=== PATIENT | female | born 1935 | race Caucasian/White ===

== ENCOUNTER → 2016-08-09 | Outpatient (CLI) | payer MEDICARE, BC ==
[2016-08-09 19:51] LABS: ANA w/Reflex to Titer NEGATIVE (NEGATIVE)
[2016-08-09 21:38] LABS: Hemoglobin A1C 5.7 % (4.2-6.1)
[2016-08-10 03:57] LABS: Lyme Antibodies Total(IgG/IgM) 0.09 (<0.90)
== END | disposition home or self-care (01) ==
LOC: LABWHC1 14:28
PROVIDERS: ATTEND Psychiatry & Neurology Neurology
DX: G62.9 Polyneuropathy, unspecified (principal)
CPT/HCPCS: 36415; 82306; 82607; 83036; 84207; 84439; 84443; 85652; 86038; 86618

== ENCOUNTER → 2016-10-17 | Outpatient (CLI) | payer MEDICARE, BC ==
[2016-10-17 13:22] LABS: Appearance,Urine Cloudy (Clear); Bilirubin,Urine Negative (Negative); Calcium Oxalate Crystals,Urine Many /hpf; Glucose,Urine (UA) Negative (Negative); Ketones,Urine Negative (Negative); Leukocyte Esterase,Urine Negative (Negative); Mucus,Urine Rare /hpf; Nitrite,Urine Negative (Negative); PH, Urine 5.5 (5.0-8.0); Particle Count 2892; Protein,Urine Trace (Negative); Specific Gravity,Urine 1.019 (1.001-1.035); Squamous Epithelial Cell,Urine <1 /hpf (0-4); UA Billing (MACRO vs. MICRO) MICRO
--- NOTE | 2016-10-17 22:56 | WWHP ---
DATE OF DICTATION: 10/17/2016 CHIEF COMPLAINT: The patient is here for her routine gynecologic exam. HISTORY OF PRESENT ILLNESS: This is an 81-year-old with an LMP of 1986. She states it has been more than about 2 years since her last pelvic exam. She states that she has been having problems with her bladder at night. She states when she lies down she has discomfort in her bladder like she has to urinate. She ends up urinating about 4 to 5 times per night. She denies dysuria and does urinate fairly often during the day, but the problem is mostly at night. This has been going on for about [address] Stacy about this. Apparently an ultrasound was done, but nothing was found, according to the patient. She also had a CT scan done which was also apparently unremarkable. She is otherwise without complaints. She denies any postmenopausal bleeding. PAST MEDICAL HISTORY: 1. Esophageal and stomach cancer in 2005. 2. History of depression and anxiety. 3. Arthritis. Dr. Nair is her psychiatrist and Dr. Joiner is her primary care physician. MEDICATIONS: 1. Donepezil 10 mg b.i.d. 2. Clonazepam 0.5 mg p.r.n. 3. Zoloft 100 mg daily. 4. Aleve p.r.n. 5. Centrum vitamin daily. 6. Vitamin D supplement daily. 7. Vitamin B supplement daily. ALLERGIES: CODEINE, which causes an unknown reaction. PAST SURGICAL HISTORY: 1. Partial gastrectomy with part of the esophagus being removed as well in 2005. 2. 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 3. Rectal surgery for prolapse in the past. 4. Hemorrhoidectomy and colonoscopy in 2014. She states she has had several colonoscopies in the past. PAST OB HISTORY: Three vaginal deliveries. 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 SOCIAL HISTORY: She quit smoking in 1999. She has about 0 to 2 alcoholic drinks per week and denies drug use. She has been since 1964. She likes to [employer]. FAMILY HISTORY: Sister had ovarian cancer and daughter had colon cancer. REVIEW OF SYSTEMS: Weight has been stable. She denies respiratory or cardiac problems. GI: She burps with certain types of foods and also occasionally has some problems with hemorrhoids. She denies maltreatment or falling. She also denies problems with urinary incontinence. PHYSICAL EXAM: Blood pressure 150/84. Height 5 feet 0 inches. Weight 91 pounds. Temperature 98.0. Pulse 71. This is a well-developed, well-nourished white female who is alert and oriented x3, in no acute distress. HEENT is within normal limits. NECK: Supple without mass or thyromegaly. CHEST AND LUNGS: Clear to auscultation. HEART: Regular rate and rhythm. Breasts are without mass or discharge. Axillary exam is negative for adenopathy. BACK: Negative for CVA tenderness. ABDOMEN: Soft, nontender, without palpable masses. The abdomen is non-distended. PELVIC EXAM: External genitalia reveal moderate atrophy without lesions. Cervix and vagina reveal mild to moderate atrophy without lesions. There is a grade 1 cystocele noted at rest and a grade 2 cystocele noted with Valsalva. There is no evidence of uterine prolapse. No significant rectocele is noted. The uterus is midposition, nongravid size and nontender. There are no palpable adnexal masses or tenderness. There is mild tenderness with palpation of the bladder; she states it feels like she has to urinate when I push on the bladder. Rectovaginal exam is negative for mass or tenderness and is negative for occult blood. EXTREMITIES: Nontender. IMPRESSION: 1. An 81-year-old menopausal female with a small cystocele and otherwise unremarkable gynecologic exam. 2. Nocturia with urinary urgency and bladder discomfort when she lies down at night. At this time, I doubt that the small cystocele is the cause for this. Differential diagnosis will include overactive bladder and urinary tract infection. PLAN: 1. Pap smear was performed. 2. Self breast examination was discussed. 3. Mammogram is due and I have also recommended bone density testing, since she has never had this done. A slip for both of these tests was given to the patient, and she will schedule this. 4. UA and C&S were obtained by clean-catch midstream specimen. If this unremarkable, we can consider treatment for overactive bladder to see if this helps with her nighttime symptoms. 5. We have discussed the cystocele, and I do not feel anything needs to be done about this at this time. 6. She will return in one year.
--- NOTE | 2016-10-24 20:39 | WWPLE ---
October 24, 2016 RE: Zulma Camilo Dear Dr. Joiner, I had the pleasure of seeing your patient Zulma Camilo in the office on 10/17/16. As you know she is an 81-year-old menopausal female who presented to me for her routine gynecologic exam. She was complaining of some bladder pains which she notices mostly at night when she lies down. She also has had nocturia and urinates about 4 to 5 times every night. She occasionally has these bladder pains during the day as well. Urinalysis did not show signs of infection and was negative for blood. It did show some calcium oxalate crystals. Her urine culture was negative. I did offer her a trial of a prescription for an overactive bladder to see if this would help with her symptoms. She states she would like to see a urologist regarding these bladder pains. She will be referred to one of the local urologists for this. Her Pap smear was negative. I have recommended mammogram and bone density screening, which she has never had done in the past. Order slips were given to the patient for these. Thank you for allowing me to participate in the care of your patient. Please do not hesitate to call if you have any questions. Sincerely, Leroy Piedra M.D. KENNY
== END ==
LOC: WWCWWP 10:24
PROVIDERS: ATTEND Obstetrics & Gynecology
DX: Z01.419 Encounter for gynecological examination (general) (routine) without abnormal findings (principal); R35.1 Nocturia; R39.15 Urgency of urination
CPT/HCPCS: 81001; 87086

== ENCOUNTER → 2016-11-10 | Outpatient (CLI) | payer MEDICARE, BC ==
--- NOTE | 2016-11-10 13:48 | BD ---
EXAMINATION TYPE: MG DEXA axial skeleton. DATE OF EXAM: 11/10/2016 1:25 PM COMPARISON: NONE CLINICAL HISTORY: Height: 59 Weight: 90.2 FRAX RISK QUESTIONS: Alcohol (3 or more units per day): no Family History (Parent hip fracture): no Glucocorticoids (More than 3mos): no (Ex: prednisone, prednisolone, methylprednisolone, dexamethasone, and hydrocortisone). History of Fracture in Adulthood: no Secondary Osteoporosis: 1. Type 1 Diabetes: no 2. Hyperthyroidism: no 3. Menopause before 45: no 4. Malnutrition: no 5. Chronic liver disease: no Rheumatoid Arthritis: no Current Tobacco Use: no RISK FACTORS HISTORY OF: Hip Fracture (Right/Left): no Spine Fracture: no History of Wrist Fracture: no Surgery to Spine/Hip(right/left)/Wrist (right/left): no Family History of Osteoporosis: no Active: yes Diet low in dairy products/other sources of calcium: yes Postmenopausal woman: age 46 Lost more than 2 inches in height since high school: yes Frequent falls: no Poor Health: no Adrenal Insufficiency: no MEDICATIONS: Additional History: history of cancer esophagus /colon EXAM MEASUREMENTS: Bone mineral densitometry was performed using the [place] System. Bone mineral density as measured about the Lumbar spine is: ----- L1-L4(G/cm2): 0.841 T Score Values are as follows: ----- L2: -3.2 ----- L3: -1.5 ----- L4: -3.1 ----- L1-L4: -2.8 Bone mineral density has: decreased-0.6 % since study of: 09.08.2008 Bone mineral density about the R hip (g/cm2):0 .529 Bone mineral density about the L hip (g/cm2): 0.565 T Score values are as follows: -----R Neck: -3.4 -----L Neck: -3.7 -----R Intertrochanter: -4.1 -----L Intertrochanter: -3.8 Bone mineral density has: decreased -10.4 % since study of: 09.08.2008 IMPRESSION: OSTEOPOROSIS MAJOR OSTEOPOROTIC FRACTURE RISK: 27.0% HIP FRACTURE RISK: 14.0% NOTE: T-SCORE=SD OF THE YOUNG ADULT MEAN.
== END | disposition home or self-care (01) ==
LOC: RADBDWWP 13:02
PROVIDERS: ATTEND Obstetrics & Gynecology
DX: M81.0 Age-related osteoporosis without current pathological fracture (principal)
CPT/HCPCS: 77080

== ENCOUNTER → 2016-11-30 | Outpatient (CLI) | payer MEDICARE, BC ==
[~2016-11-30] MED LIST: DENOSUMAB 60 MG/ML 1 ML SYRINGE SQ ONE
[2016-11-30 14:07] VITALS: BP 146/72; PULSE 80; RESP 16; TEMP 97.6
== END | disposition home or self-care (01) ==
LOC: PROCWHC3 13:29
PROVIDERS: ATTEND Internal Medicine
DX: M81.0 Age-related osteoporosis without current pathological fracture (principal)
CPT/HCPCS: 96372; J0897

== ENCOUNTER → 2017-03-15 | Outpatient (CLI) | payer MEDICARE, BC ==
--- NOTE | 2017-03-20 07:04 | ENG ---
VNG REPORT DATE OF SERVICE: 03/15/2017 VNG indications are dizziness of multiple types starting about 1 year ago, sudden onset and has been staying the same. Occurs every few hours and lasts a few seconds at a time. Occurs in all of the different positional changes listed. The patient denies any hearing loss, pressure in the ears or tinnitus. VNG FINDINGS: Saccades show intact peak velocities, accuracies and latencies. Gaze with fixation shows no nystagmus in any of the directions of gaze including centrally with vision denied. Tracking is borderline for breakups. Optokinetic nystagmus shows no significant asymmetry. Static position testing in 6 positions shows no nystagmus with eyes opened or with vision denied. [place]-Hallpike maneuvers are unable to be performed due to neck mobility and pain issues. Caloric testing shows a 14% unilateral left caloric weakness, which is within normal limits. Directional preponderance 24% left and fixation index is negative. IMPRESSIONS: Essentially unremarkable VNG study. Borderline breakups may suggest mild central nervous system abnormality. Clinical correlation advised. KENNY
== END | disposition home or self-care (01) ==
LOC: NEUROMAIN 06:27
PROVIDERS: ATTEND Psychiatry & Neurology Neurology
DX: R42 Dizziness and giddiness (principal)
CPT/HCPCS: 92537; 92540

== ENCOUNTER → 2017-06-12 | Outpatient (CLI) | payer MEDICARE, BC ==
[2017-06-12 14:05] VITALS: BP 162/70; PULSE 64; RESP 16; TEMP 97.8
== END | disposition home or self-care (01) ==
LOC: PROCWHC3 13:08
PROVIDERS: ATTEND Internal Medicine
DX: M81.0 Age-related osteoporosis without current pathological fracture (principal)
CPT/HCPCS: 96372; J0897

== ENCOUNTER → 2017-08-29 | Outpatient (CLI) | payer MEDICARE, BC ==
--- NOTE | 2017-08-29 22:05 | MR ---
EXAMINATION TYPE: MR lumbar spine wo con DATE OF EXAM: 08/29/2017 COMPARISON: NONE HISTORY: 81-year-old female with low back pain, rt hip pain TECHNIQUE: Multiplanar, multisequence images of the lumbar spine were acquired. Findings: Vertebral body heights are preserved and alignment is maintained. Multilevel mild facet arthropathy is present. Variable disc desiccation throughout. Mild bulging discs are also present throughout. Posterior annul ar fissure at L5-S1. There is more advanced moderate severe degenerative disc disease at L2-L3 with associated Modic type I edematous endplate change. No suspicious bone marrow replacement. Conus medullaris is normal. At T12-L1, there is a small central disc protrusion without significant canal or foraminal stenosis. At L1-L2, there is a tiny central disc protrusion without significant canal or foraminal stenosis. At L2-L3, there is a large diffuse disc bulge with superimposed broad-based posterior disc protrusion . She noted moderate to severe spinal canal stenosis. Along with facet arthropathy, there is mild lef t and moderate right neural foraminal stenosis. At L3-L4, diffuse disc bulge with ligamentum flavum thickening and facet arthropathy. Changes result in mild spinal canal stenosis and minimal inferior left neural foraminal narrowing. At L4-L5, mild facet degenerative change without canal or foraminal stenosis. At L5-S1, small central disc protrusion with annular fissure. Mild facet degenerative change. No diane l or foraminal stenosis. Partially visualized 1.9 cm cyst in the central liver. 2.5 cm cyst medial left kidney. No prevertebra l or paravertebral soft tissue abnormality. IMPRESSION: 1. Mild to moderate degenerative disc disease. Additional scattered facet arthropathy. 2. More moderate to advanced degenerative disc disease at L2-L3 with associated edematous Modic type I endplate changes. There is a broad-based disc herniation here which contributes to moderate to pauline re spinal canal stenosis and a moderate right neuroforaminal stenosis. 3. Overall mild spinal canal stenosis at L3-L4. 4. Posterior annular fissure at L5-S1.
== END | disposition home or self-care (01) ==
LOC: RADMRIMAIN 10:19
PROVIDERS: ATTEND Orthopaedic Surgery
DX: M48.061 Spinal stenosis, lumbar region without neurogenic claudication (principal); M99.73 Connective tissue and disc stenosis of intervertebral foramina of lumbar region; M51.26 Other intervertebral disc displacement, lumbar region; M51.36 Other intervertebral disc degeneration, lumbar region; M46.86 Other specified inflammatory spondylopathies, lumbar region
CPT/HCPCS: 72148

== ENCOUNTER → 2017-09-18 | Outpatient (CLI) | payer MEDICARE, BC ==
--- NOTE | 2017-09-18 08:53 | MR ---
EXAMINATION TYPE: MR hip RT wo con DATE OF EXAM: 09/18/2017 COMPARISON: Outside two-view right hip August 15, 2017 HISTORY: Right hip pain per order. Pain for couple years without good response from physical therapy per patient. Standard multiplanar, multisequence MRI departmental protocol Multiplanar, multisequence images of the pelvis focusing on right hip were acquired. FINDINGS: Bone marrow signal intensity in pelvis including area of concern in right hip is maintained without suspicious edema identified. No linear low T1 signal to suggest avascular necrosis is seen. Femoral head shapes are maintained bilaterally. There is symmetric fairly moderate axial joint space loss in both hips. No significant acetabular spurring or geode formation is identified. There are sma ll to moderate-sized hip joint effusions, right greater than left present. No significant fluid signal seen at level of greater or lesser trochanters bilaterally. No suspicious groin hernias are identified. No suspicious groin adenopathy is seen. Muscle bulk is symmetric and m aintained. Labrum is irregular and there is fluid undercutting labral chondral junction. There is prominence of fecal material in visualized cecum. Some diverticula are seen in the sigmoid c olon. IMPRESSION: Right hip labral tear identified. Fairly moderate symmetric joint space loss in both hips noted. Smal l to moderate right greater than left hip joint effusions.
== END | disposition home or self-care (01) ==
LOC: RADMRIMAIN 07:06
PROVIDERS: ATTEND Orthopaedic Surgery
DX: S73.101A Unspecified sprain of right hip, initial encounter (principal)

== ENCOUNTER → 2017-10-09 | Outpatient (CLI) | payer MEDICARE, BC ==
[2017-10-05 14:33] VITALS: BMI 19.3
[2017-10-09 12:27] VITALS: BP 111/66; PULSE 80; RESP 18
--- NOTE | 2017-10-09 13:17 | P.CONS ---
History of Present Illness - Reason for Consult Consult date: 10/09/17 - Chief Complaint Right hip and thigh pain - History of Present Illness This is an 82-year-old female with chronic history of right hip and thigh pain that has been getting worse lately. The pain gets worse when she sleeps on her right side however standing and walking do not cause significant pain. Lately she has been noticing loss of balance occasionally. The pain does not wake the patient up at night. She denies any weight loss recently. She tried and failed to respond to physical therapy. She feels numbness and tingling in the right thigh anteriorly and laterally. The pain now radiates down the right groin. She denies any bowel or bladder dysfunction. She also denies any weakness in the right lower extremity. She had esophagectomy due to esophageal cancer 12 years ago, which left her with severe acid reflux disease. The patient had an MRI on the lumbar spine which showed large diffuse disc bulge at L2-L3 level causing moderate to severe spinal canal stenosis, she also had an MRI on the right hip joint which showed labral tear and moderate loss of joint space. Review of Systems Constitutional: Reports chronic pain Eyes: denies blurred vision, denies pain Ears, nose, mouth and throat: Denies as per HPI, Denies ant. neck pain, Denies bleeding gums, Denies dental pain, Denies dysphagia, Denies epistaxis, Denies headache, Denies hoarseness, Denies mouth pain, Denies nasal congestion, Denies nasal discharge, Denies neck fullness/pressure, Denies neck lump, Denies nose pain, Denies odynophagia, Denies post-nasal drip, Denies sinus pain, Denies sinus pressure, Denies swelling in mouth, Denies swelling in throat, Denies sore throat, Denies vertigo, Denies voice changes Cardiovascular: Denies as per HPI, Denies chest pain, Denies claudication, Denies decreased exercise tolerance, Denies dyspnea on exertion, Denies edema, Denies high blood pressure, Denies irregular heart beat, Denies leg edema, Denies lightheadedness, Denies orthopnea, Denies palpitations, Denies paroxysmal nocturnal dyspnea, Denies phlebitis, Denies rapid heart beat, Denies shortness of breath, Denies syncope Respiratory: Denies as per HPI, Denies congestion, Denies cough, Denies cough with sputum, Denies dyspnea, Denies excessive sputum, Denies hemoptysis, Denies home oxygen, Denies pain, Denies pain on inspiration, Denies pleurisy, Denies respiratory infections, Denies sleep apnea, Denies snoring, Denies wheezing Gastrointestinal: Reports heartburn Musculoskeletal: Reports as per HPI Neurological: Reports as per HPI Past Medical History Past Medical History: Cancer, GERD/Reflux, Memory Impairment, Osteoarthritis (OA ) Additional Past Medical History / Comment(s): varicose veins, hx esophageal cancer, "face has been sore", rt hip pain. History of Any Multi-Drug Resistant Organisms: None Reported Additional Past Surgical History / Comment(s): ESOPHAGECTOMY. BILATERAL CATARACTS, hemorrhoidectomy Past Anesthesia/Blood Transfusion Reactions: No Reported Reaction Past Psychological History: Anxiety, Depression Additional Psychological History / Comment(s): loss of short term memory Smoking Status: Never smoker Past Alcohol Use History: Rare Past Drug Use History: None Reported - Past Family History Daughter(s) Family Medical History: Cancer Medications and Allergies Home Medications Medication Instructions Recorded Confirmed Type Cholecalciferol [Vitamin D3] 2,000 unit PO DAILY 05/21/15 10/05/17 History Vitamin B Complex 1 cap PO MOTH 05/21/15 10/05/17 History Donepezil [Aricept] 10 mg PO QAM 10/05/17 10/05/17 History Ibuprofen 400 mg PO DAILY PRN 10/05/17 10/05/17 History Naproxen Sodium [Aleve] 220 mg PO DAILY 10/05/17 10/05/17 History Sertraline HCl [Zoloft] 200 mg PO 1700,2100 10/05/17 10/05/17 History clonazePAM [KlonoPIN] 1 mg PO TID 10/05/17 10/05/17 History Allergies Allergy/AdvReac Type Severity Reaction Status Date / Time codeine Allergy Unknown Verified 10/05/17 14:17 Physical Exam Vitals: Vital Signs Pulse Resp BP Pulse Ox 10/09/17 12:18 80 18 111/66 97 - Constitutional General appearance: thin - EENT Eyes: PERRLA - Respiratory Respiratory: bilateral: CTA - Cardiovascular Rhythm: regular - Neurologic Neurologic: CNII-XII intact - Psychiatric Psychiatric: A&O x's 3, appropriate affect, intact judgment & insight Neuro exam of the lower extremities showed hyperactive deep tendon reflexes symmetrically and week right hip flexion to 3 out of 5. The rest of the muscle strength exam has symmetrical and normal. Straight leg raising test negative bilaterally. The patient has some tenderness in the right buttock area but no sacroiliac joint tenderness and no lumbar paravertebral tenderness. There is no greater trochanter tenderness on the right side. There is severe pain with internal and external rotation of the right hip joint. Assessment and Plan Plan: An 82-year-old lady with right hip and thigh pain, differential diagnoses include Lumbar stenosis at the L2-3 level causing right hip and thigh pain and tingling Right hip pathology however the patient was seen by orthopedic surgeon and he does not think her pain is coming from her right hip. She does however have severe pain with internal and external rotation of the right hip as mentioned above. Possible right piriformis muscle syndrome Plan I will schedule the patient to have lumbar epidural steroid injection under fluoroscopic guidance at the L2-3 level in the right paramedian approach. She might also be a candidate for right piriformis muscle injection in the future if the epidural does not help her pain. The patient is very thin and I think using a reduced dose of steroids would be more appropriate. The procedure mentioned above was explained to the patient and her questions were answered.
== END | disposition home or self-care (01) ==
LOC: PNWHC3 12:07
PROVIDERS: ATTEND Anesthesiology
DX: M25.551 Pain in right hip (principal); M79.651 Pain in right thigh; M19.90 Unspecified osteoarthritis, unspecified site; Z88.5 Allergy status to narcotic agent; Z79.899 Other long term (current) drug therapy; Z79.1 Long term (current) use of non-steroidal anti-inflammatories (NSAID)
CPT/HCPCS: 99211

== ENCOUNTER 2017-10-23 14:30 | Emergency (ER) | payer MEDICARE, BC ==
[2017-10-23 14:53] VITALS: BP 138/65; PULSE 78; RESP 20; TEMP 98.1
[2017-10-23 16:11] LABS: Albumin 3.9 g/dL (3.5-5.0); Calcium 9.4 mg/dL (8.4-10.2); Potassium 4.6 mmol/L (3.5-5.1); Total Bilirubin 0.4 mg/dL (0.2-1.3); Total Protein 7.5 g/dL (6.3-8.2)
[2017-10-23 16:20] LABS: Basophils # (A) 0.1 k/uL (0-0.2); Basophils % (A) 1 %; Eosinophils # (A) 0.2 k/uL (0-0.7); Eosinophils % (A) 2 %; HCT 36.3 % (34.0-46.0); HGB 11.2 gm/dL (11.4-16.0); Hypochromasia Marked; Lymphocytes # (A) 2.7 k/uL (1.0-4.8); Lymphocytes % (A) 30 %; MCH 25.8 pg (25.0-35.0); MCHC 30.8 g/dL (31.0-37.0); MCV 83.9 fL (80.0-100.0); Mean Platelet Volume 7.5; Monocytes # (A) 0.7 k/uL (0-1.0); Monocytes % (A) 8 %; Neutrophils # (A) 5.2 k/uL (1.3-7.7); Neutrophils % (A) 58 %; Platelet Count 415 k/uL (150-450); Poikilocytosis Slight; RBC 4.33 m/uL (3.80-5.40); RDW 15.6 % (11.5-15.5); WBC 9.1 k/uL (3.8-10.6)
[2017-10-23] MEDS ORDERED: LORazepam 1 MG TAB PO STA (16:52)
--- NOTE | 2017-10-23 17:05 | ED ---
General Adult HPI - General Chief complaint: Anxiety Stated complaint: anxiety Time Seen by Provider: 10/23/17 16:43 Source: patient, family, RN notes reviewed Mode of arrival: ambulatory Limitations: no limitations - History of Present Illness Initial comments: Chief complaint and history of present illness an 82-year-old female here with her . The patient reports she is very anxious. Sits still. Walking around the room. Denying any thoughts of hurting herself or depression. Patient is being seen by a psychiatrist. Patient states that she is on Klonopin , Zoloft and Aricept and vitamins. - Related Data Home Medications Medication Instructions Recorded Confirmed Cholecalciferol [Vitamin D3] 2,000 unit PO DAILY 05/21/15 10/23/17 Vitamin B Complex 1 cap PO MOTH 05/21/15 10/23/17 Donepezil [Aricept] 10 mg PO QAM 10/05/17 10/23/17 Ibuprofen 400 mg PO DAILY PRN 10/05/17 10/23/17 Naproxen Sodium [Aleve] 220 mg PO DAILY 10/05/17 10/23/17 Sertraline HCl [Zoloft] 200 mg PO 1700,2100 10/05/17 10/23/17 clonazePAM [KlonoPIN] 0.5 mg PO TID 10/23/17 10/23/17 Previous Rx's Medication Instructions Recorded LORazepam [Ativan] 0.5 mg PO BID PRN #6 tab 10/23/17 Allergies Allergy/AdvReac Type Severity Reaction Status Date / Time codeine Allergy Unknown Verified 10/23/17 17:10 Review of Systems ROS Statement: Those systems with pertinent positive or pertinent negative responses have been documented in the HPI. Review of systems patient's denying headache or visual acuity changes no chest pain or shortness of breath does appear anxious. No abdominal pain no nausea no vomiting. She states her stomach is empty. Patient is 5 foot tall weighs 92 pounds. reports that she been jumpy all week but worse today. Patient states that her only problem is anxiety and she can't settle down. All systems were reviewed. Past medical problems anxiety. Denies smoking. Occasional alcohol use. Past history includes GERD, history of shingles 16 years ago, fractured scapula May. History of cancer. Patient denies any triggers as to why she is so anxious. ROS Other: All systems not noted in ROS Statement are negative. Past Medical History Past Medical History: Cancer, GERD/Reflux Additional Past Medical History / Comment(s): hx of shingles 2002. Fx scap - May 2017 History of Any Multi-Drug Resistant Organisms: None Reported Additional Past Surgical History / Comment(s): ESOPHAGECTOMY. BILATERAL CATARACTS Past Anesthesia/Blood Transfusion Reactions: No Reported Reaction Past Psychological History: Anxiety, Depression Smoking Status: Never smoker Past Alcohol Use History: Occasional Past Drug Use History: None Reported General Exam - General Exam Comments Initial Comments: General: The patient is awake and alert, very anxious. Denying any problems other than anxiety attack. Denies pain. Vital signs temperature 98.1 pulse 78 respiratory rate 20 pulse ox 90% room air blood pressure 138/65 Eye: Pupils are equal, round and reactive to light, extra-ocular movements are intact ; there is normal conjunctiva bilaterally. No signs of icterus. Ears, nose, mouth and throat: There are moist mucous membranes and no oral lesions. Neck: The neck is supple, there is no tenderness . Cardiovascular: There is a regular rate and rhythm. No murmur, rub or gallop is appreciated. Respiratory: Lungs are clear to auscultation, respirations are non-labored, breath sounds are equal. No wheezes, stridor, rales, or rhonchi. Gastrointestinal: States she is burping quite a bit but denies abdominal pain denies nausea denies vomiting denies diarrhea Back: Chronic left hip area pain being investigated by her family physician and orthopod. Musculoskeletal: Left hip discomfort as noted above. But able to and around without difficulty. Neurological: CN II-XII intact, There are no obvious motor or sensory deficits. Coordination appears grossly intact. Speech is normal. No focal or lateralizing findings. Skin: Skin is warm and dry and no rashes or lesions are noted. Psychiatric: Very anxious, states she has anxiety but can't specifically say why. Denies being depressed or unhappy. No thoughts of suicide. Limitations: no limitations Course Vital Signs 10/23/17 14:50 Temperature 98.1 F Pulse Rate 78 Respiratory 20 Rate Blood Pressure 138/65 O2 Sat by Pulse 98 Oximetry Medical Decision Making - Medical Decision Making Medical decision making; this 89-year-old female here with her . The patient is extremely anxious. No specific reason. The patient was given Ativan 1 mg by mouth with good results. The plan the patient will be given prescription for 5 Ativan to take one every 12 hours until she sees her family physician or psychiatrist. Again the patient denies being unhappy, not suicidal. - Lab Data Result diagrams: 10/23/17 15:47 10/23/17 15:47 Lab Results 10/23/17 10/23/17 Range/Units 15:47 15:47 WBC 9.1 (3.8-10.6) k/uL RBC 4.33 (3.80-5.40) m/uL Hgb 11.2 L (11.4-16.0) gm/dL Hct 36.3 (34.0-46.0) % MCV 83.9 (80.0-100.0) fL MCH 25.8 (25.0-35.0) pg MCHC 30.8 L (31.0-37.0) g/dL RDW 15.6 H (11.5-15.5) % Plt Count 415 (150-450) k/uL Neutrophils % 58 % Lymphocytes % 30 % Monocytes % 8 % Eosinophils % 2 % Basophils % 1 % Neutrophils # 5.2 (1.3-7.7) k/uL Lymphocytes # 2.7 (1.0-4.8) k/uL Monocytes # 0.7 (0-1.0) k/uL Eosinophils # 0.2 (0-0.7) k/uL Basophils # 0.1 (0-0.2) k/uL Hypochromasia Marked Poikilocytosis Slight Sodium 142 (137-145) mmol/L Potassium 4.6 (3.5-5.1) mmol/L Chloride 104 (98-107) mmol/L Carbon Dioxide 24 (22-30) mmol/L Anion Gap 14 mmol/L BUN 27 H (7-17) mg/dL Creatinine 1.35 H (0.52-1.04) mg/dL Est GFR (CKD-EPI)AfAm 43 (>60 ml/min/1.73 sqM) Est GFR (CKD-EPI)NonAf 37 (>60 ml/min/1.73 sqM) Glucose 98 (74-99) mg/dL Calcium 9.4 (8.4-10.2) mg/dL Total Bilirubin 0.4 (0.2-1.3) mg/dL AST 27 (14-36) U/L ALT 15 (9-52) U/L Alkaline Phosphatase 66 (38-126) U/L Total Protein 7.5 (6.3-8.2) g/dL Albumin 3.9 (3.5-5.0) g/dL Disposition Clinical Impression: Anxiety Disposition: HOME SELF-CARE Condition: Fair Additional Instructions: Take 1 Ativan every 12 hours as needed for anxiety. Follow-up family physician and your psychiatrist. If difficulties arise return emergency room. Prescriptions: LORazepam [Ativan] 0.5 mg PO BID PRN #6 tab PRN Reason: Anxiety Referrals: Devon Joiner MD [Primary Care Provider] - 1-2 days Time of Disposition: 17:34
== END 2017-10-23 17:45 | disposition home or self-care (01) ==
LOC: EC 14:30
DX: F41.9 Anxiety disorder, unspecified (principal); F32.9 Major depressive disorder, single episode, unspecified; Z85.9 Personal history of malignant neoplasm, unspecified; Z79.899 Other long term (current) drug therapy; Z88.5 Allergy status to narcotic agent
CPT/HCPCS: 36415; 80053; 85025; 93005; 99283

== ENCOUNTER → 2017-11-06 | Day surgery (SDC) | payer MEDICARE, BC ==
[2017-10-31 13:31] VITALS: BMI 19.1
[~2017-11-06] MED LIST changes: -DENOSUMAB 60 MG/ML 1 ML SYRINGE SQ ONE; +LACTATED RINGERS 1,000 ML IV SCH; +LIDOCAINE 1% 20 ML VIAL (10MG/ML) FOR IV START INTRADERMA ONE
[2017-11-06 09:58] VITALS: RESP 16
--- NOTE | 2017-11-06 10:55 | P.PCN ---
Date of Procedure: 11/06/17 Surgeon: Donovan Negron Pathology: none sent Condition: stable Disposition: PACU Description of Procedure: PREOPERATIVE DIAGNOSIS: 1-Lumbar radiculitis. POSTOPERATIVE DIAGNOSIS: 1-Lumbar radiculitis. PROCEDURE 1. Lumbar epidural steroid injection under fluoroscopic guidance at the L3-L4 level. 2. Lumbar epidurogram. ANESTHESIA: Local with 1% lidocaine; IV sedation with Versed/fentanyl. EBL: Minimal PROCEDURE INDICATION: The patient with low back pain and radiculitis symptoms unresponsive to conservative treatment. Fluoroscopy was used to optimize visualization of the needle placement and to maximize safety. No use of blood thinners. PROCEDURE DESCRIPTION / TECHNIQUE: The patient was seen and identified in the preoperative area. Risks, benefits, complications, and alternatives were discussed with the patient, including but not limited to bleeding, infection, nerve damage, allergic reactions to medications, and incomplete pain relief. The patient agreed to proceed with the procedure and signed the consent after all questions were answered. IV was started, and vital signs were stable. Patient was taken to the OR and time out was completed to confirm patient position, procedure, laterality of pain, and allergies. The patient was placed in the prone position on procedure table and a pillow was placed under the abdomen to reduce lumbar lordosis. The lumbosacral area was prepped and draped in the usual sterile fashion. Critical pause was taken. Vital signs were closely monitored during the procedure. Conscious sedation was used during the procedure to decrease patients anxiety. Using anterior-posterior fluoroscopy, the L3-L4 interlaminar space was identified and the skin over this site was marked and then infiltrated with 1% lidocaine subcutaneously in a right paramedian fashion. Subsequently, a 20- gauge 3.5-inch Tuohy epidural needle was inserted and advanced toward the epidural space using the Loss of resistance technique and guided by AP and lateral fluoroscopy. The correct needle position in the epidural space was verified with the injection of 2 mL of the water soluble contrast dye Isovue 200 contrast and observing an excellent epidurogram with the epidural spread of the dye, after negative aspiration for blood and CSF and in the absence of paresthesias. Again after negative aspiration, a 6 ml mixture containing 40 mg of Depo Medrol and 2 ml of preservative free Normal Saline, and 2 ml of preservative free lidocaine 1% solution was injected and a washout of epidurogram was seen. Needle was withdrawn intact, skin was cleansed, and bandages were applied. COMPLICATIONS: None COMMENTS: DISPOSITION / PLANS: The patient was placed in a supine position and transferred to the recovery area in a stable condition for observation. There was no evidence of lower extremity motor or sensory deficit after the procedure. Patient was discharged from the recovery room after meeting discharge criteria. Home discharge instructions were given to the patient by the staff. The patient was reexamined prior to discharge and there were no issues. The patient will schedule a follow up in the clinic in 2-4 weeks to discuss efficacy versus performing piriformis injection next.
[2017-11-06 11:11] VITALS: BP 144/68; PULSE 68; TEMP 98.6
--- NOTE | 2017-11-06 16:35 | FL ---
EXAMINATION TYPE: FL guided pain mgmt statistic DATE OF EXAM: 11/06/2017 COMPARISON: NONE HISTORY: Pain Fluoroscopy support supplied to the referring clinician. See dictated report from anesthesia, 16 sec onds fluoroscopy time, 2 intraoperative images document the procedure
== END | disposition home or self-care (01) ==
LOC: ORPAIN 08:48
PROVIDERS: ATTEND Anesthesiology
DX: M54.16 Radiculopathy, lumbar region (principal); K21.9 Gastro-esophageal reflux disease without esophagitis; M19.90 Unspecified osteoarthritis, unspecified site; Z90.49 Acquired absence of other specified parts of digestive tract; F41.9 Anxiety disorder, unspecified; F32.9 Major depressive disorder, single episode, unspecified; R41.3 Other amnesia; Z79.899 Other long term (current) drug therapy; Z88.5 Allergy status to narcotic agent
CPT/HCPCS: 62323; J2250; J1030; J3010; Q9966; 99152

== ENCOUNTER → 2017-11-26 | Outpatient (CLI) | payer MEDICARE, BC ==
[2017-11-26 13:42] VITALS: BP 176/90; PULSE 71; RESP 16
--- NOTE | 2017-11-26 14:18 | P.PAINPG ---
Subjective Progress Note Date: 11/26/17 This is a follow-up visit for this 82 years old female with a chronic history of severe right buttock and right lower extremity pain, diagnosed with lumbar radiculitis, and patient had MRI of the lumbar spine which showed that she had lumbar degenerative disc disease and lumbar facet arthropathy, a few weeks ago patient had lumbar epidural steroid injections, and she had no benefit from it she continued to have severe right buttock pain, the intensity of the pain, interfering with her quality of life, she had no motor or sensory deficits, she had no fever or night sweats, no change in the bowel movements or urination Objective - Vital Signs Vital signs: Vital Signs Temp Pulse 71 11/26/17 13:33 Resp 16 11/26/17 13:33 BP 176/90 11/26/17 13:33 Pulse Ox Intake & Output 11/25/17 11/26/17 11/26/17 18:59 06:59 18:59 Weight 44.452 kg - Exam Physical Examinations : 1-Constitutiona : Cooperative , not in acute distress . 2-HEENT : nech ; supple , no Lymphadenopathy , normal thyroid size . eyes : no ptosis , no icterus, no photophobia . ENT : normal of hearing , normal oropharynx , no Thrush . 3- Respiratory : Chest clear to auscultations Bilaterally , no wheezing , no Rhonchi . 4- Cardiovascular : regular rate and rhythem , S1 , S2 , no S3 , no S4. 5- Gastrointestinal : abdomen soft no tenderness , bowel sounds positive all four quadrents , no organomegally . 6- Genitourinary : Defferred . 7- neurologic : Cranial nerve II to XII intact , no focal neurological deffecit . 8-psychatric : alert , oriented X 3 , appropriate affect , intact judgment and insight . 9-Lymphatic : no Lymphadenopathy . 10- musculoskeltal : , Lumber spine = normal moter stegnth lower extremities ,thigh and legs .4/5 deep tendon reflexes : normal Knee Jerk , normal ankle Jerk . lumber facet Loading Test negative strait leg raising test negative bilaterally Fabere test negative bilaterally Sever tenderness over the piriformis muscle area on the Right No tenderness over the sacroiliac joint Assessment and Plan Plan: Assessment and plan=1-lumbar radiculitis, status post lumbar epidural steroid injection without any benefit. 2-right piriformis muscle spasm/syndrome. 3-lumbar degenerative disc disease. 4-lumbar facet arthropathy. Patient could benefit from right side piriformis muscle injection, under fluoroscopy guidance Procedure risk and benefit and alternatives discussed with the patient she agreed with the preceding Time with Patient: Less than 30 PQRS Measure Charge Sheet Measure #130: Documentation of Current Meds in Medical Chart: Patient's medications documented in chart Measure #226: Tobacco Use: Screen & Cessation Intervention: Pt not a tobacco user Measure #111: Pneumonia Vaccination: Pneumococcal vaccine administered or previously received Measure #47: Advance Care Plan: Advance care planning discussed & documented, plan or surrogate given Measure #412: Opioid Treatment Agreement: No documentation of signed opioid treatment agreement Measure #408: Opioid Therapy Follow-up Evaluation: Patient had NO f/u eval minimum every 3 months during opioid therapy Measure #317: Preventitive Care & Scrn High Bld Press & F/U: Pre-hypertensive or hypertensive BP documented, pt will f/u with PCP Measure #128: Body Mass Index (BMI) Screening & Follow-up: BMI documented BELOW normal parameters - f/u documented Measure #131: Pain Assessment & Follow-up: Pain positive & plan documented, Follow-up scheduled Measure #431: Unhealthy Alcohol Use Preventative Care & Scrn: Patient not identified as an unhealthy alcohol user PQRS Narrative: Smoking Status Never smoker Do You Want the Pneumonia No Vaccine AT THIS TIME? Blood Pressure 176/90 Pain Intensity [Right Hip] 5 Scale Used Numeric (1 - 10) Home Medications: Ambulatory Orders Cholecalciferol [Vitamin D3] 2,000 unit PO DAILY 05/21/15 Vitamin B Complex 2 cap PO BID 05/21/15 Donepezil [Aricept] 10 mg PO QAM 10/05/17 Ibuprofen 400 mg PO DAILY PRN 10/05/17 Naproxen Sodium [Aleve] 220 mg PO DAILY PRN 10/05/17 Sertraline HCl [Zoloft] 200 mg PO DAILY 10/05/17 clonazePAM [KlonoPIN] 0.5 mg PO TID 10/23/17 LORazepam [Ativan] 0.5 mg PO TID 10/31/17 Controlled Substance Measures - Controlled Substance Measures Is patient prescribed a controlled substance at discharge?: No If prescribed controlled substance>3 days was MAPS reviewed?: No When asked, does pt state using other controlled substances?: No
== END | disposition home or self-care (01) ==
LOC: PNWHC3 12:26
PROVIDERS: ATTEND Specialist
DX: G89.29 Other chronic pain (principal); M79.661 Pain in right lower leg; M51.16 Intervertebral disc disorders with radiculopathy, lumbar region; M46.86 Other specified inflammatory spondylopathies, lumbar region; M62.838 Other muscle spasm; Z79.52 Long term (current) use of systemic steroids; Z79.1 Long term (current) use of non-steroidal anti-inflammatories (NSAID); Z79.899 Other long term (current) drug therapy
CPT/HCPCS: 99211

== ENCOUNTER 2017-11-29 08:57 | Day surgery (SDC) | payer MEDICARE, BC ==
[2017-11-27 11:39] VITALS: BMI 18.9
[~2017-11-29 08:57] MED LIST changes: -LIDOCAINE 1% 20 ML VIAL (10MG/ML) FOR IV START INTRADERMA ONE
[2017-11-29 10:12] VITALS: RESP 16; TEMP 98.1
[2017-11-29] MEDS ORDERED: LIDOCAINE 1% 20 ML VIAL (10MG/ML) FOR IV START SQ ONE (10:16)
[2017-11-29] MEDS ORDERED: IV FLUID CONTINUATION 1,000 ML IV ONE (11:38)
--- NOTE | 2017-11-29 11:47 | FL ---
Fluoroscopy HISTORY: Pain 2 seconds fluoroscopy time supplied to the referring clinician. 1 intraoperative C-arm image documen ts the procedure. See dictated report from anesthesia.
[2017-11-29 12:12] VITALS: BP 146/75; PULSE 86
--- NOTE | 2017-12-13 11:35 | P.PCN ---
Date of Procedure: 11/29/17 Surgeon: Mohinder Hassan Description of Procedure: Date: 11/29/2017 Surgeon: Mohinder Hassan M.D. Preoperative diagnosis: Right piriformis syndrome Postoperative diagnosis: Same Procedure: Right piriformis injection with fluoroscopic guidance Indication for procedure: This is a very pleasant 82-year-old woman with a history of intractable right low buttocks and hip pain. She recently underwent a lumbar epidural steroid injection. Unfortunately, spelled preoperative significant relief. On physical examination she is quite tender over her piriformis muscle. She does have severe lumbar spinal stenosis noted at L2-3 on her MRI of her lumbar spine as well as a right hip labral tear on MRI of her hip. No fractures have been reported. I discussed performing this procedure with the patient, her daughter and her . They agreed to proceed forward. Procedure in detail: After potential risks and benefits were reviewed, patient was transported to the operating room suite after signing a consent. She was positioned prone position. The area over her right buttocks was prepped and draped in usual sterile fashion. The fluoroscope was used identify the greater trochanter. Local was applied to skin and subcu tissue. A 25-gauge needle was advanced through the tissues until it entered into the body of the piriformis. Contrast confirmed this placement. After negative aspiration, 3 mL of 0.25% bupivacaine and 40 mg Depo-Medrol was injected. Needle was then withdrawn and a sterile bandage applied. Patient was returned to the supine position and transported to recovery room in stable condition. Consultations: None Disposition: Patient will follow up in 2-4 weeks in the pain clinic for reevaluation. If this procedure is not helpful for her, I would recommend an intra-articular right hip injection
== END 2017-11-29 12:15 | disposition home or self-care (01) ==
LOC: ORPAIN 08:57
PROVIDERS: ATTEND Pain Medicine Pain Medicine
DX: G89.29 Other chronic pain (principal); M62.838 Other muscle spasm; M47.26 Other spondylosis with radiculopathy, lumbar region; M51.16 Intervertebral disc disorders with radiculopathy, lumbar region; Z88.5 Allergy status to narcotic agent; Z79.899 Other long term (current) drug therapy
CPT/HCPCS: 20552; J1030

== ENCOUNTER → 2017-12-25 | Outpatient (CLI) | payer MEDICARE, BC ==
[2017-12-25 11:50] VITALS: BP 122/81; PULSE 69; RESP 18
--- NOTE | 2017-12-25 12:32 | P.PAINPG ---
Subjective Progress Note Date: 12/25/17 Principal diagnosis: Lumbar spinal stenosis, right intra-articular labral tear, right piriformis syndrome This is a very pleasant 82-year-old woman with a history of intractable right hip pain as well as right leg pain. She is undergone a lumbar epidural steroid injection at L2-3 to help with her severe lumbar spinal stenosis, she's also undergone a right piriformis injection. She continues to have intractable right hip pain. She presents today to discuss treatment options. She reports falling frequently and having problems with balance. Objective - Vital Signs Vital signs: Vital Signs Temp Pulse 69 12/25/17 11:42 Resp 18 12/25/17 11:42 BP 122/81 12/25/17 11:42 Pulse Ox Intake & Output 12/24/17 12/25/17 12/25/17 18:59 06:59 18:59 Weight 46.266 kg - Exam General: The patient is alert and oriented. Patient is not sedateded Patient is a question appropriately. Cardiac: Heart is regular in rate and rhythm Respiratory: Clear to auscultation. No audible wheezes. Abdomen: Soft nontender nondistended. Lower extremities: Strength is normal bilaterally. Sensation is normal bilaterally. Reflexes are preserved and symmetric bilaterally. Straight leg raise is negative bilaterally. She has significant bruising present on her posterior inferior buttocks area. She is tender to palpation over her trochanteric bursa. Hip flexion and extension as well as rotation is painful for her. Assessment and Plan (1) Lumbar spinal stenosis Current Visit: Yes Status: Acute Code(s): M48.061 - SPINAL STENOSIS, LUMBAR REGION WITHOUT NEUROGENIC CRISTI SNOMED Code(s): 77898547 (2) Labral tear of hip joint Current Visit: Yes Status: Acute Code(s): S73.199A - OTHER SPRAIN OF UNSPECIFIED HIP, INITIAL ENCOUNTER SNOMED Code(s): 385344177 (3) Piriformis syndrome of right side Current Visit: Yes Status: Acute Code(s): G57.01 - LESION OF SCIATIC NERVE, RIGHT LOWER LIMB SNOMED Code(s): 128009271 Plan: Plan of Care 1. Medications: Patient will take Motrin and Tylenol in an alternating fashion. She reports that both of these seem to be helpful for her pain. Given her use of an today as appears 3 times daily as well as her previous history of suicidal ideation I do not think that opiates are a good choice for her. 2. Interventions: We'll schedule the patient for a right intra-articular hip injection. Her MRI did demonstrate fluid within the hip joint. Hopefully, we can aspirate this during the injection process to alleviate her symptoms as well. 3. Referrals: None 4. Testing: None 5. Psychological: She will continue to work with her primary care physician regarding her significant anxiety. PQRS Measure Charge Sheet Measure #130: Documentation of Current Meds in Medical Chart: Patient's medications documented in chart Measure #226: Tobacco Use: Screen & Cessation Intervention: Pt not a tobacco user Measure #111: Pneumonia Vaccination: Pneumococcal vaccine NOT administered or previously given Measure #47: Advance Care Plan: Advance care planning discussed & documented, pt chose/unable to give Measure #412: Opioid Treatment Agreement: No documentation of signed opioid treatment agreement Measure #408: Opioid Therapy Follow-up Evaluation: Patient had NO f/u eval minimum every 3 months during opioid therapy Measure #317: Preventitive Care & Scrn High Bld Press & F/U: Normal blood pressure, f/u not required Measure #128: Body Mass Index (BMI) Screening & Follow-up: BMI documented within normal parameters Measure #131: Pain Assessment & Follow-up: Pain positive & plan documented Measure #431: Unhealthy Alcohol Use Preventative Care & Scrn: Patient not identified as an unhealthy alcohol user PQRS Narrative: Smoking Status Never smoker Do You Want the Pneumonia Yes Vaccine AT THIS TIME? Blood Pressure 122/81 Pain Intensity [Right Hip] 10 Home Medications: Ambulatory Orders Cholecalciferol [Vitamin D3] 2,000 unit PO DAILY 05/21/15 Vitamin B Complex 2 cap PO BID 05/21/15 Donepezil [Aricept] 10 mg PO QAM 10/05/17 Ibuprofen 400 mg PO DAILY PRN 10/05/17 Naproxen Sodium [Aleve] 220 mg PO DAILY PRN 10/05/17 Sertraline HCl [Zoloft] 200 mg PO DAILY 10/05/17 clonazePAM [KlonoPIN] 0.5 mg PO TID 10/23/17 LORazepam [Ativan] 0.5 mg PO TID 10/31/17 Controlled Substance Measures - Controlled Substance Measures Is patient prescribed a controlled substance at discharge?: No
== END | disposition home or self-care (01) ==
LOC: PNWHC3 11:33
PROVIDERS: ATTEND Pain Medicine Pain Medicine
DX: M48.061 Spinal stenosis, lumbar region without neurogenic claudication (principal); G57.01 Lesion of sciatic nerve, right lower limb; S73.199A Other sprain of unspecified hip, initial encounter; Z79.1 Long term (current) use of non-steroidal anti-inflammatories (NSAID); Z79.891 Long term (current) use of opiate analgesic; Z79.899 Other long term (current) drug therapy
CPT/HCPCS: 99211

== ENCOUNTER 2018-01-01 07:40 | Day surgery (SDC) | payer MEDICARE, BC ==
[2017-12-27 10:35] VITALS: BMI 19.3
[2018-01-01] MEDS ORDERED: LACTATED RINGERS 1,000 ML IV SCH (08:30)
[2018-01-01 09:27] VITALS: BP 159/91; PULSE 71; RESP 18; TEMP 97.8
[2018-01-01] MEDS ORDERED: LIDOCAINE 1% 20 ML VIAL (10MG/ML) FOR IV START INTRADERMA ONE (09:33)
--- NOTE | 2018-01-01 10:12 | P.PN ---
Progress Note - Text Progress Note Date: 01/01/18 Patient seen and evaluated in preop area, scheduled for intra-articular hip steroid injection today. Complaining of substantial swelling and weight gain after last two procedures and states that she does not want steroids. I advised patient that performing procedure with local anesthetic alone would likely give 2-3 days' pain relief at maximum. Will have patient follow up in clinic in 2-3 weeks to evaluate leg edema and decide next how to proceed if swelling in extremities is indeed from steroids.
== END 2018-01-01 10:08 | disposition home or self-care (01) ==
LOC: ORPAIN 07:40
PROVIDERS: ATTEND Anesthesiology
DX: Z53.8 Procedure and treatment not carried out for other reasons (principal); R60.0 Localized edema

== ENCOUNTER → 2018-01-29 | Outpatient (CLI) | payer MEDICARE, BC ==
--- NOTE | 2018-01-29 13:44 | P.PN ---
Progress Note - Text Progress Note Date: 01/29/18 Progress Note Date: 01/29/2018 This is a follow-up visit for this 82 years old female with a chronic history of severe right buttock and right lower extremity pain. Patient was supposed to have right hip and radicular injection in November 2017, however was postponed secondary to bilateral knee edema noted. Patient had a recent piriformis injection done in October 2017 as well and states that she is not receive any benefit in her right buttock pain from that injection. Patient is adamant about not receiving any steroids in any injection she gets in the future, I did discuss with her doing an intra-articular joint injection of her right hip in order to 1 provide some pain relief, and also for diagnosis. Patient agrees to this plan and will be scheduled for next available appointment. 14 point review of systems was done and negative except as mentioned in HPI Objective - Vital Signs Vital signs: Reviewed and stable - Exam Physical Examinations : 1-Constitutiona : Cooperative , not in acute distress . 2-HEENT : nech ; supple , no Lymphadenopathy , normal thyroid size . eyes : no ptosis , no icterus, no photophobia . ENT : normal of hearing , normal oropharynx , no Thrush . 3- Respiratory : Chest clear to auscultations Bilaterally , no wheezing , no Rhonchi . 4- Cardiovascular : regular rate and rhythem , S1 , S2 , no S3 , no S4. 5- Gastrointestinal : abdomen soft no tenderness , bowel sounds positive all four quadrents , no organomegally . 6- Genitourinary : Defferred . 7- neurologic : Cranial nerve II to XII intact , no focal neurological deffecit . 8-psychatric : alert , oriented X 3 , appropriate affect , intact judgment and insight . 9-Lymphatic : no Lymphadenopathy . 10- musculoskeltal : , Lumber spine = normal moter stegnth lower extremities ,thigh and legs .4/5 deep tendon reflexes : normal Knee Jerk , normal ankle Jerk . lumber facet Loading Test negative straight leg raising test negative bilaterally Jose test negative bilaterally Sever tenderness over the piriformis muscle area on the Right No tenderness over the sacroiliac joint Right hip: Pain with flexion and extension, and no edema or swollen joint appreciated Assessment and Plan Plan: Assessment and plan 1. lumbar spinal stenosis 2. Right hip osteoarthritis 3. Lumbar facet arthropathy 4. right piriformis muscle spasm/syndrome. 5. lumbar degenerative disc disease. Plan: We'll perform a right hip intra-articular injection, without steroid per patient request. Purposes to identify pain source and patient's right lower extremity. Patient agrees to this plan and will schedule for next available procedure time. Time with Patient: Less than 30 PQRS Measure Charge Sheet Measure #130: Documentation of Current Meds in Medical Chart: Patient's medications documented in chart Measure #226: Tobacco Use: Screen & Cessation Intervention: Pt not a tobacco user Measure #111: Pneumonia Vaccination: Pneumococcal vaccine administered or previously received Measure #47: Advance Care Plan: Advance care planning discussed & documented, plan or surrogate given Measure #412: Opioid Treatment Agreement: No documentation of signed opioid treatment agreement Measure #408: Opioid Therapy Follow-up Evaluation: Patient had NO f/u eval minimum every 3 months during opioid therapy Measure #317: Preventitive Care & Scrn High Bld Press & F/U: Pre-hypertensive or hypertensive BP documented, pt will f/u with PCP Measure #128: Body Mass Index (BMI) Screening & Follow-up: BMI documented BELOW normal parameters - f/u documented Measure #131: Pain Assessment & Follow-up: Pain positive & plan documented, Follow-up scheduled Measure #431: Unhealthy Alcohol Use Preventative Care & Scrn: Patient not identified as an unhealthy alcohol user PQRS Narrative:
== END | disposition home or self-care (01) ==
LOC: PNWHC3 12:15
PROVIDERS: ATTEND Anesthesiology
DX: G89.29 Other chronic pain (principal); M79.661 Pain in right lower leg; M48.061 Spinal stenosis, lumbar region without neurogenic claudication; M51.36 Other intervertebral disc degeneration, lumbar region; M46.86 Other specified inflammatory spondylopathies, lumbar region; M16.11 Unilateral primary osteoarthritis, right hip
CPT/HCPCS: 99211

== ENCOUNTER 2018-02-03 10:15 | Observation (INO) | payer MEDICARE, BC ==
[2018-02-03] MEDS ORDERED: ASPIRIN 81 MG PO STA (10:31)
[2018-02-03] MEDS ORDERED: LORazepam 2 MG/ML INJ IV STA ×2 (10:31→12:53)
[2018-02-03] MEDS ORDERED: NITROGLYCERIN OINT 1 INCH/GM PACKET TOPICAL STA (10:31)
[2018-02-03] MEDS ORDERED: SODIUM CHLORIDE 0.9% 500 ML IV STA (10:31)
--- NOTE | 2018-02-03 10:33 | ED ---
General Adult HPI - General Chief complaint: Chest Pain Stated complaint: CHEST PAIN Time Seen by Provider: 02/03/18 10:15 Source: patient, RN notes reviewed Mode of arrival: ambulatory Limitations: no limitations - History of Present Illness Initial comments: This is an 82-year-old female who presents emergency Department with a past medical history significant for esophageal cancer 10 years ago. Patient states she still has gastric reflux. Patient states for about a week she's been having some central substernal chest pain that now radiates under her right breast and makes her feel so she short of breath. Patient also states she has a history of anxiety and she has not taken any of anxiety medicine today. Patient denies any fever or chills. Patient denies any cough. Patient states the pain is been constant and slowly getting worse. Patient denies any abdominal pain patient denies any diaphoretic episodes. Patient denies any nausea or vomiting. Patient denies any dysuria hematuria urinary frequency. Patient denies any injury or trauma. Patient denies any rash redness or erythema. Patient denies any leg swelling or calf tenderness. - Related Data Home Medications Medication Instructions Recorded Confirmed Cholecalciferol [Vitamin D3] 2,000 unit PO DAILY 05/21/15 02/03/18 Vitamin B Complex 2 cap PO BID 05/21/15 02/03/18 Donepezil [Aricept] 10 mg PO QAM 10/05/17 02/03/18 Ibuprofen 400 mg PO DAILY PRN 10/05/17 02/03/18 Naproxen Sodium [Aleve] 220 mg PO DAILY PRN 10/05/17 02/03/18 Sertraline HCl [Zoloft] 200 mg PO DAILY 10/05/17 02/03/18 LORazepam [Ativan] 0.5 mg PO TID 10/31/17 02/03/18 Allergies Allergy/AdvReac Type Severity Reaction Status Date / Time codeine Allergy Unknown Verified 02/03/18 12:49 Review of Systems ROS Statement: Those systems with pertinent positive or pertinent negative responses have been documented in the HPI. ROS Other: All systems not noted in ROS Statement are negative. Past Medical History Past Medical History: Cancer, GERD/Reflux, Musculoskeletal Disorder Additional Past Medical History / Comment(s): hx of shingles 2001, hx. esophageal cancer, recent fall w/lots of bruises,. Fx scapula - May 2017 History of Any Multi-Drug Resistant Organisms: None Reported Additional Past Surgical History / Comment(s): ESOPHAGECTOMY. BILATERAL CATARACTS Past Anesthesia/Blood Transfusion Reactions: No Reported Reaction Past Psychological History: Anxiety, Depression Smoking Status: Never smoker Past Alcohol Use History: None Reported Past Drug Use History: None Reported - Past Family History Daughter(s) Family Medical History: Cancer Mother Family Medical History: No Reported History General Exam - General Exam Comments Initial Comments: GENERAL: Patient is well-developed and well-nourished. Patient is nontoxic and well- hydrated and is in mild distress. ENT: Neck is soft and supple. No significant lymphadenopathy is noted. Oropharynx is clear. Moist mucous membranes. Neck has full range of motion without eliciting any pain. EYES: The sclera were anicteric and conjunctiva were pink and moist. Extraocular movements were intact and pupils were equal round and reactive to light. Eyelids were unremarkable. PULMONARY: Unlabored respirations. Good breath sounds bilaterally. No audible rales rhonchi or wheezing was noted. CARDIOVASCULAR: There is a regular rate and rhythm without any murmurs gallops or rubs. ABDOMEN: Soft and nontender with normal bowel sounds. No palpable organomegaly was noted. There is no palpable pulsatile mass. SKIN: Skin is clear with no lesions or rashes and otherwise unremarkable. NEUROLOGIC: Patient is alert and oriented x3. Cranial nerves II through XII are grossly intact. Motor and sensory are also intact. Normal speech, volume and content. Symmetrical smile. MUSCULOSKELETAL: Normal extremities with adequate strength and full range of motion. No lower extremity swelling or edema. No calf tenderness. LYMPHATICS: No significant lymphadenopathy is noted PSYCHIATRIC: Patient appears very anxious Limitations: no limitations Course Vital Signs 02/03/18 02/03/18 10:18 11:07 Temperature 97.9 F Pulse Rate 77 66 Respiratory 20 16 Rate Blood Pressure 156/77 174/93 O2 Sat by Pulse 99 100 Oximetry Medical Decision Making - Medical Decision Making EKG shows normal sinus rhythm at 60 bpm DC interval is 120 QRS is 84 QT interval 458 QTC is 487. Patient's EKG shows no ST segment elevation or depression or T wave abnormalities are noted. I compared this to an old EKG and there are no acute changes noted Patient's chest x-ray showed no acute abnormality. Patient's CT of the chest showed no pulmonary medicine. Patient continued to have some chest pain that radiates to the right. Patient did feel better however then she did when she came in. I spoke with Dr. High agreed to admit the patient admitted the patient I wrote admitting orders. I consult to cardiology. - Lab Data Result diagrams: 02/03/18 10:46 02/03/18 10:46 Lab Results 02/03/18 02/03/18 02/03/18 Range/Units 10:46 10:46 10:46 WBC 7.8 (3.8-10.6) k/uL RBC 3.99 (3.80-5.40) m/uL Hgb 9.7 L (11.4-16.0) gm/dL Hct 32.8 L (34.0-46.0) % MCV 82.2 (80.0-100.0) fL MCH 24.2 L (25.0-35.0) pg MCHC 29.5 L (31.0-37.0) g/dL RDW 18.4 H (11.5-15.5) % Plt Count 374 (150-450) k/uL Neutrophils % 68 % Lymphocytes % 20 % Monocytes % 7 % Eosinophils % 2 % Basophils % 1 % Neutrophils # 5.3 (1.3-7.7) k/uL Lymphocytes # 1.5 (1.0-4.8) k/uL Monocytes # 0.5 (0-1.0) k/uL Eosinophils # 0.2 (0-0.7) k/uL Basophils # 0.1 (0-0.2) k/uL Hypochromasia Marked Anisocytosis Slight Microcytosis Slight PT (9.0-12.0) sec INR (<1.2) APTT (22.0-30.0) sec D-Dimer (<0.60) mg/L FEU Sodium 140 (137-145) mmol/L Potassium 4.9 (3.5-5.1) mmol/L Chloride 104 (98-107) mmol/L Carbon Dioxide 23 (22-30) mmol/L Anion Gap 13 mmol/L BUN 24 H (7-17) mg/dL Creatinine 1.10 H (0.52-1.04) mg/dL Est GFR (CKD-EPI)AfAm 54 (>60 ml/min/1.73 sqM) Est GFR (CKD-EPI)NonAf 47 (>60 ml/min/1.73 sqM) Glucose 120 H (74-99) mg/dL Calcium 9.5 (8.4-10.2) mg/dL Magnesium 2.2 (1.6-2.3) mg/dL Total Bilirubin 0.5 (0.2-1.3) mg/dL AST 29 (14-36) U/L ALT 31 (9-52) U/L Alkaline Phosphatase 68 (38-126) U/L Total Creatine Kinase 103 (30-135) U/L CK-MB (CK-2) 1.1 (0.0-2.4) ng/mL CK-MB (CK-2) Rel Index 1.1 Troponin I <0.012 (0.000-0.034) ng/mL Total Protein 7.4 (6.3-8.2) g/dL Albumin 4.1 (3.5-5.0) g/dL 02/03/18 Range/Units 10:46 WBC (3.8-10.6) k/uL RBC (3.80-5.40) m/uL Hgb (11.4-16.0) gm/dL Hct (34.0-46.0) % MCV (80.0-100.0) fL MCH (25.0-35.0) pg MCHC (31.0-37.0) g/dL RDW (11.5-15.5) % Plt Count (150-450) k/uL Neutrophils % % Lymphocytes % % Monocytes % % Eosinophils % % Basophils % % Neutrophils # (1.3-7.7) k/uL Lymphocytes # (1.0-4.8) k/uL Monocytes # (0-1.0) k/uL Eosinophils # (0-0.7) k/uL Basophils # (0-0.2) k/uL Hypochromasia Anisocytosis Microcytosis PT 9.5 (9.0-12.0) sec INR 1.0 (<1.2) APTT 20.7 L (22.0-30.0) sec D-Dimer 1.55 H (<0.60) mg/L FEU Sodium (137-145) mmol/L Potassium (3.5-5.1) mmol/L Chloride (98-107) mmol/L Carbon Dioxide (22-30) mmol/L Anion Gap mmol/L BUN (7-17) mg/dL Creatinine (0.52-1.04) mg/dL Est GFR (CKD-EPI)AfAm (>60 ml/min/1.73 sqM) Est GFR (CKD-EPI)NonAf (>60 ml/min/1.73 sqM) Glucose (74-99) mg/dL Calcium (8.4-10.2) mg/dL Magnesium (1.6-2.3) mg/dL Total Bilirubin (0.2-1.3) mg/dL AST (14-36) U/L ALT (9-52) U/L Alkaline Phosphatase (38-126) U/L Total Creatine Kinase (30-135) U/L CK-MB (CK-2) (0.0-2.4) ng/mL CK-MB (CK-2) Rel Index Troponin I (0.000-0.034) ng/mL Total Protein (6.3-8.2) g/dL Albumin (3.5-5.0) g/dL Disposition Clinical Impression: Chest pain, Anxiety Disposition: ADMITTED IP TO THIS HOSP Referrals: Devon Joiner MD [Primary Care Provider] - 1-2 days Time of Disposition: 12:51
[2018-02-03 11:03] LABS: Anisocytosis Slight; Basophils # (A) 0.1 k/uL (0-0.2); Basophils % (A) 1 %; Eosinophils # (A) 0.2 k/uL (0-0.7); Eosinophils % (A) 2 %; HCT 32.8 % (34.0-46.0); HGB 9.7 gm/dL (11.4-16.0); Hypochromasia Marked; Lymphocytes # (A) 1.5 k/uL (1.0-4.8); Lymphocytes % (A) 20 %; MCH 24.2 pg (25.0-35.0); MCHC 29.5 g/dL (31.0-37.0); MCV 82.2 fL (80.0-100.0); Mean Platelet Volume 7.4; Microcytosis Slight; Monocytes # (A) 0.5 k/uL (0-1.0); Monocytes % (A) 7 %; Neutrophils # (A) 5.3 k/uL (1.3-7.7); Neutrophils % (A) 68 %; Platelet Count 374 k/uL (150-450); RBC 3.99 m/uL (3.80-5.40); RDW 18.4 % (11.5-15.5); WBC 7.8 k/uL (3.8-10.6)
--- NOTE | 2018-02-03 11:06 | XR ---
EXAMINATION TYPE: XR chest 2V DATE OF EXAM: 02/03/2018 HISTORY: Chest Pain. REFERENCE: Previous study dated 05/03/2010. FINDINGS: The lungs are clear. Pleural space are clear. The heart is not enlarged. IMPRESSION: NO ACUTE CARDIOTHORACIC ABNORMALITY.
[2018-02-03 11:07] LABS: Albumin 4.1 g/dL (3.5-5.0); Calcium 9.5 mg/dL (8.4-10.2); Magnesium 2.2 mg/dL (1.6-2.3); Potassium 4.9 mmol/L (3.5-5.1); Total Bilirubin 0.5 mg/dL (0.2-1.3); Total Protein 7.4 g/dL (6.3-8.2)
[2018-02-03 11:08] LABS: Prothrombin Time 9.5 sec (9.0-12.0)
[2018-02-03 11:15] LABS: Creatine Kinase 103 U/L (30-135); Partial Thromboplastin Time 20.7 sec (22.0-30.0)
[2018-02-03 11:21] LABS: D-Dimer 1.55 mg/L FEU (<0.60)
[2018-02-03 11:29] LABS: Creatine Kinase MB 1.1 ng/mL (0.0-2.4); Troponin I <0.012 ng/mL (0.000-0.034)
--- NOTE | 2018-02-03 12:39 | CT ---
EXAMINATION TYPE: CT chest angio for PE DATE OF EXAM: 02/03/2018 COMPARISON: None. HISTORY: Chest pain CT DLP: 101.8 mGycm Automated exposure control for dose reduction was used. CONTRAST: CT Chest for pulmonary embolism performed with with IV Contrast, patient injected with 62 mL of Isovu e 370. FINDINGS: There is apical scarring present bilaterally. Lungs otherwise clear. There is no significant axillary, internal mammary, mediastinal or hilar adenopathy. There is no evidence of pulmonary embolus. The aorta is normal in size. There is no pleural or pericardial fluid. The heart is not enlarged. There is moderate atheromatous calcification of the thoracic aorta. There is a small hiatal hernia. There is stable cystic disease within the liver unchanged from previous CT scan of the abdomen dated 08/10/2014. The largest lesion measures 3.2 cm. Visualized upper abdominal structures are otherwise un remarkable. There is facet arthropathy as well as mild hypertrophic spondylosis within the spine. IMPRESSION: 1. THIS EXAMINATION IS NEGATIVE FOR PULMONARY EMBOLUS. 2. STABLE CYSTIC DISEASE WITHIN THE LIVER.
[2018-02-03] MEDS ORDERED: NITROGLYCERIN SL TABS 0.4 MG TAB SUBLINGUAL PRN (12:52)
[2018-02-03] MEDS ORDERED: LORazepam 2 MG/ML INJ IV PRN (12:53)
[2018-02-03] MEDS ORDERED: LORazepam 0.5 MG TAB PO PRN (14:12)
[2018-02-03 14:59] VITALS: BMI 19.5
--- NOTE | 2018-02-03 15:58 | XR ---
EXAMINATION TYPE: XR Hip Complete RT DATE OF EXAM: 02/03/2018 COMPARISON: NONE HISTORY: 82 year-old female right hip pain, rule out metastases. TECHNIQUE: 2 views FINDINGS: Mild degenerative change at the right hip. There is contrast material collected within the bladder. T here is osteopenia without displaced fracture. No periostitis or osteolysis. IMPRESSION: Osteopenia without displaced fracture. No suspicious osseous destructive lesions.
[2018-02-03] MEDS: LISINOPRIL 2.5 MG TAB PO SCH (16:01)
[2018-02-03] MEDS: SERTRALINE 100 MG TAB PO SCH (16:01)
[2018-02-03] MEDS: DONEPEZIL 10 MG TAB PO SCH (16:02)
--- NOTE | 2018-02-03 16:35 | XR ---
EXAMINATION TYPE: XR ribs bilateral DATE OF EXAM: 02/03/2018 COMPARISON: Chest 02/03/2018 HISTORY: 82-year-old female lower esophageal cancer metastases, rule out fracture, bilateral rib pain TECHNIQUE: 8 views FINDINGS: There is a subtle cortical step-off involving the right anterior seventh rib seen on 2 images. No displaced rib fractures seen on the left. Surgical material at the GE junction and left upper quadrant. IMPRESSION: 1. Very minimally offset fracture of the right anterior seventh rib. 2. The patient's CT performed today is reviewed. In retrospect, subacute, healing fractures are seen involving the anterior right sixth and seventh ribs. 3. Along the anterior left third and fifth ribs, there is minimal cortical irregularity that could re present subtle nondisplaced fractures. Correlate for any point tenderness here.
[2018-02-03 17:42] LABS: Creatine Kinase 99 U/L (30-135)
[2018-02-03] MEDS: NITROGLYCERIN OINT 1 INCH/GM PACKET TOPICAL SCH (17:49)
[2018-02-03 17:51] LABS: Troponin I <0.012 ng/mL (0.000-0.034)
[2018-02-03] MEDS ORDERED: ZOLPIDEM 5 MG TAB PO PRN (18:17)
[2018-02-03] MEDS ORDERED: traMADol 50 MG TAB PO PRN (18:20)
--- NOTE | 2018-02-03 18:26 | HP ---
HISTORY AND PHYSICAL DATE OF SERVICE: 02/03/2018 NEW DATA: Her height is 5 feet, weight 44.452 kg, BSA 1.38 m2, BMI 19.1 kg/m2. ALLERGY: CODEINE. CHIEF COMPLAINT: The patient presented to the emergency room to Dr. Espana, the ER physician, with history of chest pain, which has been intermittent and associated with belching and it hurt for about 1 week. She had substernal chest discomfort. No radiation. However, she had some pain in the ribs. Prevented her from breathing well. It is under her right and left breast bilateral. The pain does not radiate to the neck or to the shoulder and the pain is intermittent, associated with food intake. However, she stated to the ER that the pain is constant and getting worse, but she has no abdominal pain. No nausea, no vomiting. She has denied any hematochezia, hematemesis, or melena. No cough or expectoration. No trauma recent on the chest. No rash has been noticed. PAST MEDICAL HISTORY: She had esophageal and stomach cancer in 2005, was diagnosed by Dr. Sykes and referred to the surgery at [facility]. The patient has been with depression and anxiety. No clear evidence of suicidal attack and she is enjoying her sandwich and no feeling of isolated and her at bedside. She has Dr. Nair as her psychiatrist. She has been on medication. MEDICATIONS: Currently, her medicine: Aricept 10 mg b.i.d., clonazepam 0.5 mg p.r.n. and vitamin B complex. She was taking naproxen, Aleve and also sertraline, Zoloft 200 mg once daily and lorazepam "Ativan" 0.5 mg t.i.d. ALLERGY: CODEINE. SURGICAL HISTORY: She had a partial gastrectomy and esophagus also was being removed. 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 She had rectal surgery for prolapse. She had also hemorrhoidectomy and colonoscopy in 2014. Prior to that she had several colonoscopies. She is a 3, para 3, vaginal delivery. She is ex smoker, quit smoking at 1999 and she enjoyed alcoholic drinks 0 to 2 p.r.n. and she is in 1965. FAMILY HISTORY: She had a sister with ovarian cancer and a daughter had colon cancer. REVIEWING OF THE SYSTEM: Neuropsychiatry: She has been stable all along so far. She denied any respiratory problem on the respiratory issue. On the cardiovascular, she had pain substernal, but this is the location she came to is the lower esophageal. When she burped it hurt. She denied any problem with incontinent. On the rest of the bullets, 14 bullets, is not associated with her symptoms and she had no history currently of edema, but she stated that she had also bilateral cataract. On the physical exam, the patient is well developed, well nourished. She is conscious, alert, oriented. She is well hydrated. She received the EKG in the ER, which indicating normal sinus rhythm and left atrial enlargement, nonspecific T-wave abnormality, prolonged QT with abnormal EKG. No ST-segment elevation or depression. No signs of acute LA. She received a CT angiogram of the chest. Found that she had a small hiatal hernia and otherwise the lung was clear. She had apical scarring bilateral and she had apparently cyst on the liver unchanged from previous CT in August 10, 2014 and the size of the lesion was 3.2 cm. In the ER as well she was she did have a chest x-ray lung was clear and the heart was not enlarged. Because of the patient complained that the ribs and on palpation was discomfort and questionable fracture as well as possible metastasis, remote, as well as a right hip x-ray was ordered. Her laboratory in the ER showed that white count 7.8 and hemoglobin is 9.7 and hematocrit 32.8 with a MCV 82 with the underlying marked hypochromasia and anisocytosis and macrocytosis with the underlying possibility of anemia of blood loss and we will check her stool for Hemoccult. Her coagulation profile PT 9.5, INR 1, PTT 20.7. Her D- dimer was mildly elevated 1.55. CT angiogram was essentially negative. Her sodium this is the chemistry, the sodium 140, potassium 4.9, chloride 104, carbon dioxide 23, anion gap 13, BUN of 24, and creatinine 1.1 with the underlying estimated glomerular filtration rate for non- 47. Her blood sugar 120 and that could be put her in the prerenal with decreased water intake and possibly chronic kidney disease stage 3. Liver enzymes were normal. Magnesium was normal and alkaline phosphatase was normal. Her troponin was less than 0.012, and protein 7.4 and albumin 4.1, and through the emergency room Cardiology consult was requested as well as serial troponin. PHYSICAL EXAM: The patient was conscious, alert, oriented x3, very pleasant. Her HEENT was head was normocephalic, atraumatic. Pupils equal, reactive. Oropharynx natural teeth. Uvula midline. No facial asymmetry. Neck was supple. She had a transmitted bruits was suspicious of aortic stenosis, grade 2/6. Heart was regular sinus rhythm. PMI in the 5th intercostal space and normal regular sinus rhythm. Her temperature 97.9, and pulse 72 and respiratory rate 16, blood pressure 164/87 with a mean blood pressure 112 mildly elevated. The blood pressure could be associated with the anxiety. The neck was bruits present bilateral. Trachea midline. The chest was clear to auscultation and percussion. She has a mild kyphosis and scoliosis. There is tenderness on the mid ribs bilaterally as she indicating with palpation, also she has substernal discomfort with deep palpation, which is in the area of the lower esophageal. The abdomen was soft, positive bowel sounds. EXTREMITIES: No edema and positive pulses bilateral. Neurological examination was essentially cranial nerve was stable. No lateralizing sign. Ambulatory. No tremor. No other indication of neurological abnormality. Psychiatric evaluation: Patient has underlying psychiatric problem with depression and anxiety, has been treated with Dr. Nair. However, I do not see really that she has any acute problem of depression or suicidal ideation. ASSESSMENT: 1. Underlying chest pain, atypical with the first troponin was normal. 2. She had rib pain bilateral on the mid ribs with no history of fracture or trauma and suspicious of her malignancy has been reactivated and has been metastasized has been questionable. For that purpose we will do rib x-rays bilaterally. 3. She has a right hip pain and we also will do the x-ray of the right hip to rule out metastasis as well and with the underlying lower esophageal cancer in the past. The patient in the future could be as outpatient, may need Dr. Sykes to review with the EGD, upper endoscopy to evaluate of any recurrence. Currently, the patient is monitored and will get the x-rays with the underlying the rib pain and right hip pain as well and will obtain. 4. Anemia. The etiology is unclear, and we will obtain stool for Hemoccult. MMODL / IJN: [id number] /
[2018-02-03] MEDS ORDERED: amLODIPine 5 MG TAB PO SCH (21:00)
[2018-02-03 23:30] LABS: Creatine Kinase 88 U/L (30-135)
[2018-02-03 23:44] LABS: Creatine Kinase MB 0.9 ng/mL (0.0-2.4); Troponin I <0.012 ng/mL (0.000-0.034)
[2018-02-04] MEDS: NITROGLYCERIN OINT 1 INCH/GM PACKET TOPICAL SCH ×2 (00:04→04:43)
[2018-02-04 07:05] LABS: Anisocytosis Slight; Basophils # (A) 0.1 k/uL (0-0.2); Basophils % (A) 2 %; Eosinophils # (A) 0.4 k/uL (0-0.7); Eosinophils % (A) 6 %; HCT 32.5 % (34.0-46.0); HGB 9.4 gm/dL (11.4-16.0); Hypochromasia Marked; Lymphocytes # (A) 1.9 k/uL (1.0-4.8); Lymphocytes % (A) 31 %; MCH 24.2 pg (25.0-35.0); MCHC 28.9 g/dL (31.0-37.0); MCV 83.7 fL (80.0-100.0); Mean Platelet Volume 7.1; Monocytes # (A) 0.6 k/uL (0-1.0); Monocytes % (A) 9 %; Neutrophils % (A) 49 %; Platelet Count 419 k/uL (150-450); RBC 3.89 m/uL (3.80-5.40); RDW 18.2 % (11.5-15.5); WBC 6.2 k/uL (3.8-10.6)
[2018-02-04 07:30] LABS: Potassium 4.7 mmol/L (3.5-5.1)
[2018-02-04 08:30] VITALS: BP 118/78; PULSE 69; RESP 18; TEMP 97.6
[2018-02-04] MEDS: LISINOPRIL 2.5 MG TAB PO SCH (08:37)
[2018-02-04] MEDS: DONEPEZIL 10 MG TAB PO SCH (08:37)
[2018-02-04] MEDS: SERTRALINE 100 MG TAB PO SCH (08:37)
--- NOTE | 2018-02-04 08:53 | P.CRDCN ---
History of Present Illness History of present illness: Prior to going in to assess the patient was notified by Dr. Joiner that the consult was going to be cancelled and the patient was being discharged home. Past Medical History Past Medical History: Cancer, GERD/Reflux, Musculoskeletal Disorder Additional Past Medical History / Comment(s): hx of shingles 2001, hx. esophageal cancer, recent fall w/lots of bruises,. Fx - May 2017 History of Any Multi-Drug Resistant Organisms: None Reported Additional Past Surgical History / Comment(s): ESOPHAGECTOMY. BILATERAL CATARACTS Past Anesthesia/Blood Transfusion Reactions: No Reported Reaction Past Psychological History: Anxiety, Depression Smoking Status: Never smoker Past Alcohol Use History: None Reported Past Drug Use History: None Reported - Past Family History Daughter(s) Family Medical History: Cancer Additional Family Medical History / Comment(s): colon CA Mother Family Medical History: No Reported History Medications and Allergies Home Medications Medication Instructions Recorded Confirmed Type Cholecalciferol [Vitamin D3] 2,000 unit PO DAILY 05/21/15 02/03/18 History Vitamin B Complex 2 cap PO BID 05/21/15 02/03/18 History Donepezil [Aricept] 10 mg PO QAM 10/05/17 02/03/18 History Ibuprofen 400 mg PO DAILY PRN 10/05/17 02/03/18 History Naproxen Sodium [Aleve] 220 mg PO DAILY PRN 10/05/17 02/03/18 History Sertraline HCl [Zoloft] 200 mg PO DAILY 10/05/17 02/03/18 History LORazepam [Ativan] 0.5 mg PO TID 10/31/17 02/03/18 History Allergies Allergy/AdvReac Type Severity Reaction Status Date / Time codeine Allergy Unknown Verified 02/03/18 12:49 Physical Exam Vitals: Vital Signs Temp Pulse Pulse Resp BP BP Pulse Ox 02/04/18 08:00 97.6 F 69 18 118/78 97 02/04/18 04:00 98.2 F 67 16 134/70 97 02/04/18 03:26 16 02/04/18 00:00 98.1 F 58 L 16 94/52 95 02/03/18 20:49 96 02/03/18 20:00 98.3 F 66 16 120/64 96 07/08/18 16:00 98.3 F 83 16 131/62 96 02/03/18 13:52 97.9 F 72 16 164/87 100 02/03/18 13:27 97.9 F 59 L 16 164/88 97 02/03/18 13:04 164/88 02/03/18 12:58 64 18 182/84 100 02/03/18 11:07 66 16 174/93 100 02/03/18 10:18 97.9 F 77 20 156/77 99 Intake and Output 02/03/18 02/04/18 02/04/18 22:59 06:59 14:59 Other: # Voids 1 1 Results 02/04/18 06:34 02/04/18 06:34 Cardiac Enzymes 02/03/18 02/03/18 02/03/18 Range/Units 10:46 10:46 16:47 AST 29 (14-36) U/L CK-MB (CK-2) 1.1 1.0 (0.0-2.4) ng/mL Troponin I <0.012 <0.012 (0.000-0.034) ng/mL 02/03/18 Range/Units 23:00 AST (14-36) U/L CK-MB (CK-2) 0.9 (0.0-2.4) ng/mL Troponin I <0.012 (0.000-0.034) ng/mL Coagulation 02/03/18 Range/Units 10:46 PT 9.5 (9.0-12.0) sec APTT 20.7 L (22.0-30.0) sec Lipids 02/04/18 Range/Units 06:34 Triglycerides 115 (<150) mg/dL Cholesterol 273 H (<200) mg/dL HDL Cholesterol 90 H (40-60) mg/dL CBC 02/03/18 02/04/18 Range/Units 10:46 06:34 WBC 7.8 6.2 (3.8-10.6) k/uL RBC 3.99 3.89 (3.80-5.40) m/uL Hgb 9.7 L 9.4 L (11.4-16.0) gm/dL Hct 32.8 L 32.5 L (34.0-46.0) % Plt Count 374 419 (150-450) k/uL Comprehensive Metabolic Panel 02/03/18 02/04/18 Range/Units 10:46 06:34 Sodium 140 141 (137-145) mmol/L Potassium 4.9 4.7 (3.5-5.1) mmol/L Chloride 104 104 (98-107) mmol/L Carbon Dioxide 23 24 (22-30) mmol/L BUN 24 H 20 H (7-17) mg/dL Creatinine 1.10 H 0.77 (0.52-1.04) mg/dL Glucose 120 H 100 H (74-99) mg/dL Calcium 9.5 9.0 (8.4-10.2) mg/dL AST 29 (14-36) U/L ALT 31 (9-52) U/L Alkaline Phosphatase 68 (38-126) U/L Total Protein 7.4 (6.3-8.2) g/dL Albumin 4.1 (3.5-5.0) g/dL Current Medications Generic Name Dose Route Start Last Admin Trade Name Freq PRN Reason Stop Dose Admin Amlodipine Besylate 5 mg 02/03/18 21:00 02/03/18 20:17 Norvasc PO 5 mg HS DMITRI Administration Aspirin 81 mg 02/04/18 09:00 02/04/18 08:37 Aspirin PO 81 mg DAILY DMITRI Administration Cholecalciferol 2,000 unit 02/04/18 09:00 02/04/18 08:37 Vitamin D3 PO 2,000 unit DAILY DMITRI Administration Donepezil HCl 10 mg 02/03/18 14:15 02/04/18 08:37 Aricept PO 10 mg QAM DMITRI Administration Lisinopril 2.5 mg 02/03/18 15:30 02/04/18 08:37 Zestril PO 2.5 mg DAILY DMITRI Administration Lorazepam 0.5 mg 02/03/18 12:53 Ativan IV Q6HR PRN Anxiety Lorazepam 0.5 mg 02/03/18 14:12 02/03/18 17:58 Ativan PO 0.5 mg TID PRN Administration Anxiety Nitroglycerin 0.4 mg 02/03/18 12:52 Nitrostat SUBLINGUAL Q5M PRN Chest Pain Sertraline HCl 200 mg 02/03/18 14:15 02/04/18 08:37 Zoloft PO 200 mg DAILY DMITRI Administration Tramadol HCl 50 mg 02/03/18 18:20 02/04/18 04:46 Ultram PO 50 mg Q8HR PRN Administration Pain Vitamin B Complex/Vit C/Vit E/Zinc 2 each 02/04/18 09:00 02/04/18 08:37 Z-Bec PO 2 each DAILY DMITRI Administration Intake and Output 02/03/18 02/04/18 02/04/18 22:59 06:59 14:59 Other: # Voids 1 1 02/04/18 06:34 02/04/18 06:34
[2018-02-04] MEDS ORDERED: B COMPLEX-VIT C-VIT E-ZINC 1 EACH TAB PO SCH (09:00)
[2018-02-04] MEDS ORDERED: ASPIRIN 325 MG TAB PO SCH (09:00)
[2018-02-04] MEDS ORDERED: ASPIRIN 81 MG PO SCH (09:00)
[2018-02-04] MEDS ORDERED: CHOLECALCIFEROL 1,000 UNIT TAB PO SCH (09:00)
== END 2018-02-04 09:21 | disposition home or self-care (01) ==
LOC: EC 10:15 → 3OBS 12:52
PROVIDERS: ADMIT Internal Medicine; ATTEND Internal Medicine
DX: R07.89 Other chest pain (principal); R07.81 Pleurodynia; M25.551 Pain in right hip; R79.89 Other specified abnormal findings of blood chemistry; F41.9 Anxiety disorder, unspecified; K21.9 Gastro-esophageal reflux disease without esophagitis; M85.88 Other specified disorders of bone density and structure, other site; H26.9 Unspecified cataract; K76.89 Other specified diseases of liver; D64.9 Anemia, unspecified; F32.9 Major depressive disorder, single episode, unspecified; M40.209 Unspecified kyphosis, site unspecified; Z79.1 Long term (current) use of non-steroidal anti-inflammatories (NSAID); Z88.5 Allergy status to narcotic agent; Z79.899 Other long term (current) drug therapy; Z90.49 Acquired absence of other specified parts of digestive tract; Z90.81 Acquired absence of spleen; Z90.3 Acquired absence of stomach [part of]; Z87.81 Personal history of (healed) traumatic fracture; Z85.01 Personal history of malignant neoplasm of esophagus; Z91.81 History of falling; Z86.19 Personal history of other infectious and parasitic diseases; Z85.028 Personal history of other malignant neoplasm of stomach; Z87.891 Personal history of nicotine dependence; Z80.41 Family history of malignant neoplasm of ovary; Z80.0 Family history of malignant neoplasm of digestive organs
CPT/HCPCS: 99285 ×2; 96374 ×2; 96376 ×2; 96361 ×4; 36415; 93005; 85379; 80061; 80053; 80048; 82550; 82553; 83735; 84484; 85025 ×2; 85610; 85730; 71110; 73502; 71046; 71275; G0378 ×2; J2060; Q9967

== ENCOUNTER 2018-02-20 06:25 | Day surgery (SDC) | payer MEDICARE, BC ==
[2018-02-20 06:58] VITALS: RESP 16; TEMP 98.2
[2018-02-20] MEDS ORDERED: LIDOCAINE 1% 20 ML VIAL (10MG/ML) FOR IV START INTRADERMA ONE (07:02)
[2018-02-20] MEDS ORDERED: LACTATED RINGERS 1,000 ML IV ONE (07:02)
--- NOTE | 2018-02-20 07:11 | P.PCN ---
Date of Procedure: 02/20/18 Description of Procedure: Preoperative diagnoses: 1. Right hip osteoarthritis Postoperative diagnoses: 1. Right hip osteoporosis Procedure: Right hip intra-articular steroid injection with fluoroscopy Anesthesia: Versed 2 mg Description of the procedure: Patient was seen and identified in the preoperative holding area, risk and benefits, complications ,and alternatives of the procedure were discussed with the patient and patient agreed with the preceding, patient signed the consent and IV was started and vital signs were monitored throughout the procedure and it was stable. The patient was taken to the operating room and placed in supine position the groin area was prepped with chlorhexidine 3 and draped with the standard fashion. Local anesthetic was used with lidocaine 1% then using 25 -gauge needle, under direct fluoroscopy and anterior posterior image of the hip joint was ascertained. A 22-gauge Quincke needle was then advanced to the femoral neck until contact with bone was made. After negative aspiration for blood, 3 mL of Omnipaque was then injected to confirm placement of needle into the joint capsule. Once correct position was confirmed and after negative aspiration for blood, a solution consisting of 5 ML's of 0.5% Marcaine with 40 mg/1 mL of Kenalog was administered. A washout image was then obtained to confirm adequate spread within the joint capsule. Needle was removed, and a Band-Aid was placed. Patient tolerated procedure well with no complications Disposition: We'll see patient in clinic in 4 weeks' time to assess efficacy of right hip injection as her source of right leg pain
[2018-02-20] MEDS ORDERED: LACTATED RINGERS 1,000 ML IV SCH (07:15)
[2018-02-20] MEDS ORDERED: KETOROLAC 30 MG/ML 1 ML VIAL ONE (07:43)
[2018-02-20] MEDS ORDERED: IV FLUID CONTINUATION 1,000 ML IV ONE (08:04)
--- NOTE | 2018-02-20 08:14 | FL ---
EXAMINATION TYPE: FL guided pain mgmt statistic DATE OF EXAM: 02/20/2018 HISTORY: Flouroscopy time 10 seconds of fluoroscopy provided. IMPRESSION: 1. Fluoroscopy time.
[2018-02-20 08:23] VITALS: BP 161/85; PULSE 67
== END 2018-02-20 08:41 | disposition home or self-care (01) ==
LOC: ORPAIN 06:25
PROVIDERS: ATTEND Anesthesiology
DX: M16.11 Unilateral primary osteoarthritis, right hip (principal); M47.816 Spondylosis without myelopathy or radiculopathy, lumbar region; M51.36 Other intervertebral disc degeneration, lumbar region; M48.061 Spinal stenosis, lumbar region without neurogenic claudication; G57.01 Lesion of sciatic nerve, right lower limb
CPT/HCPCS: 20610; J2250; J3010; J1885; Q9966

== ENCOUNTER → 2018-03-26 | Outpatient (CLI) | payer MEDICARE, BC ==
--- NOTE | 2018-03-26 14:44 | P.PAINPG ---
Subjective Progress Note Date: 03/26/18 Principal diagnosis: Right myofascial pain, right lateral leg pain, right knee pain This is an 82-year-old woman with a history of right gluteal pain. She is undergone injections in our clinic approximately 3 months ago. She reports that the steroid she received has caused her to increase her weight by 5 pounds. She then says that this is caused a lot of swelling in her knee and her leg. She complains that her skirts fit too tight now. She says this is related her life and caused her to fall a lot. She is very upset about this. She has not tried any conservative management for her leg pain including ice on her knee or any sort of compounding cream on her leg. She is still requesting to have injections in her right posterior hip/gluteal area. She has not seen her primary care physician to discuss the increase in her weight that she introduces steroids. Objective - Vital Signs Vital signs: Intake & Output 03/25/18 03/26/18 03/26/18 18:59 06:59 18:59 Weight 46.72 kg - Exam General: The patient is alert and oriented. Patient is not sedated Patient answers all question appropriately. Cardiac: Heart is regular in rate and rhythm Respiratory: Clear to auscultation. No audible wheezes. Abdomen: Soft nontender nondistended. Lower extremities: Strength is normal bilaterally. Sensation is normal bilaterally. Reflexes are preserved and symmetric bilaterally. Straight leg raise is negative bilaterally. She is tender to palpation over her lateral and posterior right gluteal muscle. There is some very minimal swelling present over her right knee. It appears similar to her left knee. There is no allodynia present in her legs. Deep palpation over the iliotibial band is painful for her. Sensation is normal in both extremities. Assessment and Plan Plan: Plan of Care 1. Medications: I recommended the patient utilize salompas patches. The shoe placed on her lateral right leg. She should also utilize ice on her knee. She can utilize Tylenol for pain control. I do not think opiates are indicated this situation. 2. Interventions: Patient is requesting have other injections into her posterior right hip to help with her pain. I recommended a lateral gluteal trigger point injection with local anesthetic only. We will avoid any steroids as the patient feels that these medications have caused her substantial weight gain which is significantly inhibiting her life. 3. Referrals: I refer the patient back to her primary care physician. She can discuss with him her increase in weight and any situations which might be available to help reduce the swelling she is perceiving. She can also discuss with her physician her reported falling on a regular basis. She may need a neurologic consult. 4. Testing: None 5. Follow-up: Right lateral gluteal trigger point injection with local anesthetic only PQRS Measure Charge Sheet Measure #130: Documentation of Current Meds in Medical Chart: Patient not eligible for medications to be documented Measure #226: Tobacco Use: Screen & Cessation Intervention: Pt not a tobacco user Measure #111: Pneumonia Vaccination: Pneumococcal vaccine NOT administered or previously given Measure #47: Advance Care Plan: Advance care planning discussed & documented, pt chose/unable to give Measure #412: Opioid Treatment Agreement: No documentation of signed opioid treatment agreement Measure #408: Opioid Therapy Follow-up Evaluation: Patient had f/u eval minimum every 3 months during opioid therapy Measure #317: Preventitive Care & Scrn High Bld Press & F/U: Normal blood pressure, f/u not required Measure #128: Body Mass Index (BMI) Screening & Follow-up: BMI documented within normal parameters Measure #131: Pain Assessment & Follow-up: Pain positive & plan documented Measure #431: Unhealthy Alcohol Use Preventative Care & Scrn: Patient not identified as an unhealthy alcohol user PQRS Narrative: Smoking Status Never smoker Do You Want the Pneumonia Vaccine Up to Date Vaccine AT THIS TIME? Pain Intensity [Right Hip] 9 Scale Used Numeric (1 - 10) Home Medications: Ambulatory Orders Cholecalciferol [Vitamin D3] 2,000 unit PO DAILY 05/21/15 Vitamin B Complex 2 cap PO BID 05/21/15 Donepezil [Aricept] 10 mg PO QAM 10/05/17 Ibuprofen 400 mg PO DAILY PRN 10/05/17 Naproxen Sodium [Aleve] 220 mg PO DAILY PRN 10/05/17 Sertraline HCl [Zoloft] 200 mg PO DAILY 10/05/17 LORazepam [Ativan] 0.5 mg PO TID 10/31/17 Controlled Substance Measures - Controlled Substance Measures Is patient prescribed a controlled substance at discharge?: No
[2018-03-26 14:51] VITALS: BP 128/81; PULSE 73; RESP 16
== END ==
LOC: PNWHC3 13:32
PROVIDERS: ATTEND Pain Medicine Pain Medicine
DX: M79.1 Myalgia (principal); M79.604 Pain in right leg; M25.561 Pain in right knee; Z79.899 Other long term (current) drug therapy; Z79.1 Long term (current) use of non-steroidal anti-inflammatories (NSAID)
CPT/HCPCS: 99211

== ENCOUNTER 2018-03-29 13:38 | Emergency (ER) | payer MEDICARE, BC ==
[2018-03-29 13:49] VITALS: BP 137/60; PULSE 86; RESP 18; TEMP 98
[2018-03-29] MEDS ORDERED: MORPHINE SULFATE 4 MG/ML SYRINGE IM STA (14:09)
--- NOTE | 2018-03-29 14:26 | ED ---
General Adult HPI - General Chief complaint: Back Pain/Injury Stated complaint: Back Pain Time Seen by Provider: 03/29/18 13:46 Source: patient, RN notes reviewed Mode of arrival: wheelchair Limitations: no limitations - History of Present Illness Initial comments: 82-year-old female presents to the emergency department with a chief complaint of low back pain. Patient states she has had right-sided back pain that has been chronic and stable. Patient states that a few days ago she noticed left- sided back pain into the left buttock after a fall from standing. Patient states she slipped while in the kitchen. Patient denies any bladder or bowel changes. Patient denies any numbness in the groin or buttock. Patient denies any chronic steroid use. Patient denies any numbness or tingling in the lower extremities. Patient denies any shooting pain. Patient is able to ambulate. Patient sees pain management and Dr. Govea for this chronic back pain. Patient recently had an appointment where she states nothing was done to help, but she has received injections. Patient states she has had right sided sciatic pain in the past and this feels similar but on the left side. She states she cannot take steroids because they increase her likelihood of falling. Patient has no other complaints at this time including shortness of breath, chest pain, abdominal pain, nausea or vomiting, headache, or visual changes. - Related Data Home Medications Medication Instructions Recorded Confirmed Cholecalciferol [Vitamin D3] 2,000 unit PO DAILY 05/21/15 03/26/18 Vitamin B Complex 2 cap PO BID 05/21/15 03/26/18 Donepezil [Aricept] 10 mg PO QAM 10/05/17 03/26/18 Ibuprofen 400 mg PO DAILY PRN 10/05/17 03/26/18 Naproxen Sodium [Aleve] 220 mg PO DAILY PRN 10/05/17 03/26/18 Sertraline HCl [Zoloft] 200 mg PO DAILY 10/05/17 03/26/18 LORazepam [Ativan] 0.5 mg PO TID 10/31/17 03/26/18 Allergies Allergy/AdvReac Type Severity Reaction Status Date / Time codeine Allergy Unknown Verified 03/29/18 13:46 Review of Systems ROS Statement: Those systems with pertinent positive or pertinent negative responses have been documented in the HPI. ROS Other: All systems not noted in ROS Statement are negative. Past Medical History Past Medical History: Cancer, GERD/Reflux, Musculoskeletal Disorder Additional Past Medical History / Comment(s): hx of shingles 2001, hx. esophageal cancer, recent fall w/lots of bruises,. Fx scapula - May 2017 History of Any Multi-Drug Resistant Organisms: None Reported Past Surgical History: No Surgical Hx Reported Additional Past Surgical History / Comment(s): ESOPHAGECTOMY. BILATERAL CATARACTS Past Anesthesia/Blood Transfusion Reactions: No Reported Reaction Past Psychological History: Anxiety, Depression Smoking Status: Never smoker Past Alcohol Use History: None Reported Past Drug Use History: None Reported - Past Family History Daughter(s) Family Medical History: Cancer Additional Family Medical History / Comment(s): colon CA Mother Family Medical History: No Reported History General Exam Limitations: no limitations General appearance: alert, in no apparent distress Head exam: Present: atraumatic, normocephalic, normal inspection Eye exam: Present: normal appearance, PERRL, EOMI. Absent: scleral icterus, conjunctival injection, nystagmus, periorbital swelling, periorbital tenderness ENT exam: Present: normal exam, normal oropharynx, mucous membranes moist, TM's normal bilaterally, normal external ear exam Neck exam: Present: normal inspection, full ROM. Absent: tenderness, meningismus, lymphadenopathy Respiratory exam: Present: normal lung sounds bilaterally. Absent: respiratory distress, wheezes, rales, rhonchi, stridor Cardiovascular Exam: Present: regular rate, normal rhythm, normal heart sounds. Absent: systolic murmur, diastolic murmur, rubs, gallop, clicks GI/Abdominal exam: Present: soft, normal bowel sounds. Absent: distended, tenderness, guarding, rebound, rigid Extremities exam: Present: full ROM (Patient has full range of motion of lower extremities bilaterally), normal capillary refill (Capillary refill less than 2 seconds and pedal pulse 2+ in lower extremities bilaterally) Back exam: Present: tenderness (No tenderness in the lumbar spine.). Absent: paraspinal tenderness (No tenderness of the paraspinal her left buttock muscles. ) Neurological exam: Present: alert, oriented X3, CN II-XII intact, normal gait ( Patient able to stand without difficulty), reflexes normal (Patellar reflexes 2+ ). Absent: motor sensory deficit (Sensation intact in lower extremities bilaterally) Psychiatric exam: Present: normal affect, normal mood Skin exam: Present: warm, dry, intact, normal color. Absent: rash Course Vital Signs 03/29/18 13:46 Temperature 98.0 F Pulse Rate 86 Respiratory 18 Rate Blood Pressure 137/60 O2 Sat by Pulse 99 Oximetry Medical Decision Making - Medical Decision Making 82-year-old female presents to the emergency department for a chief complaint of low back pain 2 days. Patient states the pain is chronic but worsened when she fell 2 days ago. Patient states pain is usually on the right side but now she is feeling it on the left. Patient denies any numbness or tingling in the lower legs. Patient denies any shooting pain down the lower legs. Patient denies any difficulty urinating or loss of bowel control. Patient denies any numbness in the groin or buttock. On exam patient is ambulatory. She is able to flex to about 45 and extend to a neutral standing position. She is able to twist about 30 bilaterally. Minimal tenderness noted to the lumbar spine. Neurovascular intact in lower extremities. CT lumbar spine shows mild superior endplate compression fracture of L1 with loss of height estimated at approximately 10%. No evidence for displaced or impacted pelvic or left hip fracture. CT pelvis does show ileus. On reexamination patient does not have any abdominal tenderness. However she does state she hasn't had a bowel movement in 2 days. She is passing gas without difficulty. Obstruction not suspected. Patient is likely constipated and will be put on MiraLAX. At this point with patient's L1 fracture she will be ordered a TLSO brace. She will take Motrin and Tylenol for pain. She will not be written for any opioids due to side effect of worsening constipation which patient states daughter agrees. Patient also sees pain management as well and will follow up with them as well as orthopedics. I did discuss returning to the emergency department if patient has increased abdominal pain or worsening symptoms for reevaluation. Disposition Clinical Impression: Compression fracture of L1 lumbar vertebra, Constipation Disposition: HOME SELF-CARE Condition: Good Instructions: Constipation (ED), Thoracolumbar Fracture (ED) Additional Instructions: Please take MiraLAX for constipation. Take Motrin and Tylenol for pain. Please have TLSO brace filled. Follow up with orthopedics in one to 2 days. Return to the emergency department if you have any worsening symptoms or increased abdominal or back pain. Is patient prescribed a controlled substance at d/c from ED?: No Referrals: Devon Joiner MD [Primary Care Provider] - 1-2 days Pancho Berry MD [STAFF PHYSICIAN] - 1-2 days Time of Disposition: 15:53
--- NOTE | 2018-03-29 15:09 | CT ---
EXAMINATION TYPE: CT pelvis wo con, CT hip LT wo con DATE OF EXAM: 03/29/2018 COMPARISON: None HISTORY: Pain post fall CT DLP: 260.55 mGycm Automated exposure control for dose reduction was used. Unenhanced CT of the pelvis was performed as well as the left hip with bone and soft tissue window se ttings submitted and reviewed. Sagittal and coronal reconstruction also obtained. FINDINGS: No evidence for displaced or impacted fracture of the pelvis or left hip. There is distention of smal l bowel which may reflect ileus. No fluid collections are seen within the pelvis. No intramuscular co llections are seen. IMPRESSION: 1. NO EVIDENCE FOR DISPLACED OR IMPACTED PELVIC OR LEFT HIP FRACTURE.
--- NOTE | 2018-03-29 15:19 | CT ---
EXAMINATION TYPE: CT lumbar spine wo con DATE OF EXAM: 03/29/2018 COMPARISON: HISTORY: Pain post fall CT DLP: 750.[address] of the lumbar spine was performed. Bone and soft tissue window settings are submitted as well as coronal and sagittal reconstructions. L1-L2: Mild superior endplate compression fracture of L1 with loss of height estimated at approximate ly 10%. No evidence for bony retropulsion. No evidence for instability. L2-L3: Severe degenerative disc disease with vacuum disc. Moderate circumferential disc bulge greates t posteriorly with effacement of the ventral thecal sac. Moderate central stenosis identified. L3-L4: Mild degenerative disc space narrowing. Mild degenerative disc bulge . Moderate effacement alex tral thecal sac and mild central stenosis. Mild bilateral lateral recess stenosis. L4-L5: Mild degenerative disc space narrowing. Mild degenerative disc bulge . Mild effacement ventral thecal sac. No evidence for herniation or central stenosis. Mild bilateral lateral recess stenosis. L5-S1: Normal disc space height. No disc herniation protrusion or central stenosis. No facet joint arthropathy. No evidence for foraminal encroachment. No paraspinal masses are identified. Lumbar segments are free if fracture. Lobulated hepatic cyst. IMPRESSION: 1. Mild superior endplate compression fracture of L1 with loss of height estimated at approximately 1 0%. No evidence for bony retropulsion. No evidence for instability. 2. Degenerative disc disease with disc bulging and resultant central stenosis as outlined above.
== END 2018-03-29 16:09 | disposition home or self-care (01) ==
LOC: EC 13:38
DX: S32.019A Unspecified fracture of first lumbar vertebra, initial encounter for closed fracture (principal); K59.00 Constipation, unspecified; K56.7 Ileus, unspecified; M54.31 Sciatica, right side; F41.9 Anxiety disorder, unspecified; F32.9 Major depressive disorder, single episode, unspecified; Z85.01 Personal history of malignant neoplasm of esophagus; Z79.899 Other long term (current) drug therapy; Z88.5 Allergy status to narcotic agent; W01.0XXA Fall on same level from slipping, tripping and stumbling without subsequent striking against object, initial encounter; Y92.000 Kitchen of unspecified non-institutional (private) residence as the place of occurrence of the external cause
CPT/HCPCS: 72192; 72131; 73700; 99283; 96372; J2270

== ENCOUNTER 2018-03-31 10:42 | Inpatient (IN) | payer MEDICARE, BC ==
[2018-03-31] MEDS ORDERED: SODIUM CHLORIDE 0.9% 1,000 ML IV STA (11:34)
[2018-03-31] MEDS ORDERED: HYDROmorphone 1 MG/ML 1 ML SYRINGE IVP STA (11:40)
--- NOTE | 2018-03-31 11:40 | ED ---
General Adult HPI - General Chief complaint: Back Pain/Injury Stated complaint: low back pain Source: patient Mode of arrival: wheelchair Limitations: no limitations - History of Present Illness Initial comments: Dictation was produced using [employer] dictation software. please excuse any grammatical, word or spelling errors. Chief Complaint: 82-year-old female presents with instructions from orthopedic surgeon come to the emergency department for abnormal imaging. History of Present Illness: Patient is a 82-year-old female presents with instruction from orthopedic surgeon come to the emergency department. Patient was seen in the emergency department yesterday for low back pain. Patient allegedly had low back pain for several weeks. Several days ago she states she fell. Patient was seen in the emergency department 2 days ago where she was diagnosed with superior endplate fracture. She was discharged with a TLSO brace. The ROS documented in this emergency department record has been reviewed and confirmed by me. Those systems with pertinent positive or negative responses have been documented in the HPI. All other systems are other negative and/or noncontributory. - Related Data Home Medications Medication Instructions Recorded Confirmed Cholecalciferol [Vitamin D3] 2,000 unit PO DAILY 05/21/15 03/26/18 Vitamin B Complex 2 cap PO BID 05/21/15 03/26/18 Donepezil [Aricept] 10 mg PO QAM 10/05/17 03/26/18 Ibuprofen 400 mg PO DAILY PRN 10/05/17 03/26/18 Naproxen Sodium [Aleve] 220 mg PO DAILY PRN 10/05/17 03/26/18 Sertraline HCl [Zoloft] 200 mg PO DAILY 10/05/17 03/26/18 LORazepam [Ativan] 0.5 mg PO TID 10/31/17 03/26/18 Allergies Allergy/AdvReac Type Severity Reaction Status Date / Time codeine Allergy Unknown Verified 03/31/18 10:57 Review of Systems ROS Statement: Those systems with pertinent positive or pertinent negative responses have been documented in the HPI. ROS Other: All systems not noted in ROS Statement are negative. Past Medical History Past Medical History: Cancer, GERD/Reflux, Musculoskeletal Disorder Additional Past Medical History / Comment(s): hx of shingles 2001, hx. esophageal cancer, recent fall w/lots of bruises,. Fx scapula - May 2017 History of Any Multi-Drug Resistant Organisms: None Reported Past Surgical History: No Surgical Hx Reported Additional Past Surgical History / Comment(s): ESOPHAGECTOMY. BILATERAL CATARACTS Past Anesthesia/Blood Transfusion Reactions: No Reported Reaction Past Psychological History: Anxiety, Depression Smoking Status: Never smoker Past Alcohol Use History: None Reported Past Drug Use History: None Reported - Past Family History Daughter(s) Family Medical History: Cancer Additional Family Medical History / Comment(s): colon CA Mother Family Medical History: No Reported History General Exam - General Exam Comments Initial Comments: PHYSICAL EXAM: General Impression: Alert and oriented x3, acute distress secondary to pain HEENT: Normocephalic atraumatic, extra-ocular movements intact, pupils equal and reactive to light bilaterally, mucous membranes moist. Cardiovascular: Heart regular rate and rhythm, S1&S2 audible, no murmurs, rubs or gallops Chest: Lungs clear to auscultation bilaterally, no rhonchi, no wheeze, no rales Abdomen: Bowel sounds present, abdomen soft, non-tender, non-distended, no organomegaly Musculoskeletal: Pulses present and equal in all extremities, no peripheral edema, tenderness to palpation about the lower lumbar spine midline and paraspinal Motor: Power 5/5 bilaterally, no focal deficits noted Neurological: CN II-XII grossly intact, no focal motor or sensory deficits noted Skin: Intact with no visualized rashes Psych: Normal affect and mood Limitations: no limitations Course Vital Signs 03/31/18 10:54 Temperature 97.9 F Pulse Rate 77 Respiratory 16 Rate Blood Pressure 128/59 O2 Sat by Pulse 99 Oximetry Medical Decision Making - Medical Decision Making ED course: 82-year-old female presents via instructions for worsening pain and lower back. She was diagnosed with a L1 compression fracture. She was allegedly instructed by orthopedic surgery come back to the emergency department. All signs upon arrival are within acceptable limits. Patient does not have any neuro deficits to suggest cord compression or cord injury. Clinical presentation consistent with pain failed outpatient treatment secondary to acute traumatic compression fracture. Discussed patient case with Dr. Berry information assurance officer for spinal surgeon Dr. Corbin. He recommend patient be admitted to medicine for pain control with orthopedic spine surgery on consult. Patient understandable agreeable to plan. She is given IV analgesics. Disposition Clinical Impression: Compression fracture Disposition: ADMITTED IP TO THIS HOSP Referrals: Devon Joiner MD [Primary Care Provider] - 1-2 days Decision Time: 12:07
[2018-03-31] MEDS ORDERED: ACETAMINOPHEN TAB 325 MG TAB PO PRN (12:03)
[2018-03-31] MEDS ORDERED: DOCUSATE 100 MG CAP PO PRN (12:03)
[2018-03-31] MEDS ORDERED: HYDROmorphone 0.5 MG/0.5 ML SYRINGE IVP PRN (12:03)
[2018-03-31] MEDS ORDERED: NALOXONE 0.4 MG/ML 1 ML VIAL IV PRN (12:03)
[2018-03-31] MEDS: LORazepam 1 MG TAB PO PRN ×2 (12:45→20:53)
[2018-03-31] MEDS: SODIUM CHLORIDE 0.9% 1,000 ML IV SCH ×2 (14:17→17:44)
[2018-03-31] MEDS ORDERED: IBUPROFEN 400 MG TAB PO PRN (16:03)
[2018-03-31 16:56] LABS: Anisocytosis Slight; Basophils # (A) 0.1 k/uL (0-0.2); Basophils % (A) 1 %; Eosinophils # (A) 0.5 k/uL (0-0.7); Eosinophils % (A) 5 %; HCT 22.4 % (34.0-46.0); Hypochromasia Marked; Lymphocytes # (A) 3.7 k/uL (1.0-4.8); Lymphocytes % (A) 34 %; MCH 22.5 pg (25.0-35.0); MCHC 26.6 g/dL (31.0-37.0); MCV 84.8 fL (80.0-100.0); Mean Platelet Volume 7.2; Monocytes # (A) 0.6 k/uL (0-1.0); Monocytes % (A) 6 %; Neutrophils # (A) 5.8 k/uL (1.3-7.7); Neutrophils % (A) 53 %; Platelet Count 343 k/uL (150-450); Poikilocytosis Slight; RBC 2.64 m/uL (3.80-5.40); RDW 18.2 % (11.5-15.5); WBC 11.1 k/uL (3.8-10.6)
[2018-03-31 17:03] LABS: Albumin 2.9 g/dL (3.5-5.0); Calcium 8.1 mg/dL (8.4-10.2); Potassium 4.4 mmol/L (3.5-5.1); Total Bilirubin 0.2 mg/dL (0.2-1.3); Total Protein 5.9 g/dL (6.3-8.2)
[2018-03-31 17:03] LABS: Appearance,Urine Clear (Clear); Bilirubin,Urine Negative (Negative); Blood,Urine Negative (Negative); Color,Urine Yellow; Glucose,Urine (UA) Negative (Negative); Ketones,Urine Negative (Negative); Leukocyte Esterase,Urine Negative (Negative); Nitrite,Urine Negative (Negative); PH, Urine 6.5 (5.0-8.0); Protein,Urine Negative (Negative); Specific Gravity,Urine 1.016 (1.001-1.035); Urobilinogen,Urine <2.0 mg/dL (<2.0)
--- NOTE | 2018-03-31 17:11 | P.HPIM ---
History of Present Illness H&P Date: 03/31/18 Chief Complaint: Intractable pain in the lower back associated with L1 fracture Dictation by Dr. High in the absence of Dr. Joiner. #1 intractable pain in the lumbar area with the presentation on March 29 in the ER with the fracture of L1 compression traumatic with the fall treated with TLSO brace was not effective with severe pain patient returned back to the ER no lab no CBC profile and no chemistry profile was ordered or urine analysis. #2 laboratory ordered on the floor and the report indicating critical hemoglobin 6. Number #3 mild chronic kidney disease stage IIIa. Could be associated with mild dehydration. Plan: #1 stool for Hemoccult 3 #2 type and crossmatch and transfuse 1 unit of packed RBCs. Check the lab for hepatitic count. #3 consultation with the surgeon Dr. Harmon with a history of bleeding per rectum repeatedly for over the last few weeks and history of previous hemorrhoid however her hemoglobin is 6 this time. #4 pain control #5 consultation with the pain management #6 consultation surgical for evaluation. #5 increase IV fluid to 75 mL an hour and repeat lab in a.m. Past Medical History Past Medical History: Cancer, GERD/Reflux, Musculoskeletal Disorder Additional Past Medical History / Comment(s): hx of shingles 2001, hx. esophageal cancer, recent fall w/lots of bruises,. Fx - May 2017 History of Any Multi-Drug Resistant Organisms: None Reported Past Surgical History: No Surgical Hx Reported Additional Past Surgical History / Comment(s): ESOPHAGECTOMY. BILATERAL CATARACTS, prolapsed rectum surgery Past Anesthesia/Blood Transfusion Reactions: No Reported Reaction Past Psychological History: Anxiety, Depression Smoking Status: Never smoker Past Alcohol Use History: None Reported Past Drug Use History: None Reported - Past Family History Daughter(s) Family Medical History: Cancer Additional Family Medical History / Comment(s): colon CA Mother Family Medical History: No Reported History Medications and Allergies Home Medications Medication Instructions Recorded Confirmed Type Cholecalciferol [Vitamin D3] 2,000 unit PO DAILY 05/21/15 03/31/18 History Vitamin B Complex 2 cap PO BID 05/21/15 03/31/18 History Donepezil [Aricept] 10 mg PO QAM 10/05/17 03/31/18 History Ibuprofen 400 mg PO DAILY PRN 10/05/17 03/31/18 History Naproxen Sodium [Aleve] 220 mg PO DAILY PRN 10/05/17 03/31/18 History Sertraline HCl [Zoloft] 200 mg PO DAILY 10/05/17 03/31/18 History LORazepam [Ativan] 0.5 mg PO TID 10/31/17 03/31/18 History Allergies Allergy/AdvReac Type Severity Reaction Status Date / Time codeine Allergy Unknown Verified 03/31/18 12:45 Physical Exam Vitals: Vital Signs Temp Pulse Pulse Resp BP BP Pulse Ox 03/31/18 13:36 97.8 F 63 16 133/58 100 03/31/18 12:45 98.3 F 65 16 132/72 98 03/31/18 10:54 97.9 F 77 16 128/59 99 Intake and Output 03/31/18 03/31/18 03/31/18 06:59 14:59 22:59 Intake Total 240 Balance 240 Intake: Oral 240 Other: Voiding Method Toilet # Voids 1 Weight 45.359 kg Results CBC & Chem 7: 03/31/18 16:33 03/31/18 16:33 Labs: Abnormal Lab Results - Last 24 Hours (Table) 03/31/18 03/31/18 Range/Units 16:33 16:33 WBC 11.1 H (3.8-10.6) k/uL RBC 2.64 L (3.80-5.40) m/uL Hgb 6.0 L* D (11.4-16.0) gm/dL Hct 22.4 L (34.0-46.0) % MCH 22.5 L (25.0-35.0) pg MCHC 26.6 L (31.0-37.0) g/dL RDW 18.2 H (11.5-15.5) % Chloride 111 H (98-107) mmol/L BUN 26 H (7-17) mg/dL Creatinine 1.10 H (0.52-1.04) mg/dL Glucose 114 H (74-99) mg/dL Calcium 8.1 L (8.4-10.2) mg/dL Total Protein 5.9 L (6.3-8.2) g/dL Albumin 2.9 L (3.5-5.0) g/dL Thrombosis Risk Factor Assmnt - Choose All That Apply Each Risk Factor Represents 3 Points: Age 75 years or older Thrombosis Risk Factor Assessment Total Risk Factor Score: 3 Thrombosis Risk Factor Assessment Level: Moderate Risk
--- NOTE | 2018-03-31 19:46 | HP ---
HISTORY AND PHYSICAL ATTENDING PHYSICIAN: Dr. Joiner Dictating the admission history and physical in the temporary absence of Dr. Joiner. DATE OF SERVICE: 03/31/2018 THE PATIENT IS FULL CODE. Her age is 82 years old white female, . DATA: Height is 5 foot 5 inches, weight is 45.359 kg and BSA is 1.47 m2 next BMI 1 6.6 kg/m2. HER ALLERGY IS CODEINE. CHIEF COMPLAINT: The patient presented to the emergency room because of her back pain with intolerable pain at home and she came to the emergency room. The patient is an 82-year-old female. She has been seen 3-4 days ago in the floor and in the emergency room and she was seen by the orthopedic surgeon for severe back pain and at that time was the date on the testing March 29, 2018. Subsequently, the patient was prescribed to her brace and the brace was given to her TLSO and the patient was ineffective brace and could not use it and that the LSO brace was ineffective as she was discharged with that. She has this severe pain and she could not walk and could not ambulate and she came back to the emergency room. In the emergency room, the ER physician, did call the orthopedic surgeon, Dr. Berry, and he stated that admit her to the PCP floor and consult Dr. Barnhart. He did not see her. With the admission, he recommended to be admitted for control of pain as patient does not have other medical problems. On the family history she is . She has 2 sons and 1 daughter. One son in [place] and 1 son and daughter live in [place] and they have their own family and they are busy. THE ALLERGY IS ONLY CODEINE. HABITS: She is nonsmoker and occasional social drinker with wine or liquor. Her physician is Dr. Joiner and she has no medical problem of diabetes or heart disease or kidney disease and she has been doing fine except for pain in her right hip, which she was seen in the Pain Clinic in [facility] and they gave her injection. She received a total of 3 injections and with no response and no improvement. However, she fell down 4 days ago in the kitchen and since then the progression of her pain in the back. She came on March 29 and found that her x-ray as we obtain it she had a mild superior endplate compression fracture on L1 and loss of height, estimated approximately of 10%, and she has otherwise was the x-ray that was done on the pelvis and hip was no evidence of impacted fracture. She has also a CT scan of the hip and no evidence of displaced fracture. Her medication: She was taking vitamin D3 2000 units daily, vitamin B complex 2 capsule b.i.d., Aricept 10 mg q.a.m. However, she did not have any signs of dementia at this time and will hold the medication. She has a history of anxiety, general anxiety disorder and she has been on Zoloft 200 mg and with the high dose we are adjusting the high dose as well and she was on Ativan 0.5 mg t.i.d. and we increased the Ativan because of the associated anxiety with the pain to 1 mg 3 times a day as needed. She is also on ibuprofen and Naprosyn and we will be adjusting the discontinuation of the Naprosyn and continue with the ibuprofen. SHE HAS CODEINE ALLERGY. On reviewing of the system, neuropsychiatry was normal. She has a history of anxiety disorder, but no history of strokes in the past. No headache. No blurred vision. No migraine. On the cardiovascular: No chest pain or anginal pain or hypertension. On the respiratory: No cough or expectoration and she is a nonsmoker. On the GI: No hematemesis or melena or hematochezia and no nausea or vomiting. On the : No dysuria or hematuria. Musculoskeletal: She cannot walk because of severe back pain which caused her to be disabled and to tolerate the pain with intractable pain. She has underlying depression as well as mentioned above. In the family history, she had a family history of colon cancer. PHYSICAL EXAMINATION: Today, her vital signs on admission to the ER showed temperature 97.9, pulse 77, respiratory rate 16, blood pressure 128/59 with mean 82 and saturation 99 on room air. In the emergency room, they did not do any preliminary laboratory, no CBC, no chemistry and no urinalysis. Will be planned for doing it in the floor as stat. On the physical examination, and she had the head was normocephalic, atraumatic and she has natural teeth. No hearing deficit. The neck was supple. No lymphadenopathy. Trachea midline. No thyromegaly. CHEST: Clear to auscultation and percussion. However, on palpation of the spine she had extreme tenderness on the lower lumbar with the bracing the right and left with the tenderness on palpation of the spine with the screaming. She had the pain grade was 10/10 and came to the ER and they started her on pain medication and she felt comfortable with that. With the underlying compression of the L1 with fracture. However, she has movement of feet, but she could not stand and walk and she does not have footdrop at this time. The pulses were intact bilaterally and she is on compression stockings SCD. ASSESSMENT: 1. Intractable pain in the lower lumbar spine and association with the L1 compression fracture, traumatic with a fall and acute in nature. 2. Underlying history of depression and anxiety. I am not sure patient has any dementia, she is able to communicate freely and and we will be with the plan. PLAN: Rehabilitation, physical therapy ordered and we will consult Dr. Barnhart as well as we will be consulting the Pain Management anesthesia for further help for that treatment and the patient was started on Dilaudid in the emergency room and further advanced pain medication depend on the patient pain and level of pain. The patient also she has anxiety and depression and will be starting her on the Zoloft. She was on 200. We decreased it to 50 and continue with Ativan 1 mg 3 times a day and further adjusting the dose. We will be obtaining CBC with differential and chemistry profile, UA, culture and sensitivity as a baseline for the patient. MMZOEL / WHITNEYN: [id number] /
[2018-03-31] MEDS: HYDROmorphone 1 MG/ML 1 ML SYRINGE IVP PRN (19:56)
[2018-03-31] MEDS: HEPARIN SODIUM,PORCINE 5,000 UNIT/ML 1 ML VIAL SQ SCH (20:53)
[2018-03-31] MEDS ORDERED: VITAMIN B COMPLEX PO SCH (21:00)
[2018-03-31] MEDS: FAMOTIDINE 20 MG TAB PO SCH (21:29)
[2018-04-01] MEDS: HYDROmorphone 1 MG/ML 1 ML SYRINGE IVP PRN ×4 (01:53→22:47)
[2018-04-01] MEDS: LORazepam 1 MG TAB PO PRN ×2 (05:44→12:57)
[2018-04-01] MEDS: SODIUM CHLORIDE 0.9% 1,000 ML IV SCH ×3 (07:42→23:18)
[2018-04-01] MEDS: HYDROcodone/APAP 5-325MG 1 EACH TAB PO PRN ×2 (07:44→09:48)
[2018-04-01 08:06] LABS: Calcium 7.7 mg/dL (8.4-10.2); Magnesium 2.2 mg/dL (1.6-2.3); Potassium 4.7 mmol/L (3.5-5.1)
[2018-04-01 08:14] LABS: Anisocytosis Slight; HCT 25.4 % (34.0-46.0); HGB 7.3 gm/dL (11.4-16.0); Hypochromasia Marked; MCHC 28.6 g/dL (31.0-37.0); MCV 83.9 fL (80.0-100.0); Platelet Count 346 k/uL (150-450); Poikilocytosis Moderate; RBC 3.02 m/uL (3.80-5.40); RDW 19.1 % (11.5-15.5)
[2018-04-01 08:35] LABS: Eosinophils # (M) 0.51 k/uL (0-0.7); Monocytes # (M) 1.02 k/uL (0-1.0); Neutrophils # (M) 4.85 k/uL (1.3-7.7); Neutrophils % (M) 57 %; Nucleated Red Blood Cells 9 /100 WBC (0-0); Polychromasia Present; RBC Fragments Present; Total Cells Counted 200; WBC 8.5 k/uL (3.8-10.6)
[2018-04-01 08:36] LABS: Spherocytes Present
[2018-04-01] MEDS ORDERED: DONEPEZIL 10 MG TAB PO SCH (09:00)
[2018-04-01] MEDS: FAMOTIDINE 20 MG TAB PO SCH ×2 (09:37→20:57)
[2018-04-01] MEDS: SERTRALINE 50 MG TAB PO SCH (09:37)
[2018-04-01] MEDS: CHOLECALCIFEROL 1,000 UNIT TAB PO SCH (09:37)
[2018-04-01] MEDS ORDERED: CYCLOBENZAPRINE 5 MG TAB PO PRN (10:06)
[2018-04-01] MEDS ORDERED: DIAZEPAM 2 MG TAB PO PRN (10:06)
--- NOTE | 2018-04-01 11:12 | P.GSCN ---
History of Present Illness Consult date: 04/01/18 Reason for Consult: Anemia, rectal bleeding History of present illness: The patient's a pleasant 82-year-old female who was admitted with intractable low back pain due to compression fracture of L1. She was found to be markedly anemic. We were consulted for this. Patient gives a history of an esophageal cancer which underwent a resection. She follows with Dr. Sykes for surveillance EGDs. She hasn't had vomiting or obvious blood in the stools. She does report hemorrhoids. She is seen Dr. Harmon for this in the past. No recommendation for anything surgical at that time. Her last colonoscopy was in July 2014. She also had an EGD by Dr. Sykes in fall of 2014. Much of the history is obtained from the chart and office records as the patient is a poor historian. Review of Systems All systems: negative Past Medical History Past Medical History: Cancer, GERD/Reflux, Musculoskeletal Disorder Additional Past Medical History / Comment(s): hx of shingles 2001, hx. esophageal cancer, recent fall w/lots of bruises,. Fx - May 2017 History of Any Multi-Drug Resistant Organisms: None Reported Past Surgical History: No Surgical Hx Reported Additional Past Surgical History / Comment(s): ESOPHAGECTOMY. BILATERAL CATARACTS, prolapsed rectum surgery Past Anesthesia/Blood Transfusion Reactions: No Reported Reaction Past Psychological History: Anxiety, Depression Smoking Status: Never smoker Past Alcohol Use History: None Reported Past Drug Use History: None Reported - Past Family History Daughter(s) Family Medical History: Cancer Additional Family Medical History / Comment(s): colon CA Mother Family Medical History: No Reported History Medications and Allergies Home Medications Medication Instructions Recorded Confirmed Type Cholecalciferol [Vitamin D3] 2,000 unit PO DAILY 05/21/15 03/31/18 History Vitamin B Complex 2 cap PO BID 05/21/15 03/31/18 History Donepezil [Aricept] 10 mg PO QAM 10/05/17 03/31/18 History Ibuprofen 400 mg PO DAILY PRN 10/05/17 03/31/18 History Naproxen Sodium [Aleve] 220 mg PO DAILY PRN 10/05/17 03/31/18 History Sertraline HCl [Zoloft] 200 mg PO DAILY 10/05/17 03/31/18 History LORazepam [Ativan] 0.5 mg PO TID 10/31/17 03/31/18 History Allergies Allergy/AdvReac Type Severity Reaction Status Date / Time codeine Allergy Unknown Verified 03/31/18 12:45 Surgical - Exam Osteopathic Statement: *. No significant issues noted on an osteopathic structural exam other than those noted in the History and Physical/Consult. Vital Signs Temp Pulse Resp BP Pulse Ox 97.9 F 77 16 128/59 99 03/31/18 10:54 03/31/18 10:54 03/31/18 10:54 03/31/18 10:54 03/31/18 10:54 - General well developed, well nourished, no distress - Eyes normal ocular movement - ENT normal mucosa - Neck trachea midline - Respiratory normal expansion, normal respiratory effort, clear to auscultation - Cardiovascular Rhythm: regular - Abdomen Abdomen: soft, non tender, bowel sounds, no masses, no guarding, no rigid, no rebound Results - Labs 04/01/18 06:27 04/01/18 06:27 Abnormal Lab Results - Last 24 Hours (Table) 03/31/18 03/31/18 03/31/18 Range/Units 16:33 16:33 17:48 WBC 11.1 H (3.8-10.6) k/uL RBC 2.64 L (3.80-5.40) m/uL Hgb 6.0 L* D (11.4-16.0) gm/dL Hct 22.4 L (34.0-46.0) % MCH 22.5 L (25.0-35.0) pg MCHC 26.6 L (31.0-37.0) g/dL RDW 18.2 H (11.5-15.5) % Monocytes # (Manual) (0-1.0) k/uL Nucleated RBCs (0-0) /100 WBC Chloride 111 H (98-107) mmol/L BUN 26 H (7-17) mg/dL Creatinine 1.10 H (0.52-1.04) mg/dL Glucose 114 H (74-99) mg/dL Calcium 8.1 L (8.4-10.2) mg/dL Total Protein 5.9 L (6.3-8.2) g/dL Albumin 2.9 L (3.5-5.0) g/dL Crossmatch See Detail 04/01/18 04/01/18 Range/Units 06:27 06:27 WBC (3.8-10.6) k/uL RBC 3.02 L (3.80-5.40) m/uL Hgb 7.3 L (11.4-16.0) gm/dL Hct 25.4 L (34.0-46.0) % MCH 24.0 L (25.0-35.0) pg MCHC 28.6 L (31.0-37.0) g/dL RDW 19.1 H (11.5-15.5) % Monocytes # (Manual) 1.02 H (0-1.0) k/uL Nucleated RBCs 9 H (0-0) /100 WBC Chloride 110 H (98-107) mmol/L BUN 23 H (7-17) mg/dL Creatinine (0.52-1.04) mg/dL Glucose (74-99) mg/dL Calcium 7.7 L (8.4-10.2) mg/dL Total Protein (6.3-8.2) g/dL Albumin (3.5-5.0) g/dL Crossmatch Microbiology - Last 24 Hours (Table) 03/31/18 16:50 Urine Culture - Preliminary Urine,Voided Diabetes panel 03/31/18 04/01/18 Range/Units 16:33 06:27 Sodium 140 139 (137-145) mmol/L Potassium 4.4 4.7 (3.5-5.1) mmol/L Chloride 111 H 110 H (98-107) mmol/L Carbon Dioxide 22 23 (22-30) mmol/L BUN 26 H 23 H (7-17) mg/dL Creatinine 1.10 H 0.84 (0.52-1.04) mg/dL Glucose 114 H 88 (74-99) mg/dL Calcium 8.1 L 7.7 L (8.4-10.2) mg/dL AST 25 (14-36) U/L ALT 25 (9-52) U/L Alkaline Phosphatase 55 (38-126) U/L Total Protein 5.9 L (6.3-8.2) g/dL Albumin 2.9 L (3.5-5.0) g/dL Calcium panel 03/31/18 04/01/18 Range/Units 16:33 06:27 Calcium 8.1 L 7.7 L (8.4-10.2) mg/dL Albumin 2.9 L (3.5-5.0) g/dL Pituitary panel 03/31/18 04/01/18 Range/Units 16:33 06:27 Sodium 140 139 (137-145) mmol/L Potassium 4.4 4.7 (3.5-5.1) mmol/L Chloride 111 H 110 H (98-107) mmol/L Carbon Dioxide 22 23 (22-30) mmol/L BUN 26 H 23 H (7-17) mg/dL Creatinine 1.10 H 0.84 (0.52-1.04) mg/dL Glucose 114 H 88 (74-99) mg/dL Calcium 8.1 L 7.7 L (8.4-10.2) mg/dL Adrenal panel 03/31/18 04/01/18 Range/Units 16:33 06:27 Sodium 140 139 (137-145) mmol/L Potassium 4.4 4.7 (3.5-5.1) mmol/L Chloride 111 H 110 H (98-107) mmol/L Carbon Dioxide 22 23 (22-30) mmol/L BUN 26 H 23 H (7-17) mg/dL Creatinine 1.10 H 0.84 (0.52-1.04) mg/dL Glucose 114 H 88 (74-99) mg/dL Calcium 8.1 L 7.7 L (8.4-10.2) mg/dL Total Bilirubin 0.2 (0.2-1.3) mg/dL AST 25 (14-36) U/L ALT 25 (9-52) U/L Alkaline Phosphatase 55 (38-126) U/L Total Protein 5.9 L (6.3-8.2) g/dL Albumin 2.9 L (3.5-5.0) g/dL Assessment and Plan (1) Anemia Current Visit: Yes Status: Acute Code(s): D64.9 - ANEMIA, UNSPECIFIED SNOMED Code(s): 645692087 (2) Intractable back pain Current Visit: Yes Status: Acute Code(s): M54.9 - DORSALGIA, UNSPECIFIED SNOMED Code(s): 860727660 (3) Compression fracture Current Visit: Yes Status: Acute Code(s): PDB2142 - SNOMED Code(s): 240875437 (4) Personal history of esophageal cancer Current Visit: Yes Status: Acute Code(s): Z85.01 - PERSONAL HISTORY OF MALIGNANT NEOPLASM OF ESOPHAGUS SNOMED Code(s): 985103944 Plan: Serial H&H. Hemoccult stools. She normally was posterior he had an EGD every 2 years so we'll try to see if that was done at outside facility. Otherwise EGD and colonoscopy if Hemoccults are positive. Further recommendations to follow.
[2018-04-01] MEDS: HEPARIN SODIUM,PORCINE 5,000 UNIT/ML 1 ML VIAL SQ SCH (12:32)
[2018-04-01] MEDS: POLYETHYLENE GLYCOL 3350 17 GM POWD.PACK PO SCH (13:16)
--- NOTE | 2018-04-01 13:23 | CONS ---
CONSULTATION REASON FOR CONSULTATION: Severe symptomatic anemia and intermittent rectal bleeding. HISTORY OF PRESENT ILLNESS: The patient is an 82-year-old pleasant white female admitted to hospital because of severe symptomatic anemia and hemoglobin of 6.3 g/dL. She recently had a fall and developed severe back pain, came to the emergency room and had a fracture of the L1 vertebrae and subsequently was given a brace, but it was not effective and continued to have severe pain and hence came back to the emergency room yesterday. CBC done yesterday showed a hemoglobin of 6.3 and hence we are consulted in regards to this issue. The patient has been complaining of rectal bleeding on a daily basis for the last 6 weeks. She has been constipated and straining with stool. Blood is bright red and happens once or twice a day. The patient was diagnosed with early stage esophageal adenocarcinoma in 2005 for which she underwent distal esophagectomy and since then she has been having surveillance upper endoscopies by me once every 2-3 years. Last one was performed in April of 2015, which was unremarkable. She has been complaining of epigastric discomfort, abdominal bloating, excessive belching. She denies any nausea, vomiting. She recalls having a colonoscopy several years ago. PAST MEDICAL HISTORY: Significant for GERD, recent vertebral fracture of L1, history of esophageal cancer as mentioned above, status post esophagectomy in 2005 and remains in clinical remission. PAST SURGICAL HISTORY: Distal esophagectomy 2005, bilateral cataract surgery. MEDICATIONS: At home include vitamin D3, Aricept, vitamin B complex, Zoloft, Ativan, ibuprofen. ALLERGIES: CODEINE. SOCIAL HISTORY: No smoking or alcohol use. FAMILY HISTORY: Mother had colon cancer. REVIEW OF SYSTEMS: CARDIOPULMONARY: No chest pain, shortness of breath. GENITOURINARY: No dysuria or hematuria. MUSCULOSKELETAL: Unremarkable. SKIN: Unremarkable. ENDOCRINE: Unremarkable. PSYCHIATRIC: Unremarkable. NEUROLOGY: Mild dementia. MUSCULOSKELETAL: Severe back pain. ENT/VISION: Unremarkable. CONSTITUTIONAL: No recent weight loss. No fever, chills, night sweats. PHYSICAL EXAMINATION: Blood pressure 129/70, pulse rate 65, temperature 98.2. HEENT examination unremarkable. Conjunctivae pink. Sclerae anicteric. Oral cavity, no lesions. NECK: No JVD or lymph node enlargement. The chest was clear to auscultation. HEART: Regular rate and rhythm. Abdomen was soft, nontender, nondistended. Bowel sounds are positive. No organomegaly. EXTREMITIES: No pedal edema. SKIN: No rashes. NEUROLOGIC: Alert and oriented x3. No focal deficits. LABS: From yesterday WBC 7, hemoglobin 6, platelets 343, MCV 84, BUN 26, creatinine 1. She received 1 unit of blood transfusion and hemoglobin is up to 7.3 g/dL. IMPRESSION: 1. Acute back pain secondary to L1 compression fracture. 2. Severe symptomatic normocytic anemia with a hemoglobin of 6. She has been complaining of rectal bleeding for the last 6 weeks duration. She did have a colonoscopy several years ago but does not recall the details. Last upper endoscopy done by me April of 2015 showed evidence of distal esophagectomy, but no evidence of recurrent cancer. RECOMMENDATIONS: 1. Agree with blood transfusion. 2. I had a lengthy discussion with the patient regarding endoscopy workup including an EGD and colonoscopy during this hospitalization. The patient is not quite sure if she wants to have it done while in the hospital or on an outpatient basis. She wants to discuss this with her daughter today and she will let me know. In the meantime, continue with regular diet. Repeat CBC in the morning and will follow her closely during the hospital stay. Thank you for this consultation. MMODL / IJN: [id number] /
--- NOTE | 2018-04-01 14:13 | P.CNOR ---
History of Present Illness - [facility] Consult date: 04/01/18 Requesting physician: Pancho Berry Consult reason: low back pain History of present illness: Patient is an 82 year old female seen at bedside this am in consultation for low back pain. She states that she has had chronic low back pain where she has seen Dr. Moe and has received pain management through [facility]. She states she fell last week sometime and had increase in low back pain. She presented to the ED on 03/29/[address] showed a mild L1 compression fracture. A TLSO was ordered however she did not obtain it, as she states it did not fit appropriately. She returned yesterday due to continued uncontrolled pain. She continues to complain of low back this morning. She states that she has had intermittent radicular type symptoms as well but no constant numbness, timgling or weakness. She has no loss of bowel/bladder control. No saddle anesthesia. Review of Systems All systems: negative Constitutional: Denies chills, Denies fever Eyes: denies blurred vision, denies pain Ears, nose, mouth and throat: Denies headache, Denies sore throat Cardiovascular: Denies chest pain, Denies shortness of breath Respiratory: Denies cough Gastrointestinal: Denies abdominal pain, Denies diarrhea, Denies nausea, Denies vomiting Genitourinary: Denies dysuria, Denies hematuria Musculoskeletal: Denies myalgias Integumentary: Denies pruritus, Denies rash Neurological: Denies numbness, Denies weakness Psychiatric: Denies anxiety, Denies depression Endocrine: Denies fatigue, Denies weight change Past Medical History Past Medical History: Cancer, GERD/Reflux, Musculoskeletal Disorder Additional Past Medical History / Comment(s): hx of shingles 2001, hx. esophageal cancer, recent fall w/lots of bruises,. Fx scap - May 2017 History of Any Multi-Drug Resistant Organisms: None Reported Past Surgical History: No Surgical Hx Reported Additional Past Surgical History / Comment(s): ESOPHAGECTOMY. BILATERAL CATARACTS, prolapsed rectum surgery Past Anesthesia/Blood Transfusion Reactions: No Reported Reaction Past Psychological History: Anxiety, Depression Smoking Status: Never smoker Past Alcohol Use History: None Reported Past Drug Use History: None Reported - Past Family History Daughter(s) Family Medical History: Cancer Additional Family Medical History / Comment(s): colon CA Mother Family Medical History: No Reported History Medications and Allergies Home Medications Medication Instructions Recorded Confirmed Type Cholecalciferol [Vitamin D3] 2,000 unit PO DAILY 05/21/15 03/31/18 History Vitamin B Complex 2 cap PO BID 05/21/15 03/31/18 History Donepezil [Aricept] 10 mg PO QAM 10/05/17 03/31/18 History Ibuprofen 400 mg PO DAILY PRN 10/05/17 03/31/18 History Naproxen Sodium [Aleve] 220 mg PO DAILY PRN 10/05/17 03/31/18 History Sertraline HCl [Zoloft] 200 mg PO DAILY 10/05/17 03/31/18 History LORazepam [Ativan] 0.5 mg PO TID 10/31/17 03/31/18 History Allergies Allergy/AdvReac Type Severity Reaction Status Date / Time codeine Allergy Unknown Verified 03/31/18 12:45 Physical Examination Inspection of the lumbar spine shows no wounds, erythema, echymosis, deformity or stepoff. There is some paraspinal tension/spasm. Bilateral Lower extremities reveal negative straight leg raises and negative dural tension signs. Motor and sensation is fully intact L2-S1 bilaterally. No hyperreflexxia. No pathologic reflexes. Calves SNT. 2+ DP pulses and less than [address] sec [address] refill Results CT of the lumbar spine shows a mild L1 compression fracture with no retropulsion or instability. There is a collapsed disc space with vacuum at L2- 3 with chronic appearing endplate changes and spondylosis. Additionally there is moderate canal stenosis at this level. - Labs Labs: Abnormal Lab Results - Last 24 Hours (Table) 03/31/18 03/31/18 03/31/18 Range/Units 16:33 16:33 17:48 WBC 11.1 H (3.8-10.6) k/uL RBC 2.64 L (3.80-5.40) m/uL Hgb 6.0 L* D (11.4-16.0) gm/dL Hct 22.4 L (34.0-46.0) % MCH 22.5 L (25.0-35.0) pg MCHC 26.6 L (31.0-37.0) g/dL RDW 18.2 H (11.5-15.5) % Monocytes # (Manual) (0-1.0) k/uL Nucleated RBCs (0-0) /100 WBC Chloride 111 H (98-107) mmol/L BUN 26 H (7-17) mg/dL Creatinine 1.10 H (0.52-1.04) mg/dL Glucose 114 H (74-99) mg/dL Calcium 8.1 L (8.4-10.2) mg/dL Total Protein 5.9 L (6.3-8.2) g/dL Albumin 2.9 L (3.5-5.0) g/dL Crossmatch See Detail 04/01/18 04/01/18 Range/Units 06:27 06:27 WBC (3.8-10.6) k/uL RBC 3.02 L (3.80-5.40) m/uL Hgb 7.3 L (11.4-16.0) gm/dL Hct 25.4 L (34.0-46.0) % MCH 24.0 L (25.0-35.0) pg MCHC 28.6 L (31.0-37.0) g/dL RDW 19.1 H (11.5-15.5) % Monocytes # (Manual) 1.02 H (0-1.0) k/uL Nucleated RBCs 9 H (0-0) /100 WBC Chloride 110 H (98-107) mmol/L BUN 23 H (7-17) mg/dL Creatinine (0.52-1.04) mg/dL Glucose (74-99) mg/dL Calcium 7.7 L (8.4-10.2) mg/dL Total Protein (6.3-8.2) g/dL Albumin (3.5-5.0) g/dL Crossmatch Microbiology - Last 24 Hours (Table) 03/31/18 16:50 Urine Culture - Preliminary Urine,Voided H & H 03/31/18 04/01/18 Range/Units 16:33 06:27 Hgb 6.0 L* D 7.3 L (11.4-16.0) gm/dL Hct 22.4 L 25.4 L (34.0-46.0) % Result Diagrams: 04/01/18 06:27 04/01/18 06:27 Assessment and Plan (1) Compression fracture Narrative/Plan: No immediate orthopedic surgical intervention is planned. An LSO brace has been ordered. Continue pain management and may benefit from muscle relaxant. Should also participate in PT and obey proper body mechanics. She may follow up with Dr. Corbin as an outpatient for further recommendations regarding her spine. Current Visit: Yes Status: Acute Priority: Medium Code(s): ABX6465 - SNOMED Code(s): 597390894 Time with Patient: Less than 30
[2018-04-01] MEDS ORDERED: HALOPERIDOL LACTATE 5 MG/ML 1 ML VIAL IM PRN ×2 (14:33→17:00)
[2018-04-01] MEDS ORDERED: HALOPERIDOL LACTATE 5 MG/ML 1 ML VIAL IM STA (15:24)
--- NOTE | 2018-04-01 21:08 | PN ---
PROGRESS NOTE DATE OF SERVICE: 04/01/2018 82-year-old white female. ATTENDING PHYSICIAN: Dr. Joiner is FULL CODE. DATA: Height is 5 foot 5 inches, weight 45.359 kg, BSA 1.47 m2, BMI 16.6 kg/m2. ALLERGY: TO CODEINE. The patient has complaint of agitation by the nursing staff and the family and become delirium and at that time we started her on the Haldol, however, 0.5 mg was every 4 hour was not have effective, still agitated and I discussed with the family, her son and her daughter and we increased her Haldol to 1 mg every 3 hours p.r.n. We did consult the psychiatrist, Dr. Nair, who her psychiatrist also has outside. However, there is no psychiatrist can see the patient yesterday or today and waiting for tomorrow to see the patient. The patient found that her hemoglobin 6 and the possible with markedly macrocytosis and the patient seen by Dr. Fuentes to [facility] with the underlying future plan for EGD and colonoscopy. However, the patient stated to the Dr. Sykes that she wanted to consult with her children, the daughter and the son. Which today I did talk to them as well and they agreed with the procedure, especially with the underlying history of adenocarcinoma of the lower esophagus and history of surgery in the past. With the possibility of erosion or recurrence or other etiology to become 6 hemoglobin. The patient transfused 1 unit of packed RBCs. Today her hemoglobin 7.3, but definitely the iron will be low and we did send for iron evaluation and so far is not available as it is sent out. She had chemistry today found that her sodium 139, potassium 4.7, and chloride 110. Her CO2 23, and carbon dioxide 23, and anion gap 6. She has a BUN of 23 which is improved from yesterday was 26. The creatinine improved from yesterday is 0.84 today and yesterday was 1.10, and estimated glomerular filtration rate is 65 for non- indicating the underlying dehydration as well. Her calcium was 8.1 yesterday, however, today is 7.7, and apparently she is not a good eater and her urine analysis was negative. On examination, the patient was conscious, alert. She could not understand discussion and given by her son and daughter with the agitation and she was stated that she wants to go home and she does not really remember if she is in the hospital right now. On the physical exam, her temperature 97.7, pulse 85, respiratory rate and blood pressure 150/72 with mean 98 with the oxygen saturation on room air 93 and that is with her current agitation. Her otherwise HEENT was negative. She had a pallor of the conjunctivae and oropharynx teeth. Pale mucosa. Neck was supple. No JVD. No thyromegaly. No lymphadenopathy. Trachea midline. The chest was clear to auscultation and percussion and the heart was regular sinus rhythm and the abdomen was soft. Positive bowel sounds and extremities, no edema and positive pulses. She had back pain with a history of L1 fracture and that is why she was admitted for intractable pain. However, found that her hemoglobin is 6 and with the current medication, with the hemoglobin we will be adjusting medication and will be discontinuing the ibuprofen as well. The patient on lorazepam 1 mg once a day and we added for the constipation, polyethylene glycol as well as we cut down on the sertraline, Zoloft to 15 mg until seen by the psychiatrist and because she was in a high dose and will be interaction with the other medication. ASSESSMENT: Fracture of the L1 and the PA of the Orthopedic did see her today. However, we waiting for Dr. Corbin consultation, which he is not available at this time until tomorrow and meanwhile we will continue with the symptomatic treatment and pain control. We also consulted the pain control for the pain management and we did not have an answer today on the Labor Day. They did not come and help us for the patient. We will be continuing the current treatment and further treatment depends on the patient condition. MMODL / IJN: [id number] /
[2018-04-01] MEDS: HYDROcodone/APAP 7.5-325MG 1 EACH TAB PO PRN (21:55)
[2018-04-02 08:12] LABS: Anisocytosis Slight; HCT 27.6 % (34.0-46.0); HGB 8.1 gm/dL (11.4-16.0); Hypochromasia Marked; MCH 24.4 pg (25.0-35.0); MCHC 29.2 g/dL (31.0-37.0); MCV 83.4 fL (80.0-100.0); Mean Platelet Volume 8.2; Microcytosis Slight; Platelet Count 410 k/uL (150-450); Poikilocytosis Moderate; RDW 19.7 % (11.5-15.5)
[2018-04-02] MEDS: CHOLECALCIFEROL 1,000 UNIT TAB PO SCH (08:33)
[2018-04-02] MEDS: HYDROcodone/APAP 7.5-325MG 1 EACH TAB PO PRN ×2 (08:33→15:03)
[2018-04-02] MEDS: FAMOTIDINE 20 MG TAB PO SCH (08:33)
[2018-04-02] MEDS: SERTRALINE 50 MG TAB PO SCH (08:33)
[2018-04-02] MEDS: POLYETHYLENE GLYCOL 3350 17 GM POWD.PACK PO SCH (08:33)
[2018-04-02 08:47] LABS: Basophils # (M) 0.09 k/uL (0-0.2); Eosinophils # (M) 0.55 k/uL (0-0.7); Lymphocytes # (M) 2.02 k/uL (1.0-4.8); Metamyelocytes # (M) 0.09 k/uL (0); Metamyelocytes % 1 %; Monocytes # (M) 0.83 k/uL (0-1.0); Neutrophils % (M) 63 %; Nucleated Red Blood Cells 15 /100 WBC (0-0); Polychromasia Present; Total Cells Counted 200; WBC 9.2 k/uL (3.8-10.6)
[2018-04-02 08:48] LABS: RBC Fragments Present
[2018-04-02 08:49] LABS: Target Cells Present
[2018-04-02] MEDS: LORazepam 1 MG TAB PO PRN ×2 (09:17→17:32)
[2018-04-02 10:15] VITALS: BMI 16.6
--- NOTE | 2018-04-02 10:26 | P.CN ---
Psychiatric Consult - . Consult date: 04/02/18 Consult:: IDENTIFYING DATA: The patient is an 82-year-old female admitted to medicine service for evaluation and treatment of increased back pain. The hospitalist submitted a psychiatric consult because she is an established patient of Dr. Nair. HISTORY OF PRESENT ILLNESS: I reviewed the medical record, interviewed the patient and her daughter who was at the bedside. The patient denied problems or concerns. Her daughter expressed concern about the change in the patent's mental status yesterday and the change of her antidepressant. Her daughter stated that she she had been doing well with the dose of Zoloft described by Dr. Nair; 200 mg daily. The production potter apparently did not consolidate Zoloft on this admission then reinitiated at 50 mg per day. Yesterday, the patient receive 0.5 mg of haloperidol apparently for agitation. Her daughter reported that she became confused and disoriented after receiving the Haldol. During the confusion she believed that she was at home and visiting with her family. She stated her mother's mental's status has improved remarkably from yesterday and she is no longer confused. The patient's only complaint was pain. She repeatedly complained about the pain and the need for additional pain management and treatment. She understood that she came to the hospital because she had fallen and fractured a vertebrae. During our interview she denied feeling depressed or having thoughts of or suicide. She was anxious and attributed anxiety to ongoing pain. She denied symptoms suggestive of panic attack. She denied experiencing auditory, visual or olfactory hallucinations. I spoke with Dr. Nair. He stated that she has a history of a generalized anxiety disorder and a major neurocognitive disorder. Over the last year her cognitive impairments have become progressively worse. He has managed her symptoms on an outpatient basis with a combination of Ativan and sertraline. PAST PSYCHIATRIC HISTORY: She had one admission to our psychiatric unit in December 2015 for complaints of increased depression and suicidal ideation. She was discharged with diagnoses of unspecified depressive disorder, generalized anxiety disorder and a cognitive disorder most likely Alzheimer's dementia. Her discharge medications included Aricept 5 mg daily, Klonopin 0.5 mg 3 times a day and sertraline 50 mg at bedtime. The patient has been under the care of Dr. Nair through our outpatient clinic since 2014. SUBSTANCE USE HISTORY: There is no history of abuse of alcohol or drugs. FAMILY PSYCHIATRIC/SUBSTANCE USE HISTORY: According to the medical record, she has a family history of a depression disorders. SOCIAL HISTORY: She's been for 50 years and lives with her . She has 2 sons and one daughter. According to her daughter, she is able to attend her ADLs, cooking and maintain her household. MENTAL STATUS EXAM: She presented as a thin and frail-appearing female who was pleasant on approach. She made eye contact and attended to interview. She had no distinguishing features or prominent physical abnormalities. She had a anxious facial expression. She is alert and oriented to person, place and year. She showed no abnormality of psychomotor activity. She was not restless, agitated or impulsive. She had a slow but normal gait. Her speech was spontaneous with normal rate, rhythm and volume. She had no articulation difficulties. Her affect was anxious but not intense or inappropriate. She denied suicidal ideation or wishes. She denied homicidal ideation. She denied such depressive cognitions as hopelessness, helplessness and worthlessness. She ruminated about chronic pain. She did not express ideas reference, paranoid ideation or delusional thoughts. Her thinking was concrete. Associations were coherent and logical. She denied hallucinations and did not appear to be responding to internal stimuli.. IMPRESSIONS: She is a 82-year-old female with a history of a generalized anxiety disorder and a major neurocognitive disorder. [facility] with increasing low back pain following a fall. She appears developed acute confusional state after receiving 0.5 mg of haloperidol IM on 04/01/2018. The acute confusion has resolved and according to her daughter she is at her baseline. Her anxiety symptoms have been managed as an outpatient with a combination of Ativan 0.5 mg 3 times a day and sertraline 200 mg daily. There is no indication for psychiatric hospitalization at this time. She would benefit from continued outpatient mental health services. PLAN: Reduce lorazepam to 0.5 mg 3 times a day when necessary and continue with the medication after discharge. Increase the current dose of sertraline from 50 mg to 100 mg daily. Schedule a follow-up appointment with Dr. Nair in our mental health clinic. Thank you for this consult. 04/02/18 10:01
[2018-04-02] MEDS: SODIUM CHLORIDE 0.9% 1,000 ML IV SCH ×3 (11:22→23:38)
[2018-04-02] MEDS: HYDROmorphone 1 MG/ML 1 ML SYRINGE IVP PRN ×2 (11:26→20:06)
[2018-04-02] MEDS ORDERED: BISACODYL 5 MG TABLET.DR PO STA (13:33)
[2018-04-02] MEDS ORDERED: POLYETHYLENE GLYCOL 3350 17 GM POWD.PACK PO STA (13:34)
--- NOTE | 2018-04-02 13:34 | P.PN ---
Subjective Progress Note Date: 04/02/18 Principal diagnosis: Anemia rectal bleeding 82-year-old female admitted with back pain status post recent fall with fractures and rectal bleeding. Denies rectal bleeding today. Afebrile. Reports back pain. Hemoglobin 8.1. Denies abdominal pain. No nausea vomiting. EGD colonoscopy scheduled tomorrow. Objective - Vital Signs Vital signs: Vital Signs Temp 98.6 F 04/02/18 07:00 Pulse 87 04/02/18 07:00 Resp 16 04/02/18 07:00 BP 158/73 04/02/18 07:00 Pulse Ox 90 L 04/02/18 07:00 Intake & Output 04/01/18 04/02/18 04/02/18 18:59 06:59 18:59 Intake Total 1180 1680 Balance 1180 1680 Weight 45.359 kg Intake: Intake, IV Titration 300 Amount Sodium Chloride 0.9% 1, 300 000 ml @ 75 mls/hr IV . [id number] DMITRI Rx#:[id number] Oral 880 1680 Other: Voiding Method Toilet # Voids 1 2 # Bowel Movements 0 - Exam General appearance: The patient is alert, oriented, in no acute distress. HET: Head is normocephalic and atraumatic. Pupils are equal and reactive. Oropharynx is clear without lesions. Neck: Supple without lymphadenopathy. Trachea midline. Heart: S1 S2. Regular rate and rhythm. Lungs: No crackles or wheezes are heard. Abdomen: Soft, nontender, nondistended with bowel sounds. No peritoneal signs. No palpable organomegaly or masses. Extremities: Normal skin color and turgor. No cyanosis, rash, ulceration, clubbing, or edema. Radial and pedal pulses are 2/4 bilaterally. Neurological: No focal deficits. Strength and sensation are grossly intact. - Labs CBC & Chem 7: 04/02/18 07:50 04/01/18 06:27 Labs: Abnormal Lab Results - Last 24 Hours (Table) 04/02/18 Range/Units 07:50 RBC 3.30 L (3.80-5.40) m/uL Hgb 8.1 L (11.4-16.0) gm/dL Hct 27.6 L (34.0-46.0) % MCH 24.4 L (25.0-35.0) pg MCHC 29.2 L (31.0-37.0) g/dL RDW 19.7 H (11.5-15.5) % Metamyelocytes # (Man) 0.09 H (0) k/uL Nucleated RBCs 15 H (0-0) /100 WBC Microbiology - Last 24 Hours (Table) 03/31/18 16:50 Urine Culture - Final Urine,Voided Assessment and Plan (1) Anemia Narrative/Plan: 82-year-old female with a history of remote esophageal carcinoma distal esophagectomy 2005 presents with painless rectal bleeding acute blood loss symptomatic normocytic anemia tractable back pain recent fall with fractures. Current Visit: Yes Status: Acute Code(s): D64.9 - ANEMIA, UNSPECIFIED SNOMED Code(s): 814180854 (2) Compression fracture Current Visit: Yes Status: Acute Priority: Medium Code(s): WIR6096 - SNOMED Code(s): 259004972 (3) Intractable back pain Current Visit: Yes Status: Acute Code(s): M54.9 - DORSALGIA, UNSPECIFIED SNOMED Code(s): 923035695 Plan: 1. EGD colonoscopy tomorrow with Dr. Sykes. Patient states she is not able to tolerate GoLYTELY very well therefore will provide a few tablets of Dulcolax additional doses of MiraLAX prior to starting GoLYTELY prep. Continue clear liquid diet. Nothing by mouth after midnight. CBC monitoring. Assessment and plan a care discussed with Dr. Katz
[2018-04-02] MEDS ORDERED: PEG 3350-NA SULF,BICARB,CL/KCL 4,000 ML BOTTLE PO ONE (16:00)
[2018-04-02] MEDS ORDERED: SERTRALINE 50 MG TAB PO SCH (18:00)
--- NOTE | 2018-04-02 18:20 | P.PN ---
Subjective Progress Note Date: 04/02/18 Principal diagnosis: This dictation date of service 04/02/[address] Brandon Givens FACP. PCP Dr. Joiner Diagnosis: #1 acute GI bleeding with the hemoglobin found to be 6 on admission # 2 patient transfused 1 unit of packed RBCs. #3 consultation with GI who will be upper and lower endoscopy tomorrow and currently she is with good light Intractable pain of the low back patient admitted with intractable pain on the med service by the request of Dr. Deleon orthopedic surgeon, consultation with Dr. Steve was also requested. Consultation with the pain management requested, with recurrent GI bleeding consultation with surgery also requested. This is a progress note dictation date of service 04/02/[address] Anila Givens FACP. Attending physician Dr. Joiner. Patient yesterday she went agitated with the delirium and aggressive her family at bedside and we started her on the Haldol requesting the psychiatry evaluation. The psychiatrist did see the patient today was his impression that the 82 years old female with a history of generalized anxiety disorder and major neurocognitive disorder. He agreed with the Haldol 0.5 mg IM she was on Ativan he stated that his O indication to psychiatric hospitalization and the benefits of continuing outpatient and his recommendation to continue lorazepam 0.5 mg 3 times a day when necessary and continue medication after discharge and increase the sertraline to 100 mg daily and follow up with by Dr. Tyler in the mental health clinic. Discussed with the daughter and the nursing staff and apparently the patient able to improve and his agitation has been improved and patient accepted the idea of upper and lower endoscopy for the acute GI bleed. Also patient accepted the base on the back and currently she is with the brace as well. Laboratory on 04/02/2018 his white count and white count 9.2, hemoglobin 8.1 and hematocrit 27.6 with the improvement from hemoglobin of 6 and hematocrit 22.4. Her platelet count 410. And nucleated RBCs 15. Chemistry indicating sodium 139 potassium 4.7 chloride 110 carbon dioxide 23 and anion gap 6 BUN 23 creatinine 0.84 with the estimated glomerular filtration rate for non- 65 her calcium 7.7 and magnesium is 2.2. Her vital sign 98.4 temperature and pulse rate 73, respiratory rate 16 her blood pressure is fluctuating 158/73 and 173/80 with the pulse ox 93% on room air. On examination: She is conscious alert oriented today less confusion than yesterday she is complaining of burping with the goal light for cleansing the bowel. Her HEENT was negative except of the conjunctival pallor. Oropharynx was negative. Neck was supple no JVD no thyromegaly no lymphadenopathy. Chest is clear to auscultation and percussion next heart is regular sinus rhythm. Abdomen is distended and protuberant with the underlying history of bleeding per rectum. History also of lower esophageal cancer with the surgery and partial gastrectomy and lower esophagectomy. Extremities: No edema and positive pulses. Assessment and plan Number 1R back pain intractable with a fracture of the L1, patient on brace, #2 acute GI bleeding with hemoglobin on admission of 6 currently improved to 8.1 and #3 patient transfuse 1 unit of packed RBCs when her hemoglobin was 6. 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 #5 history of intermittent bleeding at home without telling the attending physician. #6 neurocognitive function improvement with general anxiety disorder. #7 probably delirium improved with Haldol. With the associated agitation and the request to go home. We'll continue current treatment and we'll increase her Zoloft to 100 mg. Her recommendation of the psychiatry however he did not address the Haldol or the agitation. Procedure EGD and colonoscopy tomorrow, farther discussion and treatment depending on the results. We consulted the pain management patient has been in the pain clinic before and they have been giving her injection. Also waiting for Dr. Steve who did we did consult for the evaluation of the L1 fracture. And treatment Objective - Vital Signs Vital signs: Vital Signs Temp 98.4 F 04/02/18 15:00 Pulse 73 04/02/18 15:00 Resp 16 04/02/18 16:00 BP 173/80 04/02/18 15:00 Pulse Ox 93 L 04/02/18 15:00 Intake & Output 04/01/18 04/02/18 04/02/18 18:59 06:59 18:59 Intake Total 1180 1680 Balance 1180 1680 Weight 45.359 kg Intake: Intake, IV Titration 300 Amount Sodium Chloride 0.9% 1, 300 000 ml @ 75 mls/hr IV . [id number] [facility] Rx#:[id number] Oral 880 1680 Other: Voiding Method Toilet # Voids 1 2 1 # Bowel Movements 0 - Labs CBC & Chem 7: 04/02/18 07:50 04/01/18 06:27 Labs: Abnormal Lab Results - Last 24 Hours (Table) 04/02/18 Range/Units 07:50 RBC 3.30 L (3.80-5.40) m/uL Hgb 8.1 L (11.4-16.0) gm/dL Hct 27.6 L (34.0-46.0) % MCH 24.4 L (25.0-35.0) pg MCHC 29.2 L (31.0-37.0) g/dL RDW 19.7 H (11.5-15.5) % Metamyelocytes # (Man) 0.09 H (0) k/uL Nucleated RBCs 15 H (0-0) /100 WBC Microbiology - Last 24 Hours (Table) 03/31/18 16:50 Urine Culture - Final Urine,Voided
[2018-04-02] MEDS: SERTRALINE 100 MG TAB PO SCH (18:22)
[2018-04-03] MEDS: HYDROcodone/APAP 7.5-325MG 1 EACH TAB PO PRN (00:12)
[2018-04-03] MEDS: HYDROmorphone 1 MG/ML 1 ML SYRINGE IVP PRN ×5 (05:23→22:50)
[2018-04-03] MEDS: SERTRALINE 100 MG TAB PO SCH (09:21)
[2018-04-03] MEDS: POLYETHYLENE GLYCOL 3350 17 GM POWD.PACK PO SCH (09:21)
[2018-04-03] MEDS: FAMOTIDINE 20 MG TAB PO SCH (09:21)
[2018-04-03] MEDS: SODIUM CHLORIDE 0.9% 1,000 ML IV SCH (10:02)
[2018-04-03] MEDS ORDERED: IV FLUID CONTINUATION 1,000 ML IV ONE (11:06)
[2018-04-03] MEDS ORDERED: LIDOCAINE 1% INJ 10MG/ML (20 ML MDV) ONE (11:06)
[2018-04-03] MEDS ORDERED: PROPOFOL 10 MG/ML 20 ML VIAL IV ONE (11:06)
[2018-04-03] MEDS: CHOLECALCIFEROL 1,000 UNIT TAB PO SCH (11:25)
--- NOTE | 2018-04-03 11:47 | P.PCN ---
Date of Procedure: 04/03/18 Procedure(s) Performed: Brief history: Patient is a pleasant 82-year-old white female, admitted to the hospital with severe symptomatic anemia and a hemoglobin of 6 g/dL. She has been complaining of intermittent rectal bleeding for the last few weeks. She is hence scheduled for an elective upper endoscopy as well as colonoscopy as a part of evaluation of severe anemia. Procedure performed: Esophagogastroduodenoscopy with biopsy Colonoscopy Preoperative diagnosis: Severe symptomatic anemia and intermittent rectal bleeding Anesthesia: MAC Procedure: After informed consent was obtained from the patient was brought into the endoscopy unit and IV sedation was administered by anesthesia under continuous monitoring. Initially upper endoscopy was done. The Olympus GF 160 video endoscope was inserted inserted into the mouth and esophagus intubated without any difficulty and was gradually advanced into the stomach and duodenum and carefully examined. The bulb and second part of the duodenum appeared normal. Biopsies were done from the duodenum to rule out celiac disease. The scope was then withdrawn into the stomach adequately insufflated with air and upon careful examination the antrum and body, appeared normal. The scope was then withdrawn into the esophagus. There was evidence of distal esophagectomy and the anastomosis was located at 35 cm from the incisors. It appeared regular with no erythema erosions or ulcerations. Rest of the esophagus appeared normal. Patient tolerated the procedure well. At this time the patient continued to remain sedation. Initial digital rectal examination was normal. Olympus CF 160 video colonoscope was then inserted into the rectum and gradually advanced to the cecum without any difficulty. Careful examination was performed as the scope was gradually being withdrawn. The prep was fair.. The cecum, ascending colon, transverse colon, descending colon, sigmoid colon and rectum appeared normal. Retroflexion was performed in the rectum and no lesions were noted. Patient tolerated the procedure well. Impression: 1.Upper endoscopy revealed evidence of distal esophagectomy but no evidence of esophagitis or peptic ulcer disease 2.Colonoscopy revealed small internal hemorrhoids. No evidence of colorectal neoplasia Recommendations: Findings of this examination were discussed with the patient as well Mary family. she was advised to follow with the biopsy results. Since no evidence of obvious bleeding identified, she'll be scheduled for a small bowel capsule endoscopy today, if she is agreeable.
[2018-04-03] MEDS: LORazepam 1 MG TAB PO PRN ×2 (12:35→21:26)
[2018-04-03] MEDS ORDERED: SIMETHICONE 40 MG/0.6 ML DROPS 2,000 MG/30 ML BOTTLE PO ONE (14:52)
--- NOTE | 2018-04-03 18:17 | PN ---
PROGRESS NOTE She is an 82-year-old white female, . NEW DATA: She is FULL CODE. Her height is 5 feet 5 inches and weight 45.359 kg, she is a BSA 1.47 m2, BMI 16.6 kg/m2. ALLERGY: CODEINE. The patient is seen today, evaluated and also discussed with the patient and her who was at bedside and she had the upper and lower endoscopy by Dr. Sykes which indicating in her note that she had severe symptomatic anemia, intermittent rectal bleeding at home and the procedure was done and with the conclusion that she had upper endoscopy revealed evidence of distal esophagectomy. No evidence of esophagitis or peptic ulcer disease. Colonoscopy revealed small internal hemorrhoids and no evidence of colorectal neoplasia. The patient currently on a capsule camera to clarify the issue as well and subsequently will know by tonight or tomorrow morning the result. The patient had also the TLSO brace was placed by the rehab and Orthopedic. However do not have any note from the orthopedic for any for further treatment and we consulted the Pain Management. However, we do not see any note for them for instruction or lead of for further treatment needed. Currently patient on pain medication. She stated today that her pain is 9/10, still high and we still waiting for the Pain Management to help us hopefully they come, although that the consultation was requested since Sunday. PHYSICAL EXAM: The patient is temperature 98.1 and pulse 70, respiratory rate 18, her blood pressure is still 177/85 with a mean 116 and oxygen on 2 L nasal oxygen 96%. Currently HEENT was negative. LABORATORY: Indicating that her temperature 99.2 and the hemoglobin is improved from 6-8.1, however, she transfused 1 unit of packed RBCs. Her nucleated RBCs is 15 and this lab was done on 04/02/2018. No labs done today and we will be repeating the CBC tomorrow and BMP. Also, her BMP on the showed that sodium 139, potassium 4.9, chloride was 110, and her BUN is 23 and creatinine 0.84. She has estimated glomerular filtration rate for non- 65 and she has also the calcium was 7.7, and we will be monitoring lab for tomorrow and will see with the results. Also the camera picking up results as well. On examination HEENT was negative. Neck was supple. Chest was clear to auscultation and percussion and the heart was regular sinus rhythm. The abdomen was soft. She had wearing the scanner and she swallowed the camera capsule. No tenderness at this time. However, she had a back pain. She wearing the brace and adjusted in the hospital. Extremities: No edema and positive pulses. ASSESSMENT: 1. She has underlying L1 fracture. 2. Intractable pain and the orthopedic surgeon referred the patient to medical service as they do not want to take care of her current problem of the pain control. Meanwhile, we consulted the Pain Management and so far no help. Continuing on our current medication on admission. 3. Meanwhile for her acute blood loss with a drop of hemoglobin to 6 and symptomatic with dizziness, we will be monitoring her hemoglobin and hematocrit and waiting for the capsule camera results. Her urinalysis was negative. The patient is stable currently with the treatment and will check tomorrow laboratory. ZIGGY / WILBERT: [id number] /
[2018-04-04] MEDS: SODIUM CHLORIDE 0.9% 1,000 ML IV SCH ×2 (04:09→16:19)
[2018-04-04] MEDS: HYDROmorphone 1 MG/ML 1 ML SYRINGE IVP PRN (05:27)
[2018-04-04 07:30] LABS: Anisocytosis Moderate; HCT 28.3 % (34.0-46.0); Hypochromasia Marked; MCH 23.4 pg (25.0-35.0); MCHC 28.4 g/dL (31.0-37.0); MCV 82.2 fL (80.0-100.0); Mean Platelet Volume 8.3; Microcytosis Slight; Platelet Count 433 k/uL (150-450); Poikilocytosis Moderate; RBC 3.44 m/uL (3.80-5.40); RDW 20.9 % (11.5-15.5)
[2018-04-04 07:49] LABS: Anion Gap 11 mmol/L; Blood Urea Nitrogen 10 mg/dL (7-17); Calcium 8.7 mg/dL (8.4-10.2); Carbon Dioxide 24 mmol/L (22-30); Chloride 103 mmol/L (98-107); Glucose 99 mg/dL (74-99); Potassium 4.3 mmol/L (3.5-5.1); Sodium 138 mmol/L (137-145)
[2018-04-04 08:20] LABS: Basophils # (M) 0.11 k/uL (0-0.2); Eosinophils # (M) 0.11 k/uL (0-0.7); Lymphocytes # (M) 1.48 k/uL (1.0-4.8); Monocytes # (M) 1.59 k/uL (0-1.0); Neutrophils # (M) 7.42 k/uL (1.3-7.7); Neutrophils % (M) 70 %; Nucleated Red Blood Cells 3 /100 WBC (0-0); Total Cells Counted 200; WBC 10.6 k/uL (3.8-10.6)
[2018-04-04 08:24] LABS: Polychromasia Present; RBC Fragments Present; Target Cells Present
[2018-04-04] MEDS: HYDROcodone/APAP 7.5-325MG 1 EACH TAB PO PRN ×3 (09:14→20:59)
[2018-04-04] MEDS: SERTRALINE 100 MG TAB PO SCH (09:17)
[2018-04-04] MEDS: LORazepam 1 MG TAB PO PRN ×2 (09:17→18:28)
[2018-04-04] MEDS: FAMOTIDINE 20 MG TAB PO SCH (09:17)
--- NOTE | 2018-04-04 09:40 | P.PN ---
<Frances Osei - Last Filed: 04/04/18 09:34> Subjective Progress Note Date: 04/04/18 Principal diagnosis: Low back pain This is an 82-year-old female admitted with low hemoglobin on 04/02/2018. She has history of recent fall, sustaining injury to her low back. She was noted to have an L1 compression fracture at her previous visit to the hospital. She has had GI workup for her low hemoglobin. She continues to have significant low back pain. She denies any numbness or tingling to the lower extremities. She denies any bowel or bladder dysfunction. Computed tomography scan of the lumbar spine reveals a mild compression deformity of L1. There is sclerosis and erosion of the disc space at L2-3 with erosion of the L2 vertebral body. Objective - Vital Signs Vital signs: Vital Signs Temp 97.2 F L 04/04/18 07:00 Pulse 87 04/04/18 07:00 Resp 14 04/04/18 07:00 BP 112/78 04/04/18 07:00 Pulse Ox 94 L 04/04/18 07:00 Intake & Output 04/03/18 04/04/18 04/04/18 18:59 06:59 18:59 Intake Total 100 525 Balance 100 525 Intake: IV 100 Intake, IV Titration 525 Amount Sodium Chloride 0.9% 1, 525 000 ml @ 75 mls/hr IV . [id number] [facility] Rx#:[id number] Other: Voiding Method Toilet Toilet # Voids 2 2 - Exam This is a pleasant 82-year-old female in no acute distress. She is alert and oriented 3. Her daughter is present at bedside. Exam of low back reveals no obvious deformity. There was pain with rolling to her side for back exam. There is pain with palpation and percussion about the upper to mid lumbar spine. There is mild paraspinal musculature tenderness bilaterally. Exam the lower extremities reveals no obvious deformity. She is able to lift each leg off the bed independently. She has full hip, knee and ankle motion. Neurovascular status to the lower extremities is intact. - Labs CBC & Chem 7: 04/04/18 06:42 04/04/18 06:42 Labs: Abnormal Lab Results - Last 24 Hours (Table) 04/04/18 Range/Units 06:42 RBC 3.44 L (3.80-5.40) m/uL Hgb 8.0 L (11.4-16.0) gm/dL Hct 28.3 L (34.0-46.0) % MCH 23.4 L (25.0-35.0) pg MCHC 28.4 L (31.0-37.0) g/dL RDW 20.9 H (11.5-15.5) % Monocytes # (Manual) 1.59 H (0-1.0) k/uL Nucleated RBCs 3 H (0-0) /100 WBC Assessment and Plan (1) Anemia Current Visit: Yes Status: Acute Code(s): D64.9 - ANEMIA, UNSPECIFIED SNOMED Code(s): 119133136 (2) Compression fracture Current Visit: Yes Status: Acute Priority: Medium Code(s): PHQ6474 - SNOMED Code(s): 981646367 (3) Intractable back pain Current Visit: Yes Status: Acute Code(s): M54.9 - DORSALGIA, UNSPECIFIED SNOMED Code(s): 165102515 Plan: The clinical and x-ray findings are discussed with the patient and her family. I've discussed the case with Dr. Corbin. He would like to proceed with an MRI for further evaluation. She has a lumbar brace which she is to wear when she is up. Dr. Corbin will evaluate the patient later today. <Steph Corbin - Last Filed: 04/04/18 16:59> Objective - Vital Signs Vital signs: Vital Signs Temp 97.2 F L 04/04/18 07:00 Pulse 87 04/04/18 16:00 Resp 14 04/04/18 16:00 BP 112/78 04/04/18 07:00 Pulse Ox 94 L 04/04/18 07:00 Intake & Output 04/03/18 04/04/18 04/04/18 18:59 06:59 18:59 Intake Total 100 525 600 Balance 100 525 600 Weight 45.359 kg Intake: IV 100 Intake, IV Titration 525 600 Amount Sodium Chloride 0.9% 1, 525 600 000 ml @ 75 mls/hr IV . [id number] [facility] Rx#:[id number] Other: Voiding Method Toilet Toilet Toilet # Voids 2 2 2 - Labs CBC & Chem 7: 04/04/18 06:42 04/04/18 06:42 Labs: Abnormal Lab Results - Last 24 Hours (Table) 04/04/18 Range/Units 06:42 RBC 3.44 L (3.80-5.40) m/uL Hgb 8.0 L (11.4-16.0) gm/dL Hct 28.3 L (34.0-46.0) % MCH 23.4 L (25.0-35.0) pg MCHC 28.4 L (31.0-37.0) g/dL RDW 20.9 H (11.5-15.5) % Monocytes # (Manual) 1.59 H (0-1.0) k/uL Nucleated RBCs 3 H (0-0) /100 WBC Assessment and Plan Plan: I was able to see and examine the patient today at bedside. She has no pain at her lower back since her fall last week. She does have history of some chronic pain at her lower back which is different than her current pain. She continues to complain of severe pain at her lower back particularly with any motion and movement. She has pain when she coughs and sneezes. She's not having pain with her bladder function. She has been continuing her GI workup in regards to her anemia. She is not having pain in her lower extremity is. She is having some occasional tingling in her right lower extremity which is new for her. She has history of chronic low back pain which have been managed recently with interventional pain management, but this has not given her any relief. She says that this pain since her recent fall is much more severe and not the same as her pain prior. On exam she has tenderness to palpation on the midline and her Robert lumbar junction. She has significant paravertebral spasm. Lower extremity since sustained dorsal flexion plantar flexion and EHL with 5 out of 5 strength. She is not having any clonus. Her computed tomography scan shows a compression deformity at L1 approximately 10% with fracture lines anteriorly in the intercondylar the vertebral body. There may be evidence of some fracture lines at T12 as well but there is no evidence of compression. She also has significant disc degeneration at L2-3 with some chronic changes and disc height loss with sclerosis along the margins of L2 and L3 Acute on chronic low back pain New Onset low Back pain due to L1 compression fracture, due to fall Possible fracture line at T12 vertebral body Anemia, rule out GI bleed The patient is having continued pain in her low back and has not been having any improvement with pain control and relative rest. She has a new brace but this is providing her very little discomfort for her low back. I think we need to obtain a new image with x-rays at her lumbar spine and also hit her thoracic spine to see if there is further compression of the fracture at L1 or possible other fractures at T12. It could be that she is having continuing collapse of the vertebrae which is perpetuating her pain despite conservative management. She would be a candidate for kyphoplasty particularly at L1, which may help alleviate a significant portion of her pain. Certainly she would need clearance for this as per GI and medicine. We will go ahead and obtain a new x- ray of her lumbar spine and thoracic spine to review the fractures. She should continue with her pain management and GI workup. Her daughter and her were at bedside I discussed this with him as well and they're all in agreement.
[2018-04-04] MEDS: POLYETHYLENE GLYCOL 3350 17 GM POWD.PACK PO SCH (10:35)
--- NOTE | 2018-04-04 11:42 | P.PN ---
Subjective Progress Note Date: 04/04/18 Principal diagnosis: Anemia rectal bleeding 82-year-old female admitted with back pain status post recent fall with fractures and rectal bleeding. There is post EGD colonoscopy yesterday findings of no evidence of peptic ulcer disease small internal hemorrhoids no evidence of colorectal neoplasia. Small bowel capsule endoscopy completed results pending. This morning reports back pain; MRI scheduled. Denies rectal bleeding today. Afebrile. Hemoglobin 8.0. Denies abdominal pain. No nausea vomiting. Objective - Vital Signs Vital signs: Vital Signs Temp 97.2 F L 04/04/18 07:00 Pulse 87 04/04/18 07:40 Resp 14 04/04/18 07:40 BP 112/78 04/04/18 07:00 Pulse Ox 94 L 04/04/18 07:00 Intake & Output 04/03/18 04/04/18 04/04/18 18:59 06:59 18:59 Intake Total 100 525 Balance 100 525 Weight 45.359 kg Intake: IV 100 Intake, IV Titration 525 Amount Sodium Chloride 0.9% 1, 525 000 ml @ 75 mls/hr IV . [id number] [facility] Rx#:[id number] Other: Voiding Method Toilet Toilet Toilet # Voids 2 2 - Exam General appearance: The patient is alert, oriented, in no acute distress. HET: Head is normocephalic and atraumatic. Pupils are equal and reactive. Oropharynx is clear without lesions. Neck: Supple without lymphadenopathy. Trachea midline. Heart: S1 S2. Regular rate and rhythm. Lungs: No crackles or wheezes are heard. Abdomen: Soft, nontender, nondistended with bowel sounds. No peritoneal signs. No palpable organomegaly or masses. Extremities: Normal skin color and turgor. No cyanosis, rash, ulceration, clubbing, or edema. Radial and pedal pulses are 2/4 bilaterally. Neurological: No focal deficits. Strength and sensation are grossly intact. - Labs CBC & Chem 7: 04/04/18 06:42 04/04/18 06:42 Labs: Abnormal Lab Results - Last 24 Hours (Table) 04/04/18 Range/Units 06:42 RBC 3.44 L (3.80-5.40) m/uL Hgb 8.0 L (11.4-16.0) gm/dL Hct 28.3 L (34.0-46.0) % MCH 23.4 L (25.0-35.0) pg MCHC 28.4 L (31.0-37.0) g/dL RDW 20.9 H (11.5-15.5) % Monocytes # (Manual) 1.59 H (0-1.0) k/uL Nucleated RBCs 3 H (0-0) /100 WBC Assessment and Plan (1) Anemia Narrative/Plan: 82-year-old female with a history of remote esophageal carcinoma distal esophagectomy 2005 presents with painless rectal bleeding acute blood loss symptomatic normocytic anemia tractable back pain recent fall with fractures. EGD colonoscopy revealed no evidence of active bleeding possibly hemorrhoidal in nature. Small bowel capsule endoscopy completed results pending. Current Visit: Yes Status: Acute Code(s): D64.9 - ANEMIA, UNSPECIFIED SNOMED Code(s): 466416667 (2) Compression fracture Current Visit: Yes Status: Acute Priority: Medium Code(s): SKE0329 - SNOMED Code(s): 915497502 (3) Intractable back pain Current Visit: Yes Status: Acute Code(s): M54.9 - DORSALGIA, UNSPECIFIED SNOMED Code(s): 176991963 Plan: 1. Continue symptomatic supportive measures. Will advance diet. We'll review small bowel capsule endoscopy. Assessment and plan of care discussed with Dr. Katz
[2018-04-04] MEDS: CHOLECALCIFEROL 1,000 UNIT TAB PO SCH (12:48)
--- NOTE | 2018-04-04 17:42 | MR ---
EXAMINATION TYPE: MR lumbar spine wo/w con DATE OF EXAM: 04/04/2018 COMPARISON: CT lumbar spine 03/29/2018 HISTORY: Discitis TECHNIQUE: Road [employer] imaging obtained multiplanar images FINDINGS: Large amount of artifact is present. IMPRESSION: Exam aborted due to artifact.
--- NOTE | 2018-04-04 19:53 | XR ---
PROCEDURE: XR thoracic spine 3V DATE AND TIME: 04/04/2018 7:18 PM CLINICAL INDICATION: Injury yesterday with pain. States she swallowed endoscopy camera yesterday. L1 compression fracture TECHNIQUE: Department protocol. COMPARISON: None FINDINGS: There is no fracture or malalignment. The soft tissues are unremarkable. IMPRESSION: NO ACUTE PROCESS.
--- NOTE | 2018-04-04 22:20 | PN ---
PROGRESS NOTE Age: 82-year-old white female and date of 1935 and she is in room 382, bed 2. NEW DATA: Height is 5 foot 5 inches, weight is 45.359 kg, BSA 1.47 m2, BMI 16.6 kg/m squared. ALLERGY: To CODEINE. The patient is seen today [id number] and evaluated. Her current vital signs indicating the temperature 98.8, the pulse is 85, respiratory rate 14. 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 In the evening was 157/75 with a mean 102. The oxygen is stable with 97 on room air and 96 on room air. Occasionally, she uses oxygen. Her laboratory today with the good improvement and her white count is 10.6 and hemoglobin is 8 and hematocrit 28.3, and she did have endoscopy, upper and lower, by Dr. Jo Ann Sykes with not significant acute bleeding. However, the hemoglobin on admission was 6 and the unclear etiology. Subsequently, patient had a capsule swallow camera and she did not get rid of it yet and she had constipation. The nursing staff will contact Dr. Sykes tomorrow for accelerate the process by MiraLAX or milk of magnesia. However, we will leave it up to Gastroenterology. Her electrolyte has been significantly improved with sodium 138, potassium 4.3, chloride 103, carbon dioxide 24 and her anion gap is 11. The BUN of 10, the creatinine 0.65 with the estimated glomerular filtration rate is currently 84 and was on the 965 with the much improvement with hydration as well and her calcium is improved also 8.7 with the further improvement. We have no urine infection. On examination today, she is conscious, alert, oriented. She is still complaining of the back pain and appeared to be DrPeña Berry did order for her more MRI of the spine and to clarify the issue of the pain that she had with the fracture of L1 already has been documented; however, there is more pain than we expected. She had today x-ray of the thoracic spine and no fracture was appreciated or malignancy. On the lumbar spine, x- ray also was ordered and we do not have results yet, not processed. Dr. Corbin, the orthopedic spine surgeon, he did see her and he indicating that compression deformity in L1 and there is a sclerosis at the erosion in the disk #2-3 as with erosion of L2 vertebral body. His impression at that time that she had anemia, unspecified; compression fracture, acute in nature and intractable pain status and the plan from him that obtain other x-rays. Discussed the case with Dr. Corbin. It was dictated by the PA and would like to proceed for further MRI for further evaluation. She has a lumbar brace at this time and she is to wear when she is sitting up. Dr. Barnhart will evaluate the patient later today when he comes for evaluation and this note was dictated by Frances Osei, the PA, and hopefully further treatment will be rendered for the patient and we will watch for the MRI result tomorrow hopefully after she passed the camera capsule. On the examination today, she is conscious. She is alert, more quiet and no agitation at this time, which is the HEENT was negative. She had her natural teeth and neck was supple. Chest was clear. No auscultation percussion. Heart was regular sinus rhythm and we do not have any pain in the abdominal gut, but she has a back pain, severe, with minimal movement and will see Dr. Corbin and the Pain Management if anything needs to be added for that pain which with movement is 10/10. We will continue the current treatment and we will see if the orthopedic surgeon has any further recommendation other than the MRI. MMODL / IJN: [id number] /
--- NOTE | 2018-04-04 23:42 | XR ---
EXAMINATION TYPE: XR lumbar spine 2 or 3V DATE OF EXAM: 04/04/2018 COMPARISON: 11/01/2015 HISTORY: Back pain. Fall yesterday. TECHNIQUE: 3 views FINDINGS: Vertebra have normal alignment. There is 20% anterior wedging of L1 vertebra. Abdominal aor ta is atheromatous. Posterior elements appear intact. Sacroiliac joints are intact. IMPRESSION: There is compression fracture of L1 that is new compared to old exam and probably an acut e fracture.
[2018-04-05] MEDS: HYDROcodone/APAP 7.5-325MG 1 EACH TAB PO PRN ×3 (01:41→13:23)
[2018-04-05] MEDS: SODIUM CHLORIDE 0.9% 1,000 ML IV SCH ×3 (04:09→20:43)
--- NOTE | 2018-04-05 07:43 | CDI ---
Last Revision, June 2017 Documentation Clarification Form Date: 04/05/18 From: Seema Roth RN Admit Date: 04/02/2018 10:40:00 AM Patient Name: Zulma Tirado Visit Number: [id number] ATTENTION: The Clinical Documentation Specialists (CDI) and [facility] Coding Staff appreciate your assistance in clarifying documentation. Please respond to the clarification below the line at the bottom and electronically sign. The CDI & [facility] Coding staff will review the response and follow-up if needed. Please note: Queries are made part of the Legal Health Record. If you have any questions, please contact the author of this message via ITS. Dr. Steph Corbin, DO, Patient has been diagnosed with a L1 compression fracture. Can you please render your opinion on the etiology of the fracture? History/Risk Factors: depression, anxiety, esophagectomy cancer, GERD, musculoskeletal disorder Clinical Indications: Lumbar X-Ray Results: There is compression fracture of L1 that is new compared to old exam and probably an acute fracture. Calcium on admission 8.1 Treatment: Pain control TLSO brace Medications: [place] 5-325, Vitamin D3, Flexeril, Dilaudid Surgery Consult In your professional opinion, please specify the following: Etiology of fracture: Traumatic Pathological status post fall ruled in Pathological status post fall ruled out Osteoporosis Other (please specify: Unable to determine I feel that the patient had a L1 compression fracture which was pathologic due to a fall with osteoporosis MTDD
[2018-04-05] MEDS: POLYETHYLENE GLYCOL 3350 17 GM POWD.PACK PO SCH (08:34)
[2018-04-05] MEDS: FAMOTIDINE 20 MG TAB PO SCH (08:35)
[2018-04-05] MEDS: SERTRALINE 100 MG TAB PO SCH (08:35)
[2018-04-05] MEDS: CHOLECALCIFEROL 1,000 UNIT TAB PO SCH (08:37)
--- NOTE | 2018-04-05 09:01 | P.PN ---
Progress Note - Text Progress Note Date: 04/05/18 Patient is a pleasant 82-year-old female who is seen and examined at bedside for follow-up evaluation for her known L1 compression fracture deformity. Since being seen exam yesterday her symptoms have not had any improvement. She continues to have significant back pain that is exacerbated with any movement of the spine. She continues to be seen by medicine and GI regards to her anemia. Recent colonoscopy does not show evidence of active bleeding. GI thinks her anemia may be due to hemorrhoids. They are planning to continue with supportive care. Patient was able to eat breakfast this morning without difficulty. Her hemoglobin is currently 8.0. Patient's family at the bedside. Patient states her low back pain is her most significant symptom. She feels she is unable to move and regular activities given her pain. She does have some right lower extremity radiculopathy symptoms which she states have been ongoing over the past year with pain radiating to the right knee. She states she was previously treated with steroids and noticed she has been falling more frequent since that time. Physical exam: Patient is awake, alert, and oriented 3 Vital signs stable Good chest excursion with deep inspiration and expiration Significant pain with palpation of the lumbar spine at approximately L1 Increased pain with movements of the lumbar spine Dorsiflexion, plantarflexion, and extensor hallucis longus positive sustained bilaterally Lower extremity strength 5/5 bilaterally Patient is able to move lower extremities independently without significant difficulty No signs or symptoms of DVT; no calf pain No pain with internal and external rotation of the hips bilaterally Neurovascularly intact Pertinent studies: X-rays lumbosacral spine taken on 04/04/2018: L1 compression fracture deformity with approximately 20% anterior wedging that is slightly worsened as compared to previous CT X-rays of the thoracic spine taken on 04/04/2018: No evidence of compression fracture deformity Assessment: Acute traumatic L1 compression fracture Status post fall Intractable lumbar pain Right lower extremity radiculopathy Anemia Plan: 1. Patient has been discussed in detail with Dr. Joe Corbin. After physical examination the patient, further discussion with the patient and her family, and reviewing the imaging, we will currently plan to proceed forward with an L1 kyphoplasty with biopsy today, 04/05/2018. Patient has not had any improvement in her lumbar back pain since her admittance to the hospital on 03/31/2018. Her pain is severe and she has difficulty with ambulation and other activities given her significant pain. Recent x-ray imaging shows slightly worsening compression fracture deformity at L1. Patient 8 breakfast this morning without difficulty. She is currently nothing by mouth status in anticipation for surgical intervention later today. Patient feels surgical intervention give her the best opportunity have some improvement of her symptoms and is ready to proceed for surgical intervention. The proposed surgical intervention is an L1 kyphoplasty with biopsy. It was discussed with the patient and her family will plan to proceed forward with surgical intervention is long as she is medically cleared by medicine and GI today. Schedule procedure and consent has been placed. 2. Continue pain control medications as prescribed 3. We will continue to follow patient closely
[2018-04-05] MEDS: LORazepam 1 MG TAB PO PRN ×2 (09:27→19:56)
--- NOTE | 2018-04-05 09:34 | CDI ---
Documentation Clarification Form Date: 04/05/18 CDS: Seema Roth RN Admit Date: 04/02/18 Patient Name: Zulma Camilo ATTENTION: The Clinical Documentation Specialists (CDI) and [facility] Coding Staff appreciate your assistance in clarifying documentation. Please respond to the clarification below the line at the bottom and electronically sign. The CDI & [facility] Coding staff will review the response and follow-up if needed. Please note: Queries are made part of the Legal Health Record. If you have any questions, please contact the author of this message via ITS. Dr. Doroteo High Md., Can you please render your opinion on the following documentation? Patient was admitted with back pain, L1 compression fracture Patient is 5' 5", 45.359kg, BMI 16.6 History/Risk Factors: depression, anxiety, esophagectomy cancer, GERD, musculoskeletal disorder Clinical Indicators: Dementia Labs: Albumin 2.9, Total Protein 5.9 Current BMI: 16.6 Treatment: Dietary Consult: states underweight r/t altered mood, poor appetite Supplements: Ensure clear added to meals Lab monitoring In your professional opinion, can you please clarify if these findings signify one of the following conditions? Mild Protein-Calorie Malnutrition Moderate Protein-Calorie Malnutrition Malnutrition, Unspecified Other condition, please specify Unable to determine MTDD
--- NOTE | 2018-04-05 11:42 | P.PN ---
Subjective Progress Note Date: 04/05/18 Principal diagnosis: Anemia rectal bleeding 82-year-old female admitted with back pain status post recent fall with fractures and rectal bleeding. Status post EGD colonoscopy findings of no evidence of peptic ulcer disease small internal hemorrhoids no evidence of colorectal neoplasia. Small bowel capsule endoscopy completed results negative for active bleeding. This morning reports back pain; kyphoplasty scheduled today with orthopedics. MRI unable to be completed yesterday secondary to concern of retained capsule study in bowel. Denies rectal bleeding today. Afebrile. Denies abdominal pain. No nausea vomiting. Objective - Vital Signs Vital signs: Vital Signs Temp 97.9 F 04/05/18 08:39 Pulse 94 04/05/18 08:39 Resp 16 04/05/18 08:39 BP 124/62 04/05/18 08:39 Pulse Ox 95 04/05/18 08:39 Intake & Output 04/04/18 04/05/18 04/05/18 18:59 06:59 18:59 Intake Total 600 Balance 600 Weight 45.359 kg 45.359 kg Intake: Intake, IV Titration 600 Amount Sodium Chloride 0.9% 1, 600 000 ml @ 75 mls/hr IV . [id number] [facility] Rx#:[id number] Other: Voiding Method Toilet Toilet Toilet # Voids 2 2 1 - Exam General appearance: The patient is alert, oriented, in no acute distress. HET: Head is normocephalic and atraumatic. Pupils are equal and reactive. Oropharynx is clear without lesions. Neck: Supple without lymphadenopathy. Trachea midline. Heart: S1 S2. Regular rate and rhythm. Lungs: No crackles or wheezes are heard. Abdomen: Soft, nontender, nondistended with bowel sounds. No peritoneal signs. No palpable organomegaly or masses. Extremities: Normal skin color and turgor. No cyanosis, rash, ulceration, clubbing, or edema. Radial and pedal pulses are 2/4 bilaterally. Neurological: No focal deficits. Strength and sensation are grossly intact. - Labs CBC & Chem 7: 04/04/18 06:42 04/04/18 06:42 Assessment and Plan (1) Anemia Narrative/Plan: 82-year-old female with a history of remote esophageal carcinoma distal esophagectomy 2005 presents with painless rectal bleeding acute blood loss symptomatic normocytic anemia tractable back pain recent fall with fractures. EGD colonoscopy revealed no evidence of active bleeding possibly hemorrhoidal in nature. Small bowel capsule endoscopy completed results are remarkable for active bleeding or bleeding sources. Current Visit: Yes Status: Acute Code(s): D64.9 - ANEMIA, UNSPECIFIED SNOMED Code(s): 564624263 (2) Compression fracture Current Visit: Yes Status: Acute Priority: Medium Code(s): DHK9606 - SNOMED Code(s): 075547486 (3) Intractable back pain Current Visit: Yes Status: Acute Code(s): M54.9 - DORSALGIA, UNSPECIFIED SNOMED Code(s): 495863732 Plan: 1. Proceed with surgery/ kyphoplasty. Continue with stool softeners avoid constipation. We'll follow as needed. Return to office in 3-4 weeks. Assessment and plan a care discussed with Dr. Katz
[2018-04-05] MEDS ORDERED: IV FLUID CONTINUATION 1,000 ML IV ONE (15:17)
[2018-04-05] MEDS ORDERED: fentaNYL (PF) 50 MCG/ML 2 ML AMP ONE (17:07)
[2018-04-05] MEDS ORDERED: PROPOFOL 10 MG/ML 20 ML VIAL IV ONE (17:07)
[2018-04-05] MEDS ORDERED: MIDAZOLAM 2 MG/2 ML VIAL ONE (17:07)
[2018-04-05] MEDS ORDERED: LIDOCAINE 1% INJ 10MG/ML (20 ML MDV) ONE (17:07)
[2018-04-05] MEDS ORDERED: SUCCINYLCHOLINE CHLORIDE 100 MG/5 ML SYR IV ONE (17:07)
[2018-04-05] MEDS ORDERED: SODIUM CHLORIDE 0.9% 50 ML with ceFAZolin 2,000 MG IV ONE ×2 (17:15)
[2018-04-05] MEDS ORDERED: IOPAMIDOL M200 10 ML VIAL MISCELLANE ONE (17:29)
[2018-04-05] MEDS ORDERED: ROPIVACAINE 5 MG/ML 30 ML VIAL MISCELLANE ONE ×2 (17:31)
[2018-04-05] MEDS ORDERED: HYDROcodone/APAP 5-325MG 1 EACH TAB PO PRN (18:02)
[2018-04-05] MEDS ORDERED: ONDANSETRON 4 MG/2 ML VIAL IVP PRN (18:02)
[2018-04-05] MEDS ORDERED: BENZOCAINE/MENTHOL LOZENG 1 EACH LOZENGE MUCOUS MEM PRN (18:02)
[2018-04-05] MEDS ORDERED: HYDROmorphone 1 MG/ML 1 ML SYRINGE IVP PRN (18:02)
--- NOTE | 2018-04-05 18:08 | P.OP ---
Date of Procedure: 04/05/18 Preoperative Diagnosis: Acute L1 compression fracture, due to fall with osteoporotic bone Low back pain due to fracture Postoperative Diagnosis: Same Anesthesia: GETA Pathology: other (L1 vertebral body biopsy sent to pathology) Condition: stable Disposition: PACU Description of Procedure: BRIEF OPERATIVE NOTE Preoperative Diagnosis: Vertebral compression fracture of L1, acute due to fall with superimposed bone Low back pain due to compression fracture Postoperative Diagnosis: Same Procedure: Kyphoplasty of L1 Vertebral body biopsy of L1 Use of biplanar fluoroscopic guidance Surgeon: Dr. Corbin Hydrotel Operator: None Anesthesia: General anesthesia Estimated blood loss: Less than 10 mL Specimen: Vertebral body biopsy of L1 sent to pathology in formalin Complications: None apparent Components implanted: Bone cement approximately 3 mL Disposition: To recovery room in good stable condition. OPERATIVE INDICATIONS The patient has been having issues in their back ever since sustaining an injury where she fell at home. The patient was found to have a new compression fracture at L1 which correlated well with her pain. She does have history of chronic low back pain and L2-3 degenerative disc disease for which she has had management in the past. The patient was having new and different pain which was believed to be due to the new L1 compression fracture. The patient has been through conservative treatment. She is not having any benefit despite bracing and medications. They attempted conservative care with bracing however they're not having any benefit despite brace use. They continue to have significant pain and debility due to their fracture. The patient was also having issues with significant anemia and was being worked up for GI bleed and has been managed by medicine and the gastroenterology service. We discussed various treatment options including surgery, and the patient wishes to proceed with surgery We discussed the risk, patient's alternatives and benefits of surgery including but not limited to, risk of bleeding risk of infection, risk of need for further surgery, risk of decreased, loss of motion, loss of function , cement extravasation, nerve damage, paralysis, heart attack, blindness and . OPERATIVE SUMMARY After discussing all the risks, patient alternatives and benefits at length, the patient elected to proceed with surgical intervention, signed informed consent, and presented for their procedure. The patient was seen and examined in the preoperative holding area and the surgical site was marked. The patient was given antibiotics and brought to the operating room. The patient was sedated and intubated by anesthesia in standard fashion. The patient was positioned on to the operating room table in a prone position on the appropriate well-padded and well molded bilateral chest rolls. We were careful to pad any bony prominences and pressure points. We were careful to maintain the patient's cervical spine and good neutral alignment and position throughout. We used 2 C-arm machines to establish biplanar fluoroscopic guidance in AP and lateral positions. We were able to localize the fracture at L1 appropriately. The patient was prepped and draped in a normal standard fashion. An appropriate timeout and keystone protocol performed. We were able to proceed with the surgery. The local wound area was infiltrated with local anesthetic. An incision was made over the lateral aspect of the pedicle over the appropriate levels of L1 with a small 2 mm stab incision. Intraoperative fluoroscopy was taken which showed a marker at the appropriate level of L1. With the appropriate level positively confirmed, I was able to position a sharp trocar over the lateral aspect of the pedicle. As able to advance the trocar into the pedicle and into the posterior aspect of vertebral body being careful to avoid penetration cephalad caudad or medially. The trocar was placed appropriately into the posterior aspect of vertebral body at the appropriate levels. This was confirmed with C-arm guidance. With the trocar intact I was then able to take a bone biopsy with a biopsy punch . The biopsy specimen was passed off to be sent to pathology in formalin. I was then able to place the kyphoplasty balloon within the vertebral body. The position was checked on C-arm. I was able to inflate the balloon under low pressure and visualization with C-arm. The balloon was well enclosed within the vertebral body. The cement was prepared. With the cement at appropriate working condition the balloons were deflated and removed. I was able to place bony cement with trocar with the cement delivery device under low pressure. It had good fill within the vertebral body. I was able place approximately 3 mL of bone cement within the vertebral body. There is no evidence of any extravasation of the cement posteriorly toward the canal. The cement was well contained at the appropriate levels. The cement was allowed to cure appropriately. The trochars removed and final images were taken on C-arm. This showed the cement at the appropriate level of L1. We were able to proceed with closure. The wound was cleaned and dried and dressed with the appropriate dressing. The drapes were broken down. The patient was gently rolled back onto their hospital bed being careful to maintain their cervical spine and good neutral alignment and position. They were woken up by anesthesia, extubated, and brought to the recovery room in good stable condition. The patient will be admitted to the hospital for observation and for appropriate postoperative care, medical management and monitoring. We will continue to follow them closely about the postoperative course.
--- NOTE | 2018-04-05 18:46 | PN ---
PROGRESS NOTE DATE OF SERVICE: 04/05/2018. DATA: FULL CODE. Height 5 feet 5 inches, weight 45.359 kg. BSA 1.47 m2, BMI 16.6 kg/m2, with underlying underweight. She has ALLERGY to CODEINE. She is admitted to the hospital for intractable pain with the fracture of L1. At that time the orthopedic surgeon, Dr. Pancho Berry, advised that the patient be under medical service and they will be seeing her in consultation. Patient was subsequently admitted to the 3rd floor and at that time found that her hemoglobin was 6. We started to wonder about this severe anemia. We gave her one unit of packed RBCs and consulted Gastroenterology. Subsequently Dr. Sykes did see her and investigated with upper and lower endoscopy. We could not see the result; no finding of any data to indicate why the bleeding. Subsequently she had a capsule camera study and we do not know yet the result so far from Gastroenterology. The patient had subsequently several x-rays by Orthopedics and consultation with Dr. Corbin, the spine surgeon. Today I found out that they were going to do an MRI and it is canceled because the capsule is not coming out. With this finding, the planning for surgical intervention with spine kyphoplasty is to be done in the future. We did also consult at that time Pain Management as well as the orthopedic Dr. Corbin. We consulted Gastroenterology because of the bleeding. Currently as patient is seen she is waiting because of the pain and waiting for further management from Orthopedics. Today her temperature is 98.8, pulse 73, respiratory rate 16, blood pressure 164/77, pulse ox 95. She passed through acute delirium and subsequently she quieted down with the use of Haldol treatment. Her laboratory was indicating that today and yesterday her white count is 10.6, hemoglobin went up to 8 and her hematocrit was 28.3. Nucleated RBCs was 3 and on 04/02/2018 it was 15. Her chemistry profile is improving with sodium 138, potassium 4.3, chloride 24, carbon dioxide 11 and BUN of 10, creatinine 0.65 with the underlying estimated glomerular filtration rate that has gradually improved from 65 to 84 with the normal calcium 8.7. She had mild protein 5.9 and albumin 2.9 with mild protein-calorie deficiency and she is also underweight. Her urinalysis was negative. PHYSICAL EXAMINATION: She was conscious, alert. Her daughter at bedside. HEENT: The head was normocephalic. She has her natural teeth. Oropharynx was negative. Neck was supple. Chest was clear to auscultation and no wheezes, no rhonchi. The heart was regular sinus rhythm. The abdomen was soft. Positive bowel sounds. EXTREMITIES: No edema. Positive pulses. As mentioned, she is very low weight. ASSESSMENT AND PLAN: 1. Will continue waiting for the capsule to be expelled. 2. Agreed with the spine kyphosis with the kyphoplasty as well as the underlying fracture of the L1. She had an x-ray yesterday on the thoracic spine and there is no evidence of fracture. Also she had x-ray of the lumbar spine and they found a compression fracture of L1 that is new and an acute fracture. 3. The note from Gastroenterology yesterday was indicating that the 82-year-old female has history of remote esophageal carcinoma and distal esophagectomy in 2005 and she presented with painless rectal bleeding with acute blood loss, symptomatic, with normocytic anemia and intractable pain, back pain, with a fracture. She underwent EGD and colonoscopy and revealed no evidence of active bleeding, possibly hemorrhoidal in nature. Small bowel capsule endoscopy was completed; result is pending. Also the impression of a compression fracture, acute in nature. 4. Intractable back pain. Continue the supportive care. They will review the capsule endoscopy. However, we do not have results yet. That was dictated by Kassidy Hernandes, nurse practitioner. 5. Dr. Corbin saw the patient yesterday and his notes indicate that the patient has anemia and a compression fracture, acute, and intractable back pain. He discussed it with the patient and the family and he will proceed with MRI for further evaluation. She currently has a lumbar brace and Dr. Corbin will evaluate for future surgical intervention. The patient currently still has pain, and the prognosis is guarded. We will see how improvement will be in the next few days and after surgery. MMODL / IJN: [id number] /
[2018-04-05] MEDS: ceFAZolin IN SWFI 2 GM/20 ML SYRINGE IVP SCH (23:24)
[2018-04-06 01:04] VITALS: PULSE 84; RESP 16; TEMP 98.3
[2018-04-06 03:46] VITALS: BP 149/76
--- NOTE | 2018-04-06 05:40 | FL ---
FLUOROSCOPY 25 seconds of fluoroscopy time were utilized during L1 kyphoplasty. 2 images document the procedure.
[2018-04-06] MEDS ORDERED: KETOROLAC 30 MG/ML 1 ML VIAL IVP PRN (06:51)
--- NOTE | 2018-04-06 07:02 | P.PN ---
Progress Note - Text Progress Note Date: 04/06/18 Postoperative day #1 Patient is seen and examined today at bedside. The patient says her back is doing very well. She is very happy with how her back is feeling. She is complaining of new pain at the base of her neck and soreness bilaterally around the lateral aspects of her neck. She says she has a history of neck pain such as this in the past which did well with injections from Dr. Sharp apparently were occipital injections as outpatient. She is not having any numbness tingling or upper extremity is. She is not having weakness in her upper or lower extremities. Pain is being controlled with medication. Physical Exam Afebrile with stable vital signs Abdomen is soft nontender. Chest has good excursion deep and space expiration The incision site is clean dry and intact. No erythema there is no purulence. There is no drainage on the dressing at her back. Additionally erythema. Her backs nontender. Extremities have not had neurologic change from prior to surgery. At her upper extremity is and lower extremity she has good active and passive range of motion with full strength. Her neck has some paravertebral spasm bilaterally. His nontender at the midline. She has full active and passive range of motion at her neck with extension and flexion rotation and side bending. Calves and thighs were soft nontender without evidence of DVT. Assessment/Plan Postoperative day #1 status post vertebral kyphoplasty at L1 for her acute traumatic compression fracture Myofascial strain at cervical spine without neurologic deficit In regards to her lumbar spine she is doing very well. She feels her back in pain has improved significantly with her procedure. Patient is progressing as expected from the surgery. 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 I do not think that we need any significant imaging at this point and it is okay for her to mobilize. I think she could do well with one or 2 doses of Toradol to help with her acute pain and inflammation. We will continue to increase the patient's mobilization with therapy. We will continue pain control with oral or IV medications. I think it's okay for the patient to be discharged home today from an orthopedic spine standpoint with follow up as outpatient for her back and for her neck if she continues to have issues at that area.
[2018-04-06] MEDS: SODIUM CHLORIDE 0.9% 1,000 ML IV SCH (07:53)
[2018-04-06] MEDS: POLYETHYLENE GLYCOL 3350 17 GM POWD.PACK PO SCH (08:06)
[2018-04-06] MEDS: ceFAZolin IN SWFI 2 GM/20 ML SYRINGE IVP SCH (08:07)
[2018-04-06] MEDS: CHOLECALCIFEROL 1,000 UNIT TAB PO SCH (08:07)
[2018-04-06] MEDS: SERTRALINE 100 MG TAB PO SCH (08:07)
[2018-04-06] MEDS: FAMOTIDINE 20 MG TAB PO SCH (08:07)
[2018-04-06] MEDS: LORazepam 1 MG TAB PO PRN (08:19)
[2018-04-06] MEDS ORDERED: FERROUS SULFATE 325 MG TAB PO SCH (12:30)
[2018-04-06] MEDS ORDERED: amLODIPine 2.5 MG TAB PO SCH (12:30)
--- NOTE | 2018-04-06 13:23 | DS ---
DISCHARGE SUMMARY DATE OF SERVICE: 04/06/2018. DATE OF DISCHARGE: 04/06/2018 She is FULL CODE. An 82-year-old white female and date of is 1935 and room #382, bed 2. NEW DATA: Height is 5 feet 5 inches, and weight is 45.359 kg. BSA 1.47 m2 and BMI 16.6 kg. ALLERGIES: CODEINE. She is underweight. FINAL DIAGNOSES: 1. Acute intractable pain Of the lower back. 2. Acute L1 fracture with the traumatic fracture with intractable pain. 3. Severe anemia with probably blood loss with hemoglobin of 6. 4. Underlying hypertension, was not well controlled. 5. Underlying mild neuro cognitive function impairment, has been seen by Dr. Nair with possible underlying dementia. 6. 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 7. Underlying history of depression. CONSULTING PHYSICIANS: 1. Dr. Pancho Berry. 2. Dr. Corbin, Orthopedic Surgeon. 3. Dr. Gina Sykes, Gastroenterology. 4. Pain Management for the intractable pain. 5. Dr. Whitten for the surgical with the severe drop on the hemoglobin to 6. HOSPITAL COURSE: Patient presented to the Emergency, the initial presentation patient presented to the emergency room and she has intractable pain and could not move. However, she had the LSO, but could not sit her at that time and they found that by testing that she had a compression fracture, acute, and patient admitted to the hospital and with these admission, we have no laboratories and subsequently the orthopedic surgeon requested to go under medical service and patient to be followed by the Orthopedic. At that time, Dr. Pancho Berry was on-call. Subsequently, as patient on the floor, I did order the laboratory and found that her hemoglobin is 6 and she was severely pale and apparently she has bled. We do not know the period of bleeding or how long ago. We transfused her 1 unit of packed RBCs and subsequently consulting the Gastroenterology and Dr. Sykes responded and did upper and lower endoscopy and as well as did capsule camera and could not find the source of bleeding at that time, but the patient found to have the lower esophageal cancer that has been resected many years ago with no acute recurrence. Patient also found that she had underweight with the BMI 16.6, and we did consult dietitian for improving the current. As patient admitted to the floor, she underwent acute delirium and subsequently we treated her with Haldol and after 48 hours she able to get out of the acute delirium and we consulted the psychiatrist and he also stated that patient to go back to Dr. Nair on discharge and we continued on discharge her medication by Dr. Nair and advised the patient to be seen by Dr. Nair for adjustment. The patient did well and subsequently seen by Dr. Corbin, the orthopedic spine surgeon and he took her to kyphoplasty and subsequently patient felt significantly improved on the evening of that surgery, and subsequently patient seen by Dr. Corbin this morning and he advised patient can be discharged home and the pain has been adequately controlled and he ordered for her the pain medication directly to the pharmacy. However, I did not order any pain medication at this time. I did discuss it with her daughter with the anemia and hemoglobin of 8, we continued with iron supplement only 1 pill a day with lunch and as well as with the hypertension and recent blood pressure was 183/98 and subsequently 149/76. We started her on amlodipine 2.5 mg once a day as added to the program as well as she is on Flexeril p.r.n. only. On the discharge exam, patient was pleasant. No significant pain and she received this morning Toradol IV, but subsequently does not need it and she take nonsteroidal anti inflammatory and Tylenol. Her temperature is 98.3, and pulse is 84 and respiratory rate 16 and a blood pressure on discharge 149/76 with a mean 100 and she is oxygenation 98% on room air. On the physical exam, she is conscious, alert, oriented, and her daughter and her son- in-law at bedside and her conjunctiva was pale, although her hemoglobin now is 8 from the last one on admission is 6 and currently is 8 with improvement and no evidence of acute bleeding. Her HEENT was negative. Neck was supple. Chest was clear and she had degenerative arthritis of the spine and no wheezes, no rhonchi on the chest, auscultation. On the heart, PMI in the third intercostal space. Normal S1, S2. No S3, no S4. No gallop and the abdomen is soft, positive bowel sounds and she will be wearing the LSO brace and as well as did have the kyphoscoliosis and the extremities. no edema and positive pulses and she had no catheters. Patient is neurologically stable and with the assessment as mentioned above and plan is discharge home today to follow up with Dr. Corbin and follow up with Dr. Gina Sykes as if Dr. Joiner will be back on April 16. However, if she needs any further attention or medical consultation, she can call the office of Dr. High and will be temporary seeing her until Dr. Joiner back in his office. MMODL / IJN: [id number] /
== END 2018-04-06 13:00 | disposition home health service (06) | DRG 478 ==
LOC: EC 10:42 → 3SUR 12:17 → OBSVTOIN 04-02 10:40
PROVIDERS: ADMIT Internal Medicine; ATTEND Internal Medicine
PROC: 30230N1 Transfusion of Nonautologous Red Blood Cells into Peripheral Vein, Open Approach (ICD-10-PCS; 2018-03-31)
PROC: 0DJD8ZZ Inspection of Lower Intestinal Tract, Via Natural or Artificial Opening Endoscopic (ICD-10-PCS; 2018-04-03)
PROC: 0DB98ZX Excision of Duodenum, Via Natural or Artificial Opening Endoscopic, Diagnostic (ICD-10-PCS; principal; 2018-04-03 08:35)
PROC: 0QS03ZZ Reposition Lumbar Vertebra, Percutaneous Approach (ICD-10-PCS; 2018-04-05)
PROC: 0QU03JZ Supplement Lumbar Vertebra with Synthetic Substitute, Percutaneous Approach (ICD-10-PCS; 2018-04-05)
PROC: 0QB00ZX Excision of Lumbar Vertebra, Open Approach, Diagnostic (ICD-10-PCS; 2018-04-05)
DX: M80.08XA Age-related osteoporosis with current pathological fracture, vertebra(e), initial encounter for fracture (principal); E44.1 Mild protein-calorie malnutrition; Z68.1 Body mass index [BMI] 19.9 or less, adult; D62 Acute posthemorrhagic anemia; K64.8 Other hemorrhoids; E86.0 Dehydration; N18.3 Chronic kidney disease, stage 3 (moderate); F01.50 Vascular dementia, unspecified severity, without behavioral disturbance, psychotic disturbance, mood disturbance, and anxiety; I12.9 Hypertensive chronic kidney disease with stage 1 through stage 4 chronic kidney disease, or unspecified chronic kidney disease; G89.29 Other chronic pain; M54.2 Cervicalgia; K59.00 Constipation, unspecified; M51.16 Intervertebral disc disorders with radiculopathy, lumbar region; F41.1 Generalized anxiety disorder; F32.9 Major depressive disorder, single episode, unspecified; M47.9 Spondylosis, unspecified; M41.9 Scoliosis, unspecified; Z71.3 Dietary counseling and surveillance; K21.9 Gastro-esophageal reflux disease without esophagitis; Z79.899 Other long term (current) drug therapy; Z86.19 Personal history of other infectious and parasitic diseases; Z85.01 Personal history of malignant neoplasm of esophagus; Z90.49 Acquired absence of other specified parts of digestive tract; Z87.81 Personal history of (healed) traumatic fracture; Z98.42 Cataract extraction status, left eye; Z98.41 Cataract extraction status, right eye; Z88.5 Allergy status to narcotic agent; W19.XXXA Unspecified fall, initial encounter; Y92.009 Unspecified place in unspecified non-institutional (private) residence as the place of occurrence of the external cause; Z80.0 Family history of malignant neoplasm of digestive organs
CPT/HCPCS: 43239; 45378; 72070; 72100; 72158; 80048; 80053; 81003; 83735; 85025; 86850; 86900; 86901; 86920; 87086; 88305; 88307; 88311; 91110; 93005; 96374; 99284

== ENCOUNTER → 2019-01-13 | Outpatient (CLI) | payer MEDICARE, BC ==
--- NOTE | 2019-01-13 17:19 | BD ---
EXAMINATION TYPE: Axial Bone Density DATE OF EXAM: 01/13/2019 COMPARISON: 11/10/2016 CLINICAL HISTORY: 83-year-old female radiculopathy lumbar region Height: 4'11 Weight: 96 FRAX RISK QUESTIONS: History of Fracture in Adulthood: n Secondary Osteoporosis: RISK FACTORS HISTORY OF: Postmenopausal woman: y Lost more than 2 inches in height since high school: y Frequent falls: y MEDICATIONS: Additional Medications: neurotin,donepezil,lorazepam,sertraline Additional History: EXAM MEASUREMENTS: Bone mineral densitometry was performed using the Sympler System. Bone mineral density as measured about the Lumbar spine is: ----- L1-L4(G/cm2): 1.072 T Score Values are as follows: ----- L2: -1.5 ----- L3: -0.4 ----- L4: -2.6 ----- L1-L4: -0.9 Bone mineral density has: Increased 14.0% since study of: 11/10/2016 Bone mineral density about the R hip (g/cm2): 0.613 Bone mineral density about the L hip (g/cm2):0.547 T Score values are as follows: -----R Neck: -3.1 -----L Neck: -3.5 -----R Total: -3.4 -----L Total: -3.6 Bone mineral density has: Increased 4.6% since study of: 11/10/2016 IMPRESSION: Osteoporosis (T Score less than -2.5). There is increased fracture risk and therapy is usually indicated based on age. Re-Screen 1-2 years. NOTE: T-SCORE=SD OF THE YOUNG ADULT MEAN.
== END | disposition home or self-care (01) ==
LOC: RADBDWWP 09:17
PROVIDERS: ATTEND Physical Medicine & Rehabilitation
DX: M81.0 Age-related osteoporosis without current pathological fracture (principal); M54.16 Radiculopathy, lumbar region; R53.1 Weakness
CPT/HCPCS: 77080

== ENCOUNTER 2022-02-27 07:00 | Emergency (ER) | payer MEDICARE ==
[2022-02-27 07:08] VITALS: TEMP 98.1
[2022-02-27] MEDS ORDERED: ONDANSETRON 4 MG/2 ML VIAL IVP STA (07:13)
[2022-02-27] MEDS ORDERED: HYDROmorphone 0.5 MG/0.5 ML SYRINGE IVP STA ×2 (07:13→09:25)
--- NOTE | 2022-02-27 07:21 | ED ---
Fall HPI - General Chief Complaint: Fall Stated Complaint: Fall, Head Injury Time Seen by Provider: 02/27/22 07:02 Source: patient, EMS Mode of arrival: EMS Limitations: physical limitation - History of Present Illness Initial Comments: This is an 86-year-old female presents emergency Department chief complaint of a fall. Patient states she fell in the middle of the night getting off the toilet. Patient went of right-sided facial bruising, mild discomfort, right ankle and foot pain. Patient states that she was unable to weight-bear on her right foot. Patient denies GI blood thinners denies any neck pain, headache, dizziness or blurred vision no focal weakness. Denies nausea vomiting. - Related Data Home Medications Medication Instructions Recorded Confirmed Donepezil [Aricept] 10 mg PO QAM 10/05/17 02/27/22 Sertraline HCl [Zoloft] 200 mg PO DAILY 10/05/17 02/27/22 LORazepam [Ativan] 0.5 mg PO Q12H 10/31/17 02/27/22 Acetaminophen/Diphenhydramine 1 tab PO HS 02/27/22 02/27/22 [Tylenol PM 500-25mg] Gabapentin [Neurontin] 300 mg PO BID 02/27/22 02/27/22 Previous Rx's Medication Instructions Recorded HYDROcodone/APAP 5-325MG [[place] 5] 1 each PO Q6HR PRN #12 tab 02/27/22 Allergies Allergy/AdvReac Type Severity Reaction Status Date / Time codeine Allergy Unknown Verified 02/27/22 09:03 Review of Systems ROS Statement: Those systems with pertinent positive or pertinent negative responses have been documented in the HPI. ROS Other: All systems not noted in ROS Statement are negative. Past Medical History Past Medical History: Cancer, GERD/Reflux, Musculoskeletal Disorder Additional Past Medical History / Comment(s): hx of shingles 2001, hx. esophageal cancer, recent fall w/lots of bruises,. Fx scap - May 2017 History of Any Multi-Drug Resistant Organisms: None Reported Past Surgical History: No Surgical Hx Reported Additional Past Surgical History / Comment(s): ESOPHAGECTOMY. BILATERAL CATARAC TS, prolapsed rectum surgery Past Anesthesia/Blood Transfusion Reactions: No Reported Reaction Past Psychological History: Anxiety, Depression Smoking Status: Never smoker Past Alcohol Use History: None Reported Past Drug Use History: None Reported - Past Family History Daughter(s) Family Medical History: Cancer Additional Family Medical History / Comment(s): colon CA Mother Family Medical History: No Reported History General Exam Limitations: no limitations General appearance: alert, in no apparent distress Head exam: Present: atraumatic, normocephalic, normal inspection Eye exam: Present: normal appearance, PERRL, EOMI, periorbital swelling (Right), other (Right-sided facial swelling, ecchymosis). Absent: scleral icterus, conjunctival injection ENT exam: Present: normal exam, normal oropharynx, mucous membranes moist Neck exam: Present: normal inspection. Absent: tenderness, meningismus, full ROM (Patient in c-collar), lymphadenopathy Respiratory exam: Present: normal lung sounds bilaterally. Absent: respiratory distress, wheezes, rales, rhonchi, stridor Cardiovascular Exam: Present: regular rate, normal rhythm, normal heart sounds. Absent: systolic murmur, diastolic murmur, rubs, gallop, clicks Extremities exam: Present: other (Ecchymosis or distal right tib-fib right ankle and foot with diffuse tenderness neurovascular intact) Back exam: Present: full ROM. Absent: tenderness, paraspinal tenderness, vertebral tenderness Neurological exam: Present: alert, CN II-XII intact Skin exam: Present: warm, dry, intact, normal color. Absent: rash Course Vital Signs 02/27/22 07:05 Temperature 98.1 F Pulse Rate 71 Respiratory 18 Rate Blood Pressure 194/84 O2 Sat by Pulse 97 Oximetry Medical Decision Making - Medical Decision Making She was evaluated by orthopedics, was splinted in which they had a long discussion with the family regarding patient's fracture and the need for possible surgery. Patient with follow-up in clinic will be discharged in stable condition. - Lab Data Result diagrams: 02/27/22 09:35 02/27/22 09:35 Lab Results 02/27/22 02/27/22 02/27/22 Range/Units 09:35 09:35 09:35 WBC 9.4 (3.8-10.6) k/uL RBC 3.98 (3.80-5.40) m/uL Hgb 13.2 (11.4-16.0) gm/dL Hct 42.2 (34.0-46.0) % MCV 105.9 H (80.0-100.0) fL MCH 33.1 (25.0-35.0) pg MCHC 31.3 (31.0-37.0) g/dL RDW 13.3 (11.5-15.5) % Plt Count 235 (150-450) k/uL MPV 8.2 Neutrophils % 68 % Lymphocytes % 21 % Monocytes % 7 % Eosinophils % 1 % Basophils % 1 % Neutrophils # 6.4 (1.3-7.7) k/uL Lymphocytes # 1.9 (1.0-4.8) k/uL Monocytes # 0.7 (0-1.0) k/uL Eosinophils # 0.1 (0-0.7) k/uL Basophils # 0.1 (0-0.2) k/uL Hypochromasia Slight Macrocytosis Moderate PT 10.2 (9.0-12.0) sec INR 0.9 (<1.2) APTT 21.5 L (22.0-30.0) sec Sodium 137 (137-145) mmol/L Potassium 4.7 (3.5-5.1) mmol/L Chloride 105 (98-107) mmol/L Carbon Dioxide 25 (22-30) mmol/L Anion Gap 7 mmol/L BUN 15 (7-17) mg/dL Creatinine 0.70 (0.52-1.04) mg/dL Est GFR (CKD-EPI)AfAm >90 (>60 ml/min/1.73 sqM) Est GFR (CKD-EPI)NonAf 79 (>60 ml/min/1.73 sqM) Glucose 103 H (74-99) mg/dL Calcium 8.7 (8.4-10.2) mg/dL Total Bilirubin 1.0 (0.2-1.3) mg/dL AST 32 (14-36) U/L ALT 16 (4-34) U/L Alkaline Phosphatase 138 H (38-126) U/L Total Protein 7.2 (6.3-8.2) g/dL Albumin 3.8 (3.5-5.0) g/dL Disposition Clinical Impression: Fall, Bimalleolar fracture of right ankle, Facial contusion Disposition: HOME SELF-CARE Condition: Stable Instructions (If sedation given, give patient instructions): Ankle Fracture (ED) Additional Instructions: Please return to the Emergency Department if symptoms worsen or any other concerns. Prescriptions: HYDROcodone/APAP 5-325MG [[place] 5] 1 each PO Q6HR PRN #12 tab PRN Reason: Pain Is patient prescribed a controlled substance at d/c from ED?: Yes When asked, does pt state using other controlled substances?: No If prescribed controlled substance>3 days was MAPS reviewed?: Prescribed <3 Days If opioid is for acute pain is fill amount 7 days or less?: Yes If Rx opioid, was Start Talking consent form obtained?: Yes Referrals: Heidi Blue MD [Primary Care Provider] - 1-2 days Scot Rios MD [Medical Doctor] - 1-2 days Time of Disposition: 12:38
--- NOTE | 2022-02-27 08:07 | CT ---
EXAMINATION TYPE: CT brain cspine wo con DATE OF EXAM: 02/27/2022 COMPARISON: None HISTORY: 86-year-old female with pain after Fall, Head injury, bruising to left side of face. CT DLP: 924 mGycm Automated exposure control for dose reduction was used. Technique: Examination of the head was done in axial plane without intravenous contrast. Coronal and sagittal reconstructions performed. CT of the cervical spine was obtained in axial plane without intravenous injection of contrast mater ial. Coronal and sagittal reformatted images were obtained from the axial views for evaluation of f ractures, spinal alignment and canal. FINDINGS: Head: There is no evidence of acute intracranial hemorrhage, acute ischemic changes, mass, mass-effect, or extra-axial fluid collection. There is no effacement of cerebral sulci or basal subarachnoid cister ns. There is no midline shift. Hendrickson-white matter distinction is preserved. Mild to moderate supratentorial volume loss. Secondary mild prominence to the ventricular system. Mil d patchy white matter hypodensity subinsular region on both sides. Atherosclerotic calcifications wit hin the carotid siphons. Facial bones reported separately. Mastoid air cells well pneumatized. No calvarial fracture. Cervical spine: No craniocervical junction abnormality, predental space widening, or prevertebral soft tissue swellin g. Degenerative grade 1 anterolisthesis C4-C5 and C7-T1. Moderate to advanced dissection plate degenerative change particularly C5-C7 levels. Disc ossific com plexes result in variable mild spinal canal narrowing. No acute fracture of the cervical spine. Multilevel facet and uncovertebral joint arthropathy is present. Moderate bilateral neuroforaminal stenosis at C3-C4. Moderate on the left at C5-C6. Biapical pleural-parenchymal scarring. Sagittal and coronal reformatted images confirm above findings. COMBINED IMPRESSION: 1. No acute intracranial abnormality seen. Central cerebral atrophy with secondary mild ventricular p rominence. Mild patchy burden of chronic small vessel ischemic disease. 2. No acute fracture of the cervical spine. Moderate to advanced spondylotic change with degenerative grade 1 anterolisthesis C4-C5 and C7-T1. 3. Facial bones reported separately.
--- NOTE | 2022-02-27 08:09 | CT ---
EXAMINATION TYPE: CT facial bones wo con DATE OF EXAM: 02/27/2022 COMPARISON: None HISTORY: C6-year-old female with pain after Fall, Head injury, bruising to left side of face. TECHNIQUE: Contiguous axial scanning of the facial bones without IV contrast. Coronal reconstructions performed. CT DLP: 924 mGycm Automated exposure control for dose reduction was used. FINDINGS: Dental amalgam artifact. Atrophic parotid glands. Prominent rightward nasal septal deviation. The mandible, TMJ's, zygomatic arches, pterygoid plates, facial bones, nasal bones are intact. Orbits and globes appear intact. Paranasal sinuses are well pneumatized. Minimal frothy air fluid level left sphenoid sinus. IMPRESSION: 1. PROMINENT RIGHTWARD NASAL SEPTAL DEVIATION. 2. MINIMAL FROTHY FLUID LEFT SPHENOID SINUS MAY BE SEEN WITH ACUTE SINUSITIS. CLINICALLY CORRELATE. 3. OTHERWISE, NO ACUTE FACIAL BONE FRACTURE SEEN.
--- NOTE | 2022-02-27 08:18 | XR ---
EXAMINATION TYPE: XR ankle complete RT, XR foot complete RT DATE OF EXAM: 02/27/2022 CLINICAL HISTORY: Trauma injury with pain TECHNIQUE: Frontal, lateral and oblique images of the right ankle and foot are obtained. COMPARISON: None. FINDINGS: Osseous structures are demineralized. There is acute displaced transverse intra-articular fracture medial malleolus with 1.3 cm fracture fragment. There is acute displaced oblique intra-artic ular fracture through the lateral malleolus. There is disruption of the ankle mortise which is shifte d laterally and widened medially. Moderate to severe soft tissue swelling over the lateral malleolus is noted. No additional acute fracture or dislocation in the right foot. The Cain's toe is present. Chronic d eformity to the fifth toe is seen. IMPRESSION: Acute comminuted displaced bimalleolar fractures with mortise disruption.
[2022-02-27 09:52] LABS: Basophils # (A) 0.1 k/uL (0-0.2); Basophils % (A) 1 %; Eosinophils # (A) 0.1 k/uL (0-0.7); Eosinophils % (A) 1 %; HCT 42.2 % (34.0-46.0); HGB 13.2 gm/dL (11.4-16.0); Hypochromasia Slight; Lymphocytes # (A) 1.9 k/uL (1.0-4.8); Lymphocytes % (A) 21 %; MCH 33.1 pg (25.0-35.0); MCHC 31.3 g/dL (31.0-37.0); MCV 105.9 fL (80.0-100.0); Macrocytosis Moderate; Mean Platelet Volume 8.2; Monocytes # (A) 0.7 k/uL (0-1.0); Monocytes % (A) 7 %; Neutrophils # (A) 6.4 k/uL (1.3-7.7); Neutrophils % (A) 68 %; Platelet Count 235 k/uL (150-450); RBC 3.98 m/uL (3.80-5.40); RDW 13.3 % (11.5-15.5); WBC 9.4 k/uL (3.8-10.6)
[2022-02-27 10:07] LABS: ALT 16 U/L (4-34); AST 32 U/L (14-36); African American GFR (CKD) >90 (>60 ml/min/1.73 sqM); Albumin 3.8 g/dL (3.5-5.0); Alkaline Phosphatase 138 U/L (38-126); Anion Gap 7 mmol/L; Blood Urea Nitrogen 15 mg/dL (7-17); Calcium 8.7 mg/dL (8.4-10.2); Carbon Dioxide 25 mmol/L (22-30); Chloride 105 mmol/L (98-107); Glucose 103 mg/dL (74-99); Non-African American GFR(CKD) 79 (>60 ml/min/1.73 sqM); Potassium 4.7 mmol/L (3.5-5.1); Sodium 137 mmol/L (137-145); Total Protein 7.2 g/dL (6.3-8.2)
[2022-02-27 10:38] LABS: INR 0.9 (<1.2); Prothrombin Time 10.2 sec (9.0-12.0)
[2022-02-27 10:42] LABS: Partial Thromboplastin Time 21.5 sec (22.0-30.0)
[2022-02-27 13:51] VITALS: BP 148/84; PULSE 72; RESP 16
--- NOTE | 2022-02-27 15:10 | P.CNOR ---
History of Present Illness - [facility] Consult date: 02/27/22 History of present illness: This patient is an 86- year old female who is evaluated in the emergency department for right bimalleolar ankle fracture. Patient states she fell in her home last evening while in the bathroom. She hit her head and experienced immediate pain in the right ankle. Her was able to help her off the floor. They called thier daughter, who transported the patient to the ER. X-rays of the right ankle revealed a displaced right bimalleolar ankle fracture. Orthopedics was consulted for evaluation. Patient is complaining of isolated right ankle pain. She denies hip pain. She denies headaches. She denies taking blood thinners. There are no additional complaints at this time. Past Medical History Past Medical History: Cancer, GERD/Reflux, Musculoskeletal Disorder Additional Past Medical History / Comment(s): hx of shingles 2001, hx. eso phageal cancer, recent fall w/lots of bruises,. Fx scap - May 2017 History of Any Multi-Drug Resistant Organisms: None Reported Past Surgical History: No Surgical Hx Reported Additional Past Surgical History / Comment(s): ESOPHAGECTOMY. BILATERAL CATARACTS, prolapsed rectum surgery Past Anesthesia/Blood Transfusion Reactions: No Reported Reaction Past Psychological History: Anxiety, Depression Smoking Status: Never smoker Past Alcohol Use History: None Reported Past Drug Use History: None Reported - Past Family History Daughter(s) Family Medical History: Cancer Additional Family Medical History / Comment(s): colon CA Mother Family Medical History: No Reported History Medications and Allergies Home Medications Medication Instructions Recorded Confirmed Type Donepezil [Aricept] 10 mg PO QAM 10/05/17 02/27/22 History Sertraline HCl [Zoloft] 200 mg PO DAILY 10/05/17 02/27/22 History LORazepam [Ativan] 0.5 mg PO Q12H 10/31/17 02/27/22 History Acetaminophen/Diphenhydramine 1 tab PO HS 02/27/22 02/27/22 History [Tylenol PM 500-25mg] Gabapentin [Neurontin] 300 mg PO BID 02/27/22 02/27/22 History HYDROcodone/APAP 5-325MG [Lopez 5] 1 each PO Q6HR PRN #12 tab 02/27/22 Rx Allergies Allergy/AdvReac Type Severity Reaction Status Date / Time codeine Allergy Unknown Verified 02/27/22 09:03 Physical Examination On examination, patient is sitting up on the gurney in no apparent distress. She is alert and oriented 3. Her son is bedside. There is ecchymosis to the right side of the face. Her breathing appears nonlabored. On inspection of her bilateral upper extremities, there are no obvious deformities or signs of trauma. On inspection of her left lower extremity, there are no obvious deformities or signs of trauma. On inspection of her right lower extremity, there is diffuse swelling and ecchymosis of the right ankle and foot. No open wounds. There is moderate pain to palpation of the ankle. No pain with palpation of the foot. No pain to passive range of motion of the bilateral hips, bilateral knees. The right dorsalis pedis pulses easily palpable, the right lower extremity is warm and well perfused with brisk capillary refill distally. No pain to passive range of motion of the toes. Motor and sensory function is intact of the right lower extremity. Results Right ankle x-ray 02/27/22: Right displaced bimalleolar ankle fracture Right foot x-ray 02/27/22: No additional fractures identified in the right foot - Labs Labs: Abnormal Lab Results - Last 24 Hours (Table) 02/27/22 02/27/22 02/27/22 Range/Units 09:35 09:35 09:35 MCV 105.9 H (80.0-100.0) fL APTT 21.5 L (22.0-30.0) sec Glucose 103 H (74-99) mg/dL Alkaline Phosphatase 138 H (38-126) U/L H & H 02/27/22 Range/Units 09:35 Hgb 13.2 (11.4-16.0) gm/dL Hct 42.2 (34.0-46.0) % Coagulation 02/27/22 Range/Units 09:35 INR 0.9 (<1.2) Result Diagrams: 02/27/22 09:35 02/27/22 09:35 Assessment and Plan Assessment: Right displaced bimalleolar ankle fracture Plan: - Clinical and imaging findings were discussed with the patient and her son, daughter. We discussed she will ultimately require surgical fixation of her right ankle fracture, although swelling will have to resolve before surgery is scheduled. Patient and her children are agreeable to this plan. - Patient was placed into a well-padded bulky Mariee splint today in the emergency department. She should leave this splint on until follow-up in the office. - Strict non-weight bearing RLE. Strict elevation, ice right ankle for swelling and pain control. - Patient is ok for discharge from orthopedic standpoint in regards to her right ankle. She should follow-up in our office in one week for a soft tissue check. Procedure: Patient was placed into a well-padded bulky Mariee splint with molding. The patient tolerated this well. Following splint application, the patient's toes are warm and well-perfused. She is able to wiggle toes appropriately. Sensation is intact to light touch of the toes, dorsal, plantar f oot.
== END 2022-02-27 13:51 | disposition home or self-care (01) ==
LOC: EC 07:00
DX: S82.841A Displaced bimalleolar fracture of right lower leg, initial encounter for closed fracture (principal); S00.83XA Contusion of other part of head, initial encounter; K21.9 Gastro-esophageal reflux disease without esophagitis; Z79.899 Other long term (current) drug therapy; Z88.5 Allergy status to narcotic agent; W19.XXXA Unspecified fall, initial encounter; Y92.89 Other specified places as the place of occurrence of the external cause
CPT/HCPCS: 36415; 93005; 80053; 85025; 85610; 85730; 73610; 73630; 72125; 70486; 70450; 99285; 96374; 96376; 96375; 29515; J2405; J1170

== ENCOUNTER 2022-08-15 12:31 | Observation (INO) | payer MEDICARE ==
[2022-08-15] MEDS ORDERED: HYDROmorphone 0.5 MG/0.5 ML SYRINGE IVP STA (12:55)
[2022-08-15] MEDS ORDERED: KETOROLAC 15 MG/ML 1 ML VIAL IVP STA (12:55)
--- NOTE | 2022-08-15 13:00 | ED ---
General Adult HPI - General Chief complaint: Chest Pain Stated complaint: fall - chest pain Time Seen by Provider: 08/15/22 12:35 Source: patient, RN notes reviewed, old records reviewed Mode of arrival: EMS Limitations: physical limitation - History of Present Illness Initial comments: This is an 86-year-old female presents emergency Department complaining of anterior chest wall pain. Patient states last night she went to fill the garbage out and she threw up but did not go to garbage and when she landed she landed on top of a hard stool chest. Patient complains of bilateral anterior chest wall pain as well as sternal pain. Patient denies shortness of breath but she says it hurts take a deep breath. Patient denies hitting her head or neck p ain patient denies any headache patient denies any neck pain patient denies any numbness weakness. Patient denies abdominal pain. Patient denies any back pain. Patient denies any lower extremity pain. Patient denies any sites of bleeding. Patient did not have any chest pain prior to the fall patient denies any near syncopal episode prior to the fall patient states she just lost her balance when she was throwing out the garbage into the garage. - Related Data Home Medications Medication Instructions Recorded Confirmed Donepezil [Aricept] 10 mg PO DAILY 10/05/17 03/03/22 Sertraline HCl [Zoloft] 200 mg PO DAILY 10/05/17 03/03/22 HYDROcodone/APAP 5-325MG [Ambler 5] 1 tab PO Q6HR PRN 03/03/22 03/03/22 Previous Rx's Medication Instructions Recorded HYDROcodone/APAP 5-325MG [Ambler 1 - 2 tab PO Q6HR PRN #32 tab 03/06/22 5-325] Aspirin 81 mg PO BID 14 Days #28 tab 03/08/22 Acetaminophen Tab [Tylenol] 500 mg PO HS tab 03/10/22 Gabapentin [Neurontin] 300 mg PO BID #12 cap 03/10/22 Hydrocortisone Suppository 25 mg RECTAL BID suppositor 03/10/22 [Anusol-Hc] LORazepam [Ativan] 0.5 mg PO Q12H #12 tab 03/10/22 Melatonin 6 mg PO HS tab 03/10/22 bisacodyL [Dulcolax] 5 mg PO DAILY PRN tab 03/10/22 diphenhydrAMINE [Benadryl] 25 mg PO HS cap 03/10/22 Allergies Allergy/AdvReac Type Severity Reaction Status Date / Time codeine Allergy Unknown Verified 08/15/22 14:37 Review of Systems ROS Statement: Those systems with pertinent positive or pertinent negative responses have been documented in the HPI. ROS Other: All systems not noted in ROS Statement are negative. Past Medical History Past Medical History: Cancer, GERD/Reflux, Musculoskeletal Disorder Additional Past Medical History / Comment(s): hx of shingles 2001, hx. esophageal cancer, recent fall w/lots of bruises,. Fx scapula - May 2017 History of Any Multi-Drug Resistant Organisms: None Reported Past Surgical History: No Surgical Hx Reported Additional Past Surgical History / Comment(s): ESOPHAGECTOMY. BILATERAL CATARACTS, prolapsed rectum surgery Past Anesthesia/Blood Transfusion Reactions: No Reported Reaction Past Psychological History: Anxiety, Depression Smoking Status: Never smoker Past Alcohol Use History: Occasional Past Drug Use History: None Reported - Past Family History Daughter(s) Family Medical History: Cancer Additional Family Medical History / Comment(s): colon CA Mother Family Medical History: No Reported History Additional Family Medical History / Comment(s): Mother was healthy Father Family Medical History: No Reported History Additional Family Medical History / Comment(s): Father was healthy General Exam - General Exam Comments Initial Comments: GENERAL: Patient is well-developed and well-nourished. Patient is nontoxic and well- hydrated and is in moderate distress. ENT: Neck is soft and supple. No significant lymphadenopathy is noted. Oropharynx is clear. Moist mucous membranes. Neck has full range of motion without eliciting any pain. EYES: The sclera were anicteric and conjunctiva were pink and moist. Extraocular movements were intact and pupils were equal round and reactive to light. Eyelids were unremarkable. PULMONARY: Unlabored respirations. Good breath sounds bilaterally. No audible rales rhonchi or wheezing was noted. CARDIOVASCULAR: There is a regular rate and rhythm without any murmurs gallops or rubs. Patient's anterior chest wall bilaterally and sternal is extremely tender to palpation there are no kathleen or contusions no areas of abrasion or any sites of bleeding. ABDOMEN: Soft and nontender with normal bowel sounds. SKIN: Skin is clear with no lesions or rashes and otherwise unremarkable. NEUROLOGIC: Patient is alert and oriented x3. Cranial nerves II through XII are grossly intact. Motor and sensory are also intact. Normal speech, volume and content. Symmetrical smile. MUSCULOSKELETAL: Normal extremities with adequate strength and full range of motion. LYMPHATICS: No significant lymphadenopathy is noted PSYCHIATRIC: Normal psychiatric evaluation. Limitations: physical limitation Course Vital Signs 08/15/22 08/15/22 08/15/22 12:32 12:38 13:00 Temperature 97.6 F Pulse Rate 55 L 59 L Respiratory 22 22 22 Rate Blood Pressure 150/81 153/79 O2 Sat by Pulse 100 99 Oximetry Medical Decision Making - Medical Decision Making EKG shows sinus bradycardia 56 bpm HI interval 128 QRS is a 70 Q-T is 472 QTC is 463. Patient's EKG shows no ST segment elevation or depression. Was pt. sent in by a medical professional or institution (, [facility], [employer]ENT, urgent care, hospital, or care home...) When possible be specific @ -No Did you speak to anyone other than the patient for history (EMS, parent, family, police, friend...)? What history was obtained from this source @ -Family was helpful in getting the details of the history because patient left our quite a few specifics. Did you review nursing and triage notes (agree or disagree)? Why? @ -I reviewed and agree with nursing and triage notes Were old charts reviewed (outside hosp., previous admission, EMS record, old EKG, old radiological studies, urgent care reports/EKG's, care home records)? Report findings @ -No old charts were reviewed Differential Diagnosis (chest pain, altered mental status, abdominal pain women, abdominal pain men, vaginal bleeding, weakness, fever, dyspnea, syncope, headache, dizziness, GI bleed, back pain, seizure, CVA, palpatations, mental health)? @ -Differential Chest Pain: Stable Angina, Unstable Angina, STEMI, NSTEMI Aortic Dissection, Pneumothorax, Musculoskeletal, rib fractures, sternal fracture, Esophageal Spasm GERD, Cholecystitis, Pancreatitis, Zoster, this is not meant to be an all-inclusive list. EKG interpreted by me (3pts min.). @ -As above X-rays interpreted by me (1pt min.). @ -None done CT interpreted by me (1pt min.). @ -Computed tomography scan was interpreted by myself. CT shows a minimally di splaced sternal fracture U/S interpreted by me (1pt. min.). @ -None done What testing was considered but not performed or refused? (CT, X-rays, U/S, labs)? Why? @ -None What meds were considered but not given or refused? Why? @ -None Did you discuss the management of the patient with other professionals (professionals i.e. Dr., PA, [employer]PERINTENDENT, lab, RT, psych nurse, sexual assault social worker, operating room surgical technologist, teacher, commercial loan officer, clinical case manager)? Give summary @ -Spoke with Dr. Watson he agreed to admit the patient Was smoking cessation discussed for >3mins.? @ -No Was critical care preformed (if so, how long)? @ -No Were there social determinants of health that impacted care today? How? (Homelessness, low income, unemployed, alcoholism, drug addiction, transportation, low edu. Level, literacy, decrease access to med. care, fpc, rehab)? @ -No Was there de-escalation of care discussed even if they declined (Discuss DNR or withdrawal of care, Hospice)? DNR status @ -No What co-morbidities impacted this encounter? (DM, HTN, Smoking, COPD, CAD, Cancer, CVA, ARF, Chemo, Hep., AIDS, mental health diagnosis, sleep apnea, morbid obesity)? @ -None Was patient admitted / discharged? Hospital course, mention meds given and route, prescriptions, significant lab abnormalities, going to OR and other pertinent info. @ -. Patient has a minimally displaced sternal fracture and her pain level is too high to go home so I talked about keeping her and she was happy to stay. I spoke with Dr. Watson he agreed to admit her. I admitted her I consult the cardiac stress surgery as well as medicine Undiagnosed new problem with uncertain prognosis? @ -No Drug Therapy requiring intensive monitoring for toxicity (Heparin, Nitro, Insulin, Cardizem)? @ -No Were any procedures done? @ -No Diagnosis/symptom? @ -Sternal fracture Acute, or Chronic, or Acute on Chronic? @ -Acute Uncomplicated (without systemic symptoms) or Complicated (systemic symptoms)? @ -Uncomplicated Side effects of treatment? @ -No Exacerbation, Progression, or Severe Exacerbation? @ -No Poses a threat to life or bodily function? How? (Chest pain, USA, IA, pneumonia, PE, COPD, DKA, ARF, appy, cholecystitis, CVA, Diverticulitis, Homicidal, Suicid al, threat to staff... and all critical care pts) @ -No - Lab Data Result diagrams: 08/15/22 13:09 08/15/22 13:09 Lab Results 08/15/22 08/15/22 08/15/22 Range/Units 13:09 13:09 13:09 WBC 9.6 (3.8-10.6) k/uL RBC 3.99 (3.80-5.40) m/uL Hgb 13.2 (11.4-16.0) gm/dL Hct 41.6 (34.0-46.0) % MCV 104.4 H (80.0-100.0) fL MCH 33.0 (25.0-35.0) pg MCHC 31.6 (31.0-37.0) g/dL RDW 13.8 (11.5-15.5) % Plt Count 221 (150-450) k/uL MPV 7.9 Neutrophils % 67 % Lymphocytes % 19 % Monocytes % 9 % Eosinophils % 2 % Basophils % 1 % Neutrophils # 6.4 (1.3-7.7) k/uL Lymphocytes # 1.9 (1.0-4.8) k/uL Monocytes # 0.8 (0-1.0) k/uL Eosinophils # 0.2 (0-0.7) k/uL Basophils # 0.1 (0-0.2) k/uL Macrocytosis Slight Sodium 139 (137-145) mmol/L Potassium 4.4 (3.5-5.1) mmol/L Chloride 112 H (98-107) mmol/L Carbon Dioxide 22 (22-30) mmol/L Anion Gap 5 mmol/L BUN 26 H (7-17) mg/dL Creatinine 0.69 (0.52-1.04) mg/dL Est GFR (CKD-EPI)AfAm >90 (>60 ml/min/1.73 sqM) Est GFR (CKD-EPI)NonAf 80 (>60 ml/min/1.73 sqM) Glucose 100 H (74-99) mg/dL Calcium 7.8 L (8.4-10.2) mg/dL Total Bilirubin 0.6 (0.2-1.3) mg/dL AST 28 (14-36) U/L ALT 19 (4-34) U/L Alkaline Phosphatase 69 (38-126) U/L Troponin I <0.012 (0.000-0.034) ng/mL Total Protein 6.3 (6.3-8.2) g/dL Albumin 3.1 L (3.5-5.0) g/dL Disposition Clinical Impression: Sternal fracture Disposition: ADMITTED IP TO THIS HOSP Referrals: Henri Clarke MD [Primary Care Provider] - 1-2 days Time of Disposition: 15:35
[2022-08-15 13:15] LABS: Basophils # (A) 0.1 k/uL (0-0.2); Basophils % (A) 1 %; Eosinophils # (A) 0.2 k/uL (0-0.7); Eosinophils % (A) 2 %; HCT 41.6 % (34.0-46.0); HGB 13.2 gm/dL (11.4-16.0); Lymphocytes # (A) 1.9 k/uL (1.0-4.8); Lymphocytes % (A) 19 %; MCHC 31.6 g/dL (31.0-37.0); MCV 104.4 fL (80.0-100.0); Macrocytosis Slight; Mean Platelet Volume 7.9; Monocytes # (A) 0.8 k/uL (0-1.0); Monocytes % (A) 9 %; Neutrophils # (A) 6.4 k/uL (1.3-7.7); Neutrophils % (A) 67 %; Platelet Count 221 k/uL (150-450); RBC 3.99 m/uL (3.80-5.40); RDW 13.8 % (11.5-15.5); WBC 9.6 k/uL (3.8-10.6)
[2022-08-15 13:36] LABS: ALT 19 U/L (4-34); AST 28 U/L (14-36); African American GFR (CKD) >90 (>60 ml/min/1.73 sqM); Albumin 3.1 g/dL (3.5-5.0); Alkaline Phosphatase 69 U/L (38-126); Anion Gap 5 mmol/L; Blood Urea Nitrogen 26 mg/dL (7-17); Calcium 7.8 mg/dL (8.4-10.2); Carbon Dioxide 22 mmol/L (22-30); Chloride 112 mmol/L (98-107); Glucose 100 mg/dL (74-99); Non-African American GFR(CKD) 80 (>60 ml/min/1.73 sqM); Potassium 4.4 mmol/L (3.5-5.1); Sodium 139 mmol/L (137-145); Total Bilirubin 0.6 mg/dL (0.2-1.3); Total Protein 6.3 g/dL (6.3-8.2)
--- NOTE | 2022-08-15 14:37 | CT ---
EXAMINATION TYPE: CT chest wo con CT DLP: 162 mGycm, Automated exposure control for dose reduction was used. DATE OF EXAM: 08/15/2022 2:19 PM COMPARISON: CTA chest 02/03/2018 CLINICAL INDICATION:Female, 86 years old with history of Trauma; PHH, Fall. Chest pain. TECHNIQUE: Multiple axial images were obtained through the chest without IV contrast. Lack of IV or o ral contrast limits evaluation of solid and hollow organ viscera. FINDINGS: LUNGS/ PLEURA: Biapical pleural-parenchymal scarring. Posterior dependent subsegmental atelectasis. N o focal consolidation, pneumothorax, or pleural effusion. No suspicious pulmonary nodule or mass. AIRWAY: Patent and unremarkable.. HEART: Size within normal limits. Coronary artery calcifications. Aortic valvular calcifications.. MEDIASTINUM: No gross evidence of adenopathy. No mediastinal hematoma. VASCULATURE: No aortic aneurysm. Atherosclerotic calcification of the aorta and its branches. MUSCULOSKELETAL: Minimally displaced sternal body fracture. Vertebral augmentation changes involving the L1 vertebral body. SOFT TISSUES/LYMPH NODES: Unremarkable. LOWER NECK: No significant findings. UPPER ABDOMEN: Postsurgical changes of the stomach. Stable hepatic cysts. Stable left renal cyst. IMPRESSION: Minimally displaced acute sternal body fracture. No mediastinal hematoma or pneumothorax.
[2022-08-15] MEDS ORDERED: SODIUM CHLORIDE 0.9% 1,000 ML IV ONE (15:35)
--- NOTE | 2022-08-15 16:41 | P.GSCN ---
History of Present Illness Consult date: 08/15/22 Reason for Consult: Acute sternal fracture, status post fall from standing Requesting physician: Sraan Espana History of present illness: This is an 86-year-old female patient who follows on a note patient basis for her primary care service with Dr. Henri Clarke. She has a past medical history significant for dementia, depression, recent right ankle fracture, status post open reduction and internal fixation right bimalleolar ankle, multiple falls at home, GERD, history of esophageal cancer and has a remote history of nicotine dependence in which he quit several years ago. The patient presented to the emergency department here at [facility] via EMS today 08/15/2022 with complaints of chest wall pain. The patient reports that she was throwing a bag of trash into the garage last evening around 8 PM and forgot to release the bag and subsequently fell down 4-5 stairs and landed on a tool box. According to the patient in the patient's caregiver was present at her bedside reports that she was assisted up off the floor by her after around 5 minutes. She denies hitting her head, losing consciousness, bowel or bladder function. She denies any fever, chills, nausea, vomiting, headache, numbness, weakness, denies any chest pain prior to the fall, shortness of breath, presyncope or syncope. The patient's caregiver reports that she never told her daughter or called the caregiver service to inform anyone at that she did have a fall. Subsequently due to the chest pain the patient was encouraged to come to the emergency department by her daughter. An EKG was completed in the emergency department which showed sinus bradycardia with a heart rate of 56 BPM. A computed tomography scan of the chest without contrast was completed which demonstrated a minimally displaced acute sternal body fracture with no mediastinal hematoma or pneumothorax. Due to the findings of the minimally displaced acute sternal body fracture a consult was placed to cardiothoracic surgery for further evaluation and treatment recommendations. Review of Systems A 14 point review of systems was completed and was negative except as mentioned in the HPI. Past Medical History Past Medical History: Cancer, GERD/Reflux, Musculoskeletal Disorder Additional Past Medical History / Comment(s): hx of shingles 2001, hx. esophageal cancer, recent fall w/lots of bruises,. Fx scap - May 2017 History of Any Multi-Drug Resistant Organisms: None Reported Additional Past Surgical History / Comment(s): ESOPHAGECTOMY. BILATERAL CATARACTS, prolapsed rectum surgery, status post open reduction and internal fixation right bimalleolar ankle Past Anesthesia/Blood Transfusion Reactions: No Reported Reaction Past Psychological History: Anxiety, Depression Smoking Status: Never smoker (Very remote history of smoking.) Past Alcohol Use History: Occasional Past Drug Use History: None Reported - Past Family History Daughter(s) Family Medical History: Cancer Additional Family Medical History / Comment(s): colon CA Mother Family Medical History: No Reported History Additional Family Medical History / Comment(s): Mother was healthy Father Family Medical History: No Reported History Additional Family Medical History / Comment(s): Father was healthy Medications and Allergies Home Medications Medication Instructions Recorded Confirmed Type Donepezil [Aricept] 10 mg PO DAILY 10/05/17 08/15/22 History Sertraline HCl [Zoloft] 200 mg PO DAILY 10/05/17 08/15/22 History Gabapentin [Neurontin] 300 mg PO BID #12 cap 03/10/22 08/15/22 Rx LORazepam [Ativan] 0.5 mg PO Q12H PRN 08/15/22 08/15/22 History Allergies Allergy/AdvReac Type Severity Reaction Status Date / Time codeine Allergy Unknown Verified 08/15/22 15:42 Surgical - Exam Vital Signs Temp Pulse Resp BP Pulse Ox 97.6 F 55 L 22 150/81 100 08/15/22 12:32 08/15/22 12:32 08/15/22 12:32 08/15/22 12:32 08/15/22 12:32 - General no distress, moderate pain (With movement), cachectic - Eyes PERRL, normal ocular movement, no pale, no icteric - ENT normal pinna, normal nares, normal mucosa, no hearing loss, no congestion - Neck Neck is supple, no JVD. no masses, no bruits, trachea midline, no venous distension - Respiratory Lungs sounds essentially clear throughout. No wheezes, rhonchi or crackles. Respirations are symmetrical and nonlabored. Oxygen saturations 92% on room air. - Cardiovascular Regular rhythm and rate. S1 and S2 present, negative for S3, gallop or murmurs. Anterior chest wall tender to palpation, absent with contusions or abrasions. - Abdomen Abdomen is soft, nontender and nondistended. Active bowel sounds present all 4 abdominal quadrants. No guarding or rigidity. No organomegaly appreciated. - Genitourinary Deferred - Rectum Deferred - Integumentary Skin is warm and dry. No clubbing or cyanosis is present. Small quarter size e cchymosis area to her bilateral knees. no rash, no growths, no abnormal pigmentation - Neurologic No focal deficits. normal coordination, normal sensation - Musculoskeletal Moves all 4 extremities with equal strength bilateral. - Psychiatric Episodes of forgetfulness. oriented to time, oriented to person, oriented to place, speech is normal Results - Labs 08/15/22 13:09 08/15/22 13:09 Abnormal Lab Results - Last 24 Hours (Table) 08/15/22 08/15/22 Range/Units 13:09 13:09 MCV 104.4 H (80.0-100.0) fL Chloride 112 H (98-107) mmol/L BUN 26 H (7-17) mg/dL Glucose 100 H (74-99) mg/dL Calcium 7.8 L (8.4-10.2) mg/dL Albumin 3.1 L (3.5-5.0) g/dL Diabetes panel 08/15/22 Range/Units 13:09 Sodium 139 (137-145) mmol/L Potassium 4.4 (3.5-5.1) mmol/L Chloride 112 H (98-107) mmol/L Carbon Dioxide 22 (22-30) mmol/L BUN 26 H (7-17) mg/dL Creatinine 0.69 (0.52-1.04) mg/dL Glucose 100 H (74-99) mg/dL Calcium 7.8 L (8.4-10.2) mg/dL AST 28 (14-36) U/L ALT 19 (4-34) U/L Alkaline Phosphatase 69 (38-126) U/L Total Protein 6.3 (6.3-8.2) g/dL Albumin 3.1 L (3.5-5.0) g/dL Calcium panel 08/15/22 Range/Units 13:09 Calcium 7.8 L (8.4-10.2) mg/dL Albumin 3.1 L (3.5-5.0) g/dL Pituitary panel 08/15/22 Range/Units 13:09 Sodium 139 (137-145) mmol/L Potassium 4.4 (3.5-5.1) mmol/L Chloride 112 H (98-107) mmol/L Carbon Dioxide 22 (22-30) mmol/L BUN 26 H (7-17) mg/dL Creatinine 0.69 (0.52-1.04) mg/dL Glucose 100 H (74-99) mg/dL Calcium 7.8 L (8.4-10.2) mg/dL Adrenal panel 08/15/22 Range/Units 13:09 Sodium 139 (137-145) mmol/L Potassium 4.4 (3.5-5.1) mmol/L Chloride 112 H (98-107) mmol/L Carbon Dioxide 22 (22-30) mmol/L BUN 26 H (7-17) mg/dL Creatinine 0.69 (0.52-1.04) mg/dL Glucose 100 H (74-99) mg/dL Calcium 7.8 L (8.4-10.2) mg/dL Total Bilirubin 0.6 (0.2-1.3) mg/dL AST 28 (14-36) U/L ALT 19 (4-34) U/L Alkaline Phosphatase 69 (38-126) U/L Total Protein 6.3 (6.3-8.2) g/dL Albumin 3.1 L (3.5-5.0) g/dL - Imaging CT scan - chest: report reviewed, image reviewed EKG: image reviewed Assessment and Plan Assessment: 1. Acute minimally displaced sternal body fracture, status post fall from standing 2. Anterior chest wall pain, likely secondary to above 3. History of dementia 4. Multiple falls at home 5. GERD 6. History of esophageal cancer 7. Very remote history of nicotine dependence, quit several years ago Plan: The patient was seen and examined in the emergency department with the patient's caregiver present. Her chart and diagnostics review. Her case was discussed in detail with Dr. Ralph Martin from cardiothoracic surgery. At this time no surgical intervention is warranted. Continue with pain management. Encourage use of incentive spirometry 10 times every hour while awake. Medical management and other comorbidities per primary care service. More recommendations to follow based on patient's clinical course. Thank you Dr. Espana for this consult and we look forward to working with you in the care of this patient. I have personally seen and examined the patient, performed the documentation and the assessment and plan as written. 30 minutes spent on the visit . Melvin PIERRE
[2022-08-15] MEDS: KETOROLAC 15 MG/ML 1 ML VIAL IVP SCH (17:08)
[2022-08-15] MEDS: HYDROmorphone 0.5 MG/0.5 ML SYRINGE IVP PRN (20:54)
[2022-08-16] MEDS: KETOROLAC 15 MG/ML 1 ML VIAL IVP SCH ×3 (00:52→13:30)
--- NOTE | 2022-08-16 01:49 | P.CONS ---
History of Present Illness - Reason for Consult Consult date: 08/15/22 - History of Present Illness The patient is an 86-year-old female with a PMH of mild cognitive impairment, depression, and GERD who presented to the emergency room after a fall at home. The patient states that she was trying to throw away garbage on the top of her porch when she lost her balance and fell down 4-5 steps, hitting chest wall on the ground. She denied losing consciousness or experience he had trauma. [place] that she was subsequently helped by her and did not have any additional complaints aside from midsternal chest pain. The patient does have a caregiver who apparently became concerned and advised the patient to come to the emergency room. At the time of interview the patient reported ongoing positional sternal chest discomfort, rated at a 8 out of 10 with movement, and 0 out of 10 at rest. She denied experiencing fever, chills, nausea, lower extreme swelling, lower extremity pain. Chest CT revealed a minimally displaced acute sternal body fracture without hematoma or pneumothorax. Laboratory evaluation was unremarkable. Review of systems: Pertinent positives and negatives as discussed in HPI, a complete review of systems was performed and all other systems are negative. Physical examination: General: non toxic, no distress, appears at stated age Derm: no unusual rashes/lesions, warm Head: atraumatic, normocephalic, symmetric Eyes: EOMI, no lid lag, anicteric sclera, pupils equal round reactive to light ENT: Nose and ears atraumatic Neck: No cervical lymphadenopathy, trachea midline, supple Mouth: no lip lesion, mucus membranes moist Cardiovascular: S1S2 reg, no murmur, positive dorsalis pedis pulse bilateral, no edema, midsternal tenderness upon palpation Lungs: CTA bilateral, no rhonchi, no rales, no accessory muscle use Abdominal: soft, nontender to palpation, no guarding Ext: muscle strength 5 out of 5 in all 4 extremities grossly, no gross muscle atrophy, no contractures, Neuro: CN II-XI grossly intact, no gross focal neuro deficits Psych: Alert, oriented, appropriate affect Assessment/plan Traumatic sternal fracture -Cardiothoracic surgery consulted -Pain control -IV fluids -Defer DVT prophylaxis to the primary surgery service Chronic conditions: dementia, GERD, depression -C/w home meds We appreciate this opportunity to be involved in this patient's care. We will follow the patient with you. For any further questions, please not hesitate to contact the [facility] [place] inpatient team. Past Medical History Past Medical History: Cancer, GERD/Reflux, Musculoskeletal Disorder Additional Past Medical History / Comment(s): hx of shingles 2001, hx. esophageal cancer, recent fall w/lots of bruises,. Fx scapula - May 2017 History of Any Multi-Drug Resistant Organisms: None Reported Past Surgical History: No Surgical Hx Reported Additional Past Surgical History / Comment(s): ESOPHAGECTOMY. BILATERAL EDNA RACTS, prolapsed rectum surgery, status post open reduction and internal fixation right bimalleolar ankle Past Anesthesia/Blood Transfusion Reactions: No Reported Reaction Past Psychological History: Anxiety, Depression Smoking Status: Never smoker Past Alcohol Use History: Occasional Past Drug Use History: None Reported - Past Family History Daughter(s) Family Medical History: Cancer Additional Family Medical History / Comment(s): colon CA Mother Family Medical History: No Reported History Additional Family Medical History / Comment(s): Mother was healthy Father Additional Family Medical History / Comment(s): Father was healthy Medications and Allergies Home Medications Medication Instructions Recorded Confirmed Type Donepezil [Aricept] 10 mg PO DAILY 10/05/17 08/15/22 History Sertraline HCl [Zoloft] 200 mg PO DAILY 10/05/17 08/15/22 History Gabapentin [Neurontin] 300 mg PO BID #12 cap 03/10/22 08/15/22 Rx LORazepam [Ativan] 0.5 mg PO Q12H PRN 08/15/22 08/15/22 History Allergies Allergy/AdvReac Type Severity Reaction Status Date / Time codeine Allergy Unknown Verified 08/15/22 15:42 Physical Exam Vitals: Vital Signs Temp Pulse Pulse Resp BP BP Pulse Ox 08/15/22 20:35 55 L 14 97/56 94 L 08/15/22 20:00 97.9 F 59 L 14 136/69 94 L 08/15/22 18:00 75 18 08/15/22 17:00 111/73 08/15/22 16:00 66 18 146/91 94 L 08/15/22 15:51 60 27 H 146/91 100 08/15/22 15:50 60 15 146/91 99 08/15/22 13:00 59 L 22 153/79 99 08/15/22 12:38 22 08/15/22 12:32 97.6 F 55 L 22 150/81 100 Intake and Output 08/15/22 08/15/22 08/16/22 14:59 22:59 06:59 Other: Voiding Method Toilet # Voids 1 Weight 40.823 kg 40.823 kg Results CBC & Chem 7: 08/15/22 13:09 08/15/22 13:09 Labs: Abnormal Lab Results - Last 24 Hours (Table) 08/15/22 08/15/22 Range/Units 13:09 13:09 MCV 104.4 H (80.0-100.0) fL Chloride 112 H (98-107) mmol/L BUN 26 H (7-17) mg/dL Glucose 100 H (74-99) mg/dL Calcium 7.8 L (8.4-10.2) mg/dL Albumin 3.1 L (3.5-5.0) g/dL
[2022-08-16] MEDS: HYDROmorphone 0.5 MG/0.5 ML SYRINGE IVP PRN (03:42)
[2022-08-16 03:57] VITALS: TEMP 97.7
[2022-08-16 07:07] VITALS: BP 137/79; PULSE 56; RESP 16
--- NOTE | 2022-08-16 08:06 | XR ---
EXAMINATION TYPE: XR chest 2V DATE OF EXAM: 08/16/2022 6:55 AM COMPARISON: Chest radiographs from 02/03/2018 TECHNIQUE: XR chest 2V Frontal and lateral views of the chest. CLINICAL INDICATION:Female, 86 years old with history of Sternal fracture; FINDINGS: Lungs/Pleura: Prominent interstitial lung markings are seen scattered throughout the lungs with laci ening of the diaphragm and increased lucency of the lung apices. No evidence of focal consolidation, pneumothorax or pleural effusion. Pulmonary vascularity: Unremarkable. Heart/mediastinum: Cardiomediastinal silhouette is unremarkable. Musculoskeletal: No acute osseous pathology. IMPRESSION: Chronic interstitial changes with COPD changes.
[2022-08-16] MEDS ORDERED: ACETAMINOPHEN TAB 325 MG TAB PO PRN (08:32)
[2022-08-16] MEDS ORDERED: HYDROcodone/APAP 5-325MG 1 EACH TAB PO PRN (08:33)
[2022-08-16] MEDS ORDERED: DONEPEZIL 10 MG TAB PO SCH (09:00)
[2022-08-16] MEDS ORDERED: SERTRALINE 100 MG TAB PO SCH (09:00)
[2022-08-16] MEDS ORDERED: GABAPENTIN 300 MG CAP PO SCH (09:00)
--- NOTE | 2022-08-16 09:13 | P.PN ---
Subjective Progress Note Date: 08/16/22 Principal diagnosis: Acute traumatic minimally displaced sternal body fracture, status post fall from standing. History of dementia, multiple falls at home, GERD, esophageal cancer, previous tobacco dependence The patient was seen and examined this morning laying in bed on the observation unit in no acute distress. She appeared comfortable, however when asked she does state she does continue to have chest pain. Remains on room air. Her case was discussed yesterday in detail with Dr. Martin, no surgical intervention warranted. Objective - Vital Signs Vital signs: Vital Signs Temp 97.7 F 08/16/22 07:00 Pulse 56 L 08/16/22 07:00 Resp 16 08/16/22 07:00 BP 137/79 08/16/22 07:00 Pulse Ox 95 08/16/22 07:00 FiO2 Intake & Output 08/15/22 08/16/22 08/16/22 18:59 06:59 18:59 Weight 40.823 kg 40.823 kg Other: Voiding Method Toilet # Voids 1 - Exam CONSTITUTIONAL: Appears comfortable, cooperative, no acute distress RESPIRATORY: Lungs sounds diminished bilaterally. Respirations even, nonlabored. Currently on room air with oxygen saturation 95%. CARDIOVASCULAR: S1, S2 present. Slow but regular rate and rhythm. Palpable peripheral pulses bilaterally. No edema present. No calf pain or tenderness noted. GASTROINTESTINAL: Abdomen soft, nontender, nondistended. Active bowel sounds present 4 quadrants. Tolerating diet. GENITOURINARY: Continues to void clear, yellow urine INTEGUMENTARY: Skin is warm and dry with evidence of good perfusion. Thoracic incision well approximated and covered with dry intact dressing. NEUROLOGIC: Cranial nerves II through XII intact MUSKULOSKELETAL: Able to move all extremities, strength equal bilaterally PSYCHIATRIC: Alert and oriented to person place and time, appropriate affect, intact judgment and insight - Allied health notes Allied health notes reviewed: nursing - Labs CBC & Chem 7: 08/15/22 13:09 08/15/22 13:09 Labs: Abnormal Lab Results - Last 24 Hours (Table) 08/15/22 08/15/22 Range/Units 13:09 13:09 MCV 104.4 H (80.0-100.0) fL Chloride 112 H (98-107) mmol/L BUN 26 H (7-17) mg/dL Glucose 100 H (74-99) mg/dL Calcium 7.8 L (8.4-10.2) mg/dL Albumin 3.1 L (3.5-5.0) g/dL - Imaging and Cardiology Chest x-ray: image reviewed Assessment and Plan Assessment: 1. Acute traumatic minimally displaced sternal body fracture, status post fall from standing 2. Anterior chest wall pain, likely secondary to above 3. History of dementia 4. Multiple falls at home 5. GERD 6. History of esophageal cancer 7. Previous tobacco dependence Plan: 1. No surgical intervention is warranted 2. Pain control per primary service 3. Encourage incentive spirometry use 4. Increase activity as tolerated 5. Sternal precautions. No lifting anything heavier than 10 pounds for 3 months 6. Medical management per primary care service 7. From cardiothoracic surgery standpoint patient can be discharged when okay with other services. No need to follow up with us at this time
[2022-08-16 11:28] VITALS: BMI 16.9
--- NOTE | 2022-08-16 13:09 | P.GSHP ---
History of Present Illness H&P Date: 08/16/22 CHIEF COMPLAINT: Fall with chest pain HISTORY OF PRESENT ILLNESS: This 86-year-old female who fell coming down stairs in her garage. She hit her chest wall on a toolbox. Patient had a computed tomography scan of the chest which did show evidence of a minimally displaced sternal fracture. She has been seen by cardiothoracic service. She has received pain medication. Repeat chest x-ray shows no evidence of pneumothorax. Patient denies any abdominal pain. Denies any loss of consciousness. Patient admitted to trauma surgical service. Patient is on room air. Denies any shortness of breath. Patient seen and examined with Dr. pina. PAST MEDICAL HISTORY: See below PAST SURGICAL HISTORY: See below MEDICATIONS: See below ALLERGIES: See below SOCIAL HISTORY: No illicit drug use. REVIEW OF SYSTEMS: CONSTITUTIONAL: Denies fever or chills. HEENT: Denies blurred vision, vision changes, or eye pain. Denies hemoptysis CARDIOVASCULAR: Denies chest pain or pressure. RESPIRATORY: No shortness of breath. GASTROINTESTINAL: See HPI for pertinent findings HEMATOLOGIC: Denies bleeding disorders. GENITOURINARY: Denies any blood in urine or increased urinary frequency. SKIN: Denies pruitis. Denies rash. PHYSICAL EXAM: VITAL SIGNS: Reviewed GENERAL: Well-developed in no acute distress. Chest: Patient tenderness with palpation of sternal HEENT: No sclera icterus. Extraocular movements grossly intact. Moist buccal mucosa. Head is atraumatic, normocephalic. No nasal drainage. ABDOMEN: Soft. Nondistended. Nontender NEUROLOGIC: Alert and oriented. Cranial nerves II through XII grossly intact. Extremities: Patient able to move all 4 extremities. She does have some bruising noted on the left upper arm. No swelling. LABORATORY DATA: WBC is 9.6 Hgb 13.2 platelets 221 Sodium is 139 potassium 4.4 creatinine 0.69 LFTs normal IMAGING: Chest CT minimally displaced acute sternal body fracture. No mediastinal hematoma or pneumothorax Chest x-ray chronic interstitial changes with COPD changes ASSESSMENT: 1. Fall with minimally displaced acute sternal body fracture 2. Chest wall pain secondary to sternal fracture 3. History of falls at home PLAN: -Continue pain management -Encouraged patient to use incentive spirometer -Encouraged patient to increase activity level -Consult placed cardiothoracic surgery -Consult us for medical management Physician Despatch Clerk note has been reviewed by physician. Signing provider agrees with the documented findings, assessment, and plan of care. Past Medical History Past Medical History: Cancer, GERD/Reflux, Musculoskeletal Disorder Additional Past Medical History / Comment(s): hx of shingles 2001, hx. esophageal cancer, recent fall w/lots of bruises,. Fx scapula - May 2017 History of Any Multi-Drug Resistant Organisms: None Reported Past Surgical History: No Surgical Hx Reported Additional Past Surgical History / Comment(s): ESOPHAGECTOMY. BILATERAL CATARACTS, prolapsed rectum surgery, status post open reduction and internal fixation right bimalleolar ankle Past Anesthesia/Blood Transfusion Reactions: No Reported Reaction Past Psychological History: Anxiety, Depression Smoking Status: Never smoker Past Alcohol Use History: Occasional Past Drug Use History: None Reported - Past Family History Daughter(s) Family Medical History: Cancer Additional Family Medical History / Comment(s): colon CA Mother Family Medical History: No Reported History Additional Family Medical History / Comment(s): Mother was healthy Father Family Medical History: No Reported History Additional Family Medical History / Comment(s): Father was healthy Medications and Allergies Home Medications Medication Instructions Recorded Confirmed Type Donepezil [Aricept] 10 mg PO DAILY 10/05/17 08/15/22 History Sertraline HCl [Zoloft] 200 mg PO DAILY 10/05/17 08/15/22 History Gabapentin [Neurontin] 300 mg PO BID #12 cap 03/10/22 08/15/22 Rx LORazepam [Ativan] 0.5 mg PO Q12H PRN 08/15/22 08/15/22 History HYDROcodone/APAP 5-325MG [[place] 1 tab PO Q6HR PRN 3 Days #12 tab 08/16/22 Rx 5-325] Allergies Allergy/AdvReac Type Severity Reaction Status Date / Time codeine Allergy Unknown Verified 08/15/22 15:42 Surgical - Exam Vital Signs Temp Pulse Resp BP Pulse Ox 97.6 F 55 L 22 150/81 100 08/15/22 12:32 08/15/22 12:32 08/15/22 12:32 08/15/22 12:32 08/15/22 12:32 Results - Labs 08/15/22 13:09 08/15/22 13:09 Abnormal Lab Results - Last 24 Hours (Table) 08/15/22 08/15/22 Range/Units 13:09 13:09 MCV 104.4 H (80.0-100.0) fL Chloride 112 H (98-107) mmol/L BUN 26 H (7-17) mg/dL Glucose 100 H (74-99) mg/dL Calcium 7.8 L (8.4-10.2) mg/dL Albumin 3.1 L (3.5-5.0) g/dL Diabetes panel 08/15/22 Range/Units 13:09 Sodium 139 (137-145) mmol/L Potassium 4.4 (3.5-5.1) mmol/L Chloride 112 H (98-107) mmol/L Carbon Dioxide 22 (22-30) mmol/L BUN 26 H (7-17) mg/dL Creatinine 0.69 (0.52-1.04) mg/dL Glucose 100 H (74-99) mg/dL Calcium 7.8 L (8.4-10.2) mg/dL AST 28 (14-36) U/L ALT 19 (4-34) U/L Alkaline Phosphatase 69 (38-126) U/L Total Protein 6.3 (6.3-8.2) g/dL Albumin 3.1 L (3.5-5.0) g/dL Calcium panel 08/15/22 Range/Units 13:09 Calcium 7.8 L (8.4-10.2) mg/dL Albumin 3.1 L (3.5-5.0) g/dL Pituitary panel 08/15/22 Range/Units 13:09 Sodium 139 (137-145) mmol/L Potassium 4.4 (3.5-5.1) mmol/L Chloride 112 H (98-107) mmol/L Carbon Dioxide 22 (22-30) mmol/L BUN 26 H (7-17) mg/dL Creatinine 0.69 (0.52-1.04) mg/dL Glucose 100 H (74-99) mg/dL Calcium 7.8 L (8.4-10.2) mg/dL Adrenal panel 08/15/22 Range/Units 13:09 Sodium 139 (137-145) mmol/L Potassium 4.4 (3.5-5.1) mmol/L Chloride 112 H (98-107) mmol/L Carbon Dioxide 22 (22-30) mmol/L BUN 26 H (7-17) mg/dL Creatinine 0.69 (0.52-1.04) mg/dL Glucose 100 H (74-99) mg/dL Calcium 7.8 L (8.4-10.2) mg/dL Total Bilirubin 0.6 (0.2-1.3) mg/dL AST 28 (14-36) U/L ALT 19 (4-34) U/L Alkaline Phosphatase 69 (38-126) U/L Total Protein 6.3 (6.3-8.2) g/dL Albumin 3.1 L (3.5-5.0) g/dL
--- NOTE | 2022-08-16 13:11 | P.DS ---
Providers Date of admission: 08/15/22 15:36 Expected date of discharge: 08/16/22 Attending physician: Todd Watson Consults: 08/15/22 15:35 Consult Physician Urgent Consulting Provider: Kevin Franco Thoracic CV Surgery Consult Reason/Comments: Sternal fracture Do you want consulting provider notified?: Yes Consult Physician Urgent Consulting Provider: Evert Polanco Consult Reason/Comments: Medical management Do you want consulting provider notified?: Yes Primary care physician: Henri Clarke MD Hospital Course: Discharge diagnosis 1. Fall with minimally displaced acute sternal body fracture 2. Chest wall pain secondary to sternal fracture 3. History of falls at home Hospital course This 86-year-old female who fell coming down stairs in her garage. She hit her chest wall on a toolbox. Patient had a computed tomography scan of the chest which did show evidence of a minimally displaced sternal fracture. She has been seen by cardiothoracic service. She has received pain medication. Repeat chest x-ray shows no evidence of pneumothorax. Patient reports that her chest wall pain is controlled. Denies any shortness of breath. She's on room air. Patien t denies any abdominal pain. She has been up and ambulating. She is tolerating diet. Her pain is controlled. She is afebrile. She's been cleared by cardiothoracic and medical service for discharge. Patient is stable for discharge. Please refer to chart for any further details. Physician Legal Compliance Officer note has been reviewed by physician. Signing provider agrees with the documented findings, assessment, and plan of care. Patient Condition at Discharge: Stable Plan - Discharge Summary New Discharge Prescriptions: New HYDROcodone/APAP 5-325MG [[place] 5-325] 1 tab PO Q6HR PRN 3 Days #12 tab PRN Reason: Pain Continue Sertraline HCl [Zoloft] 200 mg PO DAILY Donepezil [Aricept] 10 mg PO DAILY Gabapentin [Neurontin] 300 mg PO BID #12 cap LORazepam [Ativan] 0.5 mg PO Q12H PRN PRN Reason: Anxiety Discharge Medication List Donepezil [Aricept] 10 mg PO DAILY 10/05/17 [History] Sertraline HCl [Zoloft] 200 mg PO DAILY 10/05/17 [History] Gabapentin [Neurontin] 300 mg PO BID #12 cap 03/10/22 [Rx] LORazepam [Ativan] 0.5 mg PO Q12H PRN 08/15/22 [History] HYDROcodone/APAP 5-325MG [[place] 5-325] 1 tab PO Q6HR PRN 3 Days #12 tab 08/16/22 [Rx] Follow up Appointment(s)/Referral(s): Henri Clarke MD [Primary Care Provider] - 1-2 days Activity/Diet/Wound Care/Special Instructions: Sternal precautions. No lifting anything heavier than 10 pounds for 3 months Continue to use incentive spirometer Discharge Disposition: HOME SELF-CARE
--- NOTE | 2022-08-16 13:53 | P.PN ---
Subjective Progress Note Date: 08/16/22 (delayed charting seen at 0930) The patient is an 86-year-old female with a PMH of mild cognitive impairment, depression, and GERD who presented to the emergency room after a fall at home and was found to have a sternal fracture. Patient seen and examined at bedside. She has no complaints at this time. Chest pain is better but still presetn wtih deep inspiration. I spoke with the patient and suggested outpatinet PTOT due to recurrent fall. However, patient does not feel this is necessary. General: nontoxic, no distress, appears at stated age Derm: warm, dry, multiple areas of ecchymoses Head: atraumatic, normocephalic, symmetric Eyes: EOMI, no lid lag, anicteric sclera Mouth: no lip lesion, mucus membranes moist Cardiovascular: S1S2 reg, no murmur, positive posterior tibial pulse bilateral, Lungs: Decreased breath sounds bilateral bilateral, no rhonchi, no rales , no accessory muscle use Abdominal: soft, nontender to palpation, no guarding, no appreciable organomegaly Ext: no gross muscle atrophy, no edema, no contractures Neuro: CN II-XI grossly intact, no focal neuro deficits Psych: Alert, oriented, appropriate affect Assessment/plan: Sternal fracture secondary to fall -Cardiothoracic surgery and trauma recommendations -Pain control GERD -PPI Depression -Zoloft Dementia -Continue with Aricept Patient medically optimized for discharge. We'll discuss with PCP regarding recommendations for home PT/OT. Objective - Vital Signs Vital signs: Vital Signs Temp 97.7 F 08/16/22 07:00 Pulse 56 L 08/16/22 07:00 Resp 16 08/16/22 07:00 BP 137/79 08/16/22 07:00 Pulse Ox 95 08/16/22 07:00 FiO2 Intake & Output 08/15/22 08/16/22 08/16/22 18:59 06:59 18:59 Weight 40.823 kg 40.823 kg 40.823 kg Other: Voiding Method Toilet Toilet # Voids 1 - Labs CBC & Chem 7: 08/15/22 13:09 08/15/22 13:09
== END 2022-08-16 14:08 | disposition home or self-care (01) ==
LOC: EC 12:31 → 6NMEDSUR 15:36
PROVIDERS: ADMIT Surgery; ATTEND Surgery
DX: S22.22XA Fracture of body of sternum, initial encounter for closed fracture (principal); W19.XXXA Unspecified fall, initial encounter; Z91.81 History of falling; K21.9 Gastro-esophageal reflux disease without esophagitis; Z87.81 Personal history of (healed) traumatic fracture; F03.90 Unspecified dementia, unspecified severity, without behavioral disturbance, psychotic disturbance, mood disturbance, and anxiety; F41.9 Anxiety disorder, unspecified; F32.A Depression, unspecified; Z87.891 Personal history of nicotine dependence; Z85.01 Personal history of malignant neoplasm of esophagus; Z86.19 Personal history of other infectious and parasitic diseases; Z98.42 Cataract extraction status, left eye; Z98.41 Cataract extraction status, right eye; Z98.890 Other specified postprocedural states; Z80.0 Family history of malignant neoplasm of digestive organs; Z79.899 Other long term (current) drug therapy; Z88.5 Allergy status to narcotic agent
CPT/HCPCS: 96376 ×3; 96374; 96375; 99285; 36415; 93005; 80053; 84484; 85025; 71046; 71250; G0378 ×2; J1885 ×2; J1170 ×2

== ENCOUNTER 2022-12-14 23:29 | Inpatient (IN) | payer MEDICARE ==
[2022-12-14] MEDS ORDERED: HYDROmorphone 1 MG/ML 1 ML SYRINGE IVP STA (23:55)
[2022-12-14] MEDS ORDERED: ONDANSETRON 4 MG/2 ML VIAL IVP STA (23:55)
--- NOTE | 2022-12-15 01:33 | XR ---
EXAM: XR Chest, 1 View CLINICAL HISTORY: ITS.REASON XR Reason: fall, hip pain TECHNIQUE: Frontal view of the chest. COMPARISON: No relevant prior studies available. FINDINGS: Lungs: No consolidation. No overt edema. Pleural space: No pleural effusion. No pneumothorax. Heart: Unremarkable. No cardiomegaly. IMPRESSION: No acute cardiopulmonary abnormality.
--- NOTE | 2022-12-15 01:33 | XR ---
EXAM: XR Right Hip With Pelvis When Performed, 2 or 3 Views CLINICAL HISTORY: ITS.REASON XR Reason: fall, deformity TECHNIQUE: Two or three views of the right hip with pelvis when performed. COMPARISON: No relevant prior studies available. FINDINGS: Bones/joints: Right-sided intratrochanteric fracture. IMPRESSION: Right-sided intratrochanteric fracture.
[2022-12-15] MEDS ORDERED: ONDANSETRON 4 MG/2 ML VIAL IVP PRN (01:36)
[2022-12-15] MEDS ORDERED: NALOXONE 0.4 MG/ML 1 ML VIAL IV PRN (01:36)
[2022-12-15] MEDS ORDERED: ACETAMINOPHEN TAB 325 MG TAB PO PRN (01:36)
--- NOTE | 2022-12-15 01:36 | ED ---
Lower Extremity Injury HPI - General Chief Complaint: Extremity Injury, Lower Stated Complaint: Fall Time Seen by Provider: 12/14/22 23:31 Source: patient, EMS Mode of arrival: EMS Limitations: no limitations - History of Present Illness Initial Comments: 87 year old female presents to the emergency room and after she sustained a fall. States that she was getting up to go to the bathroom when she fell on her right hip. Her was at home and picked her off the floor. EMS was called and noted that she had shortening and rotation to the right hip. They did give her 25 mics of fentanyl. She denies any numbness or tingling in her foot. Denies syncopal episode. No headache or visual changes. No neck or back pain. She does not take any blood thinners. She previously had an ankle fracture and saw Dr. Rios. No other alleviating, precipitating or modifying factors - Related Data Home Medications Medication Instructions Recorded Confirmed Donepezil [Aricept] 10 mg PO DAILY 10/05/17 12/15/22 Sertraline HCl [Zoloft] 100 mg PO BID 10/05/17 12/15/22 LORazepam [Ativan] 0.5 mg PO HS 08/15/22 12/15/22 Previous Rx's Medication Instructions Recorded Aspirin 81 mg PO BID 30 Days #60 tab 12/18/22 Docusate [Colace] 100 mg PO BID #60 capsule 12/18/22 HYDROcodone/APAP 5-325MG [[place] 1 - 2 tab PO Q6HR PRN 7 Days #30 12/18/22 5-325] tab Acetaminophen Tab [Tylenol] 650 mg PO Q6HR PRN tab 12/19/22 Gabapentin [Neurontin] 300 mg PO BID #6 cap 12/21/22 LORazepam [Ativan] 0.5 mg PO HS #3 tab 12/21/22 Allergies Allergy/AdvReac Type Severity Reaction Status Date / Time codeine Allergy Unknown Verified 12/15/22 12:54 diclofenac [From Voltaren] AdvReac dizziness Verified 12/15/22 12:54 Review of Systems ROS Statement: Those systems with pertinent positive or pertinent negative responses have been documented in the HPI. ROS Other: All systems not noted in ROS Statement are negative. Past Medical History Past Medical History: Cancer, GERD/Reflux, Musculoskeletal Disorder Additional Past Medical History / Comment(s): hx of shingles 2002, hx. esophageal cancer, recent fall w/lots of bruises,. Fx scap - May 2017 History of Any Multi-Drug Resistant Organisms: None Reported Past Surgical History: No Surgical Hx Reported Additional Past Surgical History / Comment(s): ESOPHAGECTOMY. BILATERAL CATARA CTS, prolapsed rectum surgery, status post open reduction and internal fixation right bimalleolar ankle Past Anesthesia/Blood Transfusion Reactions: No Reported Reaction Past Psychological History: Anxiety, Depression Smoking Status: Never smoker Past Alcohol Use History: Occasional Past Drug Use History: None Reported - Past Family History Daughter(s) Family Medical History: Cancer Additional Family Medical History / Comment(s): colon CA Mother Family Medical History: No Reported History Additional Family Medical History / Comment(s): Mother was healthy Father Family Medical History: No Reported History Additional Family Medical History / Comment(s): Father was healthy General Exam Limitations: no limitations General appearance: alert, in no apparent distress Head exam: Present: atraumatic, normocephalic, normal inspection Eye exam: Present: normal appearance, PERRL, EOMI. Absent: scleral icterus, conjunctival injection, periorbital swelling ENT exam: Present: normal exam, mucous membranes moist Neck exam: Present: normal inspection. Absent: tenderness, meningismus, lymphadenopathy Respiratory exam: Present: normal lung sounds bilaterally. Absent: respiratory distress, wheezes, rales, rhonchi, stridor Cardiovascular Exam: Present: regular rate, normal rhythm, normal heart sounds. Absent: systolic murmur, diastolic murmur, rubs, gallop, clicks GI/Abdominal exam: Present: soft, normal bowel sounds. Absent: distended, tenderness, guarding, rebound, rigid Extremities exam: Present: tenderness (right hip. leg is shortened and rotated. 2+ DP and PT pulses. good cap refill), normal capillary refill. Absent: pedal edema, joint swelling, calf tenderness Back exam: Present: normal inspection Neurological exam: Present: alert, oriented X3, CN II-XII intact Psychiatric exam: Present: normal affect, normal mood Skin exam: Present: warm, dry, intact, normal color. Absent: rash Course Vital Signs 12/14/22 12/15/22 12/15/22 23:32 04:26 10:41 Pulse Rate 60 60 76 Respiratory 17 15 18 Rate Blood Pressure 123/75 99/64 106/55 O2 Sat by Pulse 100 99 99 Oximetry 12/15/22 12/15/22 12:00 12:41 Pulse Rate 72 78 Respiratory 16 18 Rate Blood Pressure 136/63 O2 Sat by Pulse 98 99 Oximetry Medical Decision Making - Medical Decision Making Was pt. sent in by a medical professional or institution (KULDEEP Sepulveda, INSTALL TECHNICIAN, urgent care, hospital, or residential...) When possible be specific @ -No Did you speak to anyone other than the patient for history (EMS, parent, family, police, friend...)? What history was obtained from this source @ -EMS Did you review nursing and triage notes (agree or disagree)? Why? @ -I reviewed and agree with nursing and triage notes Were old charts reviewed (outside hosp., previous admission, EMS record, old EKG, old radiological studies, urgent care reports/EKG's, residential records)? Report findings @ -No Differential Diagnosis (chest pain, altered mental status, abdominal pain women, abdominal pain men, vaginal bleeding, weakness, fever, dyspnea, syncope, headache, dizziness, GI bleed, back pain, seizure, CVA, palpatations, mental health, musculoskeletal)? @ -fracture, dislocation, strain, sprain EKG interpreted by me (3pts min.). @ -Yes - NSR X-rays interpreted by me (1pt min.). @ -Yes - right IT fracture CT interpreted by me (1pt min.). @ -None done U/S interpreted by me (1pt. min.). @ -None done What testing was considered but not performed or refused? (CT, X-rays, U/S, labs)? Why? @ -None What meds were considered but not given or refused? Why? @ -None Did you discuss the management of the patient with other professionals (professionals i.e. , KULDEEP, INSTALL TECHNICIAN, lab, RT, psych nurse, hospital social worker, web content & social media manager, teacher, security flex utility officer, leather case finisher)? Give summary @ -Yes. Dr. Sánchez who is inventory control manager for Dr. Rios Was smoking cessation discussed for >3mins.? @ -No Was critical care preformed (if so, how long)? @ -No Were there social determinants of health that impacted care today? How? (Homelessness, low income, unemployed, alcoholism, drug addiction, rosario sportation, low edu. Level, literacy, decrease access to med. care, prison, rehab)? @ -No Was there de-escalation of care discussed even if they declined (Discuss DNR or withdrawal of care, Hospice)? DNR status @ -No What co-morbidities impacted this encounter? (DM, HTN, Smoking, COPD, CAD, Cancer, CVA, ARF, Chemo, Hep., AIDS, mental health diagnosis, sleep apnea, morbid obesity)? @ -None Was patient admitted / discharged? Hospital course, mention meds given and route, prescriptions, significant lab abnormalities, going to OR and other pertinent info. @ -Upon arrival patient is placed into a trauma 3. She does have obvious deformity. X-rays performed which demonstrates an IT fracture on the right. Patient was given Dilaudid for pain control. She is requesting Dr. Rios and therefore I did speak with Dr. Sánchez. She is agreeable to admission. Sound will be placed on consult Undiagnosed new problem with uncertain prognosis? @ -yes Drug Therapy requiring intensive monitoring for toxicity (Heparin, Nitro, Insulin, Cardizem)? @ -No Were any procedures done? @ -No Diagnosis/symptom? @ - acute fall, right IT fracture Acute, or Chronic, or Acute on Chronic? @ -acute Uncomplicated (without systemic symptoms) or Complicated (systemic symptoms)? @ -complicated Side effects of treatment? @ -allergic reaction, sedation Exacerbation, Progression, or Severe Exacerbation? @ -No Poses a threat to life or bodily function? How? (Chest pain, USA, VT, pneumonia, PE, COPD, DKA, ARF, appy, cholecystitis, CVA, Diverticulitis, Homicidal, S uicidal, threat to staff... and all critical care pts) @ -No - Lab Data Result diagrams: 12/21/22 10:53 12/19/22 04:16 - EKG Data EKG Comments: EKG interpreted by myself demonstrates sinus rhythm with a rate of 61. AZ interval 114. QRS 88. QTC of 458. No acute ST segment elevations or depressions Disposition Clinical Impression: Fall, Fracture of right hip Disposition: ADMITTED IP TO THIS HOSP Condition: Stable Is patient prescribed a controlled substance at d/c from ED?: No Time of Disposition: 01:36 Decision to Admit Reason: Admit from EC Decision Date: 12/15/22 Decision Time: 01:36
[2022-12-15] MEDS: SODIUM CHLORIDE 0.9% 1,000 ML IV SCH ×3 (04:30→17:04)
[2022-12-15] MEDS: HYDROmorphone 1 MG/ML 1 ML SYRINGE IVP PRN ×3 (04:30→12:30)
[2022-12-15 04:38] LABS: Basophils # (A) 0.1 k/uL (0-0.2); Basophils % (A) 0 %; Eosinophils # (A) 0.1 k/uL (0-0.7); Eosinophils % (A) 1 %; HCT 37.1 % (34.0-46.0); HGB 11.8 gm/dL (11.4-16.0); Hypochromasia Slight; Lymphocytes # (A) 3.3 k/uL (1.0-4.8); Lymphocytes % (A) 21 %; MCH 33.9 pg (25.0-35.0); MCHC 31.8 g/dL (31.0-37.0); MCV 106.6 fL (80.0-100.0); Macrocytosis Moderate; Mean Platelet Volume 8.1; Monocytes # (A) 0.7 k/uL (0-1.0); Monocytes % (A) 5 %; Neutrophils # (A) 10.9 k/uL (1.3-7.7); Neutrophils % (A) 72 %; Platelet Count 302 k/uL (150-450); RBC 3.48 m/uL (3.80-5.40); RDW 13.9 % (11.5-15.5); WBC 15.3 k/uL (3.8-10.6)
[2022-12-15 04:51] LABS: ALT 26 U/L (4-34); AST 38 U/L (14-36); African American GFR (CKD) >90 (>60 ml/min/1.73 sqM); Albumin 3.4 g/dL (3.5-5.0); Alkaline Phosphatase 80 U/L (38-126); Anion Gap 8 mmol/L; Blood Urea Nitrogen 19 mg/dL (7-17); Calcium 8.3 mg/dL (8.4-10.2); Carbon Dioxide 23 mmol/L (22-30); Chloride 105 mmol/L (98-107); Glucose 101 mg/dL (74-99); Non-African American GFR(CKD) 79 (>60 ml/min/1.73 sqM); Potassium 4.2 mmol/L (3.5-5.1); Sodium 136 mmol/L (137-145); Total Bilirubin 0.8 mg/dL (0.2-1.3); Total Protein 6.6 g/dL (6.3-8.2)
[2022-12-15 05:16] LABS: INR 0.9 (<1.2)
--- NOTE | 2022-12-15 10:39 | P.CONS ---
History of Present Illness - Reason for Consult Consult date: 12/15/22 - History of Present Illness Patient is a 87-year-old female with history of depression/anxiety, chronic p ain, dementia presenting after a mechanical fall and right hip fracture. Sound physicians been consulted for preoperative evaluation and medical management. She currently denies any chest pain, shortness of breath, abdominal pain, nausea, vomiting, diarrhea, constipation, or urinary complaints. She denies any recent fevers or chills. Daughter is present within the room. Patient had a fall last night, was mechanical in nature. called the ambulance at that time. Patient continues to have pain in her right hip at the moment. Patient is otherwise quite independent, usually uses a walker or a cane at home. She denies any smoking, or illicit drug use. She occasionally drinks alcohol. In the ED, pulse 60, respiratory rate 17, blood pressure 123/75, saturating at 100% on room air. WBC 15.3, hemoglobin 11.8, sodium 136, BUN 19, glucose 101. EKG independently interpreted, shows normal sinus rhythm with slightly shortened KS interval. Chest x-ray independently interpreted, shows no acute process. Hip x-ray shows right-sided intratrochanteric fracture. Patient pending surgery this afternoon. Pertinent positives and negatives as discussed in HPI, a complete review of sy stems was performed and all other systems are negative. Patient seen and examined at bedside. Vital signs reviewed General: nontoxic, no distress, appears at stated age Derm: warm, dry Head: atraumatic, normocephalic, symmetric Eyes: EOMI, no lid lag, anicteric sclera, pupils equal round reactive to light ENT: Nose and ears atraumatic Neck: No thyromegaly, supple Mouth: no lip lesion, mucus membranes moist Cardiovascular: S1S2 reg, no murmur, no edema Lungs: clear to auscultation bilateral, no rhonchi, no rales, no wheeze, no accessory muscle use Abdominal: soft, nontender to palpation, no guarding, no appreciable organomegaly Ext: no gross muscle atrophy, unable to move right lower extremity due to pain, right lower extremity externally rotated Neuro: CN II-XII grossly intact Psych: Alert, oriented, appropriate affect Assessment/Plan: Preoperative evaluation Right traumatic intratrochanteric fracture Mechanical fall Leukocytosis Prerenal azotemia Short KS interval Depression/anxiety Dementia -per NSQIP risk calculator, patient has above average 42.8% risk of discharge to half-way rehab facility. Given her age, patient has 4.5% risk of serious complication, 4.9% risk of any complication, 0.2% risk of . -Leukocytosis likely reactive -EKG independently interpreted, sinus rhythm with short KS interval, patient denies any palpitations or lightheadedness. -Continue normal saline at 75 mL an hour -Pain control with oral Tylenol, Dilaudid IV as needed -Home medications reviewed and reconciled Patient is medically optimized for surgery. Thank you for allowing us to participate in the care of this pleasant patient. Do not hesitate to contact us with questions. Someone can be reached from the [facility] hospitalist group all hours of the day at [phone] or via [employer]. Past Medical History Past Medical History: Cancer, GERD/Reflux, Musculoskeletal Disorder Additional Past Medical History / Comment(s): hx of shingles 2001, hx. esophageal cancer, recent fall w/lots of bruises,. Fx scapula - May 2017 History of Any Multi-Drug Resistant Organisms: None Reported Past Surgical History: No Surgical Hx Reported Additional Past Surgical History / Comment(s): ESOPHAGECTOMY. BILATERAL CATARACTS, prolapsed rectum surgery, status post open reduction and internal fixation right bimalleolar ankle Past Anesthesia/Blood Transfusion Reactions: No Reported Reaction Past Psychological History: Anxiety, Depression Smoking Status: Never smoker Past Alcohol Use History: Occasional Past Drug Use History: None Reported - Past Family History Daughter(s) Family Medical History: Cancer Additional Family Medical History / Comment(s): colon CA Mother Family Medical History: No Reported History Additional Family Medical History / Comment(s): Mother was healthy Father Family Medical History: No Reported History Additional Family Medical History / Comment(s): Father was healthy Medications and Allergies Home Medications Medication Instructions Recorded Confirmed Type Donepezil [Aricept] 10 mg PO DAILY 10/05/17 12/15/22 History Sertraline HCl [Zoloft] 100 mg PO BID 10/05/17 12/15/22 History Gabapentin [Neurontin] 300 mg PO BID #12 cap 03/10/22 12/15/22 Rx LORazepam [Ativan] 0.5 mg PO HS 08/15/22 12/15/22 History traMADol HCl [Ultram] 50 mg PO Q6HR PRN 12/15/22 12/15/22 History Allergies Allergy/AdvReac Type Severity Reaction Status Date / Time codeine Allergy Unknown Verified 12/15/22 09:21 diclofenac [From Voltaren] AdvReac dizziness Verified 12/15/22 09:21 Physical Exam Vitals: Vital Signs Pulse Resp BP Pulse Ox 12/15/22 04:26 60 15 99/64 99 12/14/22 23:32 60 17 123/75 100 Intake and Output 12/14/22 12/15/22 12/15/22 22:59 06:59 14:59 Other: Weight 44.452 kg Results CBC & Chem 7: 12/15/22 04:23 12/15/22 04:23 Labs: Abnormal Lab Results - Last 24 Hours (Table) 12/15/22 12/15/22 Range/Units 04:23 04:23 WBC 15.3 H (3.8-10.6) k/uL RBC 3.48 L (3.80-5.40) m/uL MCV 106.6 H (80.0-100.0) fL Neutrophils # 10.9 H (1.3-7.7) k/uL Sodium 136 L (137-145) mmol/L BUN 19 H (7-17) mg/dL Glucose 101 H (74-99) mg/dL Calcium 8.3 L (8.4-10.2) mg/dL AST 38 H (14-36) U/L Albumin 3.4 L (3.5-5.0) g/dL
[2022-12-15] MEDS ORDERED: IV FLUID CONTINUATION 1,000 ML IV ONE (13:02)
--- NOTE | 2022-12-15 13:22 | P.HPOR ---
History of Present Illness H&P Date: 12/15/22 The patient is very pleasant 87-year-old female with a history of osteopenia and prior fragility fractures who was admitted last night to my partner Dr. Sánchez following a ground-level fall resulting in a right hip fracture. The patient is well known to my practice as I have been seeing her for a prior ankle fracture which required operative fixation and for bilateral hip and knee pain. According to the patient and her daughter she got up to go to the bathroom when she tripped and fell landing on her right side. She had pain immediately and hip and was unable to ambulate. At the time of my evaluation the patient is complaining of isolated right hip pain. She has no other complaints. She does have pre-existing right hip pain. Past Medical History Past Medical History: Cancer, GERD/Reflux, Musculoskeletal Disorder Additional Past Medical History / Comment(s): hx of shingles 2001, hx. esophageal cancer, recent fall w/lots of bruises,. Fx - May 2017 History of Any Multi-Drug Resistant Organisms: None Reported Past Surgical History: No Surgical Hx Reported Additional Past Surgical History / Comment(s): ESOPHAGECTOMY. BILATERAL CATARACT S, prolapsed rectum surgery, status post open reduction and internal fixation right bimalleolar ankle Past Anesthesia/Blood Transfusion Reactions: No Reported Reaction Past Psychological History: Anxiety, Depression Smoking Status: Never smoker Past Alcohol Use History: Occasional Past Drug Use History: None Reported - Past Family History Daughter(s) Family Medical History: Cancer Additional Family Medical History / Comment(s): colon CA Mother Family Medical History: No Reported History Additional Family Medical History / Comment(s): Mother was healthy Father Family Medical History: No Reported History Additional Family Medical History / Comment(s): Father was healthy Medications and Allergies Home Medications Medication Instructions Recorded Confirmed Type Donepezil [Aricept] 10 mg PO DAILY 10/05/17 12/15/22 History Sertraline HCl [Zoloft] 100 mg PO BID 10/05/17 12/15/22 History Gabapentin [Neurontin] 300 mg PO BID #12 cap 03/10/22 12/15/22 Rx LORazepam [Ativan] 0.5 mg PO HS 08/15/22 12/15/22 History traMADol HCl [Ultram] 50 mg PO Q6HR PRN 12/15/22 12/15/22 History Allergies Allergy/AdvReac Type Severity Reaction Status Date / Time codeine Allergy Unknown Verified 12/15/22 12:54 diclofenac [From Voltaren] AdvReac dizziness Verified 12/15/22 12:54 Physical Examination The patient is resting on a hospital gurney. She is alert and able to answer questions. She appears in moderate distress secondary to pain. Her head is normocephalic and atraumatic. She answers nonlabored breathing with symmetric chest expansion. Her abdomen is nonobese and nontender. On examination of the patient's upper extremities there are no obvious deformities and no tenderness to palpation. On evaluation of the patient's left lower extremity there are no obvious deformities and no pain with passive range of motion or tenderness. A focused examination of the patient's right lower extremity was conducted. On inspection the leg appears shortened and externally rotated. There is pain with any attempt at passive range of motion. There are no open wounds or fracture blisters over the hip. She is nontender over the knee or foot. Motor and se nsory function are intact. She has a palpable dorsalis pedis pulse. Results X-rays of the pelvis and right hip show a displaced intertrochanteric hip fracture and osteopenia. - Labs Labs: Abnormal Lab Results - Last 24 Hours (Table) 12/15/22 12/15/22 Range/Units 04:23 04:23 WBC 15.3 H (3.8-10.6) k/uL RBC 3.48 L (3.80-5.40) m/uL MCV 106.6 H (80.0-100.0) fL Neutrophils # 10.9 H (1.3-7.7) k/uL Sodium 136 L (137-145) mmol/L BUN 19 H (7-17) mg/dL Glucose 101 H (74-99) mg/dL Calcium 8.3 L (8.4-10.2) mg/dL AST 38 H (14-36) U/L Albumin 3.4 L (3.5-5.0) g/dL H & H 12/15/22 Range/Units 04:23 Hgb 11.8 (11.4-16.0) gm/dL Hct 37.1 (34.0-46.0) % Coagulation 12/15/22 Range/Units 04:23 INR 0.9 (<1.2) Result Diagrams: 12/15/22 04:23 12/15/22 04:23 Assessment and Plan Assessment: Acute right intertrochanteric hip fracture Plan: I met with the patient and her daughter to discuss treatment options. My recommendation was to proceed with a cephalo-medullary nail for stabilization of her peritrochanteric hip fracture. We discussed the potential risks and complications of surgery including but not limited to risks from anesthesia, infection, fracture, refracture, nonunion, malunion, lag screw cut out, hardware failure, progression of hip arthritis, an inability to regain preinjury level of function, DVT, PE, other medical complications, failure to thrive, and possibly . With the patient and her daughter verbalized their understanding these potential complications while also leg knowledge and other less common complications. The provided both her verbal and written consent to go forward with surgery. We will proceed with a right hip gamma nail later this afternoon as she has been cleared by internal medicine
[2022-12-15] MEDS ORDERED: PROPOFOL 10 MG/ML 20 ML VIAL IV ONE (14:48)
[2022-12-15] MEDS ORDERED: SUCCINYLCHOLINE CHLORIDE 200 MG/10 ML VIAL IV ONE (14:48)
[2022-12-15] MEDS ORDERED: LIDOCAINE 2% INJ 20 MG/ML (2 ML VIAL) ONE (14:48)
[2022-12-15] MEDS ORDERED: KETAMINE 10 MG/ML 20 ML VIAL ONE (14:48)
[2022-12-15] MEDS ORDERED: fentaNYL (PF) 50 MCG/ML 2 ML AMP ONE (14:48)
[2022-12-15] MEDS ORDERED: HYDROmorphone 0.5 MG/0.5 ML SYRINGE IVP PRN ×2 (16:24)
[2022-12-15] MEDS ORDERED: HYDROcodone/APAP 5-325MG 1 EACH TAB PO PRN (16:24)
[2022-12-15] MEDS ORDERED: HYDROmorphone 0.5 MG/0.5 ML SYRINGE IVP ONE (16:26)
--- NOTE | 2022-12-15 16:45 | P.OP ---
Date of Procedure: 12/15/22 Preoperative Diagnosis: 1. Right intertrochanteric hip fracture 2. Severe osteoporosis with prior fragility fracture Postoperative Diagnosis: Same Procedure(s) Performed: Operative fixation of right intertrochanteric hip fracture with shortening medullary hip screw Anesthesia: CHAY Surgeon: Scot Rios Cost Analyst #1: Álvaro Davis Estimated Blood Loss (ml): 50 Pathology: none sent Condition: stable Disposition: PACU Indications for Procedure: The patient is a very pleasant 87-year-old female who is well-known to my practice. I previously seen and managed and ankle fracture and had been seeing the patient for the last several years in the office. She had a low-energy fall yesterday resulting in a right hip fracture. She was admitted to the hospital under my partner Dr. Yovany quijano. She was cleared for surgery by internal medicine. I met with the patient and her daughter preoperatively and recommended operative fixation with a right cephalo- medullary nail. I met with the patient and their family preoperatively to discuss their injury and treatment options. They have an extra-capsular, intertrochanteric hip fracture and my recommendation was to stabilize the fracture with an intramedullary hip screw to facilitate early mobilization. We discussed the potential risks and complications of this surgical procedure including but certainly not limited to risks from anesthesia, superficial infection, deep infection, fracture nonunion, fracture malunion, hardware failure including broken hardware, varus collapse with lag screw cut out of the femoral head, progression of hip arthritis, limb length discrepancy, symptomatic hardware, need for further surgery including hardware removal and conversion to arthroplasty, DVT, PE, acute coronary event, pressure ulcers, urinary tract infection, failure to thrive, an inability to regain preinjury level of function, and possibly . The patient and their family understand these potential complications and also awknowledge that other less common complications are possible. They provided both their verbal and written consent to go forward with operative fixation of their hip fracture with an intramedullary hip screw. Description of Procedure: The patient was identified in preoperative holding and the correct operative extremity was marked with my initials. I reviewed the consent form with the patient and their family and all of their questions were answered. The patient was then brought back to the operating room by anesthesia. Anesthesia, preoperative antibiotics, and tranexamic acid were given by the anesthesia team while on the gurney. Both ankles were padded with webril and boots for the Fowler table were applied. The patient was then carefully transferred onto the Fowler table. A perineal post was immediately placed. The contralateral arm was secured on a well-padded arm tanner. The ipsilateral arm was draped across the chest and secured with a pillow, foam, and paper tape to allow access to the proximal femur. Nonsterile drapes were applied to the operative extremity. The height of the table was elevated and the contralateral extremity was dropped towards the floor to facilitate imaging. A timeout was performed identifying the correct patient, operative extremity, and procedure. Fluoroscopy was brought in to assess the fracture. A provisional reduction was performed using longitudinal traction, adduction, and internal rotation. An AP and lateral view were obtained to assess the reduction. The operative extremity was then prepped and draped in the standard sterile fashion. A straight incision was made at the tip of the greater trochanter and extended proximally for 3 cm. Skin and subcutaneous tissues were incised sharply. The underlying fascia was incised in line with the skin incision. An awl was placed just medial to the tip of the greater trochanter on the AP view and colinear with the canal on the lateral view. A 3.2 mm guide pin was then advanced into the proximal femur. The position of the guidepin was verified with fluoroscopy. An opening reamer and soft tissue cannula were placed over the guidepin and used to open the proximal femur to the level of the lesser trochanter. The 3.2 mm guide pin and opening reamer were removed. A short gamma nail was dispensed, hooked up to the targeting arm and I verified that the trochar through the targeting arm lined up with the slots on the nail. The nail was then impacted into the proximal femur until the appropriate depth had been reached. A small stab incision was made over the lateral aspect of the femur using the targeting arm as a reference for the lag screw. Incision was carried down to the skin and fascia down to the lateral cortex of the femur. The trocar was then placed up to the lateral cortex of the femur and a guidepin was placed in the low center position on the AP view and centered in the femoral head on the lateral view. Once the position of the guidewire was verified, we reamed to appropriate depth and placed a lag screw over the guidewire and into the femoral head. The position of the lag screw was assessed with fluoroscopy. The guidewire was then removed from the femoral head. The set screw was placed proximally, brought fully down and then released a quarter turn to allow compression. A final stab incision was made over the lateral femur at the site of the distal interlocking screw, again using the targeting arm as a reference. The trocar and sleeve were placed to the lateral cortex of the femur. We then drilled and placed a distal interlocking screw. Final fluoroscopic images were taken showing excellent reduction of the fracture and appropriate position of the implants. All wounds were thoroughly irrigated and closed in layers. Sterile dressings were applied. The drapes were taken down, the patient was transferred off the Fowler table, and was brought to recovery having tolerated the procedure well. Álvaro Davis PA-C was required as a skilled social media assistant for patient positioning, retraction, placement of implants, closure of wounds, and application of dressings. PLAN: The patient can weight-bear as tolerated on their operative extremity. 2 doses of postoperative antibiotics. DVT prophylaxis with aspirin 81 mg twice a day starting the day of surgery. Dressing change on postoperative day #2. Appreciate Internal Medical assistance with perioperative medical management. Discharge planning in process.
--- NOTE | 2022-12-15 16:53 | FL ---
Intraoperative/procedural fluoroscopic services were provided. Total fluoroscopy time is 1 minute 14 seconds with a total of 5 submitted images to PACS. Please see the operative/procedural note for furt her details. DAP: 3.8614
[2022-12-15] MEDS: GABAPENTIN 300 MG CAP PO SCH (20:38)
[2022-12-15] MEDS: LORazepam 0.5 MG TAB PO SCH (20:38)
[2022-12-15] MEDS: SENNOSIDES-DOCUSATE SODIUM 1 EACH TAB PO SCH (20:38)
[2022-12-15] MEDS: SERTRALINE 100 MG TAB PO SCH (20:38)
[2022-12-16] MEDS: HYDROmorphone 1 MG/ML 1 ML SYRINGE IVP PRN ×3 (02:33→15:07)
[2022-12-16 07:55] LABS: ALT 18 U/L (4-34); AST 24 U/L (14-36); African American GFR (CKD) 77 (>60 ml/min/1.73 sqM); Albumin 2.6 g/dL (3.5-5.0); Alkaline Phosphatase 61 U/L (38-126); Anion Gap 7 mmol/L; Blood Urea Nitrogen 19 mg/dL (7-17); Calcium 7.9 mg/dL (8.4-10.2); Carbon Dioxide 21 mmol/L (22-30); Chloride 111 mmol/L (98-107); Globulin 2.7 g/dL; Glucose 111 mg/dL (74-99); Non-African American GFR(CKD) 66 (>60 ml/min/1.73 sqM); Potassium 4.4 mmol/L (3.5-5.1); Sodium 139 mmol/L (137-145); Total Bilirubin 0.7 mg/dL (0.2-1.3); Total Protein 5.3 g/dL (6.3-8.2)
[2022-12-16] MEDS: DONEPEZIL 10 MG TAB PO SCH (08:37)
[2022-12-16] MEDS: GABAPENTIN 300 MG CAP PO SCH ×2 (08:37→21:50)
[2022-12-16] MEDS: SERTRALINE 100 MG TAB PO SCH ×2 (08:37→21:50)
[2022-12-16] MEDS: HYDROcodone/APAP 5-325MG 1 EACH TAB PO PRN (08:37)
[2022-12-16] MEDS: SODIUM CHLORIDE 0.9% 1,000 ML IV SCH (08:38)
--- NOTE | 2022-12-16 08:56 | P.PN ---
Subjective Progress Note Date: 12/16/22 The patient was seen at bedside this morning. She is complaining of pain in her right hip and leg as well as her right arm. She denies chest pain or shortness of breath. She has no other complaints this morning. Objective - Vital Signs Vital signs: Vital Signs Temp 98.0 F 12/16/22 02:00 Pulse 76 12/16/22 02:00 Resp 17 12/16/22 02:00 BP 158/81 12/16/22 02:00 Pulse Ox 94 L 12/16/22 02:00 FiO2 Intake & Output 12/15/22 12/16/22 12/16/22 18:59 06:59 18:59 Intake Total 1800 Output Total 600 400 Balance 1200 -400 Weight 44.452 kg Intake: IV 1150 Intake, IV Titration 650 Amount Sodium Chloride 0.9% 1, 600 000 ml @ 75 mls/hr IV . [id number] [facility] Rx#:[id number] ceFAZolin 1,000 mg In 50 Sodium Chloride 0.9% 50 ml @ 100 mls/hr IVPB Q8HR [facility] Rx#:[id number] Output: Urine 500 400 Estimated Blood Loss 100 Other: Voiding Method Indwelling Catheter - Exam The patient is resting in her bed. She is mild to moderate distress secondary to pain. On inspection of the right hip there are clean surgical dressings with no drainage. Her thigh is soft. Femoral, sciatic nerve function are intact. Her foot is warm and well perfused with brisk capillary refill. - Labs CBC & Chem 7: 12/15/22 04:23 12/16/22 07:15 Labs: Abnormal Lab Results - Last 24 Hours (Table) 12/16/22 Range/Units 07:15 Chloride 111 H (98-107) mmol/L Carbon Dioxide 21 L (22-30) mmol/L BUN 19 H (7-17) mg/dL Glucose 111 H (74-99) mg/dL Calcium 7.9 L (8.4-10.2) mg/dL Total Protein 5.3 L (6.3-8.2) g/dL Albumin 2.6 L (3.5-5.0) g/dL Assessment and Plan Assessment: Postoperative day #1 status post right hip gamma nail for intertrochanteric hip fracture Plan: 1. Weightbearing as tolerated with a walker right lower extremity 2. 2 doses postoperative antibiotics 3. DVT prophylaxis with aspirin 4. Leave surgical dressing in place 5. Internal medicine for perioperative medical management 6. The patient is well-known to my office and has a history of chronic pain. Given this and her recent surgery I would like a pain consult to assist with perioperative pain control 7. Discharge planning in place, will likely need SNF or rehab
[2022-12-16 09:17] LABS: HCT 28.6 % (37.2-46.3); HGB 8.6 g/dL (12.0-15.0); MCH 33.3 pg (27.0-32.0); MCHC 30.1 g/dL (32.0-37.0); MCV 110.9 fL (80.0-97.0); Mean Platelet Volume 10.7 fL (9.5-12.2); NRBC Per 100 WBC 0 /100 WBCS (0.0-0.0); Platelet Count 276 X 10*3/uL (140-440); RBC 2.58 X 10*6/uL (4.10-5.20); RDW 14.6 % (11.5-14.5); WBC 19.21 X 10*3/uL (4.50-10.00)
--- NOTE | 2022-12-16 09:47 | XR ---
EXAMINATION TYPE: XR wrist limited RT DATE OF EXAM: 12/16/2022 CLINICAL HISTORY: Fall injury with pain TECHNIQUE: Frontal and lateral images of the right wrist are obtained. COMPARISON: None FINDINGS: Osseous structures are demineralized which is noted to lower the radiographic sensitivity. Poor visualization of the trapezoid and trapezium suggesting advanced triscaphe degenerative change. This can be better assessed with oblique imaging and/or additional imaging like CT or MRI if desired . Overlying soft tissue is unremarkable. IMPRESSION: As above.
--- NOTE | 2022-12-16 11:40 | P.PN ---
Subjective Progress Note Date: 12/16/22 Subjective: Seen and examined at bedside. No acute events overnight. Continues to have significant right lower extremity pain. Denies any other complaints. Pertinent positives and negatives as discussed above, a complete review of systems was performed and all other systems are negative. Vitals Signs Reviewed. General: nontoxic, no distress, appears at stated age Derm: warm, dry, dressing clean, dry, intact Head: atraumatic, normocephalic, symmetric Eyes: EOMI, no lid lag, anicteric sclera Mouth: no lip lesion, mucus membranes moist Cardiovascular: S1S2 reg, no murmur Lungs: CTA bilateral, no rhonchi, no rales , no accessory muscle use Abdominal: soft, nontender to palpation, no guarding, no appreciable organomegaly Ext: no gross muscle atrophy, no edema, no contractures, unable to move right lower extremity due to pain Neuro: CN II-XI grossly intact, no focal neuro deficits Psych: Alert, oriented, appropriate affect Data Reviewed Today: Pertinent Labs: WBC 19.29, hemoglobin 8.6, sodium 139, creatinine 0.81, Imaging: Wrist x-ray, no obvious fractures Assessment and Plan: Right traumatic intratrochanteric fracture status post surgery Mechanical fall Leukocytosis, reactive Acute anemia, anticipated outcome of surgery Prerenal azotemia Short MD interval Depression/anxiety Dementia -Surgery note reviewed, patient started on aspirin 81 mg twice a day -Pain control with oral Tylenol as needed, oral [place] as needed, IV Dilaudid as needed, pain management consulted -Continue normal saline at 75 mL an hour -Home medications reviewed and reconciled Thank you for allowing us to participate in the care of this pleasant patient. Do not hesitate to contact us with questions. Someone can be reached from the [facility] hospitalist group all hours of the day at [phone] or via [employer]. Objective - Vital Signs Vital signs: Vital Signs Temp 99.2 F 12/16/22 08:10 Pulse 73 12/16/22 08:10 Resp 18 12/16/22 08:10 BP 163/68 12/16/22 08:10 Pulse Ox 99 12/16/22 08:10 FiO2 Intake & Output 12/15/22 12/16/22 12/16/22 18:59 06:59 18:59 Intake Total 1800 Output Total 600 400 Balance 1200 -400 Weight 44.452 kg Intake: IV 1150 Intake, IV Titration 650 Amount Sodium Chloride 0.9% 1, 600 000 ml @ 75 mls/hr IV . [id number] [facility] Rx#:[id number] ceFAZolin 1,000 mg In 50 Sodium Chloride 0.9% 50 ml @ 100 mls/hr IVPB Q8HR [facility] Rx#:[id number] Output: Urine 500 400 Estimated Blood Loss 100 Other: Voiding Method Indwelling Catheter - Labs CBC & Chem 7: 12/16/22 07:15 12/16/22 07:15 Labs: Abnormal Lab Results - Last 24 Hours (Table) 12/16/22 12/16/22 Range/Units 07:15 07:15 WBC 19.21 H (4.50-10.00) X 10*3/uL RBC 2.58 L (4.10-5.20) X 10*6/uL Hgb 8.6 L (12.0-15.0) g/dL Hct 28.6 L (37.2-46.3) % MCV 110.9 H (80.0-97.0) fL MCH 33.3 H (27.0-32.0) pg MCHC 30.1 L (32.0-37.0) g/dL RDW 14.6 H (11.5-14.5) % Chloride 111 H (98-107) mmol/L Carbon Dioxide 21 L (22-30) mmol/L BUN 19 H (7-17) mg/dL Glucose 111 H (74-99) mg/dL Calcium 7.9 L (8.4-10.2) mg/dL Total Protein 5.3 L (6.3-8.2) g/dL Albumin 2.6 L (3.5-5.0) g/dL
[2022-12-16 11:44] LABS: Basophils # (M) 0.19 X 10*3/uL (0.00-0.10); Elliptocytes 2+; Eosinophils # (M) 0 X 10*3/uL (0.04-0.35); Lymphocytes # (M) 1.34 X 10*3/uL (0.90-5.00); Macrocytosis (M) 2+; Monocytes # (M) 1.15 X 10*3/uL (0.20-1.00); Neutrophils # (M) 16.33 X 10*3/uL (2.00-8.90); Neutrophils % (M) 85 %; Promyelocytes # (M) 0.19 k/uL (0); Promyelocytes % 1 % (0-0); Target Cells 2+
[2022-12-16] MEDS: ASPIRIN 81 MG PO SCH ×2 (12:22→21:50)
[2022-12-16 15:30] VITALS: BMI 17.9
[2022-12-16] MEDS: LORazepam 0.5 MG TAB PO SCH (21:50)
[2022-12-16] MEDS: SENNOSIDES-DOCUSATE SODIUM 1 EACH TAB PO SCH (21:50)
--- NOTE | 2022-12-17 06:21 | P.PN ---
Subjective Slightly improved pain per nursing. No other acute events. Patient says she is comfortable this morning as long as she doesn't move her leg. Objective - Vital Signs Vital signs: Vital Signs Temp 98.1 F 12/17/22 02:17 Pulse 77 12/17/22 02:17 Resp 18 12/17/22 02:17 BP 119/62 12/17/22 02:17 Pulse Ox 97 12/17/22 02:17 FiO2 Intake & Output 12/16/22 12/16/22 12/17/22 06:59 18:59 06:59 Intake Total 650 Output Total 017 685 6209 Balance -400 200 -1550 Weight 44.452 kg Intake: Intake, IV Titration 650 Amount Sodium Chloride 0.9% 1, 600 000 ml @ 75 mls/hr IV . [id number] [facility] Rx#:[id number] ceFAZolin 1,000 mg In 50 Sodium Chloride 0.9% 50 ml @ 100 mls/hr IVPB Q8HR [facility] Rx#:[id number] Output: Urine 109 768 2864 Other: Voiding Method Indwelling Catheter Indwelling Catheter - Exam Patient resting comfortably in bed. Alert and able to answer questions. Thigh soft. Dressings in hip in place, small amount of dried blood in most proximal dressing. Motor and sensory function intact throughout the leg. No pain with PROM ankle/toes. Foot warm and well perfused. - Labs CBC & Chem 7: 12/16/22 07:15 12/16/22 07:15 Labs: Abnormal Lab Results - Last 24 Hours (Table) 12/16/22 12/16/22 Range/Units 07:15 07:15 WBC 19.21 H (4.50-10.00) X 10*3/uL RBC 2.58 L (4.10-5.20) X 10*6/uL Hgb 8.6 L (12.0-15.0) g/dL Hct 28.6 L (37.2-46.3) % MCV 110.9 H (80.0-97.0) fL MCH 33.3 H (27.0-32.0) pg MCHC 30.1 L (32.0-37.0) g/dL RDW 14.6 H (11.5-14.5) % Promyelocytes % 1 H (0-0) % Neutrophils # (Manual) 16.33 H (2.00-8.90) X 10*3/uL Monocytes # (Manual) 1.15 H (0.20-1.00) X 10*3/uL Eosinophils # (Manual) 0 L (0.04-0.35) X 10*3/uL Basophils # (Manual) 0.19 H (0.00-0.10) X 10*3/uL Chloride 111 H (98-107) mmol/L Carbon Dioxide 21 L (22-30) mmol/L BUN 19 H (7-17) mg/dL Glucose 111 H (74-99) mg/dL Calcium 7.9 L (8.4-10.2) mg/dL Total Protein 5.3 L (6.3-8.2) g/dL Albumin 2.6 L (3.5-5.0) g/dL Assessment and Plan Assessment: POD #2 s/p gamma nail for IT hip fracture Plan: Continue treatment as outlined yesterday. WBAT with assistance/walker, mobilize out of bed to chair. Pain management consult pending. Appreciate Internal Medicine assistance with michaelle-operative medical management. Will likely need discharge to SNF/Rehab.
[2022-12-17] MEDS: SODIUM CHLORIDE 0.9% 1,000 ML IV SCH ×2 (06:34→20:20)
[2022-12-17] MEDS: DONEPEZIL 10 MG TAB PO SCH (08:33)
[2022-12-17] MEDS: ASPIRIN 81 MG PO SCH ×2 (08:33→21:31)
[2022-12-17] MEDS: GABAPENTIN 300 MG CAP PO SCH ×2 (08:33→21:32)
[2022-12-17] MEDS: SERTRALINE 100 MG TAB PO SCH ×2 (08:33→21:31)
[2022-12-17 10:15] LABS: Basophils % (A) 0 %; Eosinophils # (A) 0.1 k/uL (0-0.7); Eosinophils % (A) 1 %; HCT 23.5 % (34.0-46.0); Hypochromasia Moderate; Lymphocytes # (A) 1.7 k/uL (1.0-4.8); Lymphocytes % (A) 15 %; MCH 32.6 pg (25.0-35.0); MCHC 29.8 g/dL (31.0-37.0); MCV 109.4 fL (80.0-100.0); Macrocytosis Marked; Monocytes # (A) 0.9 k/uL (0-1.0); Monocytes % (A) 8 %; Neutrophils # (A) 8.3 k/uL (1.3-7.7); Neutrophils % (A) 74 %; Platelet Count 225 k/uL (150-450); RBC 2.14 m/uL (3.80-5.40); RDW 14.2 % (11.5-15.5); WBC 11.3 k/uL (3.8-10.6)
--- NOTE | 2022-12-17 10:53 | P.PN ---
Subjective Progress Note Date: 12/17/22 Subjective: Seen and examined at bedside. No acute events overnight. Continues to have significant right lower extremity pain, but improved. Denies any other complaints. Pertinent positives and negatives as discussed above, a complete review of systems was performed and all other systems are negative. Vitals Signs Reviewed. General: nontoxic, no distress, appears at stated age Derm: warm, dry, dressing clean, dry, intact Head: atraumatic, normocephalic, symmetric Eyes: EOMI, no lid lag, anicteric sclera Mouth: no lip lesion, mucus membranes moist Cardiovascular: S1S2 reg, no murmur Lungs: CTA bilateral, no rhonchi, no rales , no accessory muscle use Abdominal: soft, nontender to palpation, no guarding, no appreciable organomegaly Ext: no gross muscle atrophy, no edema, no contractures, unable to move right lower extremity due to pain Neuro: CN II-XI grossly intact, no focal neuro deficits Psych: Alert, oriented, appropriate affect Data Reviewed Today: Pertinent Labs: WBC 11.3, hemoglobin 7, platelet 225 Assessment and Plan: Right traumatic intratrochanteric fracture status post surgery Mechanical fall Leukocytosis, reactive, improving. Isolated fever, likely secondary to atelectasis Acute anemia, anticipated outcome of surgery Prerenal azotemia Short ME interval Depression/anxiety Dementia -Surgery note reviewed, patient started on aspirin 81 mg twice a day -Pain control with oral Tylenol as needed, oral [place] as needed, IV Dilaudid as needed, pain management consulted -Repeat CBC tomorrow, transfuse if hemoglobin less than 7 -Continue normal saline at 75 mL an hour -Home medications reviewed and reconciled Thank you for allowing us to participate in the care of this pleasant patient. Do not hesitate to contact us with questions. Someone can be reached from the [facility] hospitalist group all hours of the day at [phone] or via [employer]. Objective - Vital Signs Vital signs: Vital Signs Temp 98.2 F 12/17/22 06:52 Pulse 69 12/17/22 06:52 Resp 12/17/22 06:52 BP 101/47 12/17/22 06:52 Pulse Ox 100 12/17/22 06:52 FiO2 Intake & Output 12/16/22 12/17/22 12/17/22 18:59 06:59 18:59 Intake Total 650 Output Total 450 1550 Balance 200 -1550 Weight 44.452 kg Intake: Intake, IV Titration 650 Amount Sodium Chloride 0.9% 1, 600 000 ml @ 75 mls/hr IV . [id number] [facility] Rx#:[id number] ceFAZolin 1,000 mg In 50 Sodium Chloride 0.9% 50 ml @ 100 mls/hr IVPB Q8HR [facility] Rx#:[id number] Output: Urine 450 1550 Other: Voiding Method Indwelling Catheter - Labs CBC & Chem 7: 12/17/22 09:29 12/16/22 07:15 Labs: Abnormal Lab Results - Last 24 Hours (Table) 12/16/22 12/17/22 Range/Units 07:15 09:29 WBC 11.3 H (3.8-10.6) k/uL RBC 2.14 L (3.80-5.40) m/uL Hgb 7.0 L D (11.4-16.0) gm/dL Hct 23.5 L (34.0-46.0) % MCV 109.4 H (80.0-100.0) fL MCHC 29.8 L (31.0-37.0) g/dL Promyelocytes % 1 H (0-0) % Neutrophils # (Manual) 16.33 H (2.00-8.90) X 10*3/uL Monocytes # (Manual) 1.15 H (0.20-1.00) X 10*3/uL Eosinophils # (Manual) 0 L (0.04-0.35) X 10*3/uL Basophils # (Manual) 0.19 H (0.00-0.10) X 10*3/uL Macrocytosis Marked A
[2022-12-17] MEDS: HYDROmorphone 1 MG/ML 1 ML SYRINGE IVP PRN ×2 (15:26→20:19)
[2022-12-17] MEDS: LORazepam 0.5 MG TAB PO SCH (21:32)
[2022-12-17] MEDS: SENNOSIDES-DOCUSATE SODIUM 1 EACH TAB PO SCH (21:32)
[2022-12-18] MEDS: HYDROmorphone 1 MG/ML 1 ML SYRINGE IVP PRN (04:29)
[2022-12-18] MEDS: SODIUM CHLORIDE 0.9% 1,000 ML IV SCH (05:50)
[2022-12-18] MEDS: HYDROcodone/APAP 5-325MG 1 EACH TAB PO PRN ×2 (09:16→16:40)
[2022-12-18] MEDS: GABAPENTIN 300 MG CAP PO SCH ×2 (09:16→21:28)
[2022-12-18 09:17] LABS: Basophils # (A) 0.06 X 10*3/uL (0.00-0.10); Basophils % (A) 0.6 %; Eosinophils # (A) 0.28 X 10*3/uL (0.04-0.35); Eosinophils % (A) 2.7 %; HCT 22.3 % (37.2-46.3); HGB 6.6 g/dL (12.0-15.0); Immature Grans, Automated 0.4 %; Lymphocytes # (A) 1.84 X 10*3/uL (0.90-5.00); Lymphocytes % (A) 17.7 %; MCH 33.2 pg (27.0-32.0); MCHC 29.6 g/dL (32.0-37.0); MCV 112.1 fL (80.0-97.0); Mean Platelet Volume 11.5 fL (9.5-12.2); Monocytes # (A) 1.17 X 10*3/uL (0.20-1.00); Monocytes % (A) 11.2 %; NRBC Per 100 WBC 0 /100 WBCS (0.0-0.0); Neutrophils # (A) 7.03 X 10*3/uL (1.80-7.70); Neutrophils % (A) 67.4 %; Platelet Count 240 X 10*3/uL (140-440); RBC 1.99 X 10*6/uL (4.10-5.20); RDW 14.1 % (11.5-14.5); WBC 10.42 X 10*3/uL (4.50-10.00)
[2022-12-18] MEDS: ASPIRIN 81 MG PO SCH ×2 (09:18→21:28)
[2022-12-18] MEDS: SERTRALINE 100 MG TAB PO SCH ×2 (09:18→21:28)
[2022-12-18] MEDS: DONEPEZIL 10 MG TAB PO SCH (09:18)
--- NOTE | 2022-12-18 12:11 | P.PN ---
Subjective Progress Note Date: 12/18/22 This patient is an 87- year old female who is status-post gamma nail for IT hip fracture on 12/15/22. Today is post-operative day #3. Patient is examined bedside by Dr. Rios. Hemoglobin resulted as 6.6 this morning, 2 units of PRBCs have been ordered per internal medicine. No new complaints. Objective - Vital Signs Vital signs: Vital Signs Temp 97.9 F 12/18/22 07:09 Pulse 86 12/18/22 07:09 Resp 18 12/18/22 07:09 BP 119/65 12/18/22 07:09 Pulse Ox 93 L 12/18/22 07:09 FiO2 Intake & Output 12/17/22 12/18/22 12/18/22 18:59 06:59 18:59 Intake Total 900 Output Total 670 700 Balance -670 200 Intake: Intake, IV Titration 900 Amount Sodium Chloride 0.9% 1, 900 000 ml @ 75 mls/hr IV . [id number] [id number] Rx#:[id number] Output: Urine 670 700 Other: Voiding Method Indwelling Catheter Indwelling Catheter - Exam On examination, patient resting comfortably in bed. Alert and able to answer questions. On inspection of the right hip, dressings on hip in place, small amount of dried blood in most proximal dressing. Thigh is soft. Motor and sensory function intact throughout the leg. No pain with PROM ankle/toes. Foot warm and well perfused. - Labs CBC & Chem 7: 12/18/22 04:14 12/16/22 07:15 Labs: Abnormal Lab Results - Last 24 Hours (Table) 12/18/22 Range/Units 04:14 WBC 10.42 H (4.50-10.00) X 10*3/uL RBC 1.99 L (4.10-5.20) X 10*6/uL Hgb 6.6 L* (12.0-15.0) g/dL Hct 22.3 L (37.2-46.3) % MCV 112.1 H (80.0-97.0) fL MCH 33.2 H (27.0-32.0) pg MCHC 29.6 L (32.0-37.0) g/dL Monocytes # 1.17 H (0.20-1.00) X 10*3/uL Assessment and Plan Assessment: Status-post right hip gamma nail for IT hip fracture on 12/15/22. Post-operative day #3. Plan: - Weight bear to tolerance on operative extremity with a walker. Up with assistance. - Pain management as needed. Pain management consult pending. - Hemoglobin resulted as 6.6 this morning, 2 units of PRBCs have been ordered. - Continue physical therapy for gait and balance training. - Keep operative dressings in place. - Aspirin 81mg BID for DVT prophylaxis. - Internal medicine for michaelle-op medical management. - Anticipate discharge to rehab tomorrow.
--- NOTE | 2022-12-18 12:12 | P.PN ---
Subjective Progress Note Date: 12/18/22 Subjective: Seen and examined at bedside. No acute events overnight. Continues to have significant right lower extremity pain, but improved. Family member at bedside, states that patient has not received any physical therapy since her surgery. Vitals Signs Reviewed. General: nontoxic, no distress, appears at stated age Derm: warm, dry, dressing clean, dry, intact Head: atraumatic, normocephalic, symmetric Eyes: EOMI, no lid lag, anicteric sclera Cardiovascular: S1S2 reg, no murmur Lungs: CTA bilateral, no rhonchi, no rales , no accessory muscle use Abdominal: soft, nontender to palpation Ext: no gross muscle atrophy, no edema, no contractures, unable to move right lower extremity due to pain, right lateral thigh dressing c/d/i, right upper extremity in a brace Neuro: no focal neuro deficits Psych: Alert, oriented, appropriate affect Data Reviewed Today: Pertinent Labs: WBC 10.42, hemoglobin 6.6 Assessment and Plan: Acute anemia, anticipated outcome of surgery Leukocytosis, reactive, improving Isolated fever, likely secondary to atelectasis Prerenal azotemia Short [place] interval Depression/anxiety Dementia Right traumatic intratrochanteric fracture status post surgery Mechanical fall -Transfuse 1 unit PRBC -Surgery note reviewed 12/18 -Patient started on aspirin 81 mg twice a day -Pain control with oral Tylenol as needed, oral [place] as needed, IV Dilaudid as needed -Repeat CBC tomorrow -Home medications reviewed and reconciled Thank you for allowing us to participate in the care of this pleasant patient. Do not hesitate to contact us with questions. Someone can be reached from the [facility] hospitalist group all hours of the day at [phone] or via [employer]. Objective - Vital Signs Vital signs: Vital Signs Temp 97.9 F 12/18/22 07:09 Pulse 86 12/18/22 07:09 Resp 18 12/18/22 07:09 BP 119/65 12/18/22 07:09 Pulse Ox 93 L 12/18/22 07:09 FiO2 Intake & Output 12/17/22 12/18/22 12/18/22 18:59 06:59 18:59 Intake Total 900 Output Total 670 700 Balance -670 200 Intake: Intake, IV Titration 900 Amount Sodium Chloride 0.9% 1, 900 000 ml @ 75 mls/hr IV . [id number] [facility] Rx#:[id number] Output: Urine 670 700 Other: Voiding Method Indwelling Catheter Indwelling Catheter - Labs CBC & Chem 7: 12/18/22 04:14 12/16/22 07:15 Labs: Abnormal Lab Results - Last 24 Hours (Table) 12/18/22 Range/Units 04:14 WBC 10.42 H (4.50-10.00) X 10*3/uL RBC 1.99 L (4.10-5.20) X 10*6/uL Hgb 6.6 L* (12.0-15.0) g/dL Hct 22.3 L (37.2-46.3) % MCV 112.1 H (80.0-97.0) fL MCH 33.2 H (27.0-32.0) pg MCHC 29.6 L (32.0-37.0) g/dL Monocytes # 1.17 H (0.20-1.00) X 10*3/uL
[2022-12-18] MEDS: HYDROmorphone 0.5 MG/0.5 ML SYRINGE IVP PRN (12:57)
--- NOTE | 2022-12-18 15:03 | P.PAINPG ---
Objective - Vital Signs Vital signs: Vital Signs Temp 97.9 F 12/18/22 07:09 Pulse 86 12/18/22 07:09 Resp 18 12/18/22 07:09 BP 119/65 12/18/22 07:09 Pulse Ox 93 L 12/18/22 07:09 FiO2 Intake & Output 12/17/22 12/18/22 12/18/22 18:59 06:59 18:59 Intake Total 900 Output Total 670 700 Balance -670 200 Intake: Intake, IV Titration 900 Amount Sodium Chloride 0.9% 1, 900 000 ml @ 75 mls/hr IV . [id number] [facility] Rx#:[id number] Output: Urine 670 700 Other: Voiding Method Indwelling Catheter Indwelling Catheter - Labs CBC & Chem 7: 12/18/22 04:14 12/16/22 07:15 Labs: Abnormal Lab Results - Last 24 Hours (Table) 12/18/22 Range/Units 04:14 WBC 10.42 H (4.50-10.00) X 10*3/uL RBC 1.99 L (4.10-5.20) X 10*6/uL Hgb 6.6 L* (12.0-15.0) g/dL Hct 22.3 L (37.2-46.3) % MCV 112.1 H (80.0-97.0) fL MCH 33.2 H (27.0-32.0) pg MCHC 29.6 L (32.0-37.0) g/dL Monocytes # 1.17 H (0.20-1.00) X 10*3/uL PQRS Measure Charge Sheet Comment: HISTORY OF PRESENT ILLNESS: 87 yr old inpatient female w caregiver at side as a referral from Dr Rios presents today w severe and chronic R hip pain secondary to fracture s/p fall at home (12/14/22) for evaluation. Pt was determined to have a displaced intertrochanteric hip fracture and underwent a R operative fixation w inter medullary screw on 12/15/22. She tolerated procedure well and is experiencing reducing pain levels since the surgery. Pt states pain level is provoked at 8/10 in intensity, constant, localized in the R hip, achy, throbbing in character w/o shooting pain. Pain is provoked by any movement. Pain is a lleviated by medications (Dilaudid 0.5mg IVP Q3h prn pain, [place] 5/325mg PO q4h prn pain, Tyl 500mg prn pain), reclining, repositioning and rest. PMH: Esophageal CA, GERD, MDD/ Anxiety PSH: Scapula Fz (2017), Esophagectomy, BL Catararcts, Prolapsed Rectum Surgery, R Ankle ORIF SH: Never smoker, Occasional ETOH use, No illicit drug use FH: Daughter- No Reported History. Mo- No Reported History. Fa- No Reported History All: See list Meds: See list REVIEW OF ORGAN SYSTEMS: CONSTITUTIONAL: No fevers or chills. No recent weight loss. NEUROLOGICAL: + numbness and tingling along the distal extremities. No seizure disorders or headaches. MUSCULOSKELETAL: + pain PSYCHIATRIC: Denies current depression or suicidal thoughts. Physical Examinations : Constitutional : Cooperative , not in acute distress . Neurologic : Cranial nerve II to XII intact. No focal neurological deficits. Psychiatric : alert & oriented x 3. Matching mood & appropriate affect. Judgment & insight intact. Musculoskeletal : Cervical Spine Motor strength in the deltoid and biceps: Normal right side. Normal Left side Motor strength biceps and the wrist extensors: Normal right side . Normal left side Motor strength in the triceps muscle: Normal right side. Normal left side Deep tendon reflexes: Normal at the biceps. Normal at Brachioradialis. Normal at triceps Vertebral body tenderness to deep palpation over Cervical facet loading test: positive bilaterally Spurling test: positive bilaterally Neck distraction test: positive bilaterally James sign: positive bilaterally Lumbar spine +R hip incisional scar intact, +edema, +ecchymosis Motor strength lower extremities ,thigh and legs 5/5 Right side , 5/5 Left side Deep tendon reflexes : Normal Knee Jerk. Normal Ankle Jerk Vertebral body tenderness over [place] Test positive Lumbar facet Loading Test: positive Right / positive Left Range of motion of the lumbar spine Flexion 30 degrees, extension 10 degrees Straight Leg Raise test: Left/ Right positive at degree Jose test: positive right / positive left. Severe tenderness over the Sacroiliac joint on the Right / Left sides Gaenslen test: positive bilaterally Seated flexion test: positive bilaterally. Sacral spine : Severe tenderness over the Sacroiliac joint: right side / left side Range of motion: Flexion of the lumbar spine <60 degrees Range of motion: Extension of the lumbar spine <20 degrees Gaenslen's Test positive Lex's Test positive Jose test: positive right side / left side Thigh Thrust Test Sacral Thrust Test Imaging: R hip X ray from 12/15/22 reviewed Assessment/ Plan : R hip pain s/p Fixation d/t fracture Recommendation of medication management. [place] 5/325mg #18 short term supply. Use, side effects, adverse reactions and safe storage discussed. Pt will be discharged to SNF/Rehab once Hgb normalizes. All questions answered. I have spent greater than 30 minutes on patient care today. Dr Amanda was available by phone for the evaluation of this patient. The time was used to review the medical records including relevant urine studies and Prescription history (MAPs), review of the available imaging, evaluation and examination of the patient, coordination of care with the medical staff and if applicable referring physicians, as well as creation of the medical record - Pain Location Right Hip Non-Pharmacological Interventions: Elevation, Ice Pharmacological Interventions: Discuss Pain Med Options, PRN Medication Pain Comment: see mar for pain assessment details PQRS Narrative: Smoking Status Never smoker Blood Pressure [Left Arm] 119/65 Blood Pressure [Right Arm 152/70 Supine] Blood Pressure 136/63 Pain Intensity [None] 0 Pain Intensity [Right Hip] 10 Pain Intensity 8 Pain Scale Used Numeric (1 - 10) Scale Used Numeric (1 - 10) Home Medications: Ambulatory Orders Donepezil [Aricept] 10 mg PO DAILY 10/05/17 Sertraline HCl [Zoloft] 100 mg PO BID 10/05/17 Gabapentin [Neurontin] 300 mg PO BID #12 cap 03/10/22 LORazepam [Ativan] 0.5 mg PO HS 08/15/22 traMADol HCl [Ultram] 50 mg PO Q6HR PRN 12/15/22 Aspirin 81 mg PO BID 30 Days #60 tab 12/18/22 Docusate [Colace] 100 mg PO BID #60 capsule 12/18/22 HYDROcodone/APAP 5-325MG [[place] 5-325] 1 - 2 tab PO Q6HR PRN 7 Days #30 tab 12/18/22 Controlled Substance Measures - Controlled Substance Measures Is patient prescribed a controlled substance at discharge?: Yes When asked, does pt state using other controlled substances?: Yes If prescribed controlled substance>3 days was MAPS reviewed?: Prescribed <3 Days
[2022-12-18] MEDS: SENNOSIDES-DOCUSATE SODIUM 1 EACH TAB PO SCH (21:28)
[2022-12-18] MEDS: LORazepam 0.5 MG TAB PO SCH (21:28)
[2022-12-19] MEDS: HYDROcodone/APAP 5-325MG 1 EACH TAB PO PRN ×2 (05:55→12:27)
[2022-12-19] MEDS: SERTRALINE 100 MG TAB PO SCH ×2 (08:45→21:16)
[2022-12-19] MEDS: GABAPENTIN 300 MG CAP PO SCH ×2 (08:45→21:15)
[2022-12-19] MEDS: DONEPEZIL 10 MG TAB PO SCH (08:45)
[2022-12-19] MEDS: ASPIRIN 81 MG PO SCH ×2 (08:45→21:16)
[2022-12-19 08:59] LABS: African American GFR (CKD) 91.4 (60.0-200.0); Anion Gap 8.7 mmol/L (10.00-18.00); BUN/Creat Ratio 22.61 Ratio (12.00-20.00); Blood Urea Nitrogen 15.6 mg/dL (9.0-27.0); Calcium 7.8 mg/dL (8.7-10.3); Carbon Dioxide 19.7 mmol/L (20.0-27.5); Non-African American GFR(CKD) 78.8 (60.0-200.0); Potassium 4.2 mmol/L (3.5-5.5)
[2022-12-19 10:18] LABS: HGB 8.1 g/dL (12.0-15.0); MCH 32.5 pg (27.0-32.0); MCHC 31.2 g/dL (32.0-37.0); MCV 104.4 fL (80.0-97.0); Mean Platelet Volume 10.9 fL (9.5-12.2); NRBC Per 100 WBC 0.5 /100 WBCS (0.0-0.0); Platelet Count 256 X 10*3/uL (140-440); RBC 2.49 X 10*6/uL (4.10-5.20); RDW 19.4 % (11.5-14.5)
--- NOTE | 2022-12-19 10:46 | P.PN ---
Subjective Progress Note Date: 12/19/22 Subjective: Seen and examined at bedside. No acute events overnight. Right lower extremity pain significantly improved. Family member at bedside, worried about her right shoulder, states she may have injured it during her fall. Vitals Signs Reviewed. General: nontoxic, no distress, appears at stated age Derm: warm, dry, dressing clean, dry, intact Head: atraumatic, normocephalic, symmetric Eyes: EOMI, no lid lag, anicteric sclera Cardiovascular: S1S2 reg, no murmur Lungs: CTA bilateral, no rhonchi, no rales , no accessory muscle use Abdominal: soft, nontender to palpation Neuro: no focal neuro deficits Psych: Alert, oriented, appropriate affect Data Reviewed Today: Pertinent Labs: WBC 10.10, Hg 8.1, MCV 104.4. BMP shows bicarb of 19.7, anion gap of 8.7, BUN/Cr ratio 22.61, Ca 7.8. Assessment and Plan: Acute anemia, anticipated outcome of surgery Leukocytosis, reactive, improving Isolated fever, likely secondary to atelectasis Prerenal azotemia Short [place] interval Depression/anxiety Dementia Right traumatic intratrochanteric fracture status post surgery Mechanical fall -Hg improved to 8.1 after 1 unit PRBC on 12/18 -Pain management note reviewed 12/18 -Patient started on aspirin 81 mg twice a day -Pain control with oral Tylenol as needed, oral [place] as needed (increased), IV Dilaudid as needed -Repeat CBC tomorrow -Right shoulder X-ray ordered -Home medications reviewed and reconciled Medically stable. OBRA completed. Insurance authorization pending. If discharged today, would advise repeat CBC in 3 days. Thank you for allowing us to participate in the care of this pleasant patient. Do not hesitate to contact us with questions. Someone can be reached from the [place] hospitalist group all hours of the day at [phone] or via [employer]. Objective - Vital Signs Vital signs: Vital Signs Temp 98.8 F 12/19/22 08:00 Pulse 63 12/19/22 08:00 Resp 20 12/19/22 09:59 BP 129/69 12/19/22 08:00 Pulse Ox 92 L 12/19/22 08:00 FiO2 Intake & Output 12/18/22 12/19/22 12/19/22 18:59 06:59 18:59 Intake Total 310 480 200 Output Total 500 800 Balance -190 -320 200 Intake: Oral 480 200 Blood Product 310 Rc As-1 Unit 310 [id number] Output: Urine 500 800 Other: Voiding Method Indwelling Catheter Indwelling Catheter Indwelling Catheter - Labs CBC & Chem 7: 12/19/22 04:16 12/19/22 04:16 Labs: Abnormal Lab Results - Last 24 Hours (Table) 12/15/22 12/16/22 12/19/22 Range/Units 11:00 07:15 04:16 WBC 10.10 H (4.50-10.00) X 10*3/uL RBC 2.49 L (4.10-5.20) X 10*6/uL Hgb 8.1 L (12.0-15.0) g/dL Hct 26.0 L (37.2-46.3) % MCV 104.4 H (80.0-97.0) fL MCH 32.5 H (27.0-32.0) pg MCHC 31.2 L (32.0-37.0) g/dL RDW 19.4 H (11.5-14.5) % Absolute Nucleated RBC 0.05 H (0.00-0.00) X 10*3/uL Promyelocytes # (Man) 0.19 H (0) k/uL NRBC/100 WBC Diff 0.5 H (0.0-0.0) /100 WBCS Carbon Dioxide (20.0-27.5) mmol/L Anion Gap (10.00-18.00) mmol/L BUN/Creatinine Ratio (12.00-20.00) Ratio Calcium (8.7-10.3) mg/dL Crossmatch See Detail 12/19/22 Range/Units 04:16 WBC (4.50-10.00) X 10*3/uL RBC (4.10-5.20) X 10*6/uL Hgb (12.0-15.0) g/dL Hct (37.2-46.3) % MCV (80.0-97.0) fL MCH (27.0-32.0) pg MCHC (32.0-37.0) g/dL RDW (11.5-14.5) % Absolute Nucleated RBC (0.00-0.00) X 10*3/uL Promyelocytes # (Man) (0) k/uL NRBC/100 WBC Diff (0.0-0.0) /100 WBCS Carbon Dioxide 19.7 L (20.0-27.5) mmol/L Anion Gap 8.70 L (10.00-18.00) mmol/L BUN/Creatinine Ratio 22.61 H (12.00-20.00) Ratio Calcium 7.8 L (8.7-10.3) mg/dL Crossmatch
--- NOTE | 2022-12-19 14:04 | P.PN ---
Subjective Progress Note Date: 12/19/22 This patient is an 87- year old female who is status-post gamma nail for IT hip fracture on 12/15/22. Today is post-operative day #4. Patient is examined bedside this morning. She is up to the bedside chair. She is status-post 1 unit of PRBCs yesterday, hemoglobin is up 8.1 today. Patient is complaining of right shoulder pain today. Patient's daughter states she twisted the right ankle prior to her fall and she is wearing an ANANTH wrap on this today. No additional complaints. Vital signs stable. Objective - Vital Signs Vital signs: Vital Signs Temp 98.8 F 12/19/22 08:00 Pulse 63 12/19/22 08:00 Resp 20 12/19/22 09:59 BP 129/69 12/19/22 08:00 Pulse Ox 92 L 12/19/22 08:00 FiO2 Intake & Output 12/18/22 12/19/22 12/19/22 18:59 06:59 18:59 Intake Total 310 480 200 Output Total 500 800 Balance -190 -320 200 Intake: Oral 480 200 Blood Product 310 Rc As-1 Unit 310 [id number] Output: Urine 500 800 Other: Voiding Method Indwelling Catheter Indwelling Catheter Indwelling Catheter - Exam On examination, patient resting comfortably in the bedside chair. Family is present. Patient is alert and able to answer questions. On inspection of the right hip, dressings on hip in place, small amount of dried blood in most proximal dressing. Thigh is soft. Motor and sensory function intact throughout the leg. No pain with PROM ankle/toes. No pain with palpation of the right ankle. Foot warm and well perfused. - Labs CBC & Chem 7: 12/19/22 04:16 12/19/22 04:16 Labs: Abnormal Lab Results - Last 24 Hours (Table) 12/15/22 12/16/22 12/19/22 Range/Units 11:00 07:15 04:16 WBC 10.10 H (4.50-10.00) X 10*3/uL RBC 2.49 L (4.10-5.20) X 10*6/uL Hgb 8.1 L (12.0-15.0) g/dL Hct 26.0 L (37.2-46.3) % MCV 104.4 H (80.0-97.0) fL MCH 32.5 H (27.0-32.0) pg MCHC 31.2 L (32.0-37.0) g/dL RDW 19.4 H (11.5-14.5) % Absolute Nucleated RBC 0.05 H (0.00-0.00) X 10*3/uL Promyelocytes # (Man) 0.19 H (0) k/uL NRBC/100 WBC Diff 0.5 H (0.0-0.0) /100 WBCS Carbon Dioxide (20.0-27.5) mmol/L Anion Gap (10.00-18.00) mmol/L BUN/Creatinine Ratio (12.00-20.00) Ratio Calcium (8.7-10.3) mg/dL Crossmatch See Detail 12/19/22 Range/Units 04:16 WBC (4.50-10.00) X 10*3/uL RBC (4.10-5.20) X 10*6/uL Hgb (12.0-15.0) g/dL Hct (37.2-46.3) % MCV (80.0-97.0) fL MCH (27.0-32.0) pg MCHC (32.0-37.0) g/dL RDW (11.5-14.5) % Absolute Nucleated RBC (0.00-0.00) X 10*3/uL Promyelocytes # (Man) (0) k/uL NRBC/100 WBC Diff (0.0-0.0) /100 WBCS Carbon Dioxide 19.7 L (20.0-27.5) mmol/L Anion Gap 8.70 L (10.00-18.00) mmol/L BUN/Creatinine Ratio 22.61 H (12.00-20.00) Ratio Calcium 7.8 L (8.7-10.3) mg/dL Crossmatch Assessment and Plan Assessment: Status-post right hip gamma nail for IT hip fracture on 12/15/22. Post-operative day #4. Plan: - Weight bear to tolerance on operative extremity with a walker. Up with assistance. - Right shoulder x-rays pending. - Pain management as needed. Appreciate pain management consult. - Patient is status-post 1 unit of PRBCs, hemoglobin up to 8.1 today. Repeat CBC in the AM. - Continue physical therapy for gait and balance training. - Keep operative dressings in place. - Aspirin 81mg BID for DVT prophylaxis. - Internal medicine for michaelle-op medical management. - Anticipate discharge to rehab tomorrow. Currently awaiting auth.
--- NOTE | 2022-12-19 15:54 | XR ---
EXAMINATION TYPE: XR shoulder complete RT DATE OF EXAM: 12/19/2022 3:37 PM INDICATION: Patient age:Female; 87 years old; Reason for study: R shoulder pain; COMPARISON: None TECHNIQUE: The right shoulder was examined in AP, internally rotated and scapular Y projections. FINDINGS: No evidence of acute osseous pathology, joint dislocation, or soft tissue swelling. Mild degeneration with osteophyte of the glenoid distal clavicle and acromion to a lesser extent. The remaining portio ns of the visualized chest are unremarkable. IMPRESSION: 1. No acute osseous pathology. 2. Mild osteoporosis changes. Consider further evaluation MRI as clinically warranted.
[2022-12-19] MEDS: SENNOSIDES-DOCUSATE SODIUM 1 EACH TAB PO SCH (21:15)
[2022-12-19] MEDS: LORazepam 0.5 MG TAB PO SCH (21:15)
[2022-12-19] MEDS: HYDROmorphone 0.5 MG/0.5 ML SYRINGE IVP PRN (21:16)
[2022-12-20] MEDS: HYDROcodone/APAP 5-325MG 1 EACH TAB PO PRN ×4 (05:35→23:34)
[2022-12-20] MEDS: DONEPEZIL 10 MG TAB PO SCH (08:04)
[2022-12-20] MEDS: SERTRALINE 100 MG TAB PO SCH ×2 (08:04→20:48)
[2022-12-20] MEDS: ASPIRIN 81 MG PO SCH ×2 (08:04→20:48)
[2022-12-20] MEDS: GABAPENTIN 300 MG CAP PO SCH ×2 (08:04→20:48)
[2022-12-20 10:49] LABS: Basophils # (A) 0.07 X 10*3/uL (0.00-0.10); Basophils % (A) 0.9 %; Eosinophils # (A) 0.34 X 10*3/uL (0.04-0.35); Eosinophils % (A) 4.2 %; HCT 26.3 % (37.2-46.3); HGB 8.1 g/dL (12.0-15.0); Immature Grans, Automated 0.5 %; Lymphocytes # (A) 1.45 X 10*3/uL (0.90-5.00); MCH 32.4 pg (27.0-32.0); MCHC 30.8 g/dL (32.0-37.0); MCV 105.2 fL (80.0-97.0); Mean Platelet Volume 10.5 fL (9.5-12.2); Monocytes % (A) 16.1 %; NRBC Per 100 WBC 2.1 /100 WBCS (0.0-0.0); Neutrophils # (A) 4.86 X 10*3/uL (1.80-7.70); Neutrophils % (A) 60.3 %; Platelet Count 305 X 10*3/uL (140-440); RDW 18.2 % (11.5-14.5); WBC 8.06 X 10*3/uL (4.50-10.00)
[2022-12-20] MEDS ORDERED: bisacodyL 10 MG SUPP RECTAL STA (12:07)
--- NOTE | 2022-12-20 12:10 | P.DS ---
Providers Date of admission: 12/15/22 01:38 Expected date of discharge: 12/20/22 Attending physician: Scot Rios Consults: 12/15/22 01:36 Consult Physician Urgent Consulting Provider: Jana Del Rosario Consult Reason/Comments: fall, right hip fracture Do you want consulting provider notified?: Yes Primary care physician: Henri Clarke MD Hospital Course: This patient is an 87-year-old female who sustained a ground-level fall on 12/15/22. X-rays in the emergency department revealed a right intertrochanteric hip fracture. Patient was admitted under the care on Dr. Rios for surgical intervention with a consult placed an internal medicine for preoperative medical clearance. Patient underwent operative fixation of right intertrochanteric hip fracture with intramedullary hip screw on 12/15/22. The procedure was performed without complication or sequelae. Vital signs and labs are stable on postoperative day #5. Patient received 1 unit of PRBCs on 12/18/22. Repeat hemoglobin 8.1 this morning. Patient is examined bedside this morning. She states the pain in her right hip is well controlled at this time. Patient is tolerating her diet. She denies chest pain, shortness of breath, nausea, vomiting. No new complaints the day of discharge. On examination, patient is sitting up in the bed in no apparent distress. She is alert and oriented 3. On inspection of the right hip, there are 3 clean, dry, intact surgical dressing in place. Small amount of dried blood on most proximal dressing. Mild ecchymosis. Motor and sensory function is intact of the right lower extremity. Right lower extremity warm and well perfused. Calf is nontender. Patient is discharged to rehab today, pending medical clearance. Please see med rec for accurate list of discharge medications. She should follow-up in the office at [facility] in two weeks. Patient Condition at Discharge: Stable Plan - Discharge Summary Discharge Rx Participant: No New Discharge Prescriptions: New Docusate [Colace] 100 mg PO BID #60 capsule Aspirin 81 mg PO BID 30 Days #60 tab HYDROcodone/APAP 5-325MG [[place] 5-325] 1 - 2 tab PO Q6HR PRN 7 Days #30 tab PRN Reason: Pain Acetaminophen Tab [Tylenol] 650 mg PO Q6HR PRN tab PRN Reason: Mild Pain Or Fever > 100.5 Continue Sertraline HCl [Zoloft] 100 mg PO BID Donepezil [Aricept] 10 mg PO DAILY Gabapentin [Neurontin] 300 mg PO BID #12 cap traMADol HCl [Ultram] 50 mg PO Q6HR PRN PRN Reason: Pain LORazepam [Ativan] 0.5 mg PO HS Discharge Medication List Donepezil [Aricept] 10 mg PO DAILY 10/05/17 [History] Sertraline HCl [Zoloft] 100 mg PO BID 10/05/17 [History] Gabapentin [Neurontin] 300 mg PO BID #12 cap 03/10/22 [Rx] LORazepam [Ativan] 0.5 mg PO HS 08/15/22 [History] traMADol HCl [Ultram] 50 mg PO Q6HR PRN 12/15/22 [History] Aspirin 81 mg PO BID 30 Days #60 tab 12/18/22 [Rx] Docusate [Colace] 100 mg PO BID #60 capsule 12/18/22 [Rx] HYDROcodone/APAP 5-325MG [[place] 5-325] 1 - 2 tab PO Q6HR PRN 7 Days #30 tab 12/18/22 [Rx] Acetaminophen Tab [Tylenol] 650 mg PO Q6HR PRN tab 12/19/22 [Rx] Follow up Appointment(s)/Referral(s): Henri Clarke MD [Primary Care Provider] - 1-2 days Scot Rios MD [Medical Doctor] - 01/08/23 1:00 pm Activity/Diet/Wound Care/Special Instructions: Weight bear to tolerance on operative extremity with a walker. Up with assistance. Fall precautions. Leave operative dressings in place until follow-up in the office. Do not remove. Call the office if dressings become saturated or fall off. May shower over dressings, no soaking. Take pain medications as prescribed. Take aspirin 81mg twice a day for blood clot prevention. Follow-up in the office in two weeks at [facility]. Call the office with any questions or concerns, Repeat CBC within 3 days to be followed up by the PCP. Discharge Disposition: TRANSFER TO SNF/ECF
--- NOTE | 2022-12-20 14:20 | P.PN ---
Subjective Progress Note Date: 12/20/22 Subjective: Seen and examined at bedside. No acute events overnight. She continues to report right lower extremity pain. Right shoulder shows mild osteoporosis changes. Vitals Signs Reviewed. General: nontoxic, no distress, appears at stated age Derm: warm, dry, dressing clean, dry, intact Head: atraumatic, normocephalic, symmetric Eyes: EOMI, no lid lag, anicteric sclera Cardiovascular: Good perfusion in all 4 extremities. Lungs: no accessory muscle use Abdominal: soft, nontender to palpation Neuro: no focal neuro deficits Psych: Alert, oriented, appropriate affect Inward rotation of RLE Data Reviewed Today: Pertinent Labs: Hg 8.1, MCV 105.2. Assessment and Plan: Acute anemia, anticipated outcome of surgery Isolated fever, likely secondary to atelectasis Prerenal azotemia Short [place] interval Depression/anxiety Dementia Right traumatic intratrochanteric fracture status post surgery Mechanical fall Resolved: Leukocytosis -Hg maintained at 8.1 after 1 unit PRBC on 12/18 -Orthopedic surgery note reviewed 12/19 -Patient started on aspirin 81 mg twice a day -Pain control with oral Tylenol as needed, oral Gattman as needed (increased), IV Dilaudid as needed -Home medications reviewed and reconciled Medically stable. OBRA completed. Insurance authorization obtained. Would advise repeat CBC in 3 days. Thank you for allowing us to participate in the care of this pleasant patient. Do not hesitate to contact us with questions. Someone can be reached from the [facility] [place] hospitalist group all hours of the day at [phone] or via [employer] Serve. Objective - Vital Signs Vital signs: Vital Signs Temp 97.5 F L 12/20/22 06:45 Pulse 65 12/20/22 11:10 Resp 15 12/20/22 11:10 BP 113/67 12/20/22 06:45 Pulse Ox 96 12/20/22 06:45 FiO2 Intake & Output 12/19/22 12/20/22 12/20/22 18:59 06:59 18:59 Intake Total 450 Output Total 400 Balance 50 Weight 44.452 kg Intake: Oral 450 Output: Urine 400 Other: Voiding Method Indwelling Catheter Toilet Toilet # Voids 1 5 1 - Labs CBC & Chem 7: 12/20/22 06:34 05/23/23 04:16 Labs: Abnormal Lab Results - Last 24 Hours (Table) 12/20/22 Range/Units 06:34 RBC 2.50 L (4.10-5.20) X 10*6/uL Hgb 8.1 L (12.0-15.0) g/dL Hct 26.3 L (37.2-46.3) % MCV 105.2 H (80.0-97.0) fL MCH 32.4 H (27.0-32.0) pg MCHC 30.8 L (32.0-37.0) g/dL RDW 18.2 H (11.5-14.5) % Absolute Nucleated RBC 0.17 H (0.00-0.00) X 10*3/uL Monocytes # 1.30 H (0.20-1.00) X 10*3/uL NRBC/100 WBC Diff 2.1 H (0.0-0.0) /100 WBCS
[2022-12-20] MEDS: SENNOSIDES-DOCUSATE SODIUM 1 EACH TAB PO SCH (20:48)
[2022-12-20] MEDS: LORazepam 0.5 MG TAB PO SCH (20:48)
[2022-12-21] MEDS: HYDROmorphone 1 MG/ML 1 ML SYRINGE IVP PRN (03:17)
[2022-12-21] MEDS: HYDROcodone/APAP 5-325MG 1 EACH TAB PO PRN ×2 (05:09→10:07)
[2022-12-21] MEDS: DONEPEZIL 10 MG TAB PO SCH (08:15)
[2022-12-21] MEDS: GABAPENTIN 300 MG CAP PO SCH (08:15)
[2022-12-21] MEDS: SERTRALINE 100 MG TAB PO SCH (08:16)
[2022-12-21] MEDS: ASPIRIN 81 MG PO SCH (08:16)
[2022-12-21 08:41] VITALS: BP 152/72; PULSE 97; RESP 16; TEMP 98.8
--- NOTE | 2022-12-21 11:24 | P.PN ---
Subjective Progress Note Date: 12/21/22 Subjective: Seen and examined at bedside. No acute events overnight. She continues to report right lower extremity pain. Right shoulder shows mild osteoporosis changes. Able to have a bowel movement after suppository yesterday. Vitals Signs Reviewed. General: nontoxic, no distress, appears at stated age Derm: warm, dry, dressing clean, dry, intact Head: atraumatic, normocephalic, symmetric Eyes: EOMI, no lid lag, anicteric sclera Cardiovascular: Normal S1 S2. Lungs: Clear to auscultation bilaterally. No accessory muscle use Abdominal: soft, nontender to palpation Neuro: no focal neuro deficits Psych: Alert, oriented, appropriate affect Inward rotation of RLE Data Reviewed Today: CBC pending for this morning. Assessment and Plan: Acute anemia, anticipated outcome of surgery Isolated fever, likely secondary to atelectasis Prerenal azotemia Short [place] interval Depression/anxiety Dementia Right traumatic intratrochanteric fracture status post surgery Mechanical fall Resolved: Leukocytosis -Hg maintained at 8.1 after 1 unit PRBC on 12/18 -Orthopedic surgery note reviewed 12/20 -Patient started on aspirin 81 mg twice a day -Pain control with oral Tylenol as needed, oral Dustin as needed (increased), IV Dilaudid as needed -Home medications reviewed and reconciled Medically stable. OBRA completed. Insurance authorization obtained. Would advise repeat CBC in 3 days. Patient appealing her discharge. Daughter comfortable with discharge to SNF today if CBC remains stable. Thank you for allowing us to participate in the care of this pleasant patient. Do not hesitate to contact us with questions. Someone can be reached from the [facility] hospitalist group all hours of the day at [phone] or via [email or web address] Serve. Objective - Vital Signs Vital signs: Vital Signs Temp 98.8 F 12/21/22 07:35 Pulse 97 12/21/22 07:35 Resp 16 12/21/22 07:35 BP 152/72 12/21/22 07:35 Pulse Ox 98 12/21/22 07:35 FiO2 Intake & Output 12/20/22 12/21/22 12/21/22 18:59 06:59 18:59 Intake Total 720 Balance 720 Weight 44.452 kg Intake: Oral 720 Other: Voiding Method Toilet # Voids 2 4 1 # Bowel Movements 1 1 1 - Labs CBC & Chem 7: 12/20/22 06:34 12/19/22 04:16
[2022-12-21 11:27] LABS: Anisocytosis Slight; HCT 29.4 % (34.0-46.0); Hypochromasia Marked; MCHC 30.3 g/dL (31.0-37.0); MCV 105.5 fL (80.0-100.0); Macrocytosis Moderate; Mean Platelet Volume 8.6; Platelet Count 385 k/uL (150-450); RBC 2.78 m/uL (3.80-5.40); RDW 17.4 % (11.5-15.5); WBC 8.6 k/uL (3.8-10.6)
[2022-12-21 11:41] LABS: HGB 8.9 gm/dL (11.4-16.0)
--- NOTE | 2022-12-21 12:16 | P.PN ---
Subjective Progress Note Date: 12/21/22 This patient is an 87- year old female who is status-post gamma nail for IT hip fracture on 12/15/22. Today is post-operative day #6. Patient is examined bedside this morning with Dr. Rios, she is up to bedside chair. Discharge was held yesterday due to daughter concerns. Hemoglobin is up to 8.9 today. Daughter is comfortable with discharge to rehab. Patient did have bowel movement. Objective - Vital Signs Vital signs: Vital Signs Temp 98.8 F 12/21/22 07:35 Pulse 97 12/21/22 07:35 Resp 16 12/21/22 07:35 BP 152/72 12/21/22 07:35 Pulse Ox 98 12/21/22 07:35 FiO2 Intake & Output 12/20/22 12/21/22 12/21/22 18:59 06:59 18:59 Intake Total 720 Balance 720 Weight 44.452 kg Intake: Oral 720 Other: Voiding Method Toilet # Voids 2 4 1 # Bowel Movements 1 1 1 - Exam On examination, patient resting comfortably in the bedside chair. Family is present. Patient is alert and able to answer questions. On inspection of the rig ht hip, dressings on hip in place, small amount of dried blood in most proximal dressing. Dressing changed. Thigh is soft. Motor and sensory function intact throughout the leg. No pain with PROM ankle/toes. No pain with palpation of the right ankle. Foot warm and well perfused. - Labs CBC & Chem 7: 12/21/22 10:53 12/19/22 04:16 Labs: Abnormal Lab Results - Last 24 Hours (Table) 12/21/22 Range/Units 10:53 RBC 2.78 L (3.80-5.40) m/uL Hgb 8.9 L D (11.4-16.0) gm/dL Hct 29.4 L (34.0-46.0) % MCV 105.5 H (80.0-100.0) fL MCHC 30.3 L (31.0-37.0) g/dL RDW 17.4 H (11.5-15.5) % Assessment and Plan Assessment: Status-post right hip gamma nail for IT hip fracture on 12/15/22. Post-operative day #6. Plan: - Discharge to rehab today as previously outlined in discharge summary.
--- NOTE | 2022-12-28 08:10 | CDI ---
Documentation Clarification Form Date: 12/28/22 From: Cyndy Galdamez Admit Date: 12/15/2022 01:38:00 AM Patient Name: Zulma Camilo Visit Number: [id number] Discharge Date: 12/21/2022 01:09:00 PM ATTENTION: The Clinical Documentation Specialists (CDI) and [facility] Coding Staff appreciate your assistance in clarifying documentation. Please respond to the clarification below the line at the bottom and electronically sign. The CDI & [facility] Coding staff will review the response and follow-up if needed. Please note: Queries are made part of the Legal Health Record. If you have any questions, please contact the author of this message via ITS. Dr. Scot Rios, Unspecified anemia is documented 12/16, PN. Additional specificity regarding the type/acuity of anemia is requested. History/Risk Factors: Fracture, GERD, Osteoporosis, & Falls Clinical indicators: Acuteanemia, anticipated outcome of surgery Hemoglobin: 12/15 11.8, 12/16 8.6, 12/17 7.0, 12/18 6.6, 12/20 8.1 Hematocrit: 12/15 37.1, 12/16 28.6, 12/17 23.5, 12/18 22.3, 12/20 26.3 Treatment: 12/18 Transfusion Please clarify the type/acuity of anemia: [ ] Acute blood loss anemia [ ] Acute on chronic blood loss anemia [ ] Chronic blood loss anemia [ ] Iron deficiency anemia [ ] Hemolytic anemia [ ] Drug induced anemia [ ] Anemia due to malignancy [ ] Nutritional anemia [ ] Anemia of chronic kidney disease [ ] Unable to determine [ ] Other, please specify see text note. WB MTDD
--- NOTE | 2022-12-28 08:23 | CDI ---
Documentation Clarification Form Date: 12/28/22 From: Cyndy Galdamez Admit Date: 12/15/2022 01:38:00 AM Patient Name: Zulma Camilo Visit Number: [id number] Discharge Date: 12/21/2022 01:09:00 PM ATTENTION: The Clinical Documentation Specialists (CDI) and [facility] Coding Staff appreciate your assistance in clarifying documentation. Please respond to the clarification below the line at the bottom and electronically sign. The CDI & [facility] Coding staff will review the response and follow-up if needed. Please note: Queries are made part of the Legal Health Record. If you have any questions, please contact the author of this message via ITS. Dr. Scot Riso, A fracture is documented 12/15 Procedure Note. Additional clarification regarding the etiology of the fracture is requested. History/Risk Factors: Fracture, GERD, Osteoporosis, & Falls Clinical Indications: The patient is very pleasant 87-year-old female with a history ofosteopeniaand priorfragilityfractures. She had alow-energyfall yesterday resulting in a right hip fracture. X-Ray Results: Right-sidedintratrochanteric fracture. Treatment: Operativefixationofright intertrochanteric hip fracturewith short intra-medullary hip screw. Please clarify the etiology of the fracture, if known: [ ] Traumatic [ ] Stress [ ] Pathological (specify cause): ___ [ ] Neoplastic disease [ ] Osteoporosis [ ] Other (please specify): [ ] Unable to determine MTDD
--- NOTE | 2022-12-30 07:06 | P.PN ---
Progress Note - Text anemia was due to acute blood loss from fracture and chronic anemia fracture was both traumatic and pathologic due to osteoporosis
== END 2022-12-21 13:09 | DRG 481 ==
LOC: EC 23:29 → 4SSUR 12-15 01:38
PROVIDERS: ADMIT Orthopaedic Surgery; ATTEND Orthopaedic Surgery
PROC: 0QS636Z Reposition Right Upper Femur with Intramedullary Internal Fixation Device, Percutaneous Approach (ICD-10-PCS; principal; 2022-12-15 10:00)
PROC: 30233N1 Transfusion of Nonautologous Red Blood Cells into Peripheral Vein, Percutaneous Approach (ICD-10-PCS; 2022-12-18)
DX: S72.141A Displaced intertrochanteric fracture of right femur, initial encounter for closed fracture (principal); D62 Acute posthemorrhagic anemia; F03.93 Unspecified dementia, unspecified severity, with mood disturbance; F03.94 Unspecified dementia, unspecified severity, with anxiety; J98.11 Atelectasis; D64.9 Anemia, unspecified; M81.0 Age-related osteoporosis without current pathological fracture; K21.9 Gastro-esophageal reflux disease without esophagitis; D72.829 Elevated white blood cell count, unspecified; R79.89 Other specified abnormal findings of blood chemistry; G89.29 Other chronic pain; M25.569 Pain in unspecified knee; M25.552 Pain in left hip; M25.511 Pain in right shoulder; Y92.009 Unspecified place in unspecified non-institutional (private) residence as the place of occurrence of the external cause; W01.0XXA Fall on same level from slipping, tripping and stumbling without subsequent striking against object, initial encounter; Z85.01 Personal history of malignant neoplasm of esophagus; Z90.49 Acquired absence of other specified parts of digestive tract; Z79.899 Other long term (current) drug therapy; Z86.19 Personal history of other infectious and parasitic diseases; Z88.5 Allergy status to narcotic agent; Z91.81 History of falling; Z88.6 Allergy status to analgesic agent
CPT/HCPCS: 51702; 71045; 73502; 80048; 80053; 83540; 85025; 85027; 85610; 86850; 86900; 86901; 86920; 93005; 96374; 96375; 99285

== ENCOUNTER 2023-01-14 22:59 | Inpatient (IN) | payer MEDICARE ==
[2023-01-15] MEDS ORDERED: MORPHINE SULFATE 4 MG/ML SYRINGE IM STA ×2 (00:20→01:18)
--- NOTE | 2023-01-15 02:04 | ED ---
Fall HPI - General Chief Complaint: Fall Stated Complaint: Fall, Left Rib Pain Time Seen by Provider: 01/14/23 23:09 Source: patient, family Mode of arrival: wheelchair - History of Present Illness Initial Comments: This patient is an 87-year-old woman who is brought to have evaluation after having fallen tonight. The patient states she was using her walker to go through the house when she fell backward. She states that she landed on her back. Since that time any time that she attempts to move she has pain in the left low back and towards the left leg. She states that if she is just lying still the pain is not bad area anytime she attempts to move the pain becomes sha rp and severe. She is not having associated symptoms. There is no chest pain or dyspnea. No change in urination. There is no leg pain or numbness. No saddle anesthesia. 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[employer] [address] Fall Occurred: home Loss of Consciousness: none Prolonged Down Time?: no Location: back Severity: severe Quality: sharp Context: tripped/slipped - Related Data Home Medications Medication Instructions Recorded Confirmed Donepezil [Aricept] 10 mg PO DAILY 10/05/17 01/15/23 Sertraline HCl [Zoloft] 100 mg PO BID 10/05/17 01/15/23 LORazepam [Ativan] 0.5 mg PO HS 08/15/22 01/15/23 Previous Rx's Medication Instructions Recorded Docusate [Colace] 100 mg PO BID #60 capsule 12/18/22 HYDROcodone/APAP 5-325MG [[place] 1 - 2 tab PO Q6HR PRN 7 Days #30 12/18/22 5-325] tab Acetaminophen Tab [Tylenol] 650 mg PO Q6HR PRN tab 12/19/22 Gabapentin [Neurontin] 300 mg PO BID #6 cap 12/21/22 Aspirin 81 mg PO DAILY #60 tab 01/17/23 Cyanocobalamin [Vitamin B-12] 1,000 mcg PO DAILY #60 tab 01/17/23 Lidocaine 5% Patch [Lidoderm 5% 1 patch TOPICAL DAILY #14 patch 01/17/23 Patch] Allergies Allergy/AdvReac Type Severity Reaction Status Date / Time codeine Allergy Unknown Verified 01/15/23 07:11 diclofenac [From Voltaren] AdvReac dizziness Verified 01/15/23 07:11 Review of Systems ROS Statement: Those systems with pertinent positive or pertinent negative responses have been documented in the HPI. ROS Other: All systems not noted in ROS Statement are negative. Constitutional: Denies: fever, weakness Respiratory: Denies: cough, dyspnea Cardiovascular: Denies: chest pain, palpitations, syncope Gastrointestinal: Denies: abdominal pain, vomiting, diarrhea Genitourinary: Denies: dysuria, hematuria Musculoskeletal: Reports: as per HPI, back pain Skin: Denies: rash Neurological: Denies: headache, weakness, numbness Past Medical History Past Medical History: Cancer, GERD/Reflux, Musculoskeletal Disorder Additional Past Medical History / Comment(s): hx of shingles 2001, hx. esophageal cancer, recent fall w/lots of bruises,. Fx scap - May 2017 History of Any Multi-Drug Resistant Organisms: None Reported Past Surgical History: No Surgical Hx Reported, Joint Replacement Additional Past Surgical History / Comment(s): ESOPHAGECTOMY. BILATERAL CATARACTS, prolapsed rectum surgery, status post open reduction and internal fixation right bimalleolar ankle Past Anesthesia/Blood Transfusion Reactions: No Reported Reaction Past Psychological History: Anxiety, Depression Smoking Status: Never smoker Past Alcohol Use History: Occasional Past Drug Use History: None Reported - Past Family History Daughter(s) Family Medical History: Cancer Additional Family Medical History / Comment(s): colon CA Mother Family Medical History: No Reported History Additional Family Medical History / Comment(s): Mother was healthy Father Family Medical History: No Reported History Additional Family Medical History / Comment(s): Father was healthy General Exam Limitations: no limitations General appearance: alert, in no apparent distress Head exam: Present: atraumatic, normocephalic Eye exam: Present: normal appearance. Absent: scleral icterus, conjunctival injection Neck exam: Present: normal inspection, full ROM. Absent: tenderness, meni ngismus Respiratory exam: Present: normal lung sounds bilaterally. Absent: respiratory distress, wheezes, rales, rhonchi, stridor, chest wall tenderness Cardiovascular Exam: Present: regular rate, normal rhythm, normal heart sounds. Absent: systolic murmur, diastolic murmur, rubs, gallop GI/Abdominal exam: Present: soft. Absent: distended, tenderness, guarding, rebound, rigid, mass Extremities exam: Present: normal inspection, normal capillary refill. Absent: pedal edema, calf tenderness Back exam: Present: normal inspection, paraspinal tenderness (There is tendern ess to palpation of the left paraspinal area for approximately T10 down to the mid lumbar area.). Absent: CVA tenderness (R), CVA tenderness (L), vertebral tenderness Neurological exam: Present: alert. Absent: motor sensory deficit Skin exam: Present: warm, dry, intact, normal color. Absent: rash Course Vital Signs 01/14/23 01/15/23 23:02 03:23 Temperature 97.5 F L Pulse Rate 75 67 Respiratory 18 16 Rate Blood Pressure 142/73 150/80 O2 Sat by Pulse 98 97 Oximetry Medical Decision Making - Medical Decision Making This patient is an 87-year-old woman who has fallen resulting in back pain, chest wall pain. The workup does reveal multiple rib fractures. The patient is not able to get up and ambulate due to the pain she is experiencing. In light of that patient be admitted to have further consultation regarding possibility of a rib block or other pain management. She may also require rehabilitation placement. The patient had hip and pelvis x-ray which I interpreted as being negative for acute fracture or dislocation. The patient had chest and left rib x-ray which I interpreted as showing acute rib fracture 2. The patient had lumbar spine computed tomography scan which I interpreted as being negative for acute fracture. Was pt. sent in by a medical professional or institution (, PA, MANUSCRIPT READER, urgent care, hospital, or assisted...) When possible be specific @ -[No] Did you speak to anyone other than the patient for history (EMS, parent, family, police, friend...)? What history was obtained from this source @ -[No] Did you review nursing and triage notes (agree or disagree)? Why? @ -[I reviewed and agree with nursing and triage notes] Were old charts reviewed (outside hosp., previous admission, EMS record, old EKG, old radiological studies, urgent care reports/EKG's, assisted records)? Report findings @ -[No old charts were reviewed] Differential Diagnosis (chest pain, altered mental status, abdominal pain women, abdominal pain men, vaginal bleeding, weakness, fever, dyspnea, syncope, headache, dizziness, GI bleed, back pain, seizure, CVA, palpatations, mental health, musculoskeletal)? @ -[Differential Musculoskeletal Muscular strain, contusion, ligament sprain, fracture, arthritis, septic arthritis, bursitis, cellulitis, muscle spasm, nerve compression, DVT, arterial occlusion, herpes zoster, electrolyte abnormality, tumor.... This is not meant to be in all inclusive list EKG interpreted by me (3pts min.). @ -[As above] X-rays interpreted by me (1pt min.). @ -[As above CT interpreted by me (1pt min.). @ -[None done] U/S interpreted by me (1pt. min.). @ -[None done] What testing was considered but not performed or refused? (CT, X-rays, U/S, labs)? Why? @ -[None] What meds were considered but not given or refused? Why? @ -[None] Did you discuss the management of the patient with other professionals (professionals i.e. , PA, MANUSCRIPT READER, lab, RT, psych nurse, social service worker, universal grinder tool, teacher, chief growth officer, patient case coordinator)? Give summary @ -[Case discussed with admitting physician Was smoking cessation discussed for >3mins.? @ -[No] Was critical care preformed (if so, how long)? @ -[No] Were there social determinants of health that impacted care today? How? (Homelessness, low income, unemployed, alcoholism, drug addiction, transportation, low edu. Level, literacy, decrease access to med. care, snf, rehab)? @ -[No] Was there de-escalation of care discussed even if they declined (Discuss DNR or withdrawal of care, Hospice)? DNR status @ -[No] What co-morbidities impacted this encounter? (DM, HTN, Smoking, COPD, CAD, Cancer, CVA, ARF, Chemo, Hep., AIDS, mental health diagnosis, sleep apnea, morbid obesity)? @ -[None] Was patient admitted / discharged? Hospital course, mention meds given and route , prescriptions, significant lab abnormalities, going to OR and other pertinent info. @ -[Patient be admitted in the hospital for symptom management, possible rehabilitation placement. Undiagnosed new problem with uncertain prognosis? @ -[No] Drug Therapy requiring intensive monitoring for toxicity (Heparin, Nitro, Insulin, Cardizem)? @ -[No] Were any procedures done? @ -[No] Diagnosis/symptom? @ -[Acute back pain Acute rib fractures Acute, or Chronic, or Acute on Chronic? @ -[default] Uncomplicated (without systemic symptoms) or Complicated (systemic symptoms)? @ -[default] Side effects of treatment? @ -[No] Exacerbation, Progression, or Severe Exacerbation? @ -[No] Poses a threat to life or bodily function? How? (Chest pain, [place], [place], pneumonia, PE, COPD, DKA, ARF, appy, cholecystitis, CVA, Diverticulitis, Homicidal, Suicidal, threat to staff... and all critical care pts) @ -[No] - Lab Data Result diagrams: 01/15/23 09:43 01/16/23 06:55 Disposition Clinical Impression: Fall, Ribs, multiple fractures Disposition: ADMITTED IP TO THIS [facility] Condition: Fair Is patient prescribed a controlled substance at d/c from ED?: No
[2023-01-15] MEDS ORDERED: ACETAMINOPHEN TAB 325 MG TAB PO PRN (02:13)
[2023-01-15] MEDS ORDERED: NALOXONE 0.4 MG/ML 1 ML VIAL IV PRN (02:13)
[2023-01-15] MEDS ORDERED: MAG HYDROX/AL HYDROX/SIMETH 30 ML CUP PO PRN (02:13)
[2023-01-15] MEDS: MORPHINE SULFATE 4 MG/ML SYRINGE IV PRN ×2 (03:01→10:27)
[2023-01-15 03:17] LABS: ALT 12 U/L (4-34); AST 27 U/L (14-36); African American GFR (CKD) >90 (>60 ml/min/1.73 sqM); Albumin 2.8 g/dL (3.5-5.0); Alkaline Phosphatase 116 U/L (38-126); Anion Gap 7 mmol/L; Blood Urea Nitrogen 31 mg/dL (7-17); Calcium 8.3 mg/dL (8.4-10.2); Carbon Dioxide 16 mmol/L (22-30); Chloride 112 mmol/L (98-107); Glucose 100 mg/dL (74-99); Non-African American GFR(CKD) 82 (>60 ml/min/1.73 sqM); Potassium 4.3 mmol/L (3.5-5.1); Sodium 135 mmol/L (137-145); Total Bilirubin 0.5 mg/dL (0.2-1.3); Total Protein 5.8 g/dL (6.3-8.2)
--- NOTE | 2023-01-15 03:22 | CT ---
EXAM: CT Lumbar Spine Without Intravenous Contrast CLINICAL HISTORY: ITS.REASON CT Reason: fall injury TECHNIQUE: Axial computed tomography images of the lumbar spine without intravenous contrast. CTDI is 14.3 mGy and DLP is 541.5 mGy-cm. This CT exam was performed using one or more of the following dose reduction techniques: automated exposure control, adjustment of the mA and/or kV according to patient size, and/or use of iterative reconstruction technique. COMPARISON: No relevant prior studies available. FINDINGS: Multiple left posterior rib fractures. Trace left effusion. Vertebrae: No acute fracture. No subluxation. Chronic fracture of L1 with cement placement. Discs/spinal canal/neural foramina: Moderate spinal canal stenosis at L3-4 from degenerative changes.. Soft tissues: Unremarkable. IMPRESSION: No acute fracture of the lumbar spine. Multiple left-sided rib fractures are partially visualized.
[2023-01-15] MEDS: SODIUM CHLORIDE 0.9% 1,000 ML IV SCH ×2 (05:08→22:49)
--- NOTE | 2023-01-15 07:00 | XR ---
EXAMINATION TYPE: XR Hip LT and AP Pelvis DATE OF EXAM: 01/15/2023 1:24 AM INDICATION: Patient age:Female; 87 years old; Reason for study: fall injury; COMPARISON: None. TECHNIQUE: The left hip was examined in the frontal and lateral projections and a AP pelvis. FINDINGS: No evidence for acute process, joint dislocation or significant soft tissue swelling. Right hip fixation hardware persistent fracture. Mild osteophyte formation the superior acetabulum. IMPRESSION: 1. No acute process. 2. Mild left hip osteoarthritis.
--- NOTE | 2023-01-15 07:17 | XR ---
EXAMINATION TYPE: XR ribs LT w pa chest xray DATE OF EXAM: 01/15/2023 1:24 AM INDICATION: Patient age:Female; 87 years old; Reason for study: FALL; COMPARISON: 12/15/2022 TECHNIQUE: Frontal and oblique views of the left ribs with frontal chest radiograph. FINDINGS: Acute fractures of ribs 9 and 10 there is mild displacement of the 10th rib fracture. Overa ll, the lungs are clear. The cardiac silhouette is normal in size. The remaining osseous structures are intact. Kyphoplasty changes within the spine. Multilevel disc degeneration changes. IMPRESSION: Acute left rib 9 and 10 fracture with mild displacement rib 10 fracture.
[2023-01-15] MEDS: LIDOCAINE 5% PATCH TOPICAL SCH (08:37)
[2023-01-15] MEDS ORDERED: FAMOTIDINE 20 MG TAB PO SCH (09:00)
[2023-01-15 10:31] LABS: Basophils % (A) 0 %; Eosinophils # (A) 0.5 k/uL (0-0.7); Eosinophils % (A) 6 %; HCT 38.5 % (34.0-46.0); HGB 11.7 gm/dL (11.4-16.0); Hypochromasia Marked; Lymphocytes # (A) 1.8 k/uL (1.0-4.8); Lymphocytes % (A) 19 %; MCH 32.8 pg (25.0-35.0); MCHC 30.3 g/dL (31.0-37.0); MCV 108.2 fL (80.0-100.0); Macrocytosis Marked; Mean Platelet Volume 8.5; Monocytes # (A) 0.8 k/uL (0-1.0); Monocytes % (A) 8 %; Neutrophils # (A) 6.1 k/uL (1.3-7.7); Neutrophils % (A) 65 %; Platelet Count 245 k/uL (150-450); RBC 3.56 m/uL (3.80-5.40); RDW 15.9 % (11.5-15.5); WBC 9.4 k/uL (3.8-10.6)
--- NOTE | 2023-01-15 11:15 | P.CONS ---
History of Present Illness - Reason for Consult Consult date: 01/15/23 - History of Present Illness Patient is a 87-year-old female with history of recent fall and right hip fra cture status post surgery presented again with all yesterday. She was recently discharged from nursing facility, and had spent the day yesterday with her family. While ambulating with walker yesterday she had a mechanical fall, was witnessed, no loss of consciousness, fell to her left side. She immediately had pain around her left chest. She denies any central chest pain, shortness breath, palpitations, lightheadedness, recent abdominal pain, urinary or bowel complaints. Currently she is complaining of left-sided chest pain around her ribs, but denies any significant other complaints. In the ED, temperature was 97.5, pulse 75, blood pressure 142/73, saturating at 98% on room air, respiratory rate 18. WBC 9.4, hemoglobin 11.7, sodium 135, bicarbonate 16, BUN 31, creatinine 0.61, glucose 100. Ribs x-ray showed acute left rib 9 and 10 fracture with mild displacement of rib 10 fracture. Patient is admitted to orthopedic surgery, [facility] has been consulted for medical management. Pertinent positives and negatives as discussed in HPI, a complete review of systems was performed and all other systems are negative. Patient seen and examined at bedside. Vital signs reviewed General: nontoxic, no distress, appears at stated age, frail Derm: warm, dry Head: atraumatic, normocephalic, symmetric Eyes: EOMI, no lid lag, anicteric sclera, pupils equal round reactive to light ENT: Nose and ears atraumatic Neck: No thyromegaly, supple Mouth: no lip lesion, mucus membranes moist Cardiovascular: S1S2 reg, no murmur, no edema, left-sided chest tenderness to palpation Lungs: clear to auscultation bilateral, no rhonchi, no rales, no wheeze, no accessory muscle use Abdominal: soft, nontender to palpation, no guarding, no appreciable organomegaly Ext: no gross muscle atrophy, reduced strength in right lower extremity due to recent surgery Neuro: CN II-XII grossly intact Psych: Alert, oriented 2, appropriate affect Assessment/Plan: Active: Acute left rib 9 and 10 fracture Mechanical fall Mild hyponatremia azotemia Metabolic acidosis, normal Macrocytosis -Pain control with morphine 4 mg IV every 4 hours, also on oral Tylenol as needed, home oral [place] as needed -DVT prophylaxis per primary service -can continue normal saline at 75 mL an hour -Repeat BMP tomorrow -B12 and folic acid levels pending -Encourage oral intake Chronic: Anxiety Chronic pain Dementia, at baseline -Home meds reconciled Thank you for allowing us to participate in the care of this pleasant patient. Do not hesitate to contact us with questions. Someone can be reached from the [facility] hospitalist group all hours of the day at [phone] or via [employer]. Past Medical History Past Medical History: Cancer, GERD/Reflux, Musculoskeletal Disorder Additional Past Medical History / Comment(s): hx of shingles 2001, hx. es ophageal cancer, recent fall w/lots of bruises,. Fx scapula - May 2017 History of Any Multi-Drug Resistant Organisms: None Reported Past Surgical History: No Surgical Hx Reported, Joint Replacement Additional Past Surgical History / Comment(s): ESOPHAGECTOMY. BILATERAL CATARACTS, prolapsed rectum surgery, status post open reduction and internal fixation right bimalleolar ankle Past Anesthesia/Blood Transfusion Reactions: No Reported Reaction Past Psychological History: Anxiety, Depression Smoking Status: Never smoker Past Alcohol Use History: Occasional Past Drug Use History: None Reported - Past Family History Daughter(s) Family Medical History: Cancer Additional Family Medical History / Comment(s): colon CA Mother Family Medical History: No Reported History Additional Family Medical History / Comment(s): Mother was healthy Father Family Medical History: No Reported History Additional Family Medical History / Comment(s): Father was healthy Medications and Allergies Home Medications Medication Instructions Recorded Confirmed Type Donepezil [Aricept] 10 mg PO DAILY 10/05/17 01/15/23 History Sertraline HCl [Zoloft] 100 mg PO BID 10/05/17 01/15/23 History LORazepam [Ativan] 0.5 mg PO HS 08/15/22 01/15/23 History Aspirin 81 mg PO BID 30 Days #60 tab 12/18/22 01/15/23 Rx Docusate [Colace] 100 mg PO BID #60 capsule 12/18/22 01/15/23 Rx HYDROcodone/APAP 5-325MG [[place] 1 - 2 tab PO Q6HR PRN 7 Days #30 12/18/22 01/15/23 Rx 5-325] tab Acetaminophen Tab [Tylenol] 650 mg PO Q6HR PRN tab 12/19/22 01/15/23 Rx Gabapentin [Neurontin] 300 mg PO BID #6 cap 12/21/22 01/15/23 Rx Allergies Allergy/AdvReac Type Severity Reaction Status Date / Time codeine Allergy Unknown Verified 01/15/23 07:11 diclofenac [From Voltaren] AdvReac dizziness Verified 01/15/23 07:11 Physical Exam Vitals: Vital Signs Temp Pulse Pulse Resp BP BP Pulse Ox 01/15/23 08:39 68 15 01/15/23 07:03 98.3 F 68 15 136/75 97 01/15/23 04:08 98.1 F 66 16 114/75 01/15/23 03:23 67 16 150/80 97 01/14/23 23:02 97.5 F L 75 18 142/73 98 Intake and Output 01/14/23 01/15/23 01/15/23 22:59 06:59 14:59 Other: # Voids 3 Weight 36.287 kg Results CBC & Chem 7: 01/15/23 09:43 01/15/23 02:50 Labs: Abnormal Lab Results - Last 24 Hours (Table) 01/15/23 01/15/23 Range/Units 02:50 09:43 RBC 3.56 L (3.80-5.40) m/uL MCV 108.2 H (80.0-100.0) fL MCHC 30.3 L (31.0-37.0) g/dL RDW 15.9 H (11.5-15.5) % Macrocytosis Marked A Sodium 135 L (137-145) mmol/L Chloride 112 H (98-107) mmol/L Carbon Dioxide 16 L (22-30) mmol/L BUN 31 H (7-17) mg/dL Glucose 100 H (74-99) mg/dL Calcium 8.3 L (8.4-10.2) mg/dL Total Protein 5.8 L (6.3-8.2) g/dL Albumin 2.8 L (3.5-5.0) g/dL
--- NOTE | 2023-01-15 12:20 | P.GSHP ---
History of Present Illness H&P Date: 01/15/23 Chief Complaint: Mechanical fall, left posterior rib fractures 9 through 11. Patient's an 87-year-old lady brought to [facility] emergency department 01/14/2023 after suffering a fall at home. Apparently this was witnessed by family members, she lives with her . She was heading out to the garage for some reason with her walker and walker caught the edge of the lawnmower and she ended up tripping and falling striking her left posterior lateral chest wall. She had significant pain thereafter, exacerbated with deep breathing and movement. A secondary complaint is that of some right ankle pain and swelling. She tells me that she had some manner of fixation there are many years ago on it's been bothersome to her for some time but it got acutely worse after this fall. Rib films in the ER confirmed the left posterior rib fractures 9 through 11 without evidence of pneumothorax or hemothorax. A CT lumbar spine shows some degenerative changes, no acute fracture or dislocation. Laboratory studies were unimpressive with the exception of what looks like a chronic anemia. She's had a hemodynamically stable and afebrile appearance overnight. She denies known history of heart attack, stroke, DVT or pulmonary embolus. She denies any antecedent feelings of dizziness or lightheadedness. Not maintained on any manner of oral anticoagulants. Review of the medical record shows that this has been a recurring in for her. She fell and broke her right hip as recently as a month ago and had just been re-settled at home following associated events and hip arthroplasty. She's had at least 3 other admissions for fall over the past 12 months including one for a sternal fracture and 1 for lumbar fracture. At some point she is undergone kyphoplasty. Family is available at bedside and she tells me that the patient's houses been combed th rough to eliminate fall risks. There is safety riels everywhere, the throw rug several been removed and she has a walker that she is supposed to use for getting around. Patient readily admits to me that her problem is she just goes as she should. Everything has to be fast with her and that seems to have been putting her at risk for falls. - Review of Systems All systems: negative - Constitutional Constitutional: Reports as per HPI Past Medical History Past Medical History: Cancer, GERD/Reflux, Musculoskeletal Disorder Additional Past Medical History / Comment(s): hx of shingles 2001, hx. esophageal cancer, recent fall w/lots of bruises,. Fx scapula - May 2017 History of Any Multi-Drug Resistant Organisms: None Reported Past Surgical History: No Surgical Hx Reported, Joint Replacement Additional Past Surgical History / Comment(s): ESOPHAGECTOMY. BILATERAL CATARACTS, prolapsed rectum surgery, status post open reduction and internal fixation right bimalleolar ankle Past Anesthesia/Blood Transfusion Reactions: No Reported Reaction Past Psychological History: Anxiety, Depression Smoking Status: Never smoker Past Alcohol Use History: Occasional Past Drug Use History: None Reported - Past Family History Daughter(s) Family Medical History: Cancer Additional Family Medical History / Comment(s): colon CA Mother Family Medical History: No Reported History Additional Family Medical History / Comment(s): Mother was healthy Father Family Medical History: No Reported History Additional Family Medical History / Comment(s): Father was healthy Medications and Allergies Home Medications Medication Instructions Recorded Confirmed Type Donepezil [Aricept] 10 mg PO DAILY 10/05/17 01/15/23 History Sertraline HCl [Zoloft] 100 mg PO BID 10/05/17 01/15/23 History LORazepam [Ativan] 0.5 mg PO HS 08/15/22 01/15/23 History Aspirin 81 mg PO BID 30 Days #60 tab 12/18/22 01/15/23 Rx Docusate [Colace] 100 mg PO BID #60 capsule 12/18/22 01/15/23 Rx HYDROcodone/APAP 5-325MG [[place] 1 - 2 tab PO Q6HR PRN 7 Days #30 12/18/22 01/15/23 Rx 5-325] tab Acetaminophen Tab [Tylenol] 650 mg PO Q6HR PRN tab 12/19/22 01/15/23 Rx Gabapentin [Neurontin] 300 mg PO BID #6 cap 12/21/22 01/15/23 Rx Allergies Allergy/AdvReac Type Severity Reaction Status Date / Time codeine Allergy Unknown Verified 01/15/23 07:11 diclofenac [From Voltaren] AdvReac dizziness Verified 01/15/23 07:11 Surgical - Exam Osteopathic Statement: *. No significant issues noted on an osteopathic structural exam other than those noted in the History and Physical/Consult. Vital Signs Temp Pulse Resp BP Pulse Ox 97.5 F L 75 18 142/73 98 01/14/23 23:02 01/14/23 23:02 01/14/23 23:02 01/14/23 23:02 01/14/23 23:02 - General no distress - Eyes PERRL, normal ocular movement - ENT normal pinna, normal nares, normal mucosa, no congestion - Neck trachea midline - Respiratory No chest wall ecchymoses or crepitance. Lungs clear to auscultation bilaterally. bilateral: dullness - Cardiovascular Rhythm: regular - Abdomen Abdomen soft, nontender to palpation, no guarding rebound or distention. - Integumentary no rash, no growths, no abnormal pigmentation - Neurologic GCS 15, cranial nerves II through XII grossly intact bilaterally, no focal motor or sensory deficits appreciated. Moves all extremities on command. normal coordination, normal sensation - Musculoskeletal There is some mild edema and erythema present at the right ankle, there is reduced range of motion, some moderate overlying tenderness. - Psychiatric oriented to time, oriented to person, oriented to place, speech is normal, m [place] intact Results - Labs 01/15/23 09:43 01/15/23 02:50 Abnormal Lab Results - Last 24 Hours (Table) 01/15/23 01/15/23 Range/Units 02:50 09:43 RBC 3.56 L (3.80-5.40) m/uL MCV 108.2 H (80.0-100.0) fL MCHC 30.3 L (31.0-37.0) g/dL RDW 15.9 H (11.5-15.5) % Macrocytosis Marked A Sodium 135 L (137-145) mmol/L Chloride 112 H (98-107) mmol/L Carbon Dioxide 16 L (22-30) mmol/L BUN 31 H (7-17) mg/dL Glucose 100 H (74-99) mg/dL Calcium 8.3 L (8.4-10.2) mg/dL Total Protein 5.8 L (6.3-8.2) g/dL Albumin 2.8 L (3.5-5.0) g/dL Diabetes panel 01/15/23 Range/Units 02:50 Sodium 135 L (137-145) mmol/L Potassium 4.3 (3.5-5.1) mmol/L Chloride 112 H (98-107) mmol/L Carbon Dioxide 16 L (22-30) mmol/L BUN 31 H (7-17) mg/dL Creatinine 0.61 (0.52-1.04) mg/dL Glucose 100 H (74-99) mg/dL Calcium 8.3 L (8.4-10.2) mg/dL AST 27 (14-36) U/L ALT 12 (4-34) U/L Alkaline Phosphatase 116 (38-126) U/L Total Protein 5.8 L (6.3-8.2) g/dL Albumin 2.8 L (3.5-5.0) g/dL Calcium panel 01/15/23 Range/Units 02:50 Calcium 8.3 L (8.4-10.2) mg/dL Albumin 2.8 L (3.5-5.0) g/dL Pituitary panel 01/15/23 Range/Units 02:50 Sodium 135 L (137-145) mmol/L Potassium 4.3 (3.5-5.1) mmol/L Chloride 112 H (98-107) mmol/L Carbon Dioxide 16 L (22-30) mmol/L BUN 31 H (7-17) mg/dL Creatinine 0.61 (0.52-1.04) mg/dL Glucose 100 H (74-99) mg/dL Calcium 8.3 L (8.4-10.2) mg/dL Adrenal panel 01/15/23 Range/Units 02:50 Sodium 135 L (137-145) mmol/L Potassium 4.3 (3.5-5.1) mmol/L Chloride 112 H (98-107) mmol/L Carbon Dioxide 16 L (22-30) mmol/L BUN 31 H (7-17) mg/dL Creatinine 0.61 (0.52-1.04) mg/dL Glucose 100 H (74-99) mg/dL Calcium 8.3 L (8.4-10.2) mg/dL Total Bilirubin 0.5 (0.2-1.3) mg/dL AST 27 (14-36) U/L ALT 12 (4-34) U/L Alkaline Phosphatase 116 (38-126) U/L Total Protein 5.8 L (6.3-8.2) g/dL Albumin 2.8 L (3.5-5.0) g/dL - Imaging Chest x-ray: report reviewed, image reviewed Assessment and Plan Assessment: 87-year-old lady status post mechanical fall from standing, recurrent. Associated closed left posterior lateral rib fractures 9 through 11, minimally displaced, no comminution. No evidence of pneumothorax or hemothorax on chest films or lungs views is seen on CT lumbar spine. At risk for pneumonia. Pain at the right ankle, suspect a sprain injury, rule out fracture. Recent fall and right hip fracture post arthroplasty approximately 1 month ago. Plan: Patient's been admitted to the trauma service given age and presence of rib fractures. She is at risk for pneumonia. Will order incentive spirometry, con tinue with Lidoderm patch over area of greatest tenderness, oral and parenteral pain adjuncts. Will order three-view right ankle films to exclude fracture. Okay to resume all home medications. Regular diet. Will anticipate transition to medical admission in 24 hours. PT and OT consultation. Time with Patient: Greater than 30
--- NOTE | 2023-01-15 12:57 | XR ---
EXAMINATION TYPE: XR ankle complete RT DATE OF EXAM: 01/15/2023 12:53 PM INDICATION: Patient age:Female; 87 years old; Reason for study: Recent fall, pain and swelling COMPARISON: 02/27/2022 TECHNIQUE: The right ankle is imaged in frontal, lateral and oblique projections. FINDINGS: Post fixation changes with hardware in place involving the distal fibula and medial tibia. There is s oft tissue swelling around the ankle. Hardware is intact. IMPRESSION: Soft tissue swelling around ankle without evidence of fracture. Hardware is intact.
[2023-01-15] MEDS: HEPARIN SODIUM,PORCINE/PF 5,000 UNIT/0.5 ML SYRINGE SQ SCH (16:21)
[2023-01-15] MEDS: HYDROcodone/APAP 5-325MG 1 EACH TAB PO PRN (21:16)
[2023-01-15] MEDS: GABAPENTIN 300 MG CAP PO SCH (21:17)
[2023-01-15] MEDS: SERTRALINE 100 MG TAB PO SCH (21:17)
[2023-01-15] MEDS: DOCUSATE 100 MG CAP PO SCH (21:17)
[2023-01-15] MEDS: LORazepam 0.5 MG TAB PO SCH (21:17)
[2023-01-16] MEDS: HEPARIN SODIUM,PORCINE/PF 5,000 UNIT/0.5 ML SYRINGE SQ SCH ×3 (01:23→16:09)
[2023-01-16] MEDS: DOCUSATE 100 MG CAP PO SCH ×2 (07:47→20:09)
[2023-01-16] MEDS: LIDOCAINE 5% PATCH TOPICAL SCH (07:48)
[2023-01-16] MEDS: FAMOTIDINE 20 MG TAB PO SCH (07:48)
[2023-01-16] MEDS: DONEPEZIL 10 MG TAB PO SCH (07:48)
[2023-01-16] MEDS: SERTRALINE 100 MG TAB PO SCH ×2 (07:48→20:08)
[2023-01-16] MEDS: GABAPENTIN 300 MG CAP PO SCH ×2 (07:48→20:09)
[2023-01-16] MEDS: HYDROcodone/APAP 5-325MG 1 EACH TAB PO PRN ×2 (07:48→16:08)
--- NOTE | 2023-01-16 09:37 | P.PN ---
Subjective Progress Note Date: 01/16/23 Patient is a 87-year-old female with history of recent fall and right hip fracture status post surgery presented again with all yesterday. She was recently discharged from nursing facility, and had spent the day yesterday with her family. While ambulating with walker yesterday she had a mechanical fall, was witnessed, no loss of consciousness, fell to her left side. In the ED, temperature was 97.5, pulse 75, blood pressure 142/73, saturating at 98% on room air, respiratory rate 18. WBC 9.4, hemoglobin 11.7, sodium 135, bicarbonate 16, BUN 31, creatinine 0.61, glucose 100. Ribs x-ray showed acute left rib 9 and 10 fracture with mild displacement of rib 10 fracture. Patient is admitted to orthopedic surgery, [facility] has been consulted for medical management. Patient was seen and examined this morning. No acute events overnight. Patient complains of left-sided rib pain especially with deep inspiration. Pain is 10 out of 10 in severity at times. Vital signs reviewed General: nontoxic, no distress, appears at stated age, frail Derm: warm, dry Head: atraumatic, normocephalic, symmetric Eyes: EOMI, no lid lag, anicteric sclera ENT: Nose and ears atraumatic Neck: No thyromegaly, supple Mouth: no lip lesion, mucus membranes moist Cardiovascular: S1S2 reg, no murmur, no edema, left-sided chest tenderness to palpation Lungs: clear to auscultation bilateral, no rhonchi, no rales, no wheeze, no accessory muscle use Ext: no gross muscle atrophy, reduced strength in right lower extremity due to recent surgery Psych: Alert, oriented 2, appropriate affect Assessment/Plan: Active: Acute left rib 9 and 10 fracture Mechanical fall Mild hyponatremia azotemia Metabolic acidosis, normal Macrocytosis -Pain control with morphine 4 mg IV every 4 hours, also on oral Tylenol as needed, home oral [place] as needed -DVT prophylaxis per primary service -DC IVF and encourage hydration by mouth -BMP pending -B12 and folic acid levels pending -Encourage oral intake -PT and OT consulted -Pain management consulted Chronic: Anxiety Chronic pain Dementia, at baseline -Home meds reconciled Thank you for allowing us to participate in the care of this pleasant patient. Do not hesitate to contact us with questions. Someone can be reached from the [facility] hospitalist group all hours of the day at [phone] or via [employer]. Objective - Vital Signs Vital signs: Vital Signs Temp 97.9 F 01/16/23 07:10 Pulse 66 01/16/23 07:10 Resp 18 01/16/23 07:10 BP 170/90 01/16/23 07:10 Pulse Ox 93 L 01/16/23 07:10 FiO2 Intake & Output 01/15/23 01/16/23 01/16/23 18:59 06:59 18:59 Intake Total 360 Balance 360 Intake: Oral 360 Other: # Voids 3 1 - Labs CBC & Chem 7: 01/15/23 09:43 01/15/23 02:50 Labs: Abnormal Lab Results - Last 24 Hours (Table) 01/15/23 Range/Units 09:43 RBC 3.56 L (3.80-5.40) m/uL MCV 108.2 H (80.0-100.0) fL MCHC 30.3 L (31.0-37.0) g/dL RDW 15.9 H (11.5-15.5) % Macrocytosis Marked A
[2023-01-16 12:20] VITALS: BMI 15.0
--- NOTE | 2023-01-16 12:45 | P.PAINCN ---
History of Present Illness - Reason for Consult Consult date: 01/16/23 Left-sided rib pain secondary to rib fractures - Chief Complaint Left-sided chest wall pain secondary to rib fractures - History of Present Illness Ms. Camilo is a 87-year-old pleasant female had a recent history of mechanical fall and fractured left side 9, and 10 ribs on 01/14/23. she had h/o frequent falls. As per the patient she has no pain while lying down, sitting, standing, and walking. She is complaining pain only at the time of trying to get up from the bed. She rated her pain 6-7 out of 10 in severity which is aching, throbbing type of pain over the left side lower chest wall area. Changing position making her pain worse. Pain medications helping in relieving her pain. She denied any difficulty breathing, and dizziness, loss of consciousness. She denied any thoracic back pain. But she had a history of chronic pain secondary to arthritis. She uses walker for walking support. She denied any bowel/bladder issues secondary to recent fall. Review of Systems All systems: negative Constitutional: Denies chills, Denies fever Eyes: denies blurred vision, denies pain Ears, nose, mouth and throat: Denies headache, Denies sore throat Cardiovascular: Reports chest pain, Denies shortness of breath Respiratory: Denies cough Gastrointestinal: Denies abdominal pain, Denies diarrhea, Denies nausea, Denies vomiting Genitourinary: Denies dysuria, Denies hematuria Musculoskeletal: Denies myalgias Integumentary: Denies pruritus, Denies rash Neurological: Reports balance difficulties, Reports numbness Psychiatric: Reports depression, Denies anxiety Endocrine: Denies fatigue, Denies weight change Past Medical History Past Medical History: Cancer, GERD/Reflux, Musculoskeletal Disorder Additional Past Medical History / Comment(s): hx of shingles 2001, hx. esophag eal cancer, recent fall w/lots of bruises,. Fx scapula - May 2017 History of Any Multi-Drug Resistant Organisms: None Reported Past Surgical History: No Surgical Hx Reported, Joint Replacement Additional Past Surgical History / Comment(s): ESOPHAGECTOMY. BILATERAL CATARACTS, prolapsed rectum surgery, status post open reduction and internal fixation right bimalleolar ankle Past Anesthesia/Blood Transfusion Reactions: No Reported Reaction Past Psychological History: Anxiety, Depression Smoking Status: Never smoker Past Alcohol Use History: Occasional Past Drug Use History: None Reported - Past Family History Daughter(s) Family Medical History: Cancer Additional Family Medical History / Comment(s): colon CA Mother Family Medical History: No Reported History Additional Family Medical History / Comment(s): Mother was healthy Father Family Medical History: No Reported History Additional Family Medical History / Comment(s): Father was healthy Medications and Allergies Home Medications Medication Instructions Recorded Confirmed Type Donepezil [Aricept] 10 mg PO DAILY 10/05/17 01/15/23 History Sertraline HCl [Zoloft] 100 mg PO BID 10/05/17 01/15/23 History LORazepam [Ativan] 0.5 mg PO HS 08/15/22 01/15/23 History Aspirin 81 mg PO BID 30 Days #60 tab 12/18/22 01/15/23 Rx Docusate [Colace] 100 mg PO BID #60 capsule 12/18/22 01/15/23 Rx HYDROcodone/APAP 5-325MG [Dent 1 - 2 tab PO Q6HR PRN 7 Days #30 12/18/22 01/15/23 Rx 5-325] tab Acetaminophen Tab [Tylenol] 650 mg PO Q6HR PRN tab 12/19/22 01/15/23 Rx Gabapentin [Neurontin] 300 mg PO BID #6 cap 12/21/22 01/15/23 Rx Allergies Allergy/AdvReac Type Severity Reaction Status Date / Time codeine Allergy Unknown Verified 01/15/23 07:11 diclofenac [From Voltaren] AdvReac dizziness Verified 01/15/23 07:11 Physical Exam Vitals: Vital Signs Temp Pulse Resp BP Pulse Ox 01/16/23 07:10 97.9 F 66 18 170/90 93 L 01/16/23 00:39 98.0 F 66 18 168/77 96 01/15/23 19:18 98.4 F 64 16 136/79 95 01/15/23 14:00 98.1 F 81 18 130/63 94 L Intake and Output 01/15/23 01/16/23 01/16/23 22:59 06:59 14:59 Intake Total 120 240 Balance 120 240 Intake: Oral 120 240 Other: # Voids 3 1 - Constitutional General appearance: cooperative, no acute distress - Respiratory Respiratory: bilateral: CTA (Left side 8, 9, 10 ribs anterior, and mid axillary area tenderness positive.) - Cardiovascular Rhythm: regular - Gastrointestinal General gastrointestinal: soft - Psychiatric Psychiatric: A&O x's 3, appropriate affect, intact judgment & insight Results CBC & Chem 7: 01/15/23 09:43 01/15/23 02:50 Labs: Abnormal Lab Results - Last 24 Hours (Table) 01/15/23 Range/Units 09:43 RBC 3.56 L (3.80-5.40) m/uL MCV 108.2 H (80.0-100.0) fL MCHC 30.3 L (31.0-37.0) g/dL RDW 15.9 H (11.5-15.5) % Macrocytosis Marked A Chest x-ray: report reviewed, image reviewed Assessment and Plan Assessment: Acute left-sided chest wall pain secondary to rib fractures Left side 9 and 10 rib fractures Plan: #1 multiple treatment options including but not limited to interventional therapy, adjunct medication therapy, medical treatment options were discussed with the patient. And all questions were answered to the patient's satisfactio n. #2 treatment plan agreement : Patient was thoroughly discussed regarding the treatment options, alternatives, and importance of exercises as tolerated. Patient clearly understood. #3 Patient was counseled on importance of regular incentive spirometry exercise. #4 interventional procedures: Intercostal nerve block / thoracic paravertebral block, and thoracic epidural procedure. Procedure, complications, alternatives discussed with the patient. Patient refuses to go any interventional procedure at this time. As she is comfortable with lying down, sitting, and standing and walking. #5 medications #1 Dent 5/325 by mouth every 6 hours as needed for pain #2 Neurontin 300 mg by mouth every 12 hours #3 lidocaine patch 5% apply over the affected area every 12 hours on and every 12 hours off If patient does change her mind regarding intervention procedure please contact us were planning to do intercostal nerve block or thoracic paravertebral block. Time with Patient: Less than 30 PQRS Measure Charge Sheet - Pain Location Left Chest Non-Pharmacological Interventions: Relaxation Technique Pharmacological Interventions: Discuss Pain Med Options Pain Comment: see mar for pain assessment details PQRS Narrative: Smoking Status Never smoker Blood Pressure [Right Arm 170/90 Prone] Blood Pressure 150/80 Pain Intensity [Left Chest] 6 Pain Intensity 7 Pain Scale Used Numeric (1 - 10) Scale Used Numeric (1 - 10) Home Medications: Ambulatory Orders Donepezil [Aricept] 10 mg PO DAILY 10/05/17 Sertraline HCl [Zoloft] 100 mg PO BID 10/05/17 LORazepam [Ativan] 0.5 mg PO HS 08/15/22 Aspirin 81 mg PO BID 30 Days #60 tab 12/18/22 Docusate [Colace] 100 mg PO BID #60 capsule 12/18/22 HYDROcodone/APAP 5-325MG [Dent 5-325] 1 - 2 tab PO Q6HR PRN 7 Days #30 tab 12/18/22 Acetaminophen Tab [Tylenol] 650 mg PO Q6HR PRN tab 12/19/22 Gabapentin [Neurontin] 300 mg PO BID #6 cap 12/21/22
[2023-01-16] MEDS ORDERED: polyethylene glycoL 3350 17 GM POWD.PACK PO PRN (14:34)
--- NOTE | 2023-01-16 14:34 | P.PN ---
Subjective Progress Note Date: 01/16/23 Principal diagnosis: Mechanical fall, left posterior lateral rib fractures 9 through 11 Patient seen and examined at bedside. Appears comfortable at rest, family in the room all simultaneously that she had been complaining of rib and chest pain all day prior to my arrival. She tells me that she is feeling fine. She denies any issues with breathing. Today she initially declined of a pain intervention, it sounds like the patient was under the impression that if she got an injection and she would be required to return to the hospital multiple times every time it wore off and she really just wants to get out of the hospital. After explaining that that's not really how that process works it sounds like they're interested in pursuing it. She's had a hemodynamically stable and afebrile appearance overnight. Working with incentive spirometer. Left ankle films show hardware in place, no acute fracture or dislocation, there is some mild soft tissue edema present. His secondary concern is that she hasn't had a bowel movement in 3 days, admits to some abdominal cramping. Typically uses MiraLAX. Objective - Vital Signs Vital signs: Vital Signs Temp 97.8 F 01/16/23 14:00 Pulse 76 01/16/23 14:00 Resp 18 01/16/23 14:00 BP 127/74 01/16/23 14:00 Pulse Ox 97 01/16/23 14:00 FiO2 Intake & Output 01/15/23 01/16/23 01/16/23 18:59 06:59 18:59 Intake Total 360 Balance 360 Weight 36.287 kg Intake: Oral 360 Other: # Voids 3 1 2 - EENT Eyes: Present: EOMI, PERRLA ENT: Present: NA/AT - Respiratory Details: There is some moderate point tenderness over the palpable rib fractures of the left posterior lateral chest wall, no overlying ecchymoses, no soft tissue crepitance. Respiratory: bilateral: CTA - Cardiovascular Rhythm: regular - Gastrointestinal Gastrointestinal Comment(s): Abdomen is soft, minimally tender to palpation, no guarding rebound or distention. Pelvis is stable. - Neurologic Neurologic: Present: CNII-XII intact - Musculoskeletal Musculoskeletal: Present: generalized weakness - Psychiatric Psychiatric: Present: A&O x's 3 - Labs CBC & Chem 7: 01/15/23 09:43 01/15/23 02:50 Assessment and Plan Assessment: 87-year-old lady status post mechanical fall from standing, recurrent. Associated closed left posterior lateral rib fractures 9 through 11, minimally displaced, no comminution. No evidence of pneumothorax or hemothorax on chest films or lungs views is seen on CT lumbar spine. At risk for pneumonia. Pain at the right ankle, suspect a sprain injury, no evidence of fracture on x-ray. Recent fall and right hip fracture post arthroplasty approximately 1 month ago. Acute on chronic constipation. Plan: I told the patient we would revisit potential intercostal block, in my experience patient's typically get up few days of relief in the setting of rib fractures. If nothing else that'll help get her over the period of greatest pain more easily and make breathing easier and reduce her risk of pneumonia. Continue incentive spirometry, continue with Lidoderm patch over area of greatest tenderness, oral and parenteral pain adjuncts. Okay to resume all home medications. Regular diet. Transition to medical admission. PT and OT consultation. Ordered MiraLAX, Dulcolax suppository, Colace, enema as needed. Time with Patient: Greater than 30
[2023-01-16] MEDS ORDERED: NA PHOS,M-B/NA PHOS,DI-BA 133 ML ENEMA RECTAL ONE (19:00)
[2023-01-16] MEDS: LORazepam 0.5 MG TAB PO SCH (20:09)
[2023-01-17] MEDS: HEPARIN SODIUM,PORCINE/PF 5,000 UNIT/0.5 ML SYRINGE SQ SCH ×2 (05:15→08:09)
[2023-01-17 05:21] LABS: BUN/Creat Ratio 28.12 Ratio (12.00-20.00); Blood Urea Nitrogen 22.5 mg/dL (9.0-27.0); Calcium 9.1 mg/dL (8.7-10.3); Carbon Dioxide 20.2 mmol/L (21.6-31.8); Chloride 109 mmol/L (96-109); Glucose 99 mg/dL (70-110); Potassium 4.6 mmol/L (3.5-5.5); Sodium 141 mmol/L (135-145)
[2023-01-17] MEDS: HYDROcodone/APAP 5-325MG 1 EACH TAB PO PRN ×2 (05:41→10:42)
[2023-01-17 07:42] VITALS: TEMP 98.1
[2023-01-17] MEDS: FAMOTIDINE 20 MG TAB PO SCH (08:08)
[2023-01-17] MEDS: GABAPENTIN 300 MG CAP PO SCH (08:08)
[2023-01-17] MEDS: DONEPEZIL 10 MG TAB PO SCH (08:08)
[2023-01-17] MEDS: SERTRALINE 100 MG TAB PO SCH (08:09)
[2023-01-17] MEDS: LIDOCAINE 5% PATCH TOPICAL SCH (08:09)
[2023-01-17] MEDS: DOCUSATE 100 MG CAP PO SCH (08:09)
[2023-01-17] MEDS ORDERED: CYANOCOBALAMIN 500 MCG TAB PO SCH (09:00)
[2023-01-17] MEDS ORDERED: ROPIVACAINE 5 MG/ML 30 ML VIAL ONE (11:33)
[2023-01-17] MEDS ORDERED: SODIUM CHLORIDE 0.9% (PF) 10 ML VIAL ONE (11:33)
[2023-01-17] MEDS ORDERED: DEXAMETHASONE SOD PHOSPHATE 4 MG/ML 1 ML VIAL ONE (11:33)
[2023-01-17] MEDS ORDERED: fentaNYL (PF) 50 MCG/ML 2 ML AMP IVP ONE (11:34)
[2023-01-17] MEDS ORDERED: LACTATED RINGERS 1,000 ML IV SCH (12:00)
[2023-01-17] MEDS ORDERED: LACTATED RINGERS 1,000 ML IV ONE (12:00)
--- NOTE | 2023-01-17 12:04 | P.ANPRN ---
Procedure Note - Anesthesia - Nerve Block Performed Left Erector Spinae Single Time Out Performed: Yes Date of Procedure: 01/17/23 Procedure Start Time: 11:38 Procedure Stop Time: 11:48 Location of Patient: Phase I Indication: Analgesia, Dx/Pain Location Sedation Type: Awake Preparation: Sterile Prep, Sterile Dressing Position: Prone Catheter: None Needle Types: Pajunk Needle Gauge: 21 Ultrasound used to visualize needle placement: Yes Ultrasound used to observe medication spread: Yes Injectate: 0.5% Ropivacaine (see comment for volume) (30 ml of block solution containing 20 ml of 0.5% ropivacaine and 4 mg of decrdran and 9 ml of 0.9% NaCl) Blood Aspirated: No Pain Paresthesia on Injection Noted: No Resistance on Injection: Normal Image Stored and Saved: Yes Events: Uneventful and Well Tolerated
[2023-01-17 12:10] VITALS: RESP 14
--- NOTE | 2023-01-17 13:04 | P.DS ---
Providers Date of admission: 01/15/23 02:16 Expected date of discharge: 01/17/23 Attending physician: Hima Sibley MD Consults: 01/15/23 02:43 Consult Physician Routine Consulting Provider: Roseann Tomlin Consult Reason/Comments: medical consult Do you want consulting provider notified?: Yes 01/16/23 09:35 Consult Physician Routine Consulting Provider: Vernon Amanda Consult Reason/Comments: Rib fracture Do you want consulting provider notified?: Yes Primary care physician: [facility] Hospital Course: Patient is a 87-year-old female with history of recent fall and right hip fracture status post surgery presented again with all yesterday. She was recently discharged from nursing facility, and had spent the day yesterday with her family. While ambulating with walker yesterday she had a mechanical fall, was witnessed, no loss of consciousness, fell to her left side. In the ED, temperature was 97.5, pulse 75, blood pressure 142/73, saturating at 98% on room air, respiratory rate 18. WBC 9.4, hemoglobin 11.7, sodium 135, bicarbonate 16, BUN 31, creatinine 0.61, glucose 100. Ribs x-ray showed acute left rib 9 and 10 fracture with mild displacement of rib 10 fracture. Patient was admitted to orthopedic surgery, [facility] has been consulted for medical management. She was noted to have low vitamin B12 and macrocytosis for which she was started on supplementation. Pain management was consulted and she underwent intercostal nerve block. She reported significant improvement in pain after the procedure. She was subsequently discharged on 01/17. Pertinent studies include lumbar spine CT, hip and pelvis x-ray, chest and rib x-ray, ankle x-ray. Pertinent procedures include intercostal nerve block. Vital signs reviewed General: nontoxic, no distress, appears at stated age, frail Derm: warm, dry Head: atraumatic, normocephalic, symmetric Eyes: EOMI, no lid lag, anicteric sclera ENT: Nose and ears atraumatic Mouth: no lip lesion, mucus membranes moist Cardiovascular: S1S2 reg, no murmur, no edema, left-sided chest tenderness to palpation Lungs: clear to auscultation bilateral, no rhonchi, no rales, no wheeze, no accessory muscle use Ext: no gross muscle atrophy, reduced strength in right lower extremity due to recent surgery Psych: Alert, oriented 2, appropriate affect Discharge Diagnosis: Acute left rib 9 and 10 fracture Mechanical fall Mild hyponatremia azotemia Metabolic acidosis, normal Macrocytosis This complex discharge took 35 minutes to complete. Patient Condition at Discharge: Fair Plan - Discharge Summary Discharge Rx Participant: Yes New Discharge Prescriptions: New Cyanocobalamin [Vitamin B-12] 1,000 mcg PO DAILY #60 tab Lidocaine 5% Patch [Lidoderm 5% Patch] 1 patch TOPICAL DAILY #14 patch Continue Sertraline HCl [Zoloft] 100 mg PO BID Donepezil [Aricept] 10 mg PO DAILY Docusate [Colace] 100 mg PO BID #60 capsule LORazepam [Ativan] 0.5 mg PO HS HYDROcodone/APAP 5-325MG [[place]wick 5-325] 1 - 2 tab PO Q6HR PRN 7 Days #30 tab PRN Reason: Pain Acetaminophen Tab [Tylenol] 650 mg PO Q6HR PRN tab PRN Reason: Mild Pain Or Fever > 100.5 Gabapentin [Neurontin] 300 mg PO BID #6 cap Changed Aspirin 81 mg PO DAILY #60 tab Discharge Medication List Donepezil [Aricept] 10 mg PO DAILY 10/05/17 [History] Sertraline HCl [Zoloft] 100 mg PO BID 10/05/17 [History] LORazepam [Ativan] 0.5 mg PO HS 08/15/22 [History] Docusate [Colace] 100 mg PO BID #60 capsule 12/18/22 [Rx] HYDROcodone/APAP 5-325MG [[place]wick 5-325] 1 - 2 tab PO Q6HR PRN 7 Days #30 tab 12/18/22 [Rx] Acetaminophen Tab [Tylenol] 650 mg PO Q6HR PRN tab 12/19/22 [Rx] Gabapentin [Neurontin] 300 mg PO BID #6 cap 12/21/22 [Rx] Aspirin 81 mg PO DAILY #60 tab 01/17/23 [Rx] Cyanocobalamin [Vitamin B-12] 1,000 mcg PO DAILY #60 tab 01/17/23 [Rx] Lidocaine 5% Patch [Lidoderm 5% Patch] 1 patch TOPICAL DAILY #14 patch 01/17/23 [Rx] Follow up Appointment(s)/Referral(s): [facility] [[facility]] - 1 Week ([facility] will call you to arrange a visit) Scot Rios MD [Primary Care Provider] - 1-2 days Discharge Disposition: HOME SELF-CARE
[2023-01-17 13:28] VITALS: BP 105/61; PULSE 82
== END 2023-01-17 14:53 | disposition home health service (06) | DRG 184 ==
LOC: EC 22:59 → 4SSUR 01-15 02:16
PROVIDERS: ADMIT Family Medicine; ATTEND Family Medicine
PROC: 3E0T33Z Introduction of Anti-inflammatory into Peripheral Nerves and Plexi, Percutaneous Approach (ICD-10-PCS; principal; 2023-01-17 10:40)
PROC: 3E0T3BZ Introduction of Anesthetic Agent into Peripheral Nerves and Plexi, Percutaneous Approach (ICD-10-PCS; principal; 2023-01-17 10:40)
DX: S22.42XA Multiple fractures of ribs, left side, initial encounter for closed fracture (principal); E87.1 Hypo-osmolality and hyponatremia; E87.20 Acidosis, unspecified; F03.94 Unspecified dementia, unspecified severity, with anxiety; F03.93 Unspecified dementia, unspecified severity, with mood disturbance; D53.9 Nutritional anemia, unspecified; Y92.015 Private garage of single-family (private) house as the place of occurrence of the external cause; W01.0XXA Fall on same level from slipping, tripping and stumbling without subsequent striking against object, initial encounter; E53.8 Deficiency of other specified B group vitamins; K59.09 Other constipation; R22.41 Localized swelling, mass and lump, right lower limb; R79.89 Other specified abnormal findings of blood chemistry; K21.9 Gastro-esophageal reflux disease without esophagitis; G89.29 Other chronic pain; Z96.641 Presence of right artificial hip joint; Z71.3 Dietary counseling and surveillance; Z91.81 History of falling; Z85.01 Personal history of malignant neoplasm of esophagus; Z79.899 Other long term (current) drug therapy; Z79.82 Long term (current) use of aspirin; Z88.5 Allergy status to narcotic agent; Z88.6 Allergy status to analgesic agent
CPT/HCPCS: 36415; 64999; 72131; 73502; 80048; 80053; 82607; 82746; 85025; 93005; 96372; 96374; 99284

== ENCOUNTER 2023-02-04 14:56 | Emergency (ER) | payer MEDICARE ==
[2023-02-04] MEDS ORDERED: DIPH,PERTUS(ACELL)TETVAC-LF 0.5 ML VIAL IM ONE (17:06)
[2023-02-04] MEDS ORDERED: TOPICAL SKIN ADHESIVE 1 EACH AMP TOPICAL ONE (17:06)
--- NOTE | 2023-02-04 17:10 | ED ---
General Adult HPI - General Chief complaint: Psychiatric Symptoms Stated complaint: neck laceration Time Seen by Provider: 02/04/23 15:34 Source: patient, family, RN notes reviewed Mode of arrival: wheelchair Limitations: no limitations - History of Present Illness Initial comments: Patient is a pleasant 87-year-old female presenting to the emergency Department with neck lacerations. Patient tells the nurse that she tried to strangle herself with a necklace. Patient denies this to me and states she fell on the stairs. Patient later states when that she did use a razor blade. Patient admits to being depressed recently. Patient denies homicidal thoughts. No hallucinations. No alcohol or street drug use. Unclear last tetanus immunization. - Related Data Home Medications Medication Instructions Recorded Confirmed Donepezil [Aricept] 10 mg PO DAILY 10/05/17 02/04/23 Sertraline HCl [Zoloft] 100 mg PO BID 10/05/17 02/04/23 LORazepam [Ativan] 0.5 mg PO HS 08/15/22 02/04/23 HYDROcodone/APAP 5-325MG [[place] 1 tab PO Q6HR PRN 02/04/23 02/04/23 5-325] Previous Rx's Medication Instructions Recorded Docusate [Colace] 100 mg PO BID #60 capsule 12/18/22 Acetaminophen Tab [Tylenol] 650 mg PO Q6HR PRN tab 12/19/22 Gabapentin [Neurontin] 300 mg PO BID #6 cap 12/21/22 Aspirin 81 mg PO DAILY #60 tab 01/17/23 Allergies Allergy/AdvReac Type Severity Reaction Status Date / Time codeine Allergy Unknown Verified 02/04/23 17:24 diclofenac [From Voltaren] AdvReac dizziness Verified 02/04/23 17:24 Review of Systems ROS Statement: Those systems with pertinent positive or pertinent negative responses have been documented in the HPI. ROS Other: All systems not noted in ROS Statement are negative. Constitutional: Denies: fever Eyes: Denies: eye pain ENT: Denies: ear pain Respiratory: Denies: cough Cardiovascular: Denies: chest pain Endocrine: Denies: fatigue Gastrointestinal: Denies: abdominal pain Genitourinary: Denies: dysuria Skin: Reports: as per HPI Psychiatric: Reports: as per HPI, depression Past Medical History Past Medical History: Cancer, GERD/Reflux, Musculoskeletal Disorder Additional Past Medical History / Comment(s): hx of shingles 2001, hx. esophageal cancer, recent fall w/lots of bruises,. Fx scapula - May 2017 History of Any Multi-Drug Resistant Organisms: None Reported Past Surgical History: No Surgical Hx Reported, Joint Replacement Additional Past Surgical History / Comment(s): ESOPHAGECTOMY. BILATERAL CATARACTS, prolapsed rectum surgery, status post open reduction and internal fixation right bimalleolar ankle Past Anesthesia/Blood Transfusion Reactions: No Reported Reaction Past Psychological History: Anxiety, Depression Smoking Status: Never smoker Past Alcohol Use History: Occasional Past Drug Use History: None Reported - Past Family History Daughter(s) Family Medical History: Cancer Additional Family Medical History / Comment(s): colon CA Mother Family Medical History: No Reported History Additional Family Medical History / Comment(s): Mother was healthy Father Family Medical History: No Reported History Additional Family Medical History / Comment(s): Father was healthy General Exam Limitations: no limitations General appearance: alert, in no apparent distress Head exam: Present: normocephalic Eye exam: Present: normal appearance, PERRL Neck exam: Present: other (Patient does have several small neck lacerations, all superficial) Respiratory exam: Present: normal lung sounds bilaterally Cardiovascular Exam: Present: regular rate, normal rhythm GI/Abdominal exam: Present: soft. Absent: tenderness Extremities exam: Present: normal inspection Neurological exam: Present: alert Psychiatric exam: Present: depressed Skin exam: Present: other (Neck lacerations) Course Vital Signs 02/04/23 15:09 Temperature 98.1 F Pulse Rate 72 Respiratory 18 Rate Blood Pressure 135/74 O2 Sat by Pulse 98 Oximetry EKG Findings - EKG Results: EKG: interpreted by ERMD (Inferior T wave inversion), sinus rhythm, normal axis, normal QRS Procedures - Laceration Laceration #1 Consent Obtained: verbal consent Indication: laceration Site: neck Size (cm): 3 Description: linear Depth: simple, single layer Pre-repair: wound explored, irrigated extensively Size of Sutures: other (Closed with Dermabond) Patient Tolerated Procedure: well, no complications Medical Decision Making - Medical Decision Making Was pt. sent in by a medical professional or institution (, PA, SOCIAL INSURANCE ADMINISTRATOR, urgent care, hospital, or intermediate...) When possible be specific @ -No Did you speak to anyone other than the patient for history (EMS, parent, family, police, friend...)? What history was obtained from this source @ -Daughter is present and helps provide history including patient presentation Did you review nursing and triage notes (agree or disagree)? Why? @ -I reviewed and agree with nursing and triage notes Were old charts reviewed (outside hosp., previous admission, EMS record, old EKG, old radiological studies, urgent care reports/EKG's, intermediate records)? Report findings @ -No old charts were reviewed Differential Diagnosis (chest pain, altered mental status, abdominal pain women, abdominal pain men, vaginal bleeding, weakness, fever, dyspnea, syncope, headache, dizziness, GI bleed, back pain, seizure, CVA, palpatations, mental health, musculoskeletal)? @ -Differential Mental Health Depression, anxiety, bipolar, psychosis, schizophrenia, borderline personality, situational depression, adjustment disorder, behavioral disorder, brain tumor, malingering, substance abuse, encephalopathy, medication reaction, dementia, hypothyroidism, degenerative neurologic disorder, lupus.... This is not meant to be all-inclusive list EKG interpreted by me (3pts min.). @ -As above X-rays interpreted by me (1pt min.). @ -None done CT interpreted by me (1pt min.). @ -None done U/S interpreted by me (1pt. min.). @ -None done What testing was considered but not performed or refused? (CT, X-rays, U/S, labs)? Why? @ -None What meds were considered but not given or refused? Why? @ -None Did you discuss the management of the patient with other professionals (professionals i.e. , PA, SOCIAL INSURANCE ADMINISTRATOR, lab, RT, psych nurse, marriage and family social worker, corporate lawyer, teacher, fisheries officer, employment case manager)? Give summary @ -Case was discussed with mental health nurse with plans for transfer to a geriatric psychiatric facility Was smoking cessation discussed for >3mins.? @ -No Was critical care preformed (if so, how long)? @ -No Were there social determinants of health that impacted care today? How? (Homelessness, low income, unemployed, alcoholism, drug addiction, transportation, low edu. Level, literacy, decrease access to med. care, chcf, rehab)? @ -No Was there de-escalation of care discussed even if they declined (Discuss DNR or withdrawal of care, Hospice)? DNR status @ -No What co-morbidities impacted this encounter? (DM, HTN, Smoking, COPD, CAD, Cancer, CVA, ARF, Chemo, Hep., AIDS, mental health diagnosis, sleep apnea, morbid obesity)? @ -None Was patient admitted / discharged? Hospital course, mention meds given and route, prescriptions, significant lab abnormalities, going to OR and other pertinent info. @ -Patient will be transferred for geriatric psychiatric care. Undiagnosed new problem with uncertain prognosis? @ -No Drug Therapy requiring intensive monitoring for toxicity (Heparin, Nitro, Insulin, Cardizem)? @ -No Were any procedures done? @ -No Diagnosis/symptom? @ -Depression, suicide attempt Acute, or Chronic, or Acute on Chronic? @ -Acute on chronic, acute Uncomplicated (without systemic symptoms) or Complicated (systemic symptoms)? @ -default Side effects of treatment? @ -No Exacerbation, Progression, or Severe Exacerbation? @ -No Poses a threat to life or bodily function? How? (Chest pain, [place], [place], pneumonia, PE, COPD, DKA, ARF, appy, cholecystitis, CVA, Diverticulitis, Homicidal, Suicidal, threat to staff... and all critical care pts) @ -No - Lab Data Result diagrams: 02/04/23 17:42 02/04/23 17:42 Lab Results 02/04/23 02/04/23 02/04/23 Range/Units 17:28 17:42 17:42 WBC 10.8 H (3.8-10.6) k/uL RBC 3.47 L (3.80-5.40) m/uL Hgb 11.4 (11.4-16.0) gm/dL Hct 36.9 (34.0-46.0) % MCV 106.2 H (80.0-100.0) fL MCH 32.8 (25.0-35.0) pg MCHC 30.9 L (31.0-37.0) g/dL RDW 14.9 (11.5-15.5) % Plt Count 313 (150-450) k/uL MPV 8.1 Neutrophils % 55 % Lymphocytes % 32 % Monocytes % 6 % Eosinophils % 3 % Basophils % 1 % Neutrophils # 6.0 (1.3-7.7) k/uL Lymphocytes # 3.5 (1.0-4.8) k/uL Monocytes # 0.7 (0-1.0) k/uL Eosinophils # 0.3 (0-0.7) k/uL Basophils # 0.1 (0-0.2) k/uL Hypochromasia Moderate Macrocytosis Moderate Sodium 137 (137-145) mmol/L Potassium 4.0 (3.5-5.1) mmol/L Chloride 107 (98-107) mmol/L Carbon Dioxide 23 (22-30) mmol/L Anion Gap 7 mmol/L BUN 28 H (7-17) mg/dL Creatinine 0.63 (0.52-1.04) mg/dL Est GFR (CKD-EPI)AfAm >90 (>60 ml/min/1.73 sqM) Est GFR (CKD-EPI)NonAf 81 (>60 ml/min/1.73 sqM) Glucose 106 H (74-99) mg/dL Calcium 8.3 L (8.4-10.2) mg/dL Urine Opiates Screen Detected H (NotDetected) Ur Oxycodone Screen Not Detected (NotDetected) Urine Methadone Screen Not Detected (NotDetected) Ur Propoxyphene Screen Not Detected (NotDetected) Ur Barbiturates Screen Not Detected (NotDetected) U Tricyclic Antidepress Not Detected (NotDetected) Ur Phencyclidine Scrn Not Detected (NotDetected) Ur Amphetamines Screen Not Detected (NotDetected) U Methamphetamines Scrn Not Detected (NotDetected) U Benzodiazepines Scrn Detected H (NotDetected) Urine Cocaine Screen Not Detected (NotDetected) U Marijuana (THC) Screen Not Detected (NotDetected) Serum Alcohol <10 mg/dL Disposition Clinical Impression: Attempted suicide, Depression Disposition: TRANSFER TO PSYCH HOSP/UNIT Instructions (If sedation given, give patient instructions): Diphtheria/Acellular Pertussis/Tetanus Booster Vaccine (By injection) Is patient prescribed a controlled substance at d/c from ED?: No Referrals: None,Stated [Primary Care Provider] - 1-2 days Time of Disposition: 19:35
[2023-02-04 18:03] LABS: African American GFR (CKD) >90 (>60 ml/min/1.73 sqM); Alcohol <10 mg/dL; Anion Gap 7 mmol/L; Blood Urea Nitrogen 28 mg/dL (7-17); Calcium 8.3 mg/dL (8.4-10.2); Carbon Dioxide 23 mmol/L (22-30); Chloride 107 mmol/L (98-107); Glucose 106 mg/dL (74-99); Non-African American GFR(CKD) 81 (>60 ml/min/1.73 sqM); Sodium 137 mmol/L (137-145)
[2023-02-04 18:06] LABS: Amphetamine Screen,Urine Not Detected (NotDetected); Barbiturate Screen,Urine Not Detected (NotDetected); Benzodiazepines Screen,Urine Detected (NotDetected); Cocaine Screen,Urine Not Detected (NotDetected); Methadone Screen, Urine Not Detected (NotDetected); Opiate Screen,Urine Detected (NotDetected); Oxycodone Screen, Urine Not Detected (NotDetected); Phencyclidine Screen,Urine Not Detected (NotDetected); Tricyclic Antidepressant,Urine Not Detected (NotDetected); Urn Cannabinoid Scrn Not Detected (NotDetected)
[2023-02-04 18:08] LABS: Basophils # (A) 0.1 k/uL (0-0.2); Basophils % (A) 1 %; Eosinophils # (A) 0.3 k/uL (0-0.7); Eosinophils % (A) 3 %; HCT 36.9 % (34.0-46.0); HGB 11.4 gm/dL (11.4-16.0); Hypochromasia Moderate; Lymphocytes # (A) 3.5 k/uL (1.0-4.8); Lymphocytes % (A) 32 %; MCH 32.8 pg (25.0-35.0); MCHC 30.9 g/dL (31.0-37.0); MCV 106.2 fL (80.0-100.0); Macrocytosis Moderate; Mean Platelet Volume 8.1; Monocytes # (A) 0.7 k/uL (0-1.0); Monocytes % (A) 6 %; Neutrophils % (A) 55 %; Platelet Count 313 k/uL (150-450); RBC 3.47 m/uL (3.80-5.40); RDW 14.9 % (11.5-15.5); WBC 10.8 k/uL (3.8-10.6)
[2023-02-04] MEDS ORDERED: ACETAMINOPHEN TAB 325 MG TAB PO PRN (21:09)
[2023-02-04] MEDS ORDERED: HYDROcodone/APAP 5-325MG 1 EACH TAB PO PRN (21:09)
[2023-02-04] MEDS ORDERED: LORazepam 0.5 MG TAB PO SCH (21:15)
[2023-02-05 05:58] LABS: Appearance,Urine Clear (Clear); Bilirubin,Urine Negative (Negative); Blood,Urine Negative (Negative); Color,Urine Light Yellow; Glucose,Urine (UA) Negative (Negative); Ketones,Urine Negative (Negative); Leukocyte Esterase,Urine Negative (Negative); Nitrite,Urine Negative (Negative); PH, Urine 6.5 (5.0-8.0); Protein,Urine Negative (Negative); Specific Gravity,Urine 1.007 (1.001-1.035); Urobilinogen,Urine <2.0 mg/dL (<2.0)
[2023-02-05] MEDS ORDERED: DONEPEZIL 10 MG TAB PO SCH (09:00)
[2023-02-05] MEDS ORDERED: SERTRALINE 100 MG TAB PO SCH (09:00)
[2023-02-05] MEDS ORDERED: GABAPENTIN 300 MG CAP PO SCH (09:00)
[2023-02-05] MEDS ORDERED: DOCUSATE 100 MG CAP PO SCH (09:00)
[2023-02-05] MEDS ORDERED: ASPIRIN 81 MG PO SCH (09:00)
[2023-02-05 10:35] VITALS: RESP 16
[2023-02-05 14:55] VITALS: BP 142/86; PULSE 78; TEMP 98.6
== END 2023-02-05 14:55 ==
LOC: EC 14:56
DX: S11.91XA Laceration without foreign body of unspecified part of neck, initial encounter (principal); F32.A Depression, unspecified; F41.9 Anxiety disorder, unspecified; Z79.899 Other long term (current) drug therapy; Z88.5 Allergy status to narcotic agent; X78.8XXA Intentional self-harm by other sharp object, initial encounter; Z23 Encounter for immunization
CPT/HCPCS: 82075; 36415; 93005; 80048; 85025; 81003; 80306; 87635; 90715; 99285; 90471; 12002; G0480; 80320

== ENCOUNTER 2023-06-15 19:06 | Emergency (ER) | payer MEDICARE ==
[2023-06-15 19:37] VITALS: TEMP 98.2
--- NOTE | 2023-06-15 22:10 | ED ---
General Adult HPI - General Chief complaint: Extremity Problem,Nontraumatic Stated complaint: needs wet cast removed Time Seen by Provider: 06/15/23 20:17 Source: patient, family, RN notes reviewed Mode of arrival: wheelchair Limitations: no limitations - History of Present Illness Initial comments: 87-year-old female presents to the emergency department for cast removal. occasional caregiver with patient states that she got her cast wet and called her remote sensing analyst Dr. Swan who recommended she come to the emergency department and have the cast removed. She'll be placed back in the boot that she has and she will follow-up on Sunday with the remote sensing analyst. She denies any complaints at this time. - Related Data Home Medications Medication Instructions Recorded Confirmed Donepezil [Aricept] 10 mg PO DAILY 10/05/17 02/04/23 Sertraline HCl [Zoloft] 100 mg PO BID 10/05/17 02/04/23 LORazepam [Ativan] 0.5 mg PO HS 08/15/22 02/04/23 HYDROcodone/APAP 5-325MG [[place] 1 tab PO Q6HR PRN 02/04/23 02/04/23 5-325] Previous Rx's Medication Instructions Recorded Docusate [Colace] 100 mg PO BID #60 capsule 12/18/22 Acetaminophen Tab [Tylenol] 650 mg PO Q6HR PRN tab 12/19/22 Gabapentin [Neurontin] 300 mg PO BID #6 cap 12/21/22 Aspirin 81 mg PO DAILY #60 tab 01/17/23 Allergies Allergy/AdvReac Type Severity Reaction Status Date / Time codeine Allergy Unknown Verified 06/15/23 19:27 diclofenac [From Voltaren] AdvReac dizziness Verified 06/15/23 19:27 Review of Systems ROS Statement: Those systems with pertinent positive or pertinent negative responses have been documented in the HPI. ROS Other: All systems not noted in ROS Statement are negative. Past Medical History Past Medical History: Cancer, GERD/Reflux, Musculoskeletal Disorder Additional Past Medical History / Comment(s): hx of shingles 2001, hx. esophageal cancer, recent fall w/lots of bruises,. Fx scapula - May 2017 History of Any Multi-Drug Resistant Organisms: None Reported Past Surgical History: No Surgical Hx Reported, Joint Replacement Additional Past Surgical History / Comment(s): ESOPHAGECTOMY. BILATERAL CATARACTS, prolapsed rectum surgery, status post open reduction and internal fixation right bimalleolar ankle Past Anesthesia/Blood Transfusion Reactions: No Reported Reaction Past Psychological History: Anxiety, Depression Smoking Status: Never smoker Past Alcohol Use History: Occasional Past Drug Use History: None Reported - Past Family History Daughter(s) Family Medical History: Cancer Additional Family Medical History / Comment(s): colon CA Mother Family Medical History: No Reported History Additional Family Medical History / Comment(s): Mother was healthy Father Family Medical History: No Reported History Additional Family Medical History / Comment(s): Father was healthy General Exam - General Exam Comments Initial Comments: Visual Physical Exam Vital signs reviewed General: Well-appearing, nontoxic, no acute distress. Head: Normocephalic, atraumatic Eyes: PERRLA, EOMI ENT: Airway patent Chest: Nonlabored breathing Skin: No visual rash, normal skin tone Neuro: Alert and oriented 3 Musculoskeletal: No gross abnormalities, DP and PT pulses 2+ Limitations: no limitations Course Vital Signs 06/15/23 06/15/23 19:23 22:25 Temperature 98.2 F Pulse Rate 73 64 Respiratory 18 16 Rate Blood Pressure 114/57 115/75 O2 Sat by Pulse 95 98 Oximetry Medical Decision Making - Medical Decision Making Was pt. sent in by a medical professional or institution (KULDEEP Sepulveda, RADIOLOGY ORDERLY, urgent care, hospital, or chcf...) When possible be specific @ -No Did you speak to anyone other than the patient for history (EMS, parent, family, police, friend...)? What history was obtained from this source @ -No Did you review nursing and triage notes (agree or disagree)? Why? @ -I reviewed and agree with nursing and triage notes Were old charts reviewed (outside hosp., previous admission, EMS record, old EKG, old radiological studies, urgent care reports/EKG's, chcf records)? Report findings @ -No old charts were reviewed Differential Diagnosis (chest pain, altered mental status, abdominal pain women, abdominal pain men, vaginal bleeding, weakness, fever, dyspnea, syncope, headache, dizziness, GI bleed, back pain, seizure, CVA, palpatations, mental health, musculoskeletal)? @ -Differential Musculoskeletal Muscular strain, contusion, ligament sprain, fracture, arthritis, septic arthritis, bursitis, cellulitis, muscle spasm, nerve compression, DVT, arterial occlusion, herpes zoster, electrolyte abnormality, tumor.... This is not meant to be in all inclusive list EKG interpreted by me (3pts min.). @ -None X-rays interpreted by me (1pt min.). @ -None done CT interpreted by me (1pt min.). @ -None done U/S interpreted by me (1pt. min.). @ -None done What testing was considered but not performed or refused? (CT, X-rays, U/S, labs)? Why? @ -None What meds were considered but not given or refused? Why? @ -None Did you discuss the management of the patient with other professionals (professionals i.e. , PA, RADIOLOGY ORDERLY, lab, RT, psych nurse, social services analyst, sprinkler repair technician, teacher, medical laboratory technical officer, case technician)? Give summary @ -No Was smoking cessation discussed for >3mins.? @ -No Was critical care preformed (if so, how long)? @ -No Were there social determinants of health that impacted care today? How? (Homelessness, low income, unemployed, alcoholism, drug addiction, transportation, low edu. Level, literacy, decrease access to med. care, alf, rehab)? @ -No Was there de-escalation of care discussed even if they declined (Discuss DNR or withdrawal of care, Hospice)? DNR status @ -No What co-morbidities impacted this encounter? (DM, HTN, Smoking, COPD, CAD, Cancer, CVA, ARF, Chemo, Hep., AIDS, mental health diagnosis, sleep apnea, morbid obesity)? @ -None Was patient admitted / discharged? Hospital course, mention meds given and route, prescriptions, significant lab abnormalities, going to OR and other pertinent info. @ -Discharged. Patient presented to the emergency department with chief complaint of leg cast that she needs to have removed. She contacted her remote sensing analyst who placed the cast instilled her to come to the emergency department for removal. Patient will be placed back in her walking boot and is scheduled to follow-up with her remote sensing analyst on Sunday. Cast was removed. Patient stable at time of discharge. Case discussed with Dr. Rajan Undiagnosed new problem with uncertain prognosis? @ -No Drug Therapy requiring intensive monitoring for toxicity (Heparin, Nitro, Insulin, Cardizem)? @ -No Were any procedures done? @ -No Diagnosis/symptom? @ -cast removal Acute, or Chronic, or Acute on Chronic? @ -acute Uncomplicated (without systemic symptoms) or Complicated (systemic symptoms)? @ -uncomplicated Side effects of treatment? @ -No Exacerbation, Progression, or Severe Exacerbation? @ -No Poses a threat to life or bodily function? How? (Chest pain, [place], [place], pneumonia, PE, COPD, DKA, ARF, appy, cholecystitis, CVA, Diverticulitis, Homicidal, Suicidal, threat to staff... and all critical care pts) @ -No Disposition Clinical Impression: Cast removal Disposition: HOME SELF-CARE Condition: Stable Is patient prescribed a controlled substance at d/c from ED?: No Referrals: Mike Hylton MD [Primary Care Provider] - 1-2 days
[2023-06-15 22:29] VITALS: BP 115/75; PULSE 64; RESP 16
== END 2023-06-15 23:51 | disposition home or self-care (01) ==
LOC: EC 19:06
DX: Z47.89 Encounter for other orthopedic aftercare (principal); F41.9 Anxiety disorder, unspecified; F32.A Depression, unspecified; Z79.899 Other long term (current) drug therapy; Z88.5 Allergy status to narcotic agent; Z88.8 Allergy status to other drugs, medicaments and biological substances
CPT/HCPCS: 99283

== ENCOUNTER 2023-09-12 08:52 | Observation (INO) | payer MEDICARE ==
--- NOTE | 2023-09-12 09:32 | ED ---
General Adult HPI - General Chief complaint: Neck Pain/Injury Stated complaint: Neck pain, chest pain Time Seen by Provider: 09/12/23 09:10 Source: patient, family, RN notes reviewed Mode of arrival: wheelchair Limitations: no limitations - History of Present Illness Initial comments: Patient is a pleasant 87-year-old female presenting to the emergency department neck pain. Onset of symptoms was 2 days ago but mild. Symptoms much worse today. Patient has difficulty moving her neck and getting out of bed secondary to discomfort. Patient does have history of chronic arthritis however no history of chronic neck pain. No injury. Patient does have mild chest discomfort as well. Patient has been more weak recently and has had several falls over the past week. Family is concerned regarding patient being able to take care of herself. They are planning on rehab facility, possibly [facility] - Related Data Home Medications Medication Instructions Recorded Confirmed Donepezil [Aricept] 10 mg PO DAILY 10/05/17 02/04/23 Sertraline HCl [Zoloft] 100 mg PO BID 10/05/17 02/04/23 LORazepam [Ativan] 0.5 mg PO HS 08/15/22 02/04/23 HYDROcodone/APAP 5-325MG [[place] 1 tab PO Q6HR PRN 02/04/23 02/04/23 5-325] Previous Rx's Medication Instructions Recorded Docusate [Colace] 100 mg PO BID #60 capsule 12/18/22 Acetaminophen Tab [Tylenol] 650 mg PO Q6HR PRN tab 12/19/22 Gabapentin [Neurontin] 300 mg PO BID #6 cap 12/21/22 Aspirin 81 mg PO DAILY #60 tab 01/17/23 Allergies Allergy/AdvReac Type Severity Reaction Status Date / Time codeine Allergy Unknown Verified 06/15/23 19:27 diclofenac [From Voltaren] AdvReac dizziness Verified 06/15/23 19:27 Review of Systems ROS Statement: Those systems with pertinent positive or pertinent negative responses have been documented in the HPI. ROS Other: All systems not noted in ROS Statement are negative. Constitutional: Denies: fever Eyes: Denies: eye pain ENT: Denies: ear pain Respiratory: Denies: dyspnea Cardiovascular: Reports: as per HPI, chest pain Endocrine: Denies: fatigue Gastrointestinal: Denies: abdominal pain Genitourinary: Denies: dysuria Musculoskeletal: Reports: as per HPI Skin: Denies: rash Past Medical History Past Medical History: Cancer, GERD/Reflux, Musculoskeletal Disorder Additional Past Medical History / Comment(s): hx of shingles 2001, hx. esophageal cancer, recent fall w/lots of bruises,. Fx scapula - May 2017 History of Any Multi-Drug Resistant Organisms: None Reported Past Surgical History: No Surgical Hx Reported, Joint Replacement Additional Past Surgical History / Comment(s): ESOPHAGECTOMY. BILATERAL CATARACTS, prolapsed rectum surgery, status post open reduction and internal fix ation right bimalleolar ankle Past Anesthesia/Blood Transfusion Reactions: No Reported Reaction Past Psychological History: Anxiety, Depression Smoking Status: Never smoker Past Alcohol Use History: Occasional Past Drug Use History: None Reported - Past Family History Daughter(s) Family Medical History: Cancer Additional Family Medical History / Comment(s): colon CA Mother Family Medical History: No Reported History Additional Family Medical History / Comment(s): Mother was healthy Father Family Medical History: No Reported History Additional Family Medical History / Comment(s): Father was healthy General Exam Limitations: no limitations General appearance: alert, in no apparent distress Head exam: Present: normocephalic Eye exam: Present: normal appearance, PERRL, EOMI ENT exam: Present: normal oropharynx Neck exam: Present: tenderness (Mild to moderate upper cervical spine) Respiratory exam: Present: normal lung sounds bilaterally Cardiovascular Exam: Present: regular rate, normal rhythm, normal heart sounds Expanded Peripheral pulses: 2+: Radial (R), Radial (L) GI/Abdominal exam: Present: soft. Absent: tenderness Extremities exam: Present: normal inspection, full ROM. Absent: tenderness Neurological exam: Present: alert, CN II-XII intact. Absent: motor sensory deficit Expanded Motor strength exam: RUE: 5, LUE: 5, RLE: 5, LLE: 5 Psychiatric exam: Present: normal affect, normal mood Skin exam: Present: normal color Course Vital Signs 09/12/23 09/12/23 09/12/23 08:57 09:34 09:45 Temperature 97.4 F L Pulse Rate 78 67 66 Respiratory 24 16 17 Rate Blood Pressure 100/59 97/64 108/65 O2 Sat by Pulse 94 L 100 96 Oximetry 09/12/23 09/12/23 10:30 10:45 Temperature 97.6 F Pulse Rate 61 60 Respiratory 17 18 Rate Blood Pressure 118/69 118/69 O2 Sat by Pulse 100 100 Oximetry EKG Findings - EKG Results: EKG: interpreted by ERMD, sinus rhythm, normal axis, normal QRS, normal ST/T Medical Decision Making - Medical Decision Making Was pt. sent in by a medical professional or institution (, [facility], [facility], urgent care, hospital, or usp...) When possible be specific @ -No Did you speak to anyone other than the patient for history (EMS, parent, family, police, friend...)? What history was obtained from this source @ -Son is present and helps provide history including that patient is having difficulty at home and will need placement. Did you review nursing and triage notes (agree or disagree)? Why? @ -I reviewed and agree with nursing and triage notes Were old charts reviewed (outside hosp., previous admission, EMS record, old EKG, old radiological studies, urgent care reports/EKG's, usp records)? Report findings @ -Previous chest x-ray reviewed Differential Diagnosis (chest pain, altered mental status, abdominal pain women, abdominal pain men, vaginal bleeding, weakness, fever, dyspnea, syncope, headache, dizziness, GI bleed, back pain, seizure, CVA, palpatations, mental health, musculoskeletal)? @ -Differential Weakness: Hypoglycemia, shock, sepsis, hyponatremia, anemia, infection, TX, ETOH, adverse medicine reaction, overdose, stroke, this is not meant to be an all-inclusive list. EKG interpreted by me (3pts min.). @ -As above X-rays interpreted by me (1pt min.). @ -Chest x-ray shows no acute process CT interpreted by me (1pt min.). @ -CT scan of cervical spine shows degenerative changes. U/S interpreted by me (1pt. min.). @ -None done What testing was considered but not performed or refused? (CT, X-rays, U/S, labs)? Why? @ -None What meds were considered but not given or refused? Why? @ -None Did you discuss the management of the patient with other professionals (professionals i.e. , [facility], [facility], lab, RT, psych nurse, social work professor, manager managing, teacher, senior commercial loan officer, director of casework)? Give summary @ -Case was discussed with Dr. Phoenix, who will admit covering Dr. Hylton Was smoking cessation discussed for >3mins.? @ -No Was critical care preformed (if so, how long)? @ -No Were there social determinants of health that impacted care today? How? (Homelessness, low income, unemployed, alcoholism, drug addiction, transportation, low edu. Level, literacy, decrease access to med. care, detention, rehab)? @ -No Was there de-escalation of care discussed even if they declined (Discuss DNR or withdrawal of care, Hospice)? DNR status @ -No What co-morbidities impacted this encounter? (DM, HTN, Smoking, COPD, CAD, Cancer, CVA, ARF, Chemo, Hep., AIDS, mental health diagnosis, sleep apnea, morbid obesity)? @ -None Was patient admitted / discharged? Hospital course, mention meds given and route, prescriptions, significant lab abnormalities, going to OR and other pertinent info. @ -Patient and family updated. Patient will need admission for placement. Patient has dehydration and weakness and inability to take care of herself clear Undiagnosed new problem with uncertain prognosis? @ -No Drug Therapy requiring intensive monitoring for toxicity (Heparin, Nitro, Insulin, Cardizem)? @ -No Were any procedures done? @ -No Diagnosis/symptom? @ -Dehydration, weakness, cervical strain Acute, or Chronic, or Acute on Chronic? @ -Acute, acute, acute Uncomplicated (without systemic symptoms) or Complicated (systemic symptoms)? @ -Dehydration is complicated with weakness Side effects of treatment? @ -No Exacerbation, Progression, or Severe Exacerbation? @ -No Poses a threat to life or bodily function? How? (Chest pain, [place], [place], pneumonia, PE, COPD, DKA, ARF, appy, cholecystitis, CVA, Diverticulitis, Homicidal, Suicidal, threat to staff... and all critical care pts) @ -No - Lab Data Result diagrams: 09/12/23 09:32 09/12/23 09:32 Lab Results 09/12/23 09/12/23 09/12/23 Range/Units 09:32 09:32 09:32 WBC 16.8 H (3.8-10.6) k/uL RBC 3.79 L (3.80-5.40) m/uL Hgb 12.5 (11.4-16.0) gm/dL Hct 39.5 (34.0-46.0) % MCV 104.2 H (80.0-100.0) fL MCH 33.0 (25.0-35.0) pg MCHC 31.6 (31.0-37.0) g/dL RDW 13.9 (11.5-15.5) % Plt Count 251 (150-450) k/uL MPV 8.6 Neutrophils % 84 % Lymphocytes % 8 % Monocytes % 5 % Eosinophils % 2 % Basophils % 0 % Neutrophils # 14.1 H (1.3-7.7) k/uL Lymphocytes # 1.4 (1.0-4.8) k/uL Monocytes # 0.8 (0-1.0) k/uL Eosinophils # 0.3 (0-0.7) k/uL Basophils # 0.1 (0-0.2) k/uL Macrocytosis Slight PT 10.4 (10.0-12.5) sec INR 0.9 (<1.2) APTT 25.3 (22.0-30.0) sec Sodium 136 L (137-145) mmol/L Potassium 4.6 (3.5-5.1) mmol/L Chloride 112 H (98-107) mmol/L Carbon Dioxide 12 L (22-30) mmol/L Anion Gap 12 mmol/L BUN 40 H (7-17) mg/dL Creatinine 1.00 (0.52-1.04) mg/dL Est GFR (CKD-EPI)AfAm 59 (>60 ml/min/1.73 sqM) Est GFR (CKD-EPI)NonAf 52 (>60 ml/min/1.73 sqM) Glucose 118 H (74-99) mg/dL Calcium 8.7 (8.4-10.2) mg/dL Magnesium 2.1 (1.6-2.3) mg/dL Total Bilirubin 0.9 (0.2-1.3) mg/dL AST 29 (14-36) U/L ALT 14 (4-34) U/L Alkaline Phosphatase 80 (38-126) U/L Troponin I (0.000-0.034) ng/mL Total Protein 6.7 (6.3-8.2) g/dL Albumin 3.2 L (3.5-5.0) g/dL 09/12/23 Range/Units 09:32 WBC (3.8-10.6) k/uL RBC (3.80-5.40) m/uL Hgb (11.4-16.0) gm/dL Hct (34.0-46.0) % MCV (80.0-100.0) fL MCH (25.0-35.0) pg MCHC (31.0-37.0) g/dL RDW (11.5-15.5) % Plt Count (150-450) k/uL MPV Neutrophils % % Lymphocytes % % Monocytes % % Eosinophils % % Basophils % % Neutrophils # (1.3-7.7) k/uL Lymphocytes # (1.0-4.8) k/uL Monocytes # (0-1.0) k/uL Eosinophils # (0-0.7) k/uL Basophils # (0-0.2) k/uL Macrocytosis PT (10.0-12.5) sec INR (<1.2) APTT (22.0-30.0) sec Sodium (137-145) mmol/L Potassium (3.5-5.1) mmol/L Chloride (98-107) mmol/L Carbon Dioxide (22-30) mmol/L Anion Gap mmol/L BUN (7-17) mg/dL Creatinine (0.52-1.04) mg/dL Est GFR (CKD-EPI)AfAm (>60 ml/min/1.73 sqM) Est GFR (CKD-EPI)NonAf (>60 ml/min/1.73 sqM) Glucose (74-99) mg/dL Calcium (8.4-10.2) mg/dL Magnesium (1.6-2.3) mg/dL Total Bilirubin (0.2-1.3) mg/dL AST (14-36) U/L ALT (4-34) U/L Alkaline Phosphatase (38-126) U/L Troponin I <0.012 (0.000-0.034) ng/mL Total Protein (6.3-8.2) g/dL Albumin (3.5-5.0) g/dL Disposition Clinical Impression: Strain of neck muscle, Dehydration, Weakness Disposition: ADMITTED IP TO THIS [facility] Is patient prescribed a controlled substance at d/c from ED?: No Referrals: Mike Hylton MD [Primary Care Provider] - 1-2 days Time of Disposition: 11:16
[2023-09-12] MEDS: MORPHINE SULFATE 4 MG/ML SYRINGE IVP STA (09:45)
[2023-09-12] MEDS: MORPHINE SULFATE 2 MG/ML SYRINGE IVP STA (09:46)
[2023-09-12 09:49] LABS: Basophils # (A) 0.1 k/uL (0-0.2); Basophils % (A) 0 %; Eosinophils # (A) 0.3 k/uL (0-0.7); Eosinophils % (A) 2 %; HCT 39.5 % (34.0-46.0); HGB 12.5 gm/dL (11.4-16.0); Lymphocytes # (A) 1.4 k/uL (1.0-4.8); Lymphocytes % (A) 8 %; MCHC 31.6 g/dL (31.0-37.0); MCV 104.2 fL (80.0-100.0); Macrocytosis Slight; Mean Platelet Volume 8.6; Monocytes # (A) 0.8 k/uL (0-1.0); Monocytes % (A) 5 %; Neutrophils # (A) 14.1 k/uL (1.3-7.7); Neutrophils % (A) 84 %; Platelet Count 251 k/uL (150-450); RBC 3.79 m/uL (3.80-5.40); RDW 13.9 % (11.5-15.5); WBC 16.8 k/uL (3.8-10.6)
[2023-09-12 10:06] LABS: ALT 14 U/L (4-34); African American GFR (CKD) 59 (>60 ml/min/1.73 sqM); Albumin 3.2 g/dL (3.5-5.0); Anion Gap 12 mmol/L; Blood Urea Nitrogen 40 mg/dL (7-17); Calcium 8.7 mg/dL (8.4-10.2); Carbon Dioxide 12 mmol/L (22-30); Chloride 112 mmol/L (98-107); Glucose 118 mg/dL (74-99); Non-African American GFR(CKD) 52 (>60 ml/min/1.73 sqM); Potassium 4.6 mmol/L (3.5-5.1); Sodium 136 mmol/L (137-145); Total Bilirubin 0.9 mg/dL (0.2-1.3); Total Protein 6.7 g/dL (6.3-8.2)
[2023-09-12 10:07] LABS: AST 29 U/L (14-36); Alkaline Phosphatase 80 U/L (38-126); Magnesium 2.1 mg/dL (1.6-2.3)
[2023-09-12 10:22] LABS: INR 0.9 (<1.2); Partial Thromboplastin Time 25.3 sec (22.0-30.0); Prothrombin Time 10.4 sec (10.0-12.5)
--- NOTE | 2023-09-12 10:25 | XR ---
EXAMINATION TYPE: XR chest 2V DATE OF EXAM: 09/12/2023 10:08 AM CLINICAL INDICATION:Female, 87 years old with history of Chest Pain; COMPARISON: Chest radiographs from 1922. TECHNIQUE: XR chest 2V Frontal and lateral views of the chest. FINDINGS: Lungs/Pleura: There is flattening of the diaphragm with increased lucency of the lungs. No evidence o f pneumothorax, pleural effusion or focal consolidation. Pulmonary vascularity: Unremarkable. Heart/mediastinum: Cardiomediastinal silhouette is unremarkable. Atherosclerotic calcifications are seen in the aorta. Musculoskeletal: No acute osseous pathology. Postsurgical changes to the spine with vertebroplasty ce ment. Other findings: None IMPRESSION: 1. No acute cardiopulmonary disease process. 2. COPD changes.
--- NOTE | 2023-09-12 10:32 | CT ---
EXAMINATION TYPE: CT cervical spine wo con DATE OF EXAM: 09/12/2023 COMPARISON: None available. HISTORY: Chronic neck pain. CT DLP: 183.4 mGycm Automated exposure control for dose reduction was used. TECHNIQUE: CT scan of the cervical spine is obtained without contrast, axial images are obtained, sa gittal and coronal reformatted images are also reviewed. FINDINGS: There is a minimal anterolisthesis of C4 on C5 which is secondary to degenerative facet arthropathy. Alignment otherwise appears unremarkable. There is no fracture or dislocation. There is moderate degenerative disc space narrowing at C3-4 and significant degenerative disc space n arrowing at C5-6 and C6-7. Scattered degenerative facet and uncovertebral joint changes are also seen throughout the spine. There is no prevertebral soft tissue swelling. IMPRESSION: Scattered degenerative changes with no acute osseous abnormalities.
[2023-09-12] MEDS ORDERED: NALOXONE 0.4 MG/ML 1 ML VIAL IV PRN (10:49)
[2023-09-12] MEDS ORDERED: ONDANSETRON 4 MG/2 ML VIAL IVP PRN (10:49)
[2023-09-12] MEDS: SODIUM CHLORIDE 0.9% 1,000 ML IV SCH (10:54)
[2023-09-12] MEDS: LIDOCAINE 4% PATCH TOPICAL SCH (10:57)
[2023-09-12 11:14] LABS: Appearance,Urine Clear (Clear); Bacteria,Urine Rare /hpf; Bilirubin,Urine Negative (Negative); Blood,Urine Small (Negative); Color,Urine Yellow; Glucose,Urine (UA) Negative (Negative); Hyaline Casts,Urine 3 /lpf (0-2); Ketones,Urine Negative (Negative); Leukocyte Esterase,Urine Negative (Negative); Mucus,Urine Rare /hpf; Nitrite,Urine Negative (Negative); PH, Urine 5.5 (5.0-8.0); Protein,Urine Trace (Negative); RBC,Urine 3 /hpf (0-5); Specific Gravity,Urine 1.015 (1.001-1.035); Squamous Epithelial Cell,Urine <1 /hpf (0-4); Urobilinogen,Urine <2.0 mg/dL (<2.0); WBC,Urine 1 /hpf (0-5)
[2023-09-12] MEDS ORDERED: MORPHINE SULFATE 2 MG/ML SYRINGE IVP PRN (12:21)
--- NOTE | 2023-09-12 12:23 | P.HPIM ---
History of Present Illness H&P Date: 09/12/23 Chief Complaint: Neck pain * 87-year-old patient with past medical history significant for anxiety, history of dementia, chronic pain, osteoarthritis presents to the emergency department with complaints of neck discomfort, patient had symptom onset 48 hours prior to presentation. Patient states her symptoms have been getting worse and having difficulty moving her neck. Patient does have history of arthritis. Patient states she has been getting weak and had several falls over the past week. * Workup initiated in ER included CT of the neck which showed degenerative dise ase of cervical spine no acute osseous abnormality noted * Blood work obtained in ER showed WBC count of 16.8 hemoglobin 12.5 platelet count of 251 * Serum chemistry showed sodium 136 potassium 4.6, dissectible BUN 40 creatinine 1 glucose 118 albumin 3.2 * Patient admitted to medical floor with consultation of physical therapy Occupational Therapy for placement REVIEW OF SYSTEMS: Neck pain, weakness, fall CONSTITUTIONAL: No fever, no malaise, no fatigue. HEENT: No recent visual problems or hearing problems. Denied any sore throat. CARDIOVASCULAR: No chest pain, orthopnea, PND, no palpitations, no syncope. PULMONARY: No shortness of breath, no cough, no hemoptysis. GASTROINTESTINAL: No diarrhea, no nausea, no vomiting, no abdominal pain. NEUROLOGICAL: No headaches, no weakness, no numbness. HEMATOLOGICAL: Denies any bleeding or petechiae. GENITOURINARY: Denies any burning micturition, frequency, or urgency. MUSCULOSKELETAL/RHEUMATOLOGICAL: Neck pain, weakness, fall ENDOCRINE: Denies any polyuria or polydipsia. PHYSICAL EXAMINATION: GENERAL: The patient is alert and oriented x3, Well developed, well nourished. HEENT: Pupils are round and equally reacting to light. EOMI. CARDIOVASCULAR: S1 and S2 present. No murmurs, rubs, or gallops. PULMONARY: Chest is clear to auscultation, no wheezing or crackles. ABDOMEN: Soft, nontender, nondistended, normoactive bowel sounds. No palpable organomegaly. MUSCULOSKELETAL: Neck pain, tenderness on palpation, range of motion limited EXTREMITIES: No cyanosis, clubbing, or pedal edema. NEUROLOGICAL: Motor strength is 4 x 5 bilateral upper extremity, 5 x 5 left lower extremity, 4 x 5 right lower extremity SKIN: No rashes. Past Medical History Past Medical History: Cancer, GERD/Reflux, Musculoskeletal Disorder Additional Past Medical History / Comment(s): hx of shingles 2001, hx. esophageal cancer, recent fall w/lots of bruises,. Fx scapula - May 2017 History of Any Multi-Drug Resistant Organisms: None Reported Past Surgical History: No Surgical Hx Reported, Joint Replacement Additional Past Surgical History / Comment(s): ESOPHAGECTOMY. BILATERAL CATARACTS, prolapsed rectum surgery, status post open reduction and internal fixation right bimalleolar ankle Past Anesthesia/Blood Transfusion Reactions: No Reported Reaction Past Psychological History: Anxiety, Depression Smoking Status: Never smoker Past Alcohol Use History: Occasional Past Drug Use History: None Reported - Past Family History Daughter(s) Family Medical History: Cancer Additional Family Medical History / Comment(s): colon CA Mother Family Medical History: No Reported History Additional Family Medical History / Comment(s): Mother was healthy Father Family Medical History: No Reported History Additional Family Medical History / Comment(s): Father was healthy Medications and Allergies Home Medications Medication Instructions Recorded Confirmed Type Donepezil [Aricept] 10 mg PO DAILY 10/05/17 02/04/23 History Sertraline HCl [Zoloft] 100 mg PO BID 10/05/17 02/04/23 History LORazepam [Ativan] 0.5 mg PO HS 08/15/22 02/04/23 History Docusate [Colace] 100 mg PO BID #60 capsule 12/18/22 02/04/23 Rx Acetaminophen Tab [Tylenol] 650 mg PO Q6HR PRN tab 12/19/22 02/04/23 Rx Gabapentin [Neurontin] 300 mg PO BID #6 cap 12/21/22 02/04/23 Rx Aspirin 81 mg PO DAILY #60 tab 01/17/23 02/04/23 Rx HYDROcodone/APAP 5-325MG [[place] 1 tab PO Q6HR PRN 02/04/23 02/04/23 History 5-325] Allergies Allergy/AdvReac Type Severity Reaction Status Date / Time codeine Allergy Unknown Verified 06/15/23 19:27 diclofenac [From Voltaren] AdvReac dizziness Verified 06/15/23 19:27 Physical Exam Vitals: Vital Signs Temp Pulse Resp BP Pulse Ox 09/12/23 10:45 97.6 F 60 18 118/69 100 09/12/23 10:30 61 17 118/69 100 09/12/23 09:45 66 17 108/65 96 09/12/23 09:34 67 16 97/64 100 09/12/23 08:57 97.4 F L 78 24 100/59 94 L Intake and Output 09/11/23 09/12/23 09/12/23 22:59 06:59 14:59 Other: Weight 38.555 kg Results CBC & Chem 7: 09/12/23 09:32 09/12/23 09:32 Labs: Abnormal Lab Results - Last 24 Hours (Table) 09/12/23 09/12/23 Range/Units 09:32 09:32 WBC 16.8 H (3.8-10.6) k/uL RBC 3.79 L (3.80-5.40) m/uL MCV 104.2 H (80.0-100.0) fL Neutrophils # 14.1 H (1.3-7.7) k/uL Sodium 136 L (137-145) mmol/L Chloride 112 H (98-107) mmol/L Carbon Dioxide 12 L (22-30) mmol/L BUN 40 H (7-17) mg/dL Glucose 118 H (74-99) mg/dL Albumin 3.2 L (3.5-5.0) g/dL Assessment and Plan Assessment: Assessment and plan * 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 * Recurrent falls * History of dementia * Failure to thrive with generalized debility * Metabolic acidosis * Leukocytosis likely reactive * In regards to neck pain, consultation obtained from physical therapy to evaluate, case management for placement CT cervical spine reviewed, started lidocaine patch, orthospine consulted started Robaxin * In regards to recurrent falls maintain fall precautions, physical therapy Occupational Therapy evaluation * Regards to history of dementia continue home regimen * In regards to leukocytosis follow-up on CRP procalcitonin levels continue fluid resuscitation, monitor off antibiotics * CODE STATUS full code
[2023-09-12] MEDS: methocarbamoL 500 MG TAB PO SCH (13:12)
[2023-09-12] MEDS: DONEPEZIL 10 MG TAB PO SCH (13:12)
[2023-09-12] MEDS: HYDROcodone/APAP 5-325MG 1 EACH TAB PO PRN (17:37)
[2023-09-13] MEDS: ENOXAPARIN 30 MG/0.3 ML SYRINGE SQ SCH (07:27)
[2023-09-13] MEDS ORDERED: traZODone HCL 50 MG TAB PO PRN (09:00)
[2023-09-13] MEDS ORDERED: ENOXAPARIN 40 MG/0.4 ML SYRINGE SQ SCH (09:00)
[2023-09-13] MEDS ORDERED: traMADol 50 MG TAB PO PRN (09:00)
[2023-09-13] MEDS ORDERED: LORazepam 0.5 MG TAB PO PRN (09:00)
[2023-09-13 10:19] LABS: HCT 34.4 % (37.2-46.3); MCH 32.4 pg (27.0-32.0); MCV 101.5 FL (80.0-97.0); Mean Platelet Volume 11.1 FL (9.5-12.2); NRBC Per 100 WBC 0 X 10*3/uL (0.00-0.01); Platelet Count 244 X 10*3/uL (140-440); RBC 3.39 X 10*6/uL (4.10-5.20); RDW 14.5 % (11.5-14.5); WBC 12.95 X 10*3/uL (4.50-10.00)
[2023-09-13] MEDS: DOCUSATE 100 MG CAP PO SCH (10:21)
[2023-09-13] MEDS: FERROUS SULFATE 325 MG TAB PO SCH (10:21)
[2023-09-13] MEDS: GABAPENTIN 300 MG CAP PO SCH (10:21)
[2023-09-13] MEDS: CHOLECALCIFEROL 25 MCG (1000 IU) TABLET PO SCH (10:21)
[2023-09-13] MEDS: SERTRALINE 100 MG TAB PO SCH (10:21)
[2023-09-13] MEDS: ASPIRIN 81 MG PO SCH (10:21)
[2023-09-13 10:44] LABS: Blood Urea Nitrogen 26.1 mg/dL (9.0-27.0); Calcium 8.7 mg/dL (8.7-10.3); Carbon Dioxide 17.5 mmol/L (21.6-31.8); Chloride 110 mmol/L (96-109); Glucose 103 mg/dL (70-110); Potassium 4.2 mmol/L (3.5-5.5); Sodium 140 mmol/L (135-145)
--- NOTE | 2023-09-13 11:21 | P.PN ---
Subjective Progress Note Date: 09/13/23 * 87-year-old patient with past medical history significant for anxiety, history of dementia, chronic pain, osteoarthritis presents to the emergency department with complaints of neck discomfort, patient had symptom onset 48 hours prior to presentation. Patient states her symptoms have been getting worse and having difficulty moving her neck. Patient does have history of arthritis. Patient states she has been getting weak and had several falls over the past week. * Workup initiated in ER included CT of the neck which showed degenerative disease of cervical spine no acute osseous abnormality noted * Blood work obtained in ER showed WBC count of 16.8 hemoglobin 12.5 platelet count of 251 * Serum chemistry showed sodium 136 potassium 4.6, dissectible BUN 40 creatinine 1 glucose 118 albumin 3.2 * Patient admitted to medical floor with consultation of physical therapy Occupational Therapy for placement * 09/13/2023: Patient seen and evaluated bedside, daughter at bedside, care plan discussed patient would need to go to rehab facility patient not safe to live by herself. WBC count trending down CRP elevated procalcitonin minimally elevated no source of infection noted chest x-ray negative urine analysis inconclusive for UTI. Etiology for elevated CRP likely secondary to osteoarthritis. Orthospine consulted as well waiting for evaluation REVIEW OF SYSTEMS: Neck pain, weakness, fall CONSTITUTIONAL: No fever, no malaise, no fatigue. HEENT: No recent visual problems or hearing problems. Denied any sore throat. CARDIOVASCULAR: No chest pain, orthopnea, PND, no palpitations, no syncope. PULMONARY: No shortness of breath, no cough, no hemoptysis. GASTROINTESTINAL: No diarrhea, no nausea, no vomiting, no abdominal pain. NEUROLOGICAL: No headaches, no weakness, no numbness. HEMATOLOGICAL: Denies any bleeding or petechiae. GENITOURINARY: Denies any burning micturition, frequency, or urgency. MUSCULOSKELETAL/RHEUMATOLOGICAL: Neck pain, weakness, fall ENDOCRINE: Denies any polyuria or polydipsia. PHYSICAL EXAMINATION: GENERAL: The patient is alert and oriented x3, Well developed, well nourished. HEENT: Pupils are round and equally reacting to light. EOMI. CARDIOVASCULAR: S1 and S2 present. No murmurs, rubs, or gallops. PULMONARY: Chest is clear to auscultation, no wheezing or crackles. ABDOMEN: Soft, nontender, nondistended, normoactive bowel sounds. No palpable organomegaly. MUSCULOSKELETAL: Neck pain, tenderness on palpation, range of motion limited EXTREMITIES: No cyanosis, clubbing, or pedal edema. NEUROLOGICAL: Motor strength is 4 x 5 bilateral upper extremity, 5 x 5 left lower extremity, 4 x 5 right lower extremity SKIN: No rashes. Objective - Vital Signs Vital signs: Vital Signs Temp 98.0 F 09/13/23 07:07 Pulse 65 09/13/23 07:07 Resp 18 09/13/23 08:10 BP 163/67 09/13/23 07:07 Pulse Ox 99 09/13/23 09:36 FiO2 Intake & Output 09/12/23 09/13/23 09/13/23 18:59 06:59 18:59 Intake Total 358 Balance 358 Weight 38.555 kg Intake: Oral 358 Other: Voiding Method Toilet Toilet # Voids 7 1 - Labs CBC & Chem 7: 09/13/23 07:12 09/13/23 07:12 Labs: Abnormal Lab Results - Last 24 Hours (Table) 09/13/23 09/13/23 09/13/23 Range/Units 07:12 07:12 07:12 WBC 12.95 H (4.50-10.00) X 10*3/uL RBC 3.39 L (4.10-5.20) X 10*6/uL Hgb 11.0 L (12.0-15.0) g/dL Hct 34.4 L (37.2-46.3) % MCV 101.5 H (80.0-97.0) [place] MCH 32.4 H (27.0-32.0) pg Chloride 110 H (96-109) mmol/L Carbon Dioxide 17.5 L (21.6-31.8) mmol/L Anion Gap 12.50 H (4.00-12.00) mmol/L BUN/Creatinine Ratio 29.00 H (12.00-20.00) Ratio C-Reactive Protein 19.70 H (0.00-0.80) mg/dL Procalcitonin 0.59 H (0.02-0.09) ng/mL Assessment and Plan Assessment: Assessment and plan * 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 * Recurrent falls * History of dementia * Failure to thrive with generalized debility * Metabolic acidosis * Leukocytosis likely reactive * In regards to neck pain, consultation obtained from physical therapy to evaluate, case management for placement CT cervical spine reviewed, started lidocaine patch, orthospine consulted ,started Robaxin, pain improved * In regards to recurrent falls maintain fall precautions, physical therapy Occupational Therapy evaluation * Regards to history of dementia continue home regimen * In regards to leukocytosis follow-up on CRP elevated, procalcitonin levels mildly elevated, continue fluid resuscitation, monitor off antibiotics, likely reactive leukocytosis * CODE STATUS full code Time with Patient: Greater than 30
[2023-09-13] MEDS: SODIUM CHLORIDE 0.9% 1,000 ML IV SCH (12:02)
--- NOTE | 2023-09-13 12:19 | P.CNOR ---
History of Present Illness - [facility] Consult date: 09/13/23 Consult reason: neck pain History of present illness: History of Presenting Illness Patient is a pleasant 87 year old female who presented to the ER yesterday 09/12/2023 due to increased neck pain. It is documented that family is concerned with patient's increased weakness and frequent falls that she is unable to care for herself at home. Patient does report that her spouse is at a nursing facility, and that her family is nearby to check on her. She states she is normally independent with a walker and cares for herself at home. Patient does have medical history of GERD, muscle skeletal disorder, and history of esophageal cancer. Patient has an orthopedic history of ORIF of the right ankle, and scapular fracture. Patient denies any spinal surgeries. Patient seen and examined this morning. Patient is resting comfortably in bed, sitting upright eating breakfast. Patient reports that her pain has improved since her admission. She currently rates her pain as 0 out of 10. Patient able to rotate cervical spine without difficulty. Patient is currently denying any weakness of the upper extremities or numbness and tingling. Patient states that she is being discharged to rehab. CT of the cervical spine taken 09/12/23 demonstrates scattered degenerative changes with no acute osseous abnormalities. Review of Systems Pertinent positives and negatives as discussed in HPI, a complete review of systems was performed and all other systems are negative. Physical Examination General: The patient is awake and alert, in no acute distress Skin: Skin is warm and dry with no obvious rashes or lesions. Eye: Pupils are equal, round and reactive to light, extra-ocular movements are intact; there is normal conjunctiva bilaterally. Neck: The neck is supple, there is no tenderness and ROM intact. Cardiovascular: There is a regular rate and rhythm. No murmur, rub or gallop is appreciated. Respiratory: Lungs are clear to auscultation, respirations are non-labored, breath sounds are equal. Gastrointestinal: Soft, non-distended, non-tender abdomen. Back: There is no tenderness to palpation in the midline, paralumbar, parathoracic or buttocks region. There is no obvious deformity. Musculoskeletal: ROM limited secondary to pain and stiffness from surgical procedure. Shoulder abduction 4/5, elbow flexors 4/5, wrist dorsiflexors 4/5. finger abductor 4/5, senior energy trader 4/5, hip flexor 5/5, knee flexor 5/5, ankle dorsiflexor 5/5, ankle plantarflexion 5/5 and extensor hallucis 5/5. Neurological: CN 2-12 intact. There are no obvious motor or sensory deficits. Movement and coordination equal and intact. Sensory exam to light touch intact C5-T1 and intact from L2-S1. Reflexes 2/4 in bilateral upper and lower extremities. Negative Hoffmans, babinski, and clonus signs. Psychiatric: Cooperative, appropriate mood & affect, normal judgment. Assessment and Plan At this time we do not recommend any emergent/urgent orthopedic surgical intervention. Patient may follow-up with Dr. Basilio office for further evaluation as needed. Orthopedics is signing off at this time. Please do not hesitate to contact us for any further questions. 2. Appreciate medical management 3. Pain management - continue with conservative treatment 4. GI prophylaxis - Colace, Senna 5. DVT prophylaxis - Lovenox 6. PT/OT - weightbearing as tolerated with a walker as needed. Patient will benefit from ALEAH at discharge. 7. Appreciate consult I reviewed and discussed this case with my attending Dr. Basilio, whom has reviewed this chart and films and is in agreement with assessment and plan of care as outlined above. I have personally seen and examined the patient, performed the documentation and the assessment and plan as written. Number of minutes spent on the visit: 30m. Past Medical History Past Medical History: Cancer, GERD/Reflux, Musculoskeletal Disorder Additional Past Medical History / Comment(s): hx of shingles 2001, hx. esophageal cancer, recent fall w/lots of bruises,. Fx scapula - May 2017 History of Any Multi-Drug Resistant Organisms: None Reported Past Surgical History: No Surgical Hx Reported, Joint Replacement Additional Past Surgical History / Comment(s): ESOPHAGECTOMY. BILATERAL CATARACTS, prolapsed rectum surgery, status post open reduction and internal fix ation right bimalleolar ankle Past Anesthesia/Blood Transfusion Reactions: No Reported Reaction Past Psychological History: Anxiety, Depression Smoking Status: Former smoker Past Alcohol Use History: Occasional Past Drug Use History: None Reported - Past Family History Daughter(s) Family Medical History: Cancer Additional Family Medical History / Comment(s): colon CA Mother Family Medical History: No Reported History Additional Family Medical History / Comment(s): Mother was healthy Father Family Medical History: No Reported History Additional Family Medical History / Comment(s): Father was healthy Medications and Allergies Home Medications Medication Instructions Recorded Confirmed Type Donepezil [Aricept] 10 mg PO DAILY 10/05/17 09/12/23 History Sertraline HCl [Zoloft] 200 mg PO DAILY 10/05/17 09/12/23 History LORazepam [Ativan] 0.5 mg PO DAILY PRN 08/15/22 09/12/23 History Docusate [Colace] 100 mg PO BID #60 capsule 12/18/22 09/12/23 Rx Gabapentin [Neurontin] 300 mg PO BID #6 cap 12/21/22 09/12/23 Rx Aspirin 81 mg PO DAILY #60 tab 01/17/23 09/12/23 Rx HYDROcodone/APAP 5-325MG [[place] 1 tab PO Q6HR PRN 02/04/23 09/12/23 History 5-325] Cholecalciferol [Vitamin D3 (25 50 mcg PO DAILY 09/12/23 09/12/23 History Mcg = 1000 Iu)] Ferrous Sulfate [Feosol] 325 mg PO DAILY 09/12/23 09/12/23 History traMADol HCL 50 mg PO Q6H PRN 09/12/23 09/12/23 History traZODone HCL [Desyrel] 50 mg PO HS PRN 09/12/23 09/12/23 History Allergies Allergy/AdvReac Type Severity Reaction Status Date / Time codeine Allergy Unknown Verified 09/12/23 13:09 diclofenac [From Voltaren] AdvReac dizziness Verified 09/12/23 13:09 Results - Labs Labs: Abnormal Lab Results - Last 24 Hours (Table) 09/12/23 09/12/23 09/12/23 Range/Units 09:32 09:32 10:44 WBC 16.8 H (3.8-10.6) k/uL RBC 3.79 L (3.80-5.40) m/uL MCV 104.2 H (80.0-100.0) fL Neutrophils # 14.1 H (1.3-7.7) k/uL Sodium 136 L (137-145) mmol/L Chloride 112 H (98-107) mmol/L Carbon Dioxide 12 L (22-30) mmol/L BUN 40 H (7-17) mg/dL Glucose 118 H (74-99) mg/dL Albumin 3.2 L (3.5-5.0) g/dL Urine Protein Trace H (Negative) Urine Blood Small H (Negative) Urine Bacteria Rare H (None) /hpf Hyaline Casts 3 H (0-2) /lpf Urine Mucus Rare H (None) /hpf H & H 09/12/23 Range/Units 09:32 Hgb 12.5 (11.4-16.0) gm/dL Hct 39.5 (34.0-46.0) % Coagulation 09/12/23 Range/Units 09:32 INR 0.9 (<1.2) Result Diagrams: 09/13/23 07:12 09/13/23 07:12
[2023-09-13 12:58] VITALS: BMI 16.6
[2023-09-13] MEDS: ACETAMINOPHEN TAB 325 MG TAB PO PRN (16:35)
[2023-09-14 08:46] VITALS: TEMP 98.2
--- NOTE | 2023-09-14 10:13 | P.DS ---
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 Patient will follow-up with Dr. Hylton in the outpatient setting upon discharge. Patient is to continue with current medications and outpatient follow-up with orthopedics as needed. Recommend repeat labs in the next few days to monitor CBC, BMP, magnesium. Total time taken is greater than 35 minutes. Hospital course This is a 87-year-old female who was recently admitted with complaints of significant neck and back pain that had been progressing over the last few days. Patient has been having difficulty moving her back and neck and difficulty with ambulating and having several falls over the last week. Patient does live by herself and has a son that lives in the home who is there sometimes but does work. Patient was evaluated by physical therapy recommending rehab and patient along with family is agreeable as he feels she is not safe to return home at this time. Patient did have mildly elevated white count and most recent was 12 with no signs of infection, fever, and urinalysis was negative, most likely reactive and recommend follow-up labs in the next few days to monitor CBC, BMP, magnesium. Patient with generalized weakness would benefit from ECF and insurance initially requesting peer to peer review which was approved. Patient will be going to [facility] for continued strength and mobility. Please refer to other documentation for further HPI. Patient to follow-up with orthopedics outpatient as needed with no plans of surgical intervention at this time. Currently no reports of chest pain, shortness of breath, or palpitations. Patie nt is afebrile. No reports of nausea or vomiting and patient is tolerating diet. Patient will be going to [facility] today. Physical exam: Gen: This is a 87-year-old female who is awake, alert and oriented x 2, baseline, thin built, elderly appearing, well-developed HEENT: Head is atraumatic, normocephalic. Pupils equal, round. Sclerae is anicteric. NECK: Supple. No JVD. No lymphadenopathy. No thyromegaly. LUNGS: Diminished breath sounds bilaterally otherwise clear to auscultation. No wheezes or rhonchi. No intercostal retractions. HEART: Regular rate and rhythm. No murmur. ABDOMEN: Soft. Bowel sounds are present. No masses. No tenderness. EXTREMITIES: No pedal edema. No calf tenderness. NEUROLOGICAL: Patient is awake, alert and oriented x2. Cranial nerves 2 through 12 are grossly intact. Diffusely weak Please refer to medication reconciliation sheet for a list of medications. The impression and plan of care has been dictated by Maliha Jimenez, Nurse Practitioner as directed. Dr. Curly MD I have performed a history and examination and MDM of this patient, discussed the same with the dictator, and agree with the dictator's assessment and plan as written ,documented as a scribe. Based on total visit time, I have performed more than 50% of the visit. Patient Condition at Discharge: Fair Plan - Discharge Summary New Discharge Prescriptions: No Action Sertraline HCl [Zoloft] 200 mg PO DAILY Donepezil [Aricept] 10 mg PO DAILY Docusate [Colace] 100 mg PO BID #60 capsule HYDROcodone/APAP 5-325MG [[place] 5-325] 1 tab PO Q6HR PRN PRN Reason: Pain traZODone HCL [Desyrel] 50 mg PO HS PRN PRN Reason: Insomnia traMADol HCL 50 mg PO Q6H PRN PRN Reason: Pain LORazepam [Ativan] 0.5 mg PO DAILY PRN PRN Reason: Severe Anxiety Gabapentin [Neurontin] 300 mg PO BID #6 cap Aspirin 81 mg PO DAILY #60 tab Ferrous Sulfate [Feosol] 325 mg PO DAILY Cholecalciferol [Vitamin D3 (25 Mcg = 1000 Iu)] 50 mcg PO DAILY Discharge Medication List Donepezil [Aricept] 10 mg PO DAILY 10/05/17 [History] Sertraline HCl [Zoloft] 200 mg PO DAILY 10/05/17 [History] LORazepam [Ativan] 0.5 mg PO DAILY PRN 08/15/22 [History] Docusate [Colace] 100 mg PO BID #60 capsule 12/18/22 [Rx] Gabapentin [Neurontin] 300 mg PO BID #6 cap 12/21/22 [Rx] Aspirin 81 mg PO DAILY #60 tab 01/17/23 [Rx] HYDROcodone/APAP 5-325MG [[place] 5-325] 1 tab PO Q6HR PRN 02/04/23 [History] Cholecalciferol [Vitamin D3 (25 Mcg = 1000 Iu)] 50 mcg PO DAILY 09/12/23 [History] Ferrous Sulfate [Feosol] 325 mg PO DAILY 09/12/23 [History] traMADol HCL 50 mg PO Q6H PRN 09/12/23 [History] traZODone HCL [Desyrel] 50 mg PO HS PRN 09/12/23 [History] Follow up Appointment(s)/Referral(s): Mike Hylton MD [Primary Care Provider] - 1-2 days Pat Coburn NPC [Nurse Practitioner] - As Needed
[2023-09-14 11:09] LABS: HCT 36.7 % (37.2-46.3); HGB 11.7 g/dL (12.0-15.0); MCH 32.6 pg (27.0-32.0); MCHC 31.9 g/dL (32.0-37.0); MCV 102.2 FL (80.0-97.0); Mean Platelet Volume 11.2 FL (9.5-12.2); NRBC Per 100 WBC 0 X 10*3/uL (0.00-0.01); Platelet Count 272 X 10*3/uL (140-440); RBC 3.59 X 10*6/uL (4.10-5.20); RDW 14.6 % (11.5-14.5); WBC 11.15 X 10*3/uL (4.50-10.00)
[2023-09-14 11:21] LABS: BUN/Creat Ratio 26.38 Ratio (12.00-20.00); Blood Urea Nitrogen 21.1 mg/dL (9.0-27.0); Calcium 8.9 mg/dL (8.7-10.3); Carbon Dioxide 18.9 mmol/L (21.6-31.8); Chloride 110 mmol/L (96-109); Glucose 87 mg/dL (70-110); Potassium 4.7 mmol/L (3.5-5.5); Sodium 140 mmol/L (135-145)
[2023-09-14 17:04] VITALS: BP 156/86; PULSE 62; RESP 19
== END 2023-09-14 21:26 ==
LOC: EC 08:52 → 4SSUR 11:29
PROVIDERS: ADMIT Internal Medicine; ATTEND Internal Medicine
DX: M47.812 Spondylosis without myelopathy or radiculopathy, cervical region (principal); M50.30 Other cervical disc degeneration, unspecified cervical region; F03.90 Unspecified dementia, unspecified severity, without behavioral disturbance, psychotic disturbance, mood disturbance, and anxiety; R62.7 Adult failure to thrive; E87.20 Acidosis, unspecified; D72.829 Elevated white blood cell count, unspecified; R29.6 Repeated falls; E44.0 Moderate protein-calorie malnutrition; K21.9 Gastro-esophageal reflux disease without esophagitis; Z85.01 Personal history of malignant neoplasm of esophagus; Z68.1 Body mass index [BMI] 19.9 or less, adult; Z79.899 Other long term (current) drug therapy; Z79.82 Long term (current) use of aspirin; Z88.5 Allergy status to narcotic agent; Z88.8 Allergy status to other drugs, medicaments and biological substances
CPT/HCPCS: 96365; 96372 ×2; 99285; 36415; 94760; 93005; 97161; 97166; 80053; 80048 ×2; 83735; 84484; 85025; 85027 ×2; 85610; 85730; 86140 ×2; 81001; 84145; 71046; 72125; G0378 ×3; J1650 ×2; J2270

== ENCOUNTER 2024-06-24 14:24 | Observation (INO) | payer MEDICARE, OTHER ==
--- NOTE | 2024-06-24 15:41 | ED ---
Altered Mental Status HPI - General Chief Complaint: Altered Mental Status Stated Complaint: AMS Time Seen by Provider: 06/24/24 15:16 Source: family, EMS Mode of arrival: EMS Limitations: altered mental status - History of Present Illness Initial Comments: This patient is an 88-year-old woman who is here from her senior apartment to have evaluation for a change from her baseline. The patient is accompanied by granddaughter who states that the patient usually gets herself up, dresses and is ready for her day sometime before lunch. Today the patient did not want to get out of bed. She was wanting to sleep through lunchtime. They do note that she had seem to be urinating frequently in the morning. When I interviewed the patient, she does complain that she feels thirsty. She does complain that she feels tired. She denies any pain. She denies dyspnea. She denies focal weakness. MD Complaint: altered mental status Onset/Timin -: hour(s) Severity: moderate Consistency of Symptoms: getting worse Associated Symptoms: denies other symptoms - Related Data Home Medications Medication Instructions Recorded Confirmed Donepezil [Aricept] 10 mg PO HS 10/05/17 06/24/24 Sertraline HCl [Zoloft] 200 mg PO DAILY 10/05/17 06/24/24 Cholecalciferol [Vitamin D3 (25 50 mcg PO DAILY 09/12/23 06/24/24 Mcg = 1000 Iu)] traZODone HCL [Desyrel] 25 mg PO HS 09/12/23 06/24/24 ARIPiprazole [Abilify] 2 mg PO DAILY@0800 06/24/24 06/24/24 Acetaminophen [Tylenol 8 Hour] 650 mg PO Q6H PRN 06/24/24 06/24/24 Acetaminophen [Tylenol 8 Hour] 650 mg PO TID@06/24/24 06/24/24 Gabapentin [Neurontin] 300 mg PO TID@,,06/24/24 06/24/24 HYDROcodone/APAP 5-325MG [[place] 1 tab PO Q6H PRN 06/24/24 06/24/24 5-325] Hydroxocobalamin Acetate Solution 1,000 mcg IM FR 06/24/24 06/24/24 1,000mcg LORazepam [Ativan] 0.5 mg PO DAILY@0800 06/24/24 06/24/24 Naloxone HCl [Narcan] 4 mg NASAL ONCE PRN 06/24/24 06/24/24 methocarbamoL [Robaxin] 500 mg PO QID@08,12,16,20 06/24/24 06/24/24 polyethylene glycoL 3350 [Miralax] 17 gm PO DAILY@0800 06/24/24 06/24/24 traMADol HCL 50 mg PO TID@05,,06/24/24 06/24/24 Previous Rx's Medication Instructions Recorded Docusate [Colace] 100 mg PO BID #60 capsule 12/18/22 Aspirin 81 mg PO DAILY #60 tab 01/17/23 Allergies Allergy/AdvReac Type Severity Reaction Status Date / Time codeine Allergy Unknown Verified 06/24/24 15:07 diclofenac [From Voltaren] AdvReac dizziness Verified 06/24/24 15:07 Review of Systems ROS Statement: Those systems with pertinent positive or pertinent negative responses have been documented in the HPI. ROS Other: All systems not noted in ROS Statement are negative. Constitutional: Reports: weakness. Denies: fever, chills Eyes: Denies: vision change Respiratory: Denies: cough, dyspnea Cardiovascular: Denies: chest pain, palpitations, orthopnea, syncope Gastrointestinal: Denies: abdominal pain, vomiting, diarrhea, constipation Genitourinary: Reports: frequency. Denies: dysuria Musculoskeletal: Denies: back pain Skin: Denies: rash Neurological: Reports: confusion. Denies: headache, weakness, numbness Past Medical History Past Medical History: Cancer, GERD/Reflux, Musculoskeletal Disorder Additional Past Medical History / Comment(s): hx of shingles 2001, hx. esophageal cancer, recent fall w/lots of bruises,. Fx scap - May 2017 History of Any Multi-Drug Resistant Organisms: None Reported Past Surgical History: No Surgical Hx Reported, Joint Replacement Additional Past Surgical History / Comment(s): ESOPHAGECTOMY. BILATERAL CATARACTS, prolapsed rectum surgery, status post open reduction and internal fixation right bimalleolar ankle Past Anesthesia/Blood Transfusion Reactions: No Reported Reaction Past Psychological History: Anxiety, Depression Smoking Status: Former smoker Past Alcohol Use History: Occasional Past Drug Use History: None Reported - Past Family History Daughter(s) Family Medical History: Cancer Additional Family Medical History / Comment(s): colon CA Mother Family Medical History: No Reported History Additional Family Medical History / Comment(s): Mother was healthy Father Family Medical History: No Reported History Additional Family Medical History / Comment(s): Father was healthy General Exam Limitations: altered mental status General appearance: alert, in no apparent distress Head exam: Present: atraumatic, normocephalic Eye exam: Present: normal appearance. Absent: scleral icterus, conjunctival injection ENT exam: Present: mucous membranes dry Neck exam: Present: normal inspection, full ROM Respiratory exam: Present: normal lung sounds bilaterally. Absent: respiratory distress, wheezes, rales, rhonchi, stridor, accessory muscle use Cardiovascular Exam: Present: regular rate, normal rhythm, normal heart sounds. Absent: systolic murmur, diastolic murmur, rubs, gallop GI/Abdominal exam: Present: soft. Absent: distended, tenderness, guarding, rebound, rigid, mass Extremities exam: Present: normal inspection, normal capillary refill. Absent: pedal edema, calf tenderness Back exam: Present: normal inspection. Absent: CVA tenderness (R), CVA tenderness (L) Neurological exam: Present: alert, CN II-XII intact. Absent: oriented X3 (Patient is disoriented to date), motor sensory deficit Skin exam: Present: warm, dry, intact, normal color. Absent: rash Course Vital Signs 06/24/24 14:39 Temperature 98.0 F Pulse Rate 62 Respiratory 16 Rate Blood Pressure 159/81 O2 Sat by Pulse 95 Oximetry Medical Decision Making - EKG Data -: EKG Interpreted by [place] EKG shows normal: sinus rhythm (With frequent premature supraventricular complexes), intervals (VT interval 148 ms, normal. QRS duration 124 ms, consistent with intraventricular conduction delay. QT interval 569 ms, prolonged.), QRS complexes (Intraventricular conduction delay) Rate: normal (Rate 73 bpm) Disposition Referrals: Mike Hylton MD [Primary Care Provider] - 1-2 days
--- NOTE | 2024-06-24 16:12 | XR ---
EXAMINATION TYPE: XR chest 2V DATE OF EXAM: 06/24/2024 4:06 PM COMPARISON: Chest radiographs from 09/12/2023 CLINICAL INDICATION: Female, 88 years old with history of altered mental status; [facility] TECHNIQUE: XR chest 2V Frontal and lateral views of the chest. FINDINGS: Lungs/Pleura: There is no evidence of pleural effusion, focal consolidation, or pneumothorax. Pulmonary vascularity: Unremarkable. Heart/mediastinum: Cardiomediastinal silhouette is unremarkable. Musculoskeletal: No acute osseous pathology. Other findings: None IMPRESSION: No acute cardiopulmonary disease/process. [facility], , 06/24/2024 4:09 PM
[2024-06-24 16:35] LABS: Glucose,Whole Blood 105 mg/dL (70-110)
--- NOTE | 2024-06-24 16:38 | CT ---
EXAMINATION TYPE: CT brain wo con DATE OF EXAM: 06/24/2024 4:31 PM COMPARISON: Previous CT study dated 02/27/2022.. CLINICAL INDICATION: Female, 88 years old with history of Altered mental status, AMS TECHNIQUE: Brain: Axial CT images of the brain were obtained with coronal and sagittal reformats created and rev iewed. Contrast used: None. Oral contrast used: None. CT DLP: 1110.4 mGycm, Automated exposure control for dose reduction was used. FINDINGS: Brain: No acute intracranial hemorrhage, midline shift or significant acute mass effect. No sizable extra ax ial fluid collection. Ventricles and sulci are prominent compatible with generalized cerebral volume loss. Patchy periventricular and subcortical white matter hypoattenuation likely reflecting chronic m icrovascular ischemic disease. Basal cisterns appear patent. Paranasal sinuses and mastoid air cells are grossly patent. No depressed calvarial fracture. No large scalp hematoma. IMPRESSION: No acute intracranial process. [facility], , 06/24/2024 4:35 PM
[2024-06-24 16:54] LABS: Basophils # (A) 0.1 k/uL (0-0.2); Basophils % (A) 1 %; Eosinophils # (A) 0.2 k/uL (0-0.7); Eosinophils % (A) 2 %; HCT 43.8 % (34.0-46.0); HGB 13.6 gm/dL (11.4-16.0); Hypochromasia Marked; Lymphocytes # (A) 3.7 k/uL (1.0-4.8); Lymphocytes % (A) 32 %; MCH 32.8 pg (25.0-35.0); MCHC 31.1 g/dL (31.0-37.0); MCV 105.2 fL (80.0-100.0); Macrocytosis Slight; Mean Platelet Volume 7.2; Monocytes # (A) 0.8 k/uL (0-1.0); Monocytes % (A) 7 %; Neutrophils # (A) 6.6 k/uL (1.3-7.7); Neutrophils % (A) 57 %; Platelet Count 268 k/uL (150-450); RBC 4.17 m/uL (3.80-5.40); RDW 12.7 % (11.5-15.5); WBC 11.6 k/uL (3.8-10.6)
[2024-06-24 17:10] LABS: ALT 12 U/L (4-34); AST 26 U/L (14-36); African American GFR (CKD) 79 (>60 ml/min/1.73 sqM); Albumin 3.7 g/dL (3.5-5.0); Alkaline Phosphatase 93 U/L (38-126); Anion Gap 7 mmol/L; Blood Urea Nitrogen 27 mg/dL (7-17); Calcium 9.2 mg/dL (8.4-10.2); Carbon Dioxide 22 mmol/L (22-30); Chloride 110 mmol/L (98-107); Glucose 110 mg/dL (74-99); Non-African American GFR(CKD) 69 (>60 ml/min/1.73 sqM); Potassium 4.5 mmol/L (3.5-5.1); Sodium 139 mmol/L (137-145); Total Bilirubin 0.5 mg/dL (0.2-1.3); Total Protein 7.1 g/dL (6.3-8.2)
[2024-06-24 17:14] LABS: INR 0.9 (<1.2); Prothrombin Time 10.1 sec (10.0-12.5)
[2024-06-24 17:17] LABS: Partial Thromboplastin Time 19.6 sec (22.0-30.0)
[2024-06-24 20:02] LABS: Appearance,Urine Clear (Clear); Bilirubin,Urine Negative (Negative); Blood,Urine Negative (Negative); Color,Urine Colorless; Glucose,Urine (UA) Negative (Negative); Ketones,Urine Negative (Negative); Leukocyte Esterase,Urine Negative (Negative); Nitrite,Urine Negative (Negative); Protein,Urine Negative (Negative); Specific Gravity,Urine 1.009 (1.001-1.035); Urobilinogen,Urine <2.0 mg/dL (<2.0)
[2024-06-24] MEDS ORDERED: NALOXONE 0.4 MG/ML 1 ML VIAL IV PRN (20:38)
[2024-06-24] MEDS: SODIUM CHLORIDE 0.9% 1,000 ML IV SCH (21:42)
[2024-06-24] MEDS: DOCUSATE 100 MG CAP PO SCH (21:50)
[2024-06-24] MEDS: DONEPEZIL 10 MG TAB PO SCH (21:50)
[2024-06-24] MEDS: traZODone HCL 50 MG TAB PO SCH (21:51)
[2024-06-24] MEDS: GABAPENTIN 300 MG CAP PO SCH (21:52)
[2024-06-25] MEDS: ARIPiprazole 2 MG TAB PO SCH (08:08)
[2024-06-25] MEDS: polyethylene glycoL 3350 17 GM POWD.PACK PO SCH (08:08)
[2024-06-25] MEDS: SERTRALINE 100 MG TAB PO SCH (08:08)
[2024-06-25] MEDS: ASPIRIN 81 MG PO SCH (08:08)
[2024-06-25] MEDS: CHOLECALCIFEROL 25 MCG (1000 IU) TABLET PO SCH (08:08)
[2024-06-25 08:51] VITALS: RESP 16
[2024-06-25] MEDS: ACETAMINOPHEN TAB 325 MG TAB PO PRN (10:43)
--- NOTE | 2024-06-25 13:07 | P.HPIM ---
History of Present Illness 88-year-old female was sent in from [facility] reported on as patient is excessively sleepy and patient is admitted for altered mental status although workup is negative including septic workup. UA is within normal limits chest x- ray did not show any pneumonia patient is alert oriented x 2 which is her baseline patient is presently at her baseline. Patient on multiple medications that can cause drowsiness and sleepiness and at her age including [place], tramadol, Ativan, trazodone, Robaxin. Patient has a history of dementia REVIEW OF SYSTEMS: All other systems are negative except those mentioned in the HPI PHYSICAL EXAMINATION: GENERAL: The patient is alert and oriented x2, not in any acute distress. Well developed, well nourished. HEENT: Pupils are round and equally reacting to light. EOMI. No scleral icterus. No conjunctival pallor. Normocephalic, atraumatic. No pharyngeal erythema. No thyromegaly. CARDIOVASCULAR: S1 and S2 present. No murmurs, rubs, or gallops. PULMONARY: Chest is clear to auscultation, no wheezing or crackles. ABDOMEN: Soft, nontender, nondistended, normoactive bowel sounds. No palpable organomegaly. MUSCULOSKELETAL: No joint swelling or deformity. EXTREMITIES: No cyanosis, clubbing, or pedal edema. NEUROLOGICAL: Gross neurological examination did not reveal any focal deficits. SKIN: No rashes. Assessment and plan -Altered mental status secondary to toxic encephalopathy from medications rule out sepsis or any other electrolyte abnormalities. Will discontinue [place] and Ativan if she continues to be drowsy and sleepy all confused consider discontinuing tramadol, gabapentin, Robaxin, trazodone. -Vascular dementia for which he is on donepezil which can be continued -Depression continue with sertraline -Peripheral neuropathy for which patient is on gabapentin Patient will be discharged back to [facility] [place] Past Medical History Past Medical History: Cancer, GERD/Reflux, Musculoskeletal Disorder Additional Past Medical History / Comment(s): hx of shingles 2001, hx. esophageal cancer, hx. multiple falls. Fx - May 2017 History of Any Multi-Drug Resistant Organisms: None Reported Past Surgical History: No Surgical Hx Reported, Joint Replacement Additional Past Surgical History / Comment(s): ESOPHAGECTOMY. BILATERAL CATARACTS, prolapsed rectum surgery, status post open reduction and internal fixation right bimalleolar ankle Past Anesthesia/Blood Transfusion Reactions: No Reported Reaction Past Psychological History: Anxiety, Depression Smoking Status: Former smoker Past Alcohol Use History: Occasional Past Drug Use History: None Reported - Past Family History Daughter(s) Family Medical History: Cancer Additional Family Medical History / Comment(s): colon CA Mother Family Medical History: No Reported History Additional Family Medical History / Comment(s): Mother was healthy Father Family Medical History: No Reported History Additional Family Medical History / Comment(s): Father was healthy Medications and Allergies Home Medications Medication Instructions Recorded Confirmed Type Donepezil [Aricept] 10 mg PO HS 10/05/17 06/24/24 History Sertraline HCl [Zoloft] 200 mg PO DAILY 10/05/17 06/24/24 History Docusate [Colace] 100 mg PO BID #60 capsule 12/18/22 06/24/24 Rx Aspirin 81 mg PO DAILY #60 tab 01/17/23 06/24/24 Rx Cholecalciferol [Vitamin D3 (25 50 mcg PO DAILY 09/12/23 06/24/24 History Mcg = 1000 Iu)] traZODone HCL [Desyrel] 25 mg PO HS 09/12/23 06/24/24 History ARIPiprazole [Abilify] 2 mg PO DAILY@0800 06/24/24 06/24/24 History Acetaminophen [Tylenol 8 Hour] 650 mg PO Q6H PRN 06/24/24 06/24/24 History Acetaminophen [Tylenol 8 Hour] 650 mg PO TID@,,06/24/24 06/24/24 History Gabapentin [Neurontin] 300 mg PO TID@,,06/24/24 06/24/24 History Hydroxocobalamin Acetate Solution 1,000 mcg IM FR 06/24/24 06/24/24 History 1,000mcg Naloxone HCl [Narcan] 4 mg NASAL ONCE PRN 06/24/24 06/24/24 History methocarbamoL [Robaxin] 500 mg PO QID@08,12,16,20 06/24/24 06/24/24 History polyethylene glycoL 3350 [Miralax] 17 gm PO DAILY@0800 06/24/24 06/24/24 History traMADol HCL 50 mg PO TID@,,21 06/24/24 06/24/24 History Gabapentin [Neurontin] 300 mg PO TID@ #10 cap 06/25/24 Rx Allergies Allergy/AdvReac Type Severity Reaction Status Date / Time codeine Allergy Unknown Verified 06/24/24 15:07 diclofenac [From Voltaren] AdvReac dizziness Verified 06/24/24 15:07 Physical Exam Vitals: Vital Signs Temp Pulse Pulse Resp BP BP Pulse Ox 06/25/24 07:38 97.5 F L 96 16 100/52 92 L 06/25/24 05:29 96 06/25/24 05:25 69 104/63 91 L 06/25/24 01:16 98.4 F 76 19 93/57 91 L 06/24/24 22:48 97.8 F 75 18 154/81 94 L 06/24/24 21:56 97.8 F 65 18 155/82 94 L 06/24/24 19:18 62 16 149/82 95 06/24/24 14:39 98.0 F 62 16 159/81 95 Intake and Output 06/24/24 06/25/24 06/25/24 22:59 06:59 14:59 Intake Total 240 Output Total 710 Balance -710 240 Intake: Other 240 Output: Urine 710 Straight 710 Other: Voiding Method Toilet # Voids 1 1 # Bowel Movements 1 1 Weight 39.009 kg Results CBC & Chem 7: 06/24/24 16:40 06/24/24 16:26 Labs: Abnormal Lab Results - Last 24 Hours (Table) 06/24/24 06/24/24 06/24/24 Range/Units 16:26 16:26 16:40 WBC 11.6 H (3.8-10.6) k/uL MCV 105.2 H (80.0-100.0) fL APTT 19.6 L (22.0-30.0) sec Chloride 110 H (98-107) mmol/L BUN 27 H (7-17) mg/dL Glucose 110 H (74-99) mg/dL Thrombosis Risk Factor Assmnt - Choose All That Apply Any of the Below Risk Factors Present?: No Other Risk Factors: Yes Each Risk Factor Represents 3 Points: Age 75 years or older Other congenital or acquired thrombophilia - If yes, enter type in comment: No Thrombosis Risk Factor Assessment Total Risk Factor Score: 3 Thrombosis Risk Factor Assessment Level: Moderate Risk
--- NOTE | 2024-06-25 14:41 | P.DS ---
Providers Date of admission: 06/24/24 20:38 Attending physician: Mamadou Hatfield Primary care physician: Mike Hylton Hospital Course: History of Present Illness 88-year-old female was sent in from [facility] reported on as patient is excessively sleepy and patient is admitted for altered mental status although workup is negative including septic workup. UA is within normal limits chest x- ray did not show any pneumonia patient is alert oriented x 2 which is her baseline patient is presently at her baseline. Patient on multiple medications that can cause drowsiness and sleepiness and at her age including [place], tramadol, Ativan, trazodone, Robaxin. Patient has a history of dementia REVIEW OF SYSTEMS: All other systems are negative except those mentioned in the HPI PHYSICAL EXAMINATION: GENERAL: The patient is alert and oriented x2, not in any acute distress. Well developed, well nourished. HEENT: Pupils are round and equally reacting to light. EOMI. No scleral icterus. No conjunctival pallor. Normocephalic, atraumatic. No pharyngeal erythema. No thyromegaly. CARDIOVASCULAR: S1 and S2 present. No murmurs, rubs, or gallops. PULMONARY: Chest is clear to auscultation, no wheezing or crackles. ABDOMEN: Soft, nontender, nondistended, normoactive bowel sounds. No palpable organomegaly. MUSCULOSKELETAL: No joint swelling or deformity. EXTREMITIES: No cyanosis, clubbing, or pedal edema. NEUROLOGICAL: Gross neurological examination did not reveal any focal deficits. SKIN: No rashes. Assessment and plan -Altered mental status secondary to toxic encephalopathy from medications rule out sepsis or any other electrolyte abnormalities. Will discontinue [place] and Ativan if she continues to be drowsy and sleepy all confused consider discontinuing tramadol, gabapentin, Robaxin, trazodone. -Vascular dementia for which he is on donepezil which can be continued -Depression continue with sertraline -Peripheral neuropathy for which patient is on gabapentin Patient will be discharged back to [facility] [place] Plan - Discharge Summary Discharge Rx Participant: Yes New Discharge Prescriptions: New Gabapentin [Neurontin] 300 mg PO TID@05,13,21 #10 cap Continue Sertraline HCl [Zoloft] 200 mg PO DAILY Donepezil [Aricept] 10 mg PO HS Docusate [Colace] 100 mg PO BID #60 capsule traZODone HCL [Desyrel] 25 mg PO HS Acetaminophen [Tylenol 8 Hour] 650 mg PO Q6H PRN PRN Reason: Pain Or Fever > 100.5 Gabapentin [Neurontin] 300 mg PO TID@,, Acetaminophen [Tylenol 8 Hour] 650 mg PO TID@,, polyethylene glycoL 3350 [Miralax] 17 gm PO DAILY@0800 ARIPiprazole [Abilify] 2 mg PO DAILY@0800 Aspirin 81 mg PO DAILY #60 tab Cholecalciferol [Vitamin D3 (25 Mcg = 1000 Iu)] 50 mcg PO DAILY Naloxone HCl [Narcan] 4 mg NASAL ONCE PRN PRN Reason: SUSPECTED OPIOID OVERDOSE methocarbamoL [Robaxin] 500 mg PO QID@,,, traMADol HCL 50 mg PO TID@,, Hydroxocobalamin Acetate Solution 1,000mcg 1,000 mcg IM FR Discontinued HYDROcodone/APAP 5-325MG [[place] 5-325] 1 tab PO Q6H PRN PRN Reason: Pain LORazepam [Ativan] 0.5 mg PO DAILY@0800 Discharge Medication List Donepezil [Aricept] 10 mg PO HS 10/05/17 [History] Sertraline HCl [Zoloft] 200 mg PO DAILY 10/05/17 [History] Docusate [Colace] 100 mg PO BID #60 capsule 12/18/22 [Rx] Aspirin 81 mg PO DAILY #60 tab 01/17/23 [Rx] Cholecalciferol [Vitamin D3 (25 Mcg = 1000 Iu)] 50 mcg PO DAILY 09/12/23 [History] traZODone HCL [Desyrel] 25 mg PO HS 09/12/23 [History] ARIPiprazole [Abilify] 2 mg PO DAILY@0800 06/24/24 [History] Acetaminophen [Tylenol 8 Hour] 650 mg PO Q6H PRN 06/24/24 [History] Acetaminophen [Tylenol 8 Hour] 650 mg PO TID@,,06/24/24 [History] Gabapentin [Neurontin] 300 mg PO TID@,,06/24/24 [History] Hydroxocobalamin Acetate Solution 1,000mcg 1,000 mcg IM FR 06/24/24 [History] Naloxone HCl [Narcan] 4 mg NASAL ONCE PRN 06/24/24 [History] methocarbamoL [Robaxin] 500 mg PO QID@08,12,16,20 06/24/24 [History] polyethylene glycoL 3350 [Miralax] 17 gm PO DAILY@0800 06/24/24 [History] traMADol HCL 50 mg PO TID@05,13,21 06/24/24 [History] Gabapentin [Neurontin] 300 mg PO TID@,, #10 cap 06/25/24 [Rx] Follow up Appointment(s)/Referral(s): Mike Hylton MD [Primary Care Provider] - 3 Days Discharge Disposition: HOME SELF-CARE
[2024-06-25 15:56] VITALS: BP 149/75; PULSE 77; TEMP 97.9
== END 2024-06-25 15:41 | disposition home or self-care (01) ==
LOC: EC 14:24 → 4SSUR 20:38
PROVIDERS: ADMIT Hospitalist; ATTEND Hospitalist
DX: G92.8 Other toxic encephalopathy (principal); T40.2X5A Adverse effect of other opioids, initial encounter; T42.4X5A Adverse effect of benzodiazepines, initial encounter; F01.53 Vascular dementia, unspecified severity, with mood disturbance; F32.A Depression, unspecified; G62.9 Polyneuropathy, unspecified; Z79.82 Long term (current) use of aspirin; Z79.891 Long term (current) use of opiate analgesic; Z79.899 Other long term (current) drug therapy; Z88.5 Allergy status to narcotic agent; Z88.6 Allergy status to analgesic agent; Z87.891 Personal history of nicotine dependence
CPT/HCPCS: 96360; 99285; 36415; 93005; 80053; 82140; 83735; 84484; 85025; 85610; 85730; 81003; 71046; 70450; G0378 ×2